=== PATIENT | female | born 1950 | race Caucasian/White ===

== ENCOUNTER 2016-05-10 08:23 | Emergency (ER) | payer OTHER ==
[2016-05-10 08:38] VITALS: BP 172/100; TEMP 98.4; BMI 60.7
--- NOTE | 2016-05-10 08:42 | ED.PDOC ---
General ED Provider: Dr. RICO HUGO JR Chief Complaint: Back Pain Stated Complaint: GETTING UP AT 0400 TO USE THE BATHROOM. SEVERE RIGHT LOWER BACK PAIN, RADIATING AROUND TO THE FRONT OF THE RIGHT LOWER ABD. CONSTANT PAIN.[ End]0400 98.4 77 20 98% 172/100 5/10 Time Seen by Physician: 08:53 Mode of Arrival: Walk-In Information Source: Patient, Family Exam Limitations: No limitations Primary Care Provider: SARAH BRUNNER Nursing and Triage Documentation Reviewed and Agree: No Review of Systems - Review Of Systems Constitutional: Reports: No symptoms Eyes: Reports: No symptoms Ears, Nose, Mouth, Throat: Reports: No symptoms Respiratory: Reports: No symptoms Cardiac: Reports: No symptoms GI: Reports: No symptoms : Reports: Flank pain (radiates around to front pain with position changed 10 rest 01/22 moving refuses pain meds) Musculoskeletal: Reports: Back pain Skin: Reports: No symptoms Neurological: Reports: No symptoms Endocrine: Reports: No symptoms Hematologic/Lymphatic: Reports: No symptoms All Other Systems: Other Past Medical History - Past Medical History Previously Healthy: Yes Endocrine: Reports: None, Hypothyroid Cardiovascular: Reports: Hypertension Respiratory: Reports: COPD, Asthma Hematological: Reports: None Gastrointestinal: Reports: GERD Genitourinary: Reports: None Neuro/Psych: Reports: Anxiety Musculoskeletal: Reports: None, Arthritis Cancer: Reports: None Last Menstrual Period: 1994 Other Pertinent Past Medical History: PINCHED NERVE TO NECK - Surgical History General Surgical History: Reports: Orthopedic (left knee replacement 2010 \ ganglion cyst) - Family History Family History: Reports: Kidney (sister with kidney stones, son with many kidney stones) - Social History Smoking Status: Former smoker Hx Substance Use: No Alcohol Screening: None - Immunizations Tetanus Shot up to Date: No Physical Exam - Physical Exam Appearance: Well-appearing, Obese Pain Distress: Moderate Neck: Supple Respiratory: Airway patent GI/: Soft, Tender (right flank tenderness) Musculoskeletal: Normal strength, ROM intact, No edema, No calf tenderness Skin: Warm, Dry, Normal color Neurological: Sensation intact, Motor intact, Reflexes intact, Cranial nerves intact, Alert, Oriented Interpretation - EKG Interpretation Time of EKG #1: 10:35 Rate: Normal Rhythm: Sinus ST Segment: Other (ant q waves no acute changes) Critical Care Note - Critical Care Note Total Time (mins): 0 Course - Course Hematology/Chemistry: 01/26/17 09:00 05/10/16 09:00 Orders, Labs, Meds: Lab Review 05/10/16 05/10/16 09:00 09:50 WBC 8.76 RBC 4.63 Hgb 13.9 Hct 41.7 MCV 90.1 MCH 30.0 MCHC 33.3 RDW Coeff of Marj 13.2 Plt Count 210 Immature Gran % (Auto) 0.2 Neut % (Auto) 62.5 Lymph % (Auto) 27.4 [place] % (Auto) 7.2 Eos % (Auto) 2.2 Baso % (Auto) 0.5 Immature Gran # (Auto) 0.0 Neut # 5.5 Lymph # 2.4 [place] # 0.6 Eos # 0.2 Baso # 0.0 Sodium 139 Potassium 4.0 Chloride 104 Carbon Dioxide 25 Anion Gap 14.0 BUN 17 Creatinine 0.75 Estimated GFR (MDRD) 77.00 BUN/Creatinine Ratio 22.66 Glucose 108 Calcium 9.2 Phosphorus 3.1 Total Bilirubin 0.60 AST 36 ALT 30 Alkaline Phosphatase 83 Total Protein 8.3 H Albumin 3.3 L Globulin 5.0 Albumin/Globulin Ratio 0.66 Urine Color Yellow Urine Clarity Slightly Urine pH 5.5 Ur Specific [place] 1.010 Urine Protein Negative Urine Glucose (UA) Negative Urine Ketones Negative Urine Blood Trace-lysed Urine Nitrite Positive Urine Bilirubin Negative Urine Urobilinogen 0.2 Ur Leukocyte Esterase 1+ Urine Microscopic RBC 2-5 Urine Microscopic WBC 10-20 Ur Squamous Epith Cells 5-10 Urine Bacteria 2+ Orders Category Date Time Status NPO REMINDER: IMAGING ONCE CARE 05/10/16 10:03 Active CBC W/ AUTO DIFF Stat LAB 05/10/16 09:00 Completed COMPREHENSIVE METABOLIC PANEL Stat LAB 05/10/16 09:00 Completed PHOSPHORUS Stat LAB 05/10/16 09:00 Completed URINALYSIS C & S IF INDICATED Stat LAB 05/10/16 09:50 Completed URINE CULTURE Stat LAB 05/10/16 10:12 Received Ketorolac Tromethamine [Toradol] MEDS 05/10/16 09:50 Discontinued 60 mg IM ONCE STA Nitrofurantoin Monohyd/M-Cryst [Macrobid] MEDS 05/10/16 10:47 Discontinued 100 mg PO ONCE STA Ondansetron HCl/Pf [Zofran 4 mg/2 ml] MEDS 05/10/16 09:50 Discontinued 4 mg IM ONCE STA CT ABDOMEN/PELVIS WO CONTRAST Stat RADS 05/10/16 08:49 Completed ULTRASOUND RENAL [U/S KIDNEYS] Stat RADS 05/10/16 10:02 Completed Medications Discontinued Medications Generic Name Dose Route Start Last Admin Trade Name Freq PRN Reason Stop Dose Admin Ketorolac Tromethamine 60 mg 05/10/16 09:50 05/10/16 10:02 Toradol IM 05/10/16 09:51 60 mg ONCE STA Administration Nitrofurantoin Macrocrystals 100 mg 05/10/16 10:47 05/10/16 10:57 Macrobid PO 05/10/16 10:48 100 mg ONCE STA Administration Ondansetron HCl 4 mg 05/10/16 09:50 05/10/16 10:04 Zofran 4 Mg/2 Ml IM 05/10/16 09:51 4 mg ONCE STA Administration Vital Signs: Temp Pulse Resp BP Pulse Ox 05/10/16 08:24 98.4 F 77 20 172/100 H 98 Departure - Departure Time of Disposition: 10:31 Disposition: HOME SELF-CARE Discharge Problem: UTI (urinary tract infection), Renal cyst Instructions: Urinary Tract Infection in Women (ED), Flank Pain (ED), Kidney Cyst (ED) Condition: Good Pt referred to PMD for follow-up: Yes Additional Instructions: Please follow-up with Dr. Brunner in 1-5 day increase fluids 6-8 cups clear liquid daily antibiotic until gone may check with PMD in 2 days about urine culture may use pyridium for pain (can cause staining) recheck pmd one week; sooner if not improved Prescriptions: Nitrofurantoin Monohyd/M-Cryst [Macrobid] 100 mg PO BID #14 capsule Phenazopyridine HCl [Pyridium] 200 mg PO TID PRN #10 tablet PRN Reason: PAIN Allergies/Adverse Reactions: Allergies levofloxacin [From Levaquin] Adverse Reaction (Intermediate, Verified 05/10/16 08:38) Itching Patient received Levaquin 750mg IVPB in ED on 06/25/13. Discontinued IVPB after 25 minutes because redness and itching up arm/IV site. amoxicillin [Amoxicillin] Adverse Reaction (Verified 05/10/16 08:38) Unknown ampicillin Adverse Reaction (Verified 05/10/16 08:38) Unknown atorvastatin calcium [From Lipitor] Adverse Reaction (Verified 05/10/16 08:38) Unknown azithromycin [From Zithromax] Adverse Reaction (Verified 05/10/16 08:38) Unknown clarithromycin [From Biaxin] Adverse Reaction (Verified 05/10/16 08:38) Unknown erythromycin base [Erythromycin Base] Adverse Reaction (Verified 05/10/16 08:38) Unknown Iodinated Contrast Media - Oral and [Iodinated Contrast Media - IV Dye] Adverse Reaction (Verified 05/10/16 08:38) Unknown Macrolide Antibiotics Adverse Reaction (Verified 05/10/16 08:38) Unknown Penicillins Adverse Reaction (Verified 05/10/16 08:38) Unknown rosuvastatin calcium [From Crestor] Adverse Reaction (Verified 05/10/16 08:38) Unknown Tetracyclines Adverse Reaction (Verified 05/10/16 08:38) Unknown Home Medications: Ambulatory Orders Nitrofurantoin Monohyd/M-Cryst [Macrobid] 100 mg PO BID #14 capsule 05/10/16 Phenazopyridine HCl [Pyridium] 200 mg PO TID PRN #10 tablet 05/10/16
[2016-05-10 09:11] LABS: BASOPHILS % (AUTO) 0.5 % (0.0-3.0); EOSINOPHILS # (AUTO) 0.2 K/ul (0.0-0.7); EOSINOPHILS % (AUTO) 2.2 % (0.0-7.0); HEMATOCRIT 41.7 % (37.0-47.0); HEMOGLOBIN 13.9 g/dl (12.0-16.0); IMMATURE GRANULOCYTE % (AUTO) 0.2 % (0.0-5.0); LYMPHOCYTES # (AUTO) 2.4 K/uL (0.60-3.4); LYMPHOCYTES % (AUTO) 27.4 (10.0-50.0); MEAN CORPUSCULAR HGB CONC 33.3 (31.8-35.4); MEAN CORPUSCULAR VOLUME 90.1 fl (81.0-99.0); MONOCYTES # (AUTO) 0.6 K/uL (0.4-2.0); MONOCYTES % (AUTO) 7.2 (0-10); NEUTROPHILS # (AUTO) 5.5 K/ul (2.0-6.9); NEUTROPHILS % (AUTO) 62.5; PLATELET COUNT 210 10^3/uL (140-440); RED BLOOD COUNT 4.63 10^6/ul (4.20-5.40); WHITE BLOOD COUNT 8.76 K/ul (4.6-10.2)
[2016-05-10 09:34] LABS: ALBUMIN 3.3 g/dL (3.4-5.0); ALBUMIN/GLOBULIN RATIO 0.66; BILIRUBIN,TOTAL 0.6 mg/dL (0.00-1.20); BUN/CREATININE RATIO 22.66; CALCIUM 9.2 mg/dL (8.2-10.2); CREATININE 0.75 mg/dL (0.60-1.30); PHOSPHORUS 3.1 mg/dL (2.8-4.1); TOTAL PROTEIN 8.3 g/dL (5.8-8.1)
[2016-05-10] MEDS ORDERED: TORADOL IM STA (09:50)
[2016-05-10] MEDS ORDERED: ZOFRAN 4 MG/2 ML IM STA (09:50)
--- NOTE | 2016-05-10 09:58 | CT ---
EXAM: CT ABDOMEN AND PELVIS HISTORY: Abdominal pain, right flank and right lower quadrant TECHNIQUE: CT abdomen and pelvis without intravenous contrast. Images were reconstructed using 5 m m section thickness. Reformations were prepared. COMPARISON: 08/11/2008 FINDINGS: Diagnostic limitations exist without including contrast enhanced images. Motion artifact degrades i mage quality as does body habitus. There may be a few punctate calculi within the left kidney measu ring about 0.3 cm or less. Neither kidney has evidence of hydronephrosis. The visualized ureters h ave no evidence of obstruction. There is a medial upper pole left renal cortical cystic mass at 2.8 cm with indeterminate attenuation values slightly higher than water. This mass has slightly increas ed in size since prior dated exam of 2008. There is moderate atherosclerotic disease of the aorta wi th no aneurysmal caliber. Stomach and the visualized duodenal sweep appear grossly normal. Normal appendix. Unremarkable bow el gas pattern. Mild sigmoid diverticulosis. Uterus and urinary bladder grossly normal. No visibl e ascites or inflammatory infiltration of the abdominal fat. No abdominal wall hernia. Severe dege nerative changes of the spine. No pneumoperitoneum. IMPRESSION: 1. Normal appendix. 2. Cystic mass of the upper medial right renal cortex slightly enlarged since prior study and is in determinate in attenuation. Correlation with renal ultrasound is recommended to assure simple cysti c nature. 3. Left nephrolithiasis. Neither kidney has evidence of hydronephrosis or ureteral obstruction. 4. Severe degenerative changes of the spine. 5. Moderate atherosclerotic disease. 6. Mild sigmoid diverticulosis.
[2016-05-10 10:12] LABS: ADD URINE MICROSCOPIC YES; BILIRUBIN,URINE Negative (NEGATIVE); KETONES,URINE Negative (NEGATIVE); LEUKOCYTE ESTERASE ,URINE 1+ (NEGATIVE); NITRITE,URINE Positive (NEGATIVE); PH,URINE 5.5 (5-9); PROTEIN,URINE Negative (NEGATIVE); URINE, BLOOD Trace-lysed (NEGATIVE)
[2016-05-10 10:13] LABS: BACTERIA,URINE 2+ (NOT PRESENT)
[2016-05-10] MEDS ORDERED: MACROBID PO STA (10:47)
--- NOTE | 2016-05-10 11:21 | US ---
EXAM: Renal ultrasound HISTORY: Right renal cystic mass COMPARISON: CT abdomen pelvis 05/10/2016 same day TECHNIQUE: Sonographic evaluation of the kidneys was performed with limited Doppler evaluation. FINDINGS: The right kidney measures 11.0 x 4.0 x 4.3 cm with renal cortical thickness of 0.9 cm. T here is normal echogenicity and color Doppler flow. No stone or hydronephrosis is identified. Ther e is an anechoic cyst measuring 2.5 x 2.6 x 3.1 cm. The left kidney measures 10.0 x 4.5 x 4.2 cm with renal cortical thickness of 1.0 cm. There is norm al echogenicity and color Doppler flow. No stone or hydronephrosis is identified. Limited evaluation of the urinary bladder is unremarkable. IMPRESSION: Anechoic right renal cysts with no visualized mass. If further evaluation is indicated, CT renal ma ss protocol is recommended.
== END 2016-05-10 11:47 | disposition home or self-care (01) ==
LOC: ED 08:23
DX: N39.0 Urinary tract infection, site not specified (principal); N28.1 Cyst of kidney, acquired; I10 Essential (primary) hypertension; E03.9 Hypothyroidism, unspecified
CPT/HCPCS: 36415; 76770; 80053; 81001; 84100; 85025; 87086; 87186; 96372; 99283

== ENCOUNTER 2016-05-29 13:05 | Inpatient (IN) | payer OTHER ==
[2016-05-29] MEDS ORDERED: TYLENOL PO PRN (13:29)
[2016-05-29] MEDS ORDERED: MORPHINE 4 MG/ML SYRINGE IVP PRN ×2 (13:29→15:11)
[2016-05-29] MEDS ORDERED: VISTARIL INJ IM PRN (13:29)
[2016-05-29] MEDS ORDERED: NITROSTAT SL PRN (13:29)
[2016-05-29] MEDS ORDERED: ATROPINE SULFATE PFS IVP PRN (13:29)
[2016-05-29] MEDS ORDERED: PHENERGAN WITH CODEINE 6.25/10 MG/5 ML PO PRN (13:39)
[2016-05-29 13:53] LABS: ABG BASE EXCESS 5 (-2.0-2.0); ABG HCO3 30.4 (22.0-26.0); ABG PCO2 53.4 mmHg (35-45); ABG PH 7.364 (7.35-7.45); ABG TCO2 32 (22.0-28.0)
[2016-05-29] MEDS ORDERED: SOLU-MEDROL 125 MG IVP SCH (14:00)
[2016-05-29] MEDS ORDERED: LEVAQUIN 500 MG in PREMIX 100 ML D5W 1 BAG IV SCH (14:00)
[2016-05-29] MEDS ORDERED: XOPENEX 1.25 MG NEB SCH (14:00)
[2016-05-29 14:03] LABS: BASOPHILS % (AUTO) 0.4 % (0.0-3.0); EOSINOPHILS # (AUTO) 0.2 K/ul (0.0-0.7); EOSINOPHILS % (AUTO) 2.4 % (0.0-7.0); HEMATOCRIT 37.8 % (37.0-47.0); HEMOGLOBIN 12.2 g/dl (12.0-16.0); IMMATURE GRANULOCYTE % (AUTO) 0.3 % (0.0-5.0); LYMPHOCYTES # (AUTO) 3.5 K/uL (0.60-3.4); LYMPHOCYTES % (AUTO) 38.3 (10.0-50.0); MEAN CORPUSCULAR HEMOGLOBIN 29.7 pg (27.0-31.0); MEAN CORPUSCULAR HGB CONC 32.3 (31.8-35.4); MONOCYTES # (AUTO) 0.7 K/uL (0.4-2.0); MONOCYTES % (AUTO) 7.8 (0-10); NEUTROPHILS # (AUTO) 4.6 K/ul (2.0-6.9); NEUTROPHILS % (AUTO) 50.8; PLATELET COUNT 222 10^3/uL (140-440); RED BLOOD COUNT 4.11 10^6/ul (4.20-5.40); WHITE BLOOD COUNT 9.07 K/ul (4.6-10.2)
[2016-05-29 14:32] LABS: ALBUMIN 2.9 g/dL (3.4-5.0); ALBUMIN/GLOBULIN RATIO 0.67; ANION GAP 7.5; BILIRUBIN,TOTAL 0.34 mg/dL (0.00-1.20); BUN/CREATININE RATIO 20.43; CALCIUM 8.6 mg/dL (8.2-10.2); CREATININE 0.93 mg/dL (0.60-1.30); POTASSIUM 4.5 mmol/L (3.5-5.10); TOTAL PROTEIN 7.2 g/dL (5.8-8.1)
[2016-05-29 14:44] VITALS: BMI 58.0
[2016-05-29 15:06] LABS: CREATINE KINASE 35 U/L; MYOGLOBIN 32 ng/ml
--- NOTE | 2016-05-29 15:36 | DI ---
EXAM: Chest two views HISTORY: Shortness of air COMPARISON: 06/19/2015 TECHNIQUE: Two views of the chest were performed FINDINGS: There is lower airway bronchial wall thickening. There is no focal airspace consolidatio n. There is no pleural effusion or pneumothorax. The heart is normal in size. The mediastinal cont our is normal. There is no acute abnormality of the bones. IMPRESSION: Lower airway thickening may represent reactive airways disease or bronchiolitis. No fo saray airspace consolidation.
[2016-05-29] MEDS: ROCEPHIN 1 GM in SODIUM CHLORIDE 100 ML IV SCH (15:53)
[2016-05-29] MEDS: SOLU-CORTEF 250 MG IVP SCH ×2 (16:04→20:41)
[2016-05-29 18:23] LABS: BILIRUBIN,URINE Negative (NEGATIVE); KETONES,URINE Negative (NEGATIVE); LEUKOCYTE ESTERASE ,URINE Negative (NEGATIVE); NITRITE,URINE Negative (NEGATIVE); PROTEIN,URINE Negative (NEGATIVE); URINE, BLOOD Trace-intact (NEGATIVE)
[2016-05-29 18:24] LABS: ADD URINE MICROSCOPIC YES
[2016-05-29] MEDS: PULMICORT 0.5 MG/2 ML NEB SCH (18:30)
[2016-05-29] MEDS: XOPENEX 1.25 MG NEB SCH ×2 (18:30→22:59)
[2016-05-29] MEDS: ZIAC 5-6.25 MG PO SCH (20:25)
[2016-05-29 21:53] LABS: CREATINE KINASE 34 U/L; MYOGLOBIN 25 ng/ml
[2016-05-30] MEDS: SOLU-CORTEF 250 MG IVP SCH ×3 (05:22→20:39)
[2016-05-30] MEDS: PULMICORT 0.5 MG/2 ML NEB SCH ×2 (05:39→17:04)
[2016-05-30] MEDS: XOPENEX 1.25 MG NEB SCH ×4 (05:40→22:50)
[2016-05-30] MEDS ORDERED: ASPIRIN EC PO SCH (08:00)
[2016-05-30] MEDS: ASPIRIN EC PO SCH (08:33)
[2016-05-30] MEDS: COZAAR PO SCH (08:33)
[2016-05-30] MEDS: ROCEPHIN 1 GM in SODIUM CHLORIDE 100 ML IV SCH (08:34)
[2016-05-30 08:57] LABS: BASOPHILS % (AUTO) 0.2 % (0.0-3.0); HEMATOCRIT 40.1 % (37.0-47.0); HEMOGLOBIN 13.1 g/dl (12.0-16.0); IMMATURE GRANULOCYTE % (AUTO) 0.6 % (0.0-5.0); LYMPHOCYTES # (AUTO) 1.1 K/uL (0.60-3.4); LYMPHOCYTES % (AUTO) 11.2 (10.0-50.0); MEAN CORPUSCULAR HEMOGLOBIN 29.6 pg (27.0-31.0); MEAN CORPUSCULAR HGB CONC 32.7 (31.8-35.4); MEAN CORPUSCULAR VOLUME 90.7 fl (81.0-99.0); MONOCYTES # (AUTO) 0.2 K/uL (0.4-2.0); MONOCYTES % (AUTO) 1.9 (0-10); NEUTROPHILS # (AUTO) 8.5 K/ul (2.0-6.9); NEUTROPHILS % (AUTO) 86.1; PLATELET COUNT 200 10^3/uL (140-440); RED BLOOD COUNT 4.42 10^6/ul (4.20-5.40); WHITE BLOOD COUNT 9.89 K/ul (4.6-10.2)
[2016-05-30 09:17] LABS: ALBUMIN/GLOBULIN RATIO 0.57; ANION GAP 14.2; BILIRUBIN,TOTAL 0.44 mg/dL (0.00-1.20); BUN/CREATININE RATIO 19.35; CALCIUM 9.1 mg/dL (8.2-10.2); CREATININE 0.93 mg/dL (0.60-1.30); POTASSIUM 4.2 mmol/L (3.5-5.10); TOTAL PROTEIN 8.3 g/dL (5.8-8.1)
--- NOTE | 2016-05-30 10:23 | HP ---
DATE OF SERVICE: 05/29/16 REASON FOR HOSPITALIZATION: Shortness of breath, cough and wheezing. HISTORY OF PRESENT ILLNESS: This is a 65-year-old female patient who presented with shortness of breath, cough and wheezing. She has been in bed for four days. She lives by herself. She has had a poor appetite times three days. The shortness of breath is with exertion and has wheezing. She has right-sided pleuritic pain with cough. No CHF symptoms/sweating spells. REVIEW OF SYSTEMS: CONSTITUTIONAL: Fever at home. No fatigue. HEENT: Sinus drainage. No sore throat. RESPIRATORY: Cough productive of yellowish sputum. No hemoptysis. CARDIOVASCULAR: No atypical chest pain for coronary artery disease. No angina , CHF symptoms, or palpitations. Mild shortness of breath. GASTROINTESTINAL: No melena or abdominal pain. No GERD. GENITOURINARY: No hematuria, no polyuria. BOXING PROMOTER: No blackout, no dizziness, no headache, no double vision. MUSCULOSKELETAL: No osteoarthritis pain, no joint swelling. ENDOCRINE: No weight loss, no weight gain. SKIN: Not dry, no rash. PSYCHIATRIC: Anxious. No depression, no suicidal thoughts, no homicidal thoughts. PAST MEDICAL HISTORY: 1. Hypertension 2. LVH 3. Obesity (morbid) 4. GERD 5. Sleep apnea 6. Diabetes mellitus Type 2 7. DJD 8. Dyslipidemia 9. Right renal mass SOCIAL HISTORY: The patient is a former smoker; quit 1998. ; has three children. No alcohol use. FAMILY HISTORY: Father and mother . She has four brothers and two sisters. MEDICATIONS: (HOME) 1. Losartan (Cozaar) 50 mg p.o. daily 2. Bisoprolol Fumarate/HCTZ (Ziac 5-6.25 mg) one tab p.o. bedtime 3. Aspirin 81 mg p.o. daily with meal PHYSICAL EXAMINATION: V/S: Pulse 72, BP 130/80, temperature 98.4, 02 sat 91%. Weight 342.2; height 5' 4"; BMI 59. GENERAL APPEARANCE: Oriented times three. HEENT: Normal. NECK: No JVP, no bruits. RESPIRATORY: Mild wheeze. CARDIOVASCULAR: S1, S2, no S3, no murmurs. No cyanosis, clubbing. No ascites. GI/ABDOMEN: No tenderness. Bowel sounds are active. EXTREMITIES: No edema, pulses +1, equal. BOXING PROMOTER: Deep tendon reflexes, sensory, motor and gait all normal. ASSESSMENT: 1. ACUTE BRONCHITIS/PNEUMONITIS 2. RESTRICTIVE LUNG DISEASE 3. HYPERTENSION/LVH 4. DIABETES MELLITUS TYPE 2 5. MORBID OBESITY 6. VITAMIN B12 DEFICIENCY 7. GERD 8. SEVERE DJD SPINE 9. MODERATE ASHD - AORTIC DISEASE 10. DYSLIPIDEMIA 11. SLEEP APNEA ON CPAP WITH 02 12. RIGHT RENAL MASS 05/10/16 U/S (ok) PLAN: 1. Admit regular 2. Routine telemetry orders 3. Solu-Cortef 125 mg IVP q.8hr 4. Xopenex nebs q.i.d. 5. Pulmicort b.i.d. 6. Levaquin 500 mg IV 24 hourly 7. ABG today 8. Oxygen 2L/cannula/min 9. Continue all medications 10. Phenergan with Codeine two teaspoons p.o. q.i.d. daily for cough 11. Elevate legs TIME SPENT: More than 70 minutes. MTDD
[2016-05-30 11:35] LABS: FLU INTERNAL QC INTERNAL QC VALID; RAPID FLU A NEGATIVE (NEGATIVE); RAPID FLU B NEGATIVE (NEGATIVE)
--- NOTE | 2016-05-30 11:58 | PCM.PROG ---
Attending Provider: ATTENDING PROVIDER: Dr. SARAH BRUNNER DATE OF SERVICE: 05/30/16 SUBJECTIVE: This 65 year old WHITE/ F was hospitalized 05/29/16. The patient is hospitalized with acute bronchitis/pneumonitis of several weeks' duration, treated as an outpatient with antibiotic and steroids. She did not improve and presented to the office in mild distress. This morning she is wheezing but seems seems stable and in no distress, says she is feeling better. REVIEW OF SYSTEMS: CONSTITUTIONAL: No night sweats. No fatigue, malaise, lethargy. No fever or chills. HEENT: Eyes: No visual changes. No eye pain. No eye discharge. ENT: No runny nose. No epistaxis. No sinus pain. No odynophagia. No congestion. RESPIRATORY: No cough, no congestion. No hemoptysis. CARDIOVASCULAR: No angina symptoms. No CHF symptoms. No atypical chest pain for CAD. No palpitations. No shortness of breath. GASTROINTESTINAL: No abdominal pain. No nausea or vomiting. No diarrhea or constipation. No hematemesis. No hematochezia. GENITOURINARY: No urgency. No frequency. No dysuria. No hematuria. No obstructive symptoms. No discharge. No pain. No significant abnormal bleeding. MUSCULOSKELETAL: No musculoskeletal pain; no joint swelling. NEUROLOGICAL: Awake, alert, oriented to time, place and person. No headache. No neck pain. No syncope. No seizures. No dizziness. PSYCHIATRIC: Not anxious. No depression. No suicidal thoughts. No homicidal thoughts. SKIN: No rash. No lesions. No wounds. ENDOCRINE: No unexplained weight loss. No weight gain. HEMATOLOGIC/LYMPHATIC: No anemia. No purpura. No petechiae. No prolonged or excessive bleeding. No palpable lymph nodes. PHYSICAL EXAMINATION: GENERAL: The patient is awake, alert and oriented, lying in bed in no distress. VITAL SIGNS: Temperature 96.7 F, Pulse 56, Respiratory Rate 16, BP 147/76, Pulse Ox 95% HEENT: Head normocephalic, atraumatic. Eyes: Extraocular muscles are intact. Pupils are equal, round and reactive to light and accommodation. Ears: No lesions. Nose appeared normal. Throat: No exudate or erythema. NECK: Supple. No JVD, no carotid bruit. No lymphadenopathy or thyromegaly. LUNGS: Mild wheeze but good air entry. Percussion note normal. Chest symmetrical. HEART: S1, S2, no S3. No murmurs. No cyanosis or clubbing. No ascites. Pulses: Dorsalis pedis and posterior tibial pulses +1 to +2 both sides. ABDOMEN: Soft. Non-tender. Bowel sounds active. No CVA tenderness. No mass felt. EXTREMITIES: No edema. Full range of motion of all extremities, equal. NEUROLOGIC: No focal deficit. Cranial nerves II through XII are grossly intact. No headache, no double vision or headache. SKIN: Not dry. Intact. Turgor-better. LYMPHATIC: No palpable lymph nodes/no lymphedema. MUSCULOSKELETAL: Normal joints with no swelling. Muscle tone is normal. LAB REVIEW: 05/29/16 13:55 05/29/16 13:55 05/29/16 21:20: Total Creatine Kinase 34, Myoglobin 25, Troponin I < 0.0100 05/29/16 18:10: Urine Color Yellow, Urine Clarity Clear, Urine pH 5.0, Ur Specific [place] 1.015, Urine Protein Negative, Urine Glucose (UA) Negative, Urine Ketones Negative, Urine Blood Trace-intact, Urine Nitrite Negative, Urine Bilirubin Negative, Urine Urobilinogen 0.2, Ur Leukocyte Esterase Negative, Urine Microscopic RBC 2-5, Urine Microscopic WBC 0-2, Ur Squamous Epith Cells Not present 05/29/16 13:55: WBC 9.07, RBC 4.11 L, Hgb 12.2, Hct 37.8, MCV 92.0, MCH 29.7, MCHC 32.3, RDW Coeff of Marj 13.2, Plt Count 222, Immature Gran % (Auto) 0.3, Neut % (Auto) 50.8, Lymph % (Auto) 38.3, [place] % (Auto) 7.8, Eos % (Auto) 2.4, Baso % (Auto) 0.4, Immature Gran # (Auto) 0.0, Neut # 4.6, Lymph # 3.5 H, [place] # 0.7, Eos # 0.2, Baso # 0.0, Sodium 142, Potassium 4.5, Chloride 107, Carbon Dioxide 32 H, Anion Gap 7.5, BUN 19 H, Creatinine 0.93, Estimated GFR (MDRD) 60.00, BUN/Creatinine Ratio 20.43, Glucose 105, Calcium 8.6, Total Bilirubin 0.34, AST 22, ALT 18, Alkaline Phosphatase 90, Total Creatine Kinase 35, Myoglobin 32, Troponin I < 0.0100, Total Protein 7.2, Albumin 2.9 L, Globulin 4.3, Albumin/Globulin Ratio 0.67 05/29/16 13:50: Puncture Site R rad, O2 Saturation 94.0 L, ABG pH 7.364, ABG pCO2 53.4 H, ABG pO2 73.0 L, ABG HCO3 30.4 H, ABG Total CO2 32 H, ABG Base Excess 5 H, [place] Test +, FiO2 % 21.0 ASSESSMENT: 1. Acute bronchitis/pneumonia resolved. 2. Dehydration seems better. 3. Hypertension/LVH 4. Diabetes mellitus type 2 5. Morbid obesity 6. Vitamin B12 deficiency 7. GERD 8. Severe DJD spine 9. Moderate ASHD- aortic disease 10. Dyslipidemia 11. Sleep apnea on CPAP with 02 12. Renal mass, right, 05/10/16, ultrasound negative. PLAN: 1. Continue antibiotics, steroids and nebs 2. Flu Rapid A and B 3. Daily CBC and CMP Plan and coordination of the patient's care discussed in the presence of Auction Clerk and nurse. CONDITION: Stable, improving. SCRIBED BY: ALTAGRACIA DOWELL, Knitted Goods Shaper scribed while in presence of service performed by Dr. SARAH BRUNNER on 05/30/16 ([id number])
[2016-05-30] MEDS: ZIAC 5-6.25 MG PO SCH (20:21)
[2016-05-31] MEDS: PULMICORT 0.5 MG/2 ML NEB SCH ×2 (04:42→17:36)
[2016-05-31] MEDS: XOPENEX 1.25 MG NEB SCH ×4 (04:42→22:50)
[2016-05-31] MEDS: SOLU-CORTEF 250 MG IVP SCH ×3 (05:26→20:02)
[2016-05-31 06:08] LABS: BASOPHILS % (AUTO) 0.2 % (0.0-3.0); HEMATOCRIT 37.7 % (37.0-47.0); HEMOGLOBIN 12.4 g/dl (12.0-16.0); LYMPHOCYTES # (AUTO) 1.6 K/uL (0.60-3.4); LYMPHOCYTES % (AUTO) 13.4 (10.0-50.0); MEAN CORPUSCULAR HEMOGLOBIN 29.6 pg (27.0-31.0); MEAN CORPUSCULAR HGB CONC 32.9 (31.8-35.4); MONOCYTES # (AUTO) 0.5 K/uL (0.4-2.0); MONOCYTES % (AUTO) 3.9 (0-10); NEUTROPHILS % (AUTO) 81.5; PLATELET COUNT 218 10^3/uL (140-440); RED BLOOD COUNT 4.19 10^6/ul (4.20-5.40); WHITE BLOOD COUNT 12.26 K/ul (4.6-10.2)
[2016-05-31 06:48] LABS: ALBUMIN 2.9 g/dL (3.4-5.0); ALBUMIN/GLOBULIN RATIO 0.62; BILIRUBIN,TOTAL 0.3 mg/dL (0.00-1.20); BUN/CREATININE RATIO 26.88; CALCIUM 8.8 mg/dL (8.2-10.2); CREATININE 0.93 mg/dL (0.60-1.30); TOTAL PROTEIN 7.6 g/dL (5.8-8.1)
[2016-05-31] MEDS: ROCEPHIN 1 GM in SODIUM CHLORIDE 100 ML IV SCH (08:32)
[2016-05-31] MEDS: ASPIRIN EC PO SCH (08:32)
[2016-05-31] MEDS: COZAAR PO SCH (08:32)
--- NOTE | 2016-05-31 11:57 | PCM.PROG ---
Attending Provider: ATTENDING PROVIDER: Dr. SARAH BRUNNER DATE OF SERVICE: 05/31/16 SUBJECTIVE: This 65 year old WHITE/ F was hospitalized 05/29/16. The patient is hospitalized with acute bronchitis and pneumonitis. The patient was coughing a lot yesterday. The patient's condition has improved remarkably with not much coughing today, no distress at all. She still has some dry cough. REVIEW OF SYSTEMS: CONSTITUTIONAL: No night sweats. No fatigue, malaise, lethargy. No fever or chills. HEENT: Eyes: No visual changes. No eye pain. No eye discharge. ENT: No runny nose. No epistaxis. No sinus pain. No odynophagia. No congestion. RESPIRATORY: Less cough which is dry, no congestion. No hemoptysis. CARDIOVASCULAR: No angina symptoms. No CHF symptoms. No atypical chest pain for CAD. No palpitations. No shortness of breath. GASTROINTESTINAL: Appetite is better. No abdominal pain. No nausea or vomiting. No diarrhea or constipation. No hematemesis. No hematochezia. GENITOURINARY: No urgency. No frequency. No dysuria. No hematuria. No obstructive symptoms. No discharge. No pain. No significant abnormal bleeding. MUSCULOSKELETAL: No musculoskeletal pain; no joint swelling. NEUROLOGICAL: Awake, alert, oriented to time, place and person. No headache. No neck pain. No syncope. No seizures. No dizziness. PSYCHIATRIC: Not anxious. No depression. No suicidal thoughts. No homicidal thoughts. SKIN: No rash. No lesions. No wounds. ENDOCRINE: No unexplained weight loss. No weight gain. HEMATOLOGIC/LYMPHATIC: No anemia. No purpura. No petechiae. No prolonged or excessive bleeding. No palpable lymph nodes. PHYSICAL EXAMINATION: GENERAL: The patient is awake, alert and oriented lying in bed in no distress. VITAL SIGNS: Temperature 97 F, Pulse 60, Respiratory Rate 18, BP 148/70, Pulse Ox 94% HEENT: Head normocephalic, atraumatic. Eyes: Extraocular muscles are intact. Pupils are equal, round and reactive to light and accommodation. Ears: No lesions. Nose appeared normal. Throat: No exudate or erythema. NECK: Supple. No JVD, no carotid bruit. No lymphadenopathy or thyromegaly. LUNGS: Decreased breath sounds. Clear to auscultation. Percussion note normal. Chest symmetrical. HEART: S1, S2, no S3. No murmurs. No cyanosis or clubbing. No ascites. Pulses: Dorsalis pedis and posterior tibial pulses +1 to +2 both sides. ABDOMEN: Soft. Non-tender. Bowel sounds active. No CVA tenderness. No mass felt. EXTREMITIES: No edema. Full range of motion of all extremities, equal. NEUROLOGIC: No focal deficit. Cranial nerves II through XII are grossly intact. No headache, no double vision or headache. SKIN: Not dry. Intact. Turgor-normal. LYMPHATIC: No palpable lymph nodes/no lymphedema. MUSCULOSKELETAL: Normal joints with no swelling. Muscle tone is normal. LAB REVIEW: 05/31/16 05:30 05/31/16 05:30 05/31/16 05:30: WBC 12.26 H, RBC 4.19 L, Hgb 12.4, Hct 37.7, MCV 90.0, MCH 29.6 , MCHC 32.9, RDW Coeff of Marj 13.1, Plt Count 218, Immature Gran % (Auto) 1.0, Neut % (Auto) 81.5, Lymph % (Auto) 13.4, [place] % (Auto) 3.9, Eos % (Auto) 0.0, Baso % (Auto) 0.2, Immature Gran # (Auto) 0.1, Neut # 10.0 H, Lymph # 1.6, [place] # 0.5, Eos # 0.0, Baso # 0.0, Sodium 139, Potassium 4.0, Chloride 102, Carbon Dioxide 28, Anion Gap 13.0, BUN 25 H, Creatinine 0.93, Estimated GFR (MDRD) 60.00, BUN/Creatinine Ratio 26.88, Glucose 200 H, Calcium 8.8, Total Bilirubin 0.30, AST 13 L, ALT 14, Alkaline Phosphatase 75, Total Protein 7.6, Albumin 2.9 L, Globulin 4.7, Albumin/Globulin Ratio 0.62 05/30/16 11:10: Influenza A (Rapid) Negative, Influenza B (Rapid) Negative 05/30/16 08:50: WBC 9.89, RBC 4.42, Hgb 13.1, Hct 40.1, MCV 90.7, MCH 29.6, MCHC 32.7, RDW Coeff of Marj 13.1, Plt Count 200, Immature Gran % (Auto) 0.6, Neut % (Auto) 86.1, Lymph % (Auto) 11.2, [place] % (Auto) 1.9, Eos % (Auto) 0.0, Baso % (Auto) 0.2, Immature Gran # (Auto) 0.1, Neut # 8.5 H, Lymph # 1.1, [place] # 0.2 L, Eos # 0.0, Baso # 0.0, Sodium 139, Potassium 4.2, Chloride 101, Carbon Dioxide 28, Anion Gap 14.2, BUN 18, Creatinine 0.93, Estimated GFR (MDRD) 60.00 , BUN/Creatinine Ratio 19.35, Glucose 181 H D, Calcium 9.1, Total Bilirubin 0.44 , AST 18, ALT 17, Alkaline Phosphatase 83, Total Protein 8.3 H, Albumin 3.0 L, Globulin 5.3, Albumin/Globulin Ratio 0.57 ASSESSMENT: Please see below. 1. ACUTE BRONCHITIS/PNEUMONITIS RESOLVING. PLAN: 1. Continue steroids and antibiotics. 2. Up and about. 3. Will likely discharge tomorrow. Plan and coordination of the patient's care discussed in the presence of Block Operator and nurse. CONDITION: STABLE SCRIBED BY: ALTAGRACIA DOWELL Feed Preparation Operator scribed while in presence of service performed by Dr. SARAH BRUNNER on 05/31/16 ([id number])
[2016-05-31] MEDS: ZIAC 5-6.25 MG PO SCH (20:02)
[2016-06-01] MEDS: XOPENEX 1.25 MG NEB SCH ×2 (05:05→11:01)
[2016-06-01] MEDS: PULMICORT 0.5 MG/2 ML NEB SCH (05:05)
[2016-06-01] MEDS: SOLU-CORTEF 250 MG IVP SCH (05:06)
[2016-06-01 05:33] VITALS: BP 132/60; TEMP 97.1
[2016-06-01 05:43] LABS: BASOPHILS % (AUTO) 0.1 % (0.0-3.0); HEMATOCRIT 36.5 % (37.0-47.0); HEMOGLOBIN 11.8 g/dl (12.0-16.0); IMMATURE GRANULOCYTE % (AUTO) 0.6 % (0.0-5.0); LYMPHOCYTES # (AUTO) 1.9 K/uL (0.60-3.4); LYMPHOCYTES % (AUTO) 18.6 (10.0-50.0); MEAN CORPUSCULAR HEMOGLOBIN 29.2 pg (27.0-31.0); MEAN CORPUSCULAR HGB CONC 32.3 (31.8-35.4); MEAN CORPUSCULAR VOLUME 90.3 fl (81.0-99.0); MONOCYTES # (AUTO) 0.6 K/uL (0.4-2.0); MONOCYTES % (AUTO) 6.2 (0-10); NEUTROPHILS # (AUTO) 7.5 K/ul (2.0-6.9); NEUTROPHILS % (AUTO) 74.5; PLATELET COUNT 215 10^3/uL (140-440); RED BLOOD COUNT 4.04 10^6/ul (4.20-5.40)
[2016-06-01 06:10] LABS: ALBUMIN 2.7 g/dL (3.4-5.0); ALBUMIN/GLOBULIN RATIO 0.63; ANION GAP 12.7; BILIRUBIN,TOTAL 0.19 mg/dL (0.00-1.20); BUN/CREATININE RATIO 26.74; CALCIUM 8.8 mg/dL (8.2-10.2); CREATININE 0.86 mg/dL (0.60-1.30); POTASSIUM 3.7 mmol/L (3.5-5.10)
[2016-06-01] MEDS: ROCEPHIN 1 GM in SODIUM CHLORIDE 100 ML IV SCH (08:32)
[2016-06-01] MEDS: ASPIRIN EC PO SCH (08:36)
[2016-06-01] MEDS: COZAAR PO SCH (08:36)
--- NOTE | 2016-06-01 09:33 | PCM.PROG ---
Attending Provider: ATTENDING PROVIDER: Dr. SARAH BRUNNER DATE OF SERVICE: 06/01/16 SUBJECTIVE: This 65 year old WHITE/ F was hospitalized 05/29/16. The patient is hospitalized with acute bronchitis/pneumonitis. She was treated as an outpatient with steroids and antibiotics without success. After admission with IV antibiotics, IV steroids and nebs treatment, the patient's condition has improved. REVIEW OF SYSTEMS: CONSTITUTIONAL: No night sweats. No fatigue, malaise, lethargy. No fever or chills. HEENT: Eyes: No visual changes. No eye pain. No eye discharge. ENT: No runny nose. No epistaxis. No sinus pain. No odynophagia. No congestion. RESPIRATORY: No cough, no congestion. No hemoptysis. CARDIOVASCULAR: No angina symptoms. No CHF symptoms. No atypical chest pain for CAD. No palpitations. No shortness of breath. GASTROINTESTINAL: No abdominal pain. No nausea or vomiting. No diarrhea or constipation. No hematemesis. No hematochezia. GENITOURINARY: No urgency. No frequency. No dysuria. No hematuria. No obstructive symptoms. No discharge. No pain. No significant abnormal bleeding. MUSCULOSKELETAL: No musculoskeletal pain; no joint swelling. NEUROLOGICAL: Awake, alert, oriented to time, place and person. No headache. No neck pain. No syncope. No seizures. No dizziness. PSYCHIATRIC: Not anxious. No depression. No suicidal thoughts. No homicidal thoughts. SKIN: No rash. No lesions. No wounds. ENDOCRINE: No unexplained weight loss. No weight gain. HEMATOLOGIC/LYMPHATIC: No anemia. No purpura. No petechiae. No prolonged or excessive bleeding. No palpable lymph nodes. PHYSICAL EXAMINATION: GENERAL: The patient is awake, alert and oriented, lying in bed in no distress. VITAL SIGNS: Temperature 97.1 F, Pulse 50, Respiratory Rate 16, BP 132/60, Pulse Ox 98% HEENT: Head normocephalic, atraumatic. Eyes: Extraocular muscles are intact. Pupils are equal, round and reactive to light and accommodation. Ears: No lesions. Nose appeared normal. Throat: No exudate or erythema. NECK: Supple. No JVD, no carotid bruit. No lymphadenopathy or thyromegaly. LUNGS: Clear to auscultation. Percussion note normal. Chest symmetrical. HEART: S1, S2, no S3. No murmurs. No cyanosis or clubbing. No ascites. Pulses: Dorsalis pedis and posterior tibial pulses +1 to +2 both sides. ABDOMEN: Soft. Non-tender. Bowel sounds active. No CVA tenderness. No mass felt. EXTREMITIES: No edema. Full range of motion of all extremities, equal. NEUROLOGIC: No focal deficit. Cranial nerves II through XII are grossly intact. No headache, no double vision or headache. SKIN: Not dry. Intact. Turgor-normal. LYMPHATIC: No palpable lymph nodes/no lymphedema. MUSCULOSKELETAL: Normal joints with no swelling. Muscle tone is normal. LAB REVIEW: 06/01/16 05:20 06/01/16 05:20 06/01/16 05:20: WBC 10.00, RBC 4.04 L, Hgb 11.8 L, Hct 36.5 L, MCV 90.3, MCH 29.2, MCHC 32.3, RDW Coeff of Marj 13.2, Plt Count 215, Immature Gran % (Auto) 0.6, Neut % (Auto) 74.5, Lymph % (Auto) 18.6, [place] % (Auto) 6.2, Eos % (Auto) 0.0, Baso % (Auto) 0.1, Immature Gran # (Auto) 0.1, Neut # 7.5 H, Lymph # 1.9, Rains # 0.6, Eos # 0.0, Baso # 0.0, Sodium 142, Potassium 3.7, Chloride 103, Carbon Dioxide 30, Anion Gap 12.7, BUN 23 H, Creatinine 0.86, Estimated GFR ( MDRD) 66.00, BUN/Creatinine Ratio 26.74, Glucose 178 H, Calcium 8.8, Total Bilirubin 0.19, AST 15, ALT 11 L, Alkaline Phosphatase 65, Total Protein 7.0, Albumin 2.7 L, Globulin 4.3, Albumin/Globulin Ratio 0.63 ASSESSMENT: 1. ACUTE BRONCHITIS/PNEUMONITIS RESOLVED 2. DEHYDRATION RESOLVED 3. MORBID OBESITY WITH BMI MORE THAN 45 PLAN: 1. Discharge home. 2. Keflex 500 mg b.i.d. for 7 days. 3. Prednisone 10 mg one a day for 7 days. 4. Return to see me in 3 to 4 days. 5. Counseling done for weight loss. 6. Schedule Echocardiogram as an outpatient for cardiomegaly, metabolic syndrome, hypertension and BMI over 45. Plan and coordination of the patient's care discussed in the presence of Metal Sprayer and nurse. EDUCATION: Discussed plans for discharge with the patient. Discussed medications and their side effects; side effects of steroids to include avascular necrosis of femoral head, cataracts, diabetes and osteoporosis. Counseling done for weight loss, lifestyle modifications. CONDITION: STABLE SCRIBED BY: ALTAGRACIA DOWELL Schedule Maker scribed while in presence of service performed by Dr. SARAH BRUNNER on 06/01/16 ([id number])
--- NOTE | 2016-06-01 10:35 | CM.DICTOOL ---
ADMISSION: 05/29/16 13:05 DISCHARGE: 06/01/16 FINAL DIAGNOSIS Acute bronchitis (Acute) PNEUMONITIS PLUERISY HISTORY OF: COPD HYPOTHYROIDISM LEFT KNEE REPLACEMENT 2013 HTN MORBID OBESITY LAST VITALS Temp Pulse Resp BP Pulse Ox 97.1 F L 50 L 16 132/60 98 06/01/16 05:32 06/01/16 05:32 06/01/16 05:32 06/01/16 05:32 06/01/16 05:32 ACTIVE MEDICATIONS Acetaminophen (Tylenol) 650 mg PO Q4H PRN PRN Reason: Headache Aspirin (Aspirin Ec) 81 mg PO DAILYWM [facility] Last Admin: 06/01/16 08:36 Dose: 81 mg Bisoprolol Fumarate/HCTZ (Ziac 5-6.25 Mg) 1 tab PO BEDTIME [facility] Last Admin: 05/31/16 20:02 Dose: 1 tab Losartan Potassium (Cozaar) 50 mg PO DAILY [facility] Last Admin: 06/01/16 08:36 Dose: 50 mg ALLERGIES levofloxacin [From Levaquin] Adverse Reaction (Intermediate, Verified 05/10/16 08:38) Itching amoxicillin [Amoxicillin] Adverse Reaction (Verified 05/10/16 08:38) Unknown ampicillin Adverse Reaction (Verified 05/10/16 08:38) Unknown atorvastatin calcium [From Lipitor] Adverse Reaction (Verified 05/10/16 08:38) Unknown azithromycin [From Zithromax] Adverse Reaction (Verified 05/10/16 08:38) Unknown clarithromycin [From Biaxin] Adverse Reaction (Verified 05/10/16 08:38) Unknown clavulanic acid [From Augmentin] Adverse Reaction (Verified 05/29/16 13:48) codeine Adverse Reaction (Verified 05/29/16 13:51) erythromycin base [Erythromycin Base] Adverse Reaction (Verified 05/10/16 08:38) Unknown Iodinated Contrast Media - Oral and [Iodinated Contrast Media - IV Dye] Adverse Reaction (Verified 05/10/16 08:38) Unknown loratadine [From Claritin] Adverse Reaction (Verified 05/29/16 13:51) Macrolide Antibiotics Adverse Reaction (Verified 05/10/16 08:38) Unknown minocycline Adverse Reaction (Verified 05/29/16 13:51) Penicillins Adverse Reaction (Verified 05/10/16 08:38) Unknown pravastatin Adverse Reaction (Verified 05/29/16 13:51) rosuvastatin calcium [From Crestor] Adverse Reaction (Verified 05/10/16 08:38) Unknown simvastatin Adverse Reaction (Verified 05/29/16 13:51) Tetracyclines Adverse Reaction (Verified 05/10/16 08:38) Unknown NEW PRESCRIPTIONS: NEW MEDICATIONS: 1. KEFLEX 500MG TAKE 1 BY MOUTH 2 TIMES A DAY FOR 7 DAYS. TAKE UNTIL ALL GONE. 2. PREDNISONE 10MG TAKE 1 BY MOUTH ONCE A DAY FOR 7 DAYS. TAKE WITH FOOD. SMOKING: N/A DISEASE SPECIFIC EDUCATION: BRONCHITIS PNEUMONITIS ANTIBIOTIC THERAPY STEROID THERAPY LAB REVIEW: 06/01/16 05:20 06/01/16 05:20 06/01/16 05:20: WBC 10.00, RBC 4.04 L, Hgb 11.8 L, Hct 36.5 L, MCV 90.3, MCH 29.2, MCHC 32.3, RDW Coeff of Marj 13.2, Plt Count 215, Immature Gran % (Auto) 0.6, Neut % (Auto) 74.5, Lymph % (Auto) 18.6, [place] % (Auto) 6.2, Eos % (Auto) 0.0, Baso % (Auto) 0.1, Immature Gran # (Auto) 0.1, Neut # 7.5 H, Lymph # 1.9, [place] # 0.6, Eos # 0.0, Baso # 0.0, Sodium 142, Potassium 3.7, Chloride 103, Carbon Dioxide 30, Anion Gap 12.7, BUN 23 H, Creatinine 0.86, Estimated GFR ( MDRD) 66.00, BUN/Creatinine Ratio 26.74, Glucose 178 H, Calcium 8.8, Total Bilirubin 0.19, AST 15, ALT 11 L, Alkaline Phosphatase 65, Total Protein 7.0, Albumin 2.7 L, Globulin 4.3, Albumin/Globulin Ratio 0.63 PLAN: DISCHARGE HOME CONTINUE HOME MEDICATIONS PER NURSING INSTRUCTIONS NEW MEDICATIONS: 1. KEFLEX 500MG TAKE 1 BY MOUTH 2 TIMES A DAY FOR 7 DAYS. TAKE UNTIL ALL GONE. 2. PREDNISONE 10MG TAKE 1 BY MOUTH ONCE A DAY FOR 7 DAYS. TAKE WITH FOOD. YOU HAVE AN OUTPATIENT ECHOCARDIOGRAM SCHEDULED SaturdayMay AT 6:45AM. PLEASE ARRIVE AT 6:30AM TO REGISTER. FOLLOW UP WITH DR. BRUNNER ON SaturdayMay AT 11OOAM. IF UNABLE TO KEEP THIS APPOINTMENT PLEASE CALL [phone] TO RESCHEDULE. ALERT AND ORIENTED X 4. STATES FEELING BETTER. TELEMETRY REVEALS SINUS EDITH. HAS DYSPNEA WITH ACTIVITY. HAS PRODUCTIVE COUGH OF WHITE/FOAMY SPUTUM. IS UNABLE TO LIE FLAT. HAS FEW WHEEZES. HAS NON-PITTING EDEMA TO BILATERAL LOWER EXTREMITY. KEEPING LEGS ELEVATED. IS INDEPENDENT WITH ACTIVITY WITH STEADY GAIT. SARAH BRUNNER MD
--- NOTE | 2016-06-06 09:31 | DS ---
DATE OF SERVICE: 06/01/16 FINAL DIAGNOSIS: 1. Acute bronchitis(acute) 2. Pneumonitis 3. Pleurisy 4. History of COPD 5. Hypothyroidism 6. Left knee replacement 2013 7. Hypertension 8. Morbid obesity LAST VITALS: Temperature 97.1, pulse 50, respiratory rate 16, blood pressure 132/60 and pulse ox 98%. DISCHARGE INSTRUCTIONS: Discharge home. Continue home medication per nursing instructions. Have an outpatient echocardiogram scheduled SaturdayJune 04 at 6:45am. Followup with Dr. Canales on SaturdayJune 08 at 11:00am. MEDICATIONS AT DISCHARGE: Tylenol 650mg PO Q 4 hours PRN Aspirin 81mg PO daily Ziac 5-6.25mg PO bedtime Cozaar 50mg PO daily ALLERGIES: Levofloxacin Amoxicillin Ampicillin Atorvastatin Azithromycin Clarithromycin Clavulanic acid Codeine Erythromycin Iodinated contrast Loratadine Macrolide Minocycline Penicillin Pravastatin Rosuvastatin Simvastatin Tetracycline NEW PRESCRIPTIONS: Keflex 500mg take one by mouth two times a day for seven days. Take until all gone. Prednisone 10mg take one by mouth once a day for 7 days. Take with food. DIET INSTRUCTIONS: As tolerated. ACTIVITY: Get plenty of rest at home and gradually increase activity as tolerated. SMOKING: N/A DISEASE SPECIFIC EDUCATION: Bronchitis Pneumonitis Antibiotic therapy Steroid therapy HOSPITAL COURSE: The patient is a 65 year old white female hospitalized with acute bronchitis/ pneumonitis. The patient was treated as an outpatient with antibiotics and steroids. The patient in fact she was in respiratory distress with audible wheezing when she was seen in the office. The patient was hospitalized with IV antibiotics, steroid treatment, NEBS treatment, Oxygen. The patient's condition improved remarkably. The patient was ready to go home, her appetite improved and she was able to ambulate and take care of herself with practically all activity of daily living. The patient lives by herself. The patient's major problem is her massive obesity with BMI of 58. Diet counseling was down. CONDITION: Stable at the time of discharge. LABS: hgb 11.8, hct 36, WBC 10,000 normal differential, creatinine 0.8, BUN 23 and potassium 3.7. TIME SPENT: More than 60 minutes. MTDD
--- NOTE | 2016-06-06 09:32 | PN ---
05/29/16: Level 5 05/30/16: Intermediate 05/31/16: Intermediate 06/01/16: D as in discharge. MTDD
== END 2016-06-01 12:42 | disposition home or self-care (01) | DRG 202 ==
LOC: MEDSURG A 13:05
PROVIDERS: ADMIT Internal Medicine; ATTEND Internal Medicine
DX: J20.9 Acute bronchitis, unspecified (principal); J18.9 Pneumonia, unspecified organism; R09.1 Pleurisy; E66.01 Morbid (severe) obesity due to excess calories; J44.9 Chronic obstructive pulmonary disease, unspecified; E03.9 Hypothyroidism, unspecified; E86.0 Dehydration; I10 Essential (primary) hypertension; I51.7 Cardiomegaly; I25.10 Atherosclerotic heart disease of native coronary artery without angina pectoris; E78.5 Hyperlipidemia, unspecified; E53.8 Deficiency of other specified B group vitamins; K21.9 Gastro-esophageal reflux disease without esophagitis; M47.9 Spondylosis, unspecified; G47.30 Sleep apnea, unspecified; Z68.42 Body mass index [BMI] 45.0-49.9, adult; Z79.899 Other long term (current) drug therapy; Z99.81 Dependence on supplemental oxygen
CPT/HCPCS: 36415; 80053; 81001; 82550; 82803; 83874; 84484; 85025; 87804; 93005; 93010; 94640

== ENCOUNTER 2016-06-04 06:24 | Outpatient (CLI) ==
--- NOTE | 2016-06-07 12:54 | ECHO2D ---
Date of Exam: 06/04/16 Ordering Physician: SARAH BRUNNER Reason for Echo: HTN, SOB, RESPIRATORY FAILURE, MORBID OBESITY M-Mode Normal Adult Results LV Dimensions Normal Adult Results AoV Opening excursions >1.6 >1.6 LVEDD-base- 3.5-5.8 5.8 Ao root dimensions 2.0-3.7 3.2 LVESD-base- 3.1-4.6 L. Atrium dimensions 1.9-3.8 5.5 Post. Wall thickness 0.8-1.1 1.1 IV septum (thickness) 0.7-1.2 1.2 Post. Wall excursion 0.72-1.3 NORMAL Septal motion NORMAL Systolic motion R. Ventricular cavity 1.5-2.0 NORMAL LVEF 60% 53% Paradoxical septal wall motion NORMAL 2-D : NORMAL VALVES--NORMAL LEFT VENTRICULAR CONTRACTILITY--NO EFFUSION, ENLARGED LEFT ATRIAL CAVITY, BORDERLINE LEFT VENTRICLE CAVITY ENLARGEMENT M-MODE: MV: NORMAL AV: NORMAL TV: NORMAL PV: CHAMBER SIZE: ENLARGED LEFT ATRIAL CAVITY WALL MOTION: NORMAL PERICARDIUM: NORMAL INTERPRETATION: 1. BORDERLINE LEFT ATRIAL CAVITY 2. NORMAL LEFT VENTRICULAR CONTRACTILITY--BORDERLINE LEFT VENTRICLE SIZE 3. NORMAL VALVES 4. ENLARGED LEFT ATRIAL CAVITY MTDD
== END 2016-06-04 06:25 | disposition home or self-care (01) ==
LOC: CAR 06:24
PROVIDERS: ATTEND Internal Medicine
DX: R06.02 Shortness of breath (principal)

== ENCOUNTER 2016-10-25 08:51 | Outpatient (CLI) | END 2016-10-25 08:52 | disposition home or self-care (01) | LOC: CAR 08:51 | PROVIDERS: ATTEND Internal Medicine | DX: J44.9 Chronic obstructive pulmonary disease, unspecified (principal) | CPT/HCPCS: 94761 ==

== ENCOUNTER 2016-12-18 14:04 | Inpatient (IN) ==
[2016-12-18] MEDS ORDERED: VISTARIL INJ IM PRN (14:24)
[2016-12-18] MEDS ORDERED: TYLENOL PO PRN (14:24)
[2016-12-18] MEDS ORDERED: NITROSTAT SL PRN (14:24)
[2016-12-18] MEDS ORDERED: MORPHINE 4 MG/ML SYRINGE IVP PRN (14:24)
[2016-12-18] MEDS ORDERED: ATROPINE SULFATE PFS IVP PRN (14:24)
[2016-12-18] MEDS ORDERED: TUSSIONEX PO PRN (14:30)
[2016-12-18] MEDS ORDERED: SOLU-MEDROL 125 MG IVP SCH (14:30)
[2016-12-18 14:38] VITALS: BMI 59.7
[2016-12-18 14:55] LABS: ABG BASE EXCESS 4 (-2.0-2.0); ABG HCO3 29 (22.0-26.0); ABG PH 7.41 (7.35-7.45); ABG TCO2 30 (22.0-28.0)
[2016-12-18 15:01] LABS: BASOPHILS # (AUTO) 0.1 K/uL (0-0.2); BASOPHILS % (AUTO) 0.5 % (0.0-3.0); EOSINOPHILS # (AUTO) 0.3 K/ul (0.0-0.7); EOSINOPHILS % (AUTO) 3.4 % (0.0-7.0); HEMATOCRIT 40.8 % (37.0-47.0); HEMOGLOBIN 13.5 g/dl (12.0-16.0); IMMATURE GRANULOCYTE % (AUTO) 0.2 % (0.0-5.0); LYMPHOCYTES # (AUTO) 1.8 K/uL (0.60-3.4); LYMPHOCYTES % (AUTO) 17.9 (10.0-50.0); MEAN CORPUSCULAR HEMOGLOBIN 29.7 pg (27.0-31.0); MEAN CORPUSCULAR HGB CONC 33.1 (31.8-35.4); MEAN CORPUSCULAR VOLUME 89.7 fl (81.0-99.0); MONOCYTES # (AUTO) 0.8 K/uL (0.4-2.0); MONOCYTES % (AUTO) 8.4 (0-10); NEUTROPHILS # (AUTO) 6.8 K/ul (2.0-6.9); NEUTROPHILS % (AUTO) 69.6; PLATELET COUNT 185 10^3/uL (140-440); RED BLOOD COUNT 4.55 10^6/ul (4.20-5.40); WHITE BLOOD COUNT 9.77 K/ul (4.6-10.2)
[2016-12-18 15:19] LABS: ALBUMIN 3.3 g/dL (3.4-5.0); ALBUMIN/GLOBULIN RATIO 0.77; ANION GAP 16.9; BILIRUBIN,TOTAL 0.51 mg/dL (0.00-1.20); BUN/CREATININE RATIO 20.28; CALCIUM 9.9 mg/dL (8.2-10.2); CREATININE 0.69 mg/dL (0.60-1.30); POTASSIUM 3.9 mmol/L (3.5-5.10); TOTAL PROTEIN 7.6 g/dL (5.8-8.1)
[2016-12-18 15:26] LABS: CREATINE KINASE 48 U/L; MYOGLOBIN 33 ng/ml
--- NOTE | 2016-12-18 15:38 | DI ---
EXAM: PA and lateral views of the chest HISTORY: Cough and congestion COMPARISON: The chest x-ray 01/02/2017 FINDINGS: The cardiomediastinal silhouette is normal. There is no pneumothorax or pleural effusion . There is no consolidation, nodule or mass. The osseous structures demonstrate mild scattered deg enerative disease of the spine IMPRESSION: No acute cardiopulmonary process
[2016-12-18] MEDS: BACTRIM DS 800/160 MG PO SCH ×2 (15:40→20:33)
[2016-12-18] MEDS: SOLU-CORTEF 250 MG IVP SCH ×2 (15:42→20:34)
[2016-12-18] MEDS: PULMICORT 0.5 MG/2 ML NEB SCH (17:06)
[2016-12-18] MEDS: XOPENEX 1.25 MG NEB SCH ×2 (17:07→23:34)
[2016-12-18 19:13] LABS: BILIRUBIN,URINE Negative (NEGATIVE); KETONES,URINE Negative (NEGATIVE); LEUKOCYTE ESTERASE ,URINE Trace (NEGATIVE); NITRITE,URINE Positive (NEGATIVE); PH,URINE 6.5 (5-9); PROTEIN,URINE Negative (NEGATIVE); URINE, BLOOD Trace-intact (NEGATIVE)
[2016-12-18 19:19] LABS: ADD URINE MICROSCOPIC YES; BACTERIA,URINE 3+ (NOT PRESENT)
[2016-12-18 23:00] LABS: TROPONIN I 0.024 ng/ml (0.0000-0.4000)
[2016-12-19] MEDS: SOLU-CORTEF 250 MG IVP SCH ×3 (05:03→21:19)
[2016-12-19] MEDS: PULMICORT 0.5 MG/2 ML NEB SCH ×2 (05:12→17:10)
[2016-12-19] MEDS: XOPENEX 1.25 MG NEB SCH ×4 (05:12→23:27)
[2016-12-19 05:15] LABS: BASOPHILS % (AUTO) 0.5 % (0.0-3.0); HEMATOCRIT 37.4 % (37.0-47.0); HEMOGLOBIN 12.2 g/dl (12.0-16.0); IMMATURE GRANULOCYTE % (AUTO) 0.6 % (0.0-5.0); LYMPHOCYTES # (AUTO) 1.2 K/uL (0.60-3.4); LYMPHOCYTES % (AUTO) 14.2 (10.0-50.0); MEAN CORPUSCULAR HEMOGLOBIN 29.3 pg (27.0-31.0); MEAN CORPUSCULAR HGB CONC 32.6 (31.8-35.4); MEAN CORPUSCULAR VOLUME 89.9 fl (81.0-99.0); MONOCYTES # (AUTO) 0.4 K/uL (0.4-2.0); MONOCYTES % (AUTO) 4.9 (0-10); NEUTROPHILS % (AUTO) 79.8; PLATELET COUNT 182 10^3/uL (140-440); RED BLOOD COUNT 4.16 10^6/ul (4.20-5.40); WHITE BLOOD COUNT 8.72 K/ul (4.6-10.2)
[2016-12-19 05:38] LABS: ALBUMIN 2.8 g/dL (3.4-5.0); ALBUMIN/GLOBULIN RATIO 0.72; ANION GAP 16.1; BILIRUBIN,TOTAL 0.33 mg/dL (0.00-1.20); BUN/CREATININE RATIO 17.33; CALCIUM 9.3 mg/dL (8.2-10.2); CREATININE 0.75 mg/dL (0.60-1.30); POTASSIUM 4.1 mmol/L (3.5-5.10); TOTAL PROTEIN 6.7 g/dL (5.8-8.1)
[2016-12-19] MEDS ORDERED: ASPIRIN EC PO SCH (08:00)
[2016-12-19] MEDS ORDERED: NON-FORMULARY MEDICATION (Losartan Potassium 50 MG) PO SCH (09:00)
[2016-12-19] MEDS: ASPIRIN EC PO SCH (09:13)
[2016-12-19] MEDS: BACTRIM DS 800/160 MG PO SCH ×2 (09:13→21:20)
[2016-12-19] MEDS: SYNTHROID PO SCH (09:13)
[2016-12-19] MEDS: COZAAR PO SCH (09:54)
--- NOTE | 2016-12-19 11:18 | HP ---
DATE OF SERVICE: 12/18/16 REASON FOR HOSPITALIZATION/HISTORY OF PRESENT ILLNESS: Started Saturation with sore throat, Headache, coughing. Woke up today and couldn't breath, short of breath, chills, low grade, Poor appetite, poor oral intake. REVIEW OF SYSTEMS: CONSTITUTIONAL: No fever, Fatigue. HEENT: Sinus drainage, Sore throat started with . RESPIRATORY: Cough yellow sputum, no congestion. CARDIOVASCULAR: Atypical chest pain for coronary artery disease. No angina, CHF symptoms, palpitations. Shortness of breath. GASTROINTESTINAL: No melena or abdominal pain. No GERD. GENITOURINARY: No hematuria, no prostatism, no polyuria. THREAD CUTTER: No blackout, no dizziness, no headache, no double vision. MUSCULOSKELETAL: Osteoarthritis pain, no joint swelling. ENDOCRINE: No weight loss, no weight gain. SKIN: Dry, no rash. PSYCHIATRIC: Not anxious, no depression, no suicidal thoughts, no homicidal thoughts. SOCIAL HISTORY: Marital Status: . Alcohol Usage: No. Tobacco Usage: No. Family History: Father , mother , brothers 4, sisters 2 MEDICAL/SURGICAL HISTORY: Hypertension LVH Obesity(morbid) GERD Sleep apnea Diabetes Mellitus type 2 DJD Dyslipidemia Right renal mass Tubal Breast implants Cyst on left hand MEDICATIONS: Zyrtec 5-6.25 ASA 81mg PO daily Synthroid 0.25mg Cozaar 50mg PO daily O2 PRN ALLERGIES: Penicillin Tetracycline Minocin Simvastatin E-mycin Biaxin Ketek PHYSICAL EXAMINATION: V/S: Pulse 103, blood pressure 144/86, temperature 98.1, pulse ox 94%. GENERAL APPEARANCE: Oriented times three. HEENT: Normal. NECK: No JVP, no bruits. RESPIRATORY: Lungs are decreased breath sounds with bilateral wheeze. CARDIOVASCULAR: S1, S2, no S3 Tachy. no murmurs. No cyanosis, clubbing. No ascites. GI/ABDOMEN: No tenderness. Bowel sounds are active. EXTREMITIES: Trace edema, pulses +1, equal. THREAD CUTTER: Deep tendon reflexes, sensory, motor and gait all normal. [id number] Dr. Fox /PELVIC: Mammogram 11/24 [place]. refused repeat. ASSESSMENT: 1. Acute bronchitis 2. Pneumonitis 3. Short of breath 4. Pleuritic type pain 5. Low back pain-Moderate to servere 6. Left knee-Dr. Monroy 7. Cervical Radiculopathy 8. Hypertension/LVH 9. 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 O2 at HS 18. Right renal mass 05/01 PLAN: 1. Admit regular 2. Routine Telemetry orders 3. Chest x-ray today 4. CBC/CMP daily and today 5. O2 at 2 liters PRN 6. ABG today 7. Sputum for culture and sensitivity 8. Blood culture x2 9. Solu-Cortef 125mg IV now and 8 hourly 10.Xopenex Q 6 hourly 11.Pulmicort twice a day NEBS 12.Continue all home medications 13.Bactrim DS twice a day daily 14.Tussionex 5ml PO twice a day PRN TIME SPENT: More than 70 minutes. MTDD
--- NOTE | 2016-12-19 13:28 | PCM.PROG ---
Attending Provider: ATTENDING PROVIDER: Dr. SARAH BRUNNER DATE OF SERVICE: 12/19/16 SUBJECTIVE: This 66 year old WHITE/ F was hospitalized 12/18/16. The patient is seen with Lilia, Nurse Practitioner. The patient is alert, lying in bed. She states she slept well last night and is breathing better. Coughing is better. She had low grade fever last night of 99.3 at 10 p.m. REVIEW OF SYSTEMS: CONSTITUTIONAL: Weakness. No night sweats. No fever or chills. HEENT: Eyes: No visual changes. No eye pain. No eye discharge. ENT: No runny nose. No epistaxis. No sinus pain. No odynophagia. No congestion. RESPIRATORY: Cough and congestion. No hemoptysis. No shortness of breath. CARDIOVASCULAR: No angina symptoms. No CHF symptoms. No atypical chest pain for CAD. No palpitations. No orthopnea.. GASTROINTESTINAL: No abdominal pain. No nausea or vomiting. No diarrhea or constipation. No hematemesis. No hematochezia. GENITOURINARY: No urgency. No frequency. No dysuria. No hematuria. No obstructive symptoms. No discharge. No pain. No significant abnormal bleeding. MUSCULOSKELETAL: Low back pain. NEUROLOGICAL: Awake, alert, oriented to time, place and person. No headache. No neck pain. No syncope. No seizures. No dizziness. PSYCHIATRIC: Not anxious. No depression. No suicidal thoughts. No homicidal thoughts. SKIN: No rash. No lesions. No wounds. ENDOCRINE: No unexplained weight loss. No weight gain. HEMATOLOGIC/LYMPHATIC: No anemia. No purpura. No petechiae. No prolonged or excessive bleeding. No palpable lymph nodes. PHYSICAL EXAMINATION: GENERAL: The patient is awake, alert and oriented, lying in bed in no distress. VITAL SIGNS: Temperature 97.7 F, Pulse 90, Respiratory Rate 18, BP 125/70, Pulse Ox 96% HEENT: Head normocephalic, atraumatic. Eyes: Extraocular muscles are intact. Pupils are equal, round and reactive to light and accommodation. Ears: No lesions. Nose appeared normal. Throat: No exudate or erythema. NECK: Supple. No JVD, no carotid bruit. No lymphadenopathy or thyromegaly. LUNGS: Diminished breath sounds, bilateral expiratory wheezing. Percussion note normal. Chest symmetrical. HEART: S1, S2, no S3. No murmurs. No cyanosis or clubbing. No ascites. Pulses: Dorsalis pedis and posterior tibial pulses +1 to +2 both sides. ABDOMEN: Soft. Non-tender. Bowel sounds active. No CVA tenderness. No mass felt. EXTREMITIES: No edema. Full range of motion of all extremities, equal. NEUROLOGIC: No focal deficit. Cranial nerves II through XII are grossly intact. No headache, no double vision or headache. SKIN: Not dry. Intact. Turgor-normal. LYMPHATIC: No palpable lymph nodes/no lymphedema. MUSCULOSKELETAL: Normal joints with no swelling. Muscle tone is normal. LAB REVIEW: 12/19/16 04:20 12/19/16 04:20 12/19/16 04:20: WBC 8.72, RBC 4.16 L, Hgb 12.2, Hct 37.4, MCV 89.9, MCH 29.3, MCHC 32.6, RDW Coeff of Marj 13.2, Plt Count 182, Immature Gran % (Auto) 0.6, Neut % (Auto) 79.8, Lymph % (Auto) 14.2, [place] % (Auto) 4.9, Eos % (Auto) 0.0, Baso % (Auto) 0.5, Immature Gran # (Auto) 0.1, Neut # 7.0 H, Lymph # 1.2, [place] # 0.4, Eos # 0.0, Baso # 0.0, Sodium 144, Potassium 4.1, Chloride 103, Carbon Dioxide 29, Anion Gap 16.1, BUN 13, Creatinine 0.75, Estimated GFR (MDRD) 77.00 , BUN/Creatinine Ratio 17.33, Glucose 165 H D, Calcium 9.3, Total Bilirubin 0.33 , AST 19, ALT 17, Alkaline Phosphatase 78, Total Protein 6.7, Albumin 2.8 L, Globulin 3.9, Albumin/Globulin Ratio 0.72 12/18/16 22:30: Total Creatine Kinase 57, Myoglobin 32, Troponin I 0.0240 12/18/16 18:10: Urine Color Yellow, Urine Clarity Slightly, Urine pH 6.5, Ur Specific [place] 1.015, Urine Protein Negative, Urine Glucose (UA) Negative, Urine Ketones Negative, Urine Blood Trace-intact, Urine Nitrite Positive, Urine Bilirubin Negative, Urine Urobilinogen 0.2, Ur Leukocyte Esterase Trace, Urine Microscopic RBC 2-5, Urine Microscopic WBC 2-5, Ur Squamous Epith Cells Not present, Urine Bacteria 3+ 12/18/16 14:50: WBC 9.77, RBC 4.55, Hgb 13.5, Hct 40.8, MCV 89.7, MCH 29.7, MCHC 33.1, RDW Coeff of Marj 13.2, Plt Count 185, Immature Gran % (Auto) 0.2, Neut % (Auto) 69.6, Lymph % (Auto) 17.9, [place] % (Auto) 8.4, Eos % (Auto) 3.4, Baso % (Auto) 0.5, Immature Gran # (Auto) 0.0, Neut # 6.8, Lymph # 1.8, [place] # 0.8, Eos # 0.3, Baso # 0.1, Sodium 144, Potassium 3.9, Chloride 102, Carbon Dioxide 29, Anion Gap 16.9, BUN 14, Creatinine 0.69, Estimated GFR (MDRD) 85.00 , BUN/Creatinine Ratio 20.28, Glucose 87, Calcium 9.9, Total Bilirubin 0.51, AST 23, ALT 21, Alkaline Phosphatase 95, Total Creatine Kinase 48, Myoglobin 33 , Troponin I < 0.0100, Total Protein 7.6, Albumin 3.3 L, Globulin 4.3, Albumin/ Globulin Ratio 0.77 12/18/16 14:26: Puncture Site R brach, O2 Saturation 92.0 L, ABG pH 7.41, ABG pCO2 46.0 H, ABG pO2 64.0 L, ABG HCO3 29 H, ABG Total CO2 30 H, ABG Base Excess 4 H, [place] Test +, FiO2 % 21.0 ASSESSMENT: 1. Acute bronchitis 2. UTI culture pending PLAN: 1. Continue Bactrim 2. Continue IV steroids 3. Continue nebs Plan and coordination of the patient's care discussed in the presence of Gel Coat Sprayer and nurse. CONDITION: SCRIBED BY: ALTAGRACIA DOWELL Processing Technician scribed while in presence of service performed by Dr. SARAH BRUNNER/LILIA HOWELL APRN on 12/19/16 ([id number])
[2016-12-19] MEDS ORDERED: ZIAC 5-6.25 MG PO SCH (21:00)
[2016-12-20 04:41] LABS: BASOPHILS % (AUTO) 0.2 % (0.0-3.0); EOSINOPHILS % (AUTO) 0.1 % (0.0-7.0); HEMATOCRIT 38.6 % (37.0-47.0); HEMOGLOBIN 12.5 g/dl (12.0-16.0); IMMATURE GRANULOCYTE % (AUTO) 0.9 % (0.0-5.0); LYMPHOCYTES # (AUTO) 1.4 K/uL (0.60-3.4); LYMPHOCYTES % (AUTO) 14.9 (10.0-50.0); MEAN CORPUSCULAR HEMOGLOBIN 29.1 pg (27.0-31.0); MEAN CORPUSCULAR HGB CONC 32.4 (31.8-35.4); MEAN CORPUSCULAR VOLUME 89.8 fl (81.0-99.0); MONOCYTES # (AUTO) 0.5 K/uL (0.4-2.0); MONOCYTES % (AUTO) 5.2 (0-10); NEUTROPHILS # (AUTO) 7.5 K/ul (2.0-6.9); NEUTROPHILS % (AUTO) 78.7; PLATELET COUNT 193 10^3/uL (140-440); WHITE BLOOD COUNT 9.48 K/ul (4.6-10.2)
[2016-12-20] MEDS: PULMICORT 0.5 MG/2 ML NEB SCH (05:06)
[2016-12-20] MEDS: XOPENEX 1.25 MG NEB SCH ×2 (05:07→11:19)
[2016-12-20 05:09] LABS: ALBUMIN 2.9 g/dL (3.4-5.0); ALBUMIN/GLOBULIN RATIO 0.73; ANION GAP 16.3; BILIRUBIN,TOTAL 0.25 mg/dL (0.00-1.20); BUN/CREATININE RATIO 18.75; CALCIUM 9.2 mg/dL (8.2-10.2); CREATININE 0.8 mg/dL (0.60-1.30); POTASSIUM 4.3 mmol/L (3.5-5.10); TOTAL PROTEIN 6.9 g/dL (5.8-8.1)
[2016-12-20] MEDS: SOLU-CORTEF 250 MG IVP SCH (05:49)
[2016-12-20] MEDS: SYNTHROID PO SCH (05:50)
[2016-12-20] MEDS: BACTRIM DS 800/160 MG PO SCH (08:45)
[2016-12-20] MEDS: COZAAR PO SCH (08:46)
[2016-12-20] MEDS: ASPIRIN EC PO SCH (08:46)
[2016-12-20 09:46] VITALS: BP 127/64; TEMP 97.9
--- NOTE | 2016-12-20 10:02 | PCM.PROG ---
Attending Provider: ATTENDING PROVIDER: Dr. SARAH BRUNNER DATE OF SERVICE: 12/20/16 SUBJECTIVE: This 66 year old WHITE/ F was hospitalized 12/18/16. The patient is seen with Lilia, Nurse Practitioner. The patient is alert, lying in bed. She is feeling better and is ready to go home. Breathing is much better. She has a cough. REVIEW OF SYSTEMS: CONSTITUTIONAL: No night sweats. No fatigue, malaise, lethargy. No fever or chills. HEENT: Eyes: No visual changes. No eye pain. No eye discharge. ENT: No runny nose. No epistaxis. No sinus pain. No odynophagia. No congestion. RESPIRATORY: Positive for productive cough and congestion. No hemoptysis. No shortness of breath. CARDIOVASCULAR: No angina symptoms. No CHF symptoms. No atypical chest pain for CAD. No palpitations. No orthopnea.. GASTROINTESTINAL: No abdominal pain. No nausea or vomiting. No diarrhea or constipation. No hematemesis. No hematochezia. GENITOURINARY: No urgency. No frequency. No dysuria. No hematuria. No obstructive symptoms. No discharge. No pain. No significant abnormal bleeding. MUSCULOSKELETAL: Low back pain. NEUROLOGICAL: Awake, alert, oriented to time, place and person. No headache. No neck pain. No syncope. No seizures. No dizziness. PSYCHIATRIC: Not anxious. No depression. No suicidal thoughts. No homicidal thoughts. SKIN: No rash. No lesions. No wounds. ENDOCRINE: No unexplained weight loss. No weight gain. HEMATOLOGIC/LYMPHATIC: No anemia. No purpura. No petechiae. No prolonged or excessive bleeding. No palpable lymph nodes. PHYSICAL EXAMINATION: GENERAL: The patient is awake, alert and oriented, lying in bed in no distress. VITAL SIGNS: Temperature 97.1 F, Pulse 76, Respiratory Rate 20, BP 146/70, Pulse Ox 99% HEENT: Head normocephalic, atraumatic. Eyes: Extraocular muscles are intact. Pupils are equal, round and reactive to light and accommodation. Ears: No lesions. Nose appeared normal. Throat: No exudate or erythema. NECK: Supple. No JVD, no carotid bruit. No lymphadenopathy or thyromegaly. LUNGS: Diminished breath sounds bilaterally. Clear to auscultation. Percussion note normal. Chest symmetrical. HEART: S1, S2, no S3. No murmurs. No cyanosis or clubbing. No ascites. Pulses: Dorsalis pedis and posterior tibial pulses +1 to +2 both sides. ABDOMEN: Soft. Non-tender. Bowel sounds active. No CVA tenderness. No mass felt. EXTREMITIES: Trace edema. Full range of motion of all extremities, equal. NEUROLOGIC: No focal deficit. Cranial nerves II through XII are grossly intact. No headache, no double vision or headache. SKIN: Not dry. Intact. Turgor-normal. LYMPHATIC: No palpable lymph nodes/no lymphedema. MUSCULOSKELETAL: Normal joints with no swelling. Muscle tone is normal. LAB REVIEW: 12/20/16 04:30 12/20/16 04:30 12/20/16 04:30: WBC 9.48, RBC 4.30, Hgb 12.5, Hct 38.6, MCV 89.8, MCH 29.1, MCHC 32.4, RDW Coeff of Marj 13.4, Plt Count 193, Immature Gran % (Auto) 0.9, Neut % (Auto) 78.7, Lymph % (Auto) 14.9, [place] % (Auto) 5.2, Eos % (Auto) 0.1, Baso % (Auto) 0.2, Immature Gran # (Auto) 0.1, Neut # 7.5 H, Lymph # 1.4, [place] # 0.5, Eos # 0.0, Baso # 0.0, Sodium 143, Potassium 4.3, Chloride 103, Carbon Dioxide 28, Anion Gap 16.3, BUN 15, Creatinine 0.80, Estimated GFR (MDRD) 72.00 , BUN/Creatinine Ratio 18.75, Glucose 195 H, Calcium 9.2, Total Bilirubin 0.25, AST 15, ALT 17, Alkaline Phosphatase 73, Total Protein 6.9, Albumin 2.9 L, Globulin 4.0, Albumin/Globulin Ratio 0.73 ASSESSMENT: 1. Acute bronchitis 2. UTI culture pending PLAN: 1. Discharge home 2. Phenergan with Codeine 1 to 2 teaspoons q.6hr p.r.n. for cough 3. Nebs t.i.d. at home 4. Bactrim DS b.i.d. times 7 days 5. Prednisone 10 mg b.i.d. times 5 days Plan and coordination of the patient's care discussed in the presence of Cinder Snapper and nurse. CONDITION: Stable SCRIBED BY: ALTAGRACIA DOWELL Holistic Pulser scribed while in presence of service performed by Dr. SARAH BRUNNER/LILIA HOWELL APRN on 12/20/16 ([id number])
--- NOTE | 2016-12-20 10:39 | CM.DICTOOL ---
ADMISSION: 12/18/16 14:04 DISCHARGE: 12/20/16 DATE OF SERVICE: 12/20/16 FINAL DIAGNOSIS ACUTE BRONCHITIS PNEUMONITIS HYPERTENSION LEFT VENTRICULAR HYPERTROPHY OBESITY (BMI 59.7) GERD SLEEP APNEA DM, TYPE 2 DIABETIC NEUROPATHY SIGMOID DIVERTICULOSIS (CT ABD/PELVIS, 05/10/16) HYPOTHYROIDISM DJD OSTEOARTHRITIS DYSLIPIDEMIA RIGHT CYSTIC RENAL MASS (CT ABD/PELVIS, 05/10/16) LEFT NEPHROLITHIASIS (CT ABD/PELVIS, 05/10/16) LEFT HAND CYST TUBAL LIGATION BREAST IMPLANTS TOTAL LEFT KNEE REPLACEMENT LAST VITALS Temp Pulse Resp BP Pulse Ox 97.1 F L 76 20 146/70 H 98 12/20/16 05:38 12/20/16 05:38 12/20/16 05:38 12/20/16 05:38 12/20/16 09:32 ACTIVE MEDICATIONS Albuterol Nebulizer Treatments, 1 vial IH TID (NEW INSTRUCTIONS) Aspirin (Aspirin Ec) 81 mg PO DAILYWM GUCCI Last Admin: 12/20/16 08:46 Dose: 81 mg Bisoprolol Fumarate/HCTZ (Ziac 5-6.25 Mg) 1 tab PO BEDTIME GUCCI (REFILL RX PROVIDED) Last Admin: 12/19/16 21:20 Dose: 1 tab Levothyroxine Sodium (Synthroid) 25 mcg PO QDAC GUCCI Last Admin: 12/20/16 05:50 Dose: 25 mcg Losartan Potassium (Cozaar) 50 mg PO DAILY GUCCI Last Admin: 12/20/16 08:46 Dose: 50 mg Trimethoprim/Sulfamethoxazole (Bactrim Ds 800/160 Mg) 1 tab PO Q12HR X 7 DAYS GUCCI (NEW RX) Last Admin: 12/20/16 08:45 Dose: 1 tab ALLERGIES levofloxacin [From Levaquin] Adverse Reaction (Intermediate, Verified 05/10/16 08:38) Itching amoxicillin [Amoxicillin] Adverse Reaction (Verified 05/10/16 08:38) Unknown ampicillin Adverse Reaction (Verified 05/10/16 08:38) Unknown atorvastatin calcium [From Lipitor] Adverse Reaction (Verified 05/10/16 08:38) Unknown azithromycin [From Zithromax] Adverse Reaction (Verified 05/10/16 08:38) Unknown clarithromycin [From Biaxin] Adverse Reaction (Verified 05/10/16 08:38) Unknown clavulanic acid [From Augmentin] Adverse Reaction (Verified 05/29/16 13:48) codeine Adverse Reaction (Verified 05/29/16 13:51) erythromycin base [Erythromycin Base] Adverse Reaction (Verified 05/10/16 08:38) Unknown Iodinated Contrast- Oral and IV Dye [Iodinated Contrast Media - IV Dye] Adverse Reaction (Verified 05/10/16 08:38) Unknown loratadine [From Claritin] Adverse Reaction (Verified 05/29/16 13:51) Macrolide Antibiotics Adverse Reaction (Verified 05/10/16 08:38) Unknown minocycline Adverse Reaction (Verified 05/29/16 13:51) Penicillins Adverse Reaction (Verified 05/10/16 08:38) Unknown pravastatin Adverse Reaction (Verified 05/29/16 13:51) rosuvastatin calcium [From Crestor] Adverse Reaction (Verified 05/10/16 08:38) Unknown simvastatin Adverse Reaction (Verified 05/29/16 13:51) Tetracyclines Adverse Reaction (Verified 05/10/16 08:38) Unknown NEW PRESCRIPTIONS: PHENERGAN WITH CODEINE 6.25/5 ML, TAKE ONE TO TWO TEASPOONS BY MOUTH EVERY 6 HOURS NEEDED FOR COUGHING BACTRIM DS 800/160 MG, TAKE ONE TABLET BY MOUTH EVERY 12 HOURS FOR 7 DAYS PREDNISONE 10 MG, TAKE ONE TABLET BY MOUTH TWICE DAILY WITH FOOD FOR 5 DAYS REFILL PRESCRIPTION FOR ZIAC 5-6.25 MG, TAKE ONE TABLET BY MOUTH AT BEDTIME DAILY IS INCLUDED RESUME YOUR ALBUTEROL NEBULIZER TREATMENTS THREE TIMES DAILY SMOKING: FORMER SMOKER NONE NOW DISEASE SPECIFIC EDUCATION: BRONCHITIS PNEUMONITIS NEB TREATMENTS HOME MEDICATIONS NEW PRESCRIPTIONS FOLLOW UP LAB REVIEW: 12/20/16 04:30 12/20/16 04:30 12/20/16 04:30: WBC 9.48, RBC 4.30, Hgb 12.5, Hct 38.6, MCV 89.8, MCH 29.1, MCHC 32.4, RDW Coeff of Marj 13.4, Plt Count 193, Immature Gran % (Auto) 0.9, Neut % (Auto) 78.7, Lymph % (Auto) 14.9, [place] % (Auto) 5.2, Eos % (Auto) 0.1, Baso % (Auto) 0.2, Immature Gran # (Auto) 0.1, Neut # 7.5 H, Lymph # 1.4, [place] # 0.5, Eos # 0.0, Baso # 0.0, Sodium 143, Potassium 4.3, Chloride 103, Carbon Dioxide 28, Anion Gap 16.3, BUN 15, Creatinine 0.80, Estimated GFR (MDRD) 72.00 , BUN/Creatinine Ratio 18.75, Glucose 195 H, Calcium 9.2, Total Bilirubin 0.25, AST 15, ALT 17, Alkaline Phosphatase 73, Total Protein 6.9, Albumin 2.9 L, Globulin 4.0, Albumin/Globulin Ratio 0.73 PLAN: DISCHARGE HOME TODAY RETURN TO SEE DR. BRUNNER IN ONE WEEK. PLEASE CALL HIS OFFICE TO SCHEDULE YOUR FOLLOW UP APPOINTMENT ([phone]) RESUME YOUR HOME MEDICATIONS PER LIST PROVIDED BY THE NURSING STAFF REFILL PRESCRIPTION FOR ZIAC 5-6.25 MG, TAKE ONE TABLET BY MOUTH AT BEDTIME DAILY IS INCLUDED RESUME YOUR ALBUTEROL NEBULIZER TREATMENTS THREE TIMES DAILY NEW PRESCRIPTIONS: PHENERGAN WITH CODEINE 6.25/5 ML, TAKE ONE TO TWO TEASPOONS BY MOUTH EVERY 6 HOURS NEEDED FOR COUGHING BACTRIM DS 800/160 MG, TAKE ONE TABLET BY MOUTH EVERY 12 HOURS FOR 7 DAYS PREDNISONE 10 MG, TAKE ONE TABLET BY MOUTH TWICE DAILY WITH FOOD FOR 5 DAYS ACTIVITY: GET PLENTY OF REST AT HOME. GRADUALLY INCREASE YOUR ACTIVITY LEVEL ACCORDING TO YOUR TOLERATION DIET: HEALTHY HEART SUMMARY: THE PATIENT IS ALERT AND ORIENTED X3. SHE CURRENTLY RESIDES AT HOME ALONE. HER DAUGHTER RESIDES IN AN APARTMENT BEHIND THE PATIENT AND PROVIDES ASSISTANCE WHEN NEEDED. THE PATIENT HAS A NEBULIZER AT HOME FOR USE. SHE DOES NOT UTILIZE HOME HEALTH OR HOMEMAKING SERVICES. SHE DESIRES TO RETURN HOME AT DISCHARGE. THE PATIENT'S SKIN TURGOR IS INTACT AND WITHOUT DECUBITUS ULCERS. SHE IS AFEBRILE AND HAS STABLE VITAL SIGNS. SHE IS AWARE AND AGREEABLE FOR DISCHARGE HOME. CURRENT CODE STATUS: FULL CODE TANK HOWELL APRN SARAH BRUNNER M.D.
--- NOTE | 2016-12-21 13:50 | PN ---
DATE OF SERVICE: 12/20/16 SUBJECTIVE: The patient was hospitalized with acute bronchitis/pneumonitis. The patient has bronchial asthma. The patient's condition as usual as improved remarkably. The patient is going to discharged on antibiotics, steroids and NEBS treatment. Again she is advised antiflux measures and advised to lose weight. PHYSICAL EXAMINATION: VITAL SIGNS: Oxygen saturation was more than 90 % on room air. HEENT: Head normocephalic, atraumatic. Eyes: Extraocular muscles are intact. Pupils are equal, round and reactive to light and accommodation. Ears: No lesions. Nose appeared normal. Throat: No exudate or erythema. NECK: Supple. No JVD, no carotid bruit. No lymphadenopathy or thyromegaly. LUNGS: Clear but decreased breath sounds. Percussion note normal. Chest symmetrical. HEART: S1, S2, no S3. No murmurs. No cyanosis or clubbing. No ascites. Pulses: Dorsalis pedis and posterior tibial pulses +1 to +2 both sides. ABDOMEN: Soft. Nontender. Bowel sounds active. No CVA tenderness. No mass felt. EXTREMITIES: No edema. Full range of motion of all extremities, equal. NEUROLOGIC: No focal deficit. Cranial nerves II through XII are grossly intact. No headache, no double vision or headache. SKIN: Not dry. Intact. Turgor - normal. LYMPHATIC: No palpable lymph nodes/no lymphedema. MUSCULOSKELETAL: Normal joints with no swelling. Muscle tone is normal. The patient was seen and examined with Nurse Practitioner. PLAN: 1. Counseling for weight loss done TIME SPENT: More than 30 minutes. Plan and coordination of the patient's care discussed in the presence of nurse. KIRAN
--- NOTE | 2016-12-21 13:52 | PN ---
12/18/16: Level 5 12/19/16: Intermediate 12/20/16: D as in discharge MTDD
--- NOTE | 2016-12-21 15:20 | PN ---
DATE OF SERVICE: 12/19/16 SUBJECTIVE: 66 year old white female hospitalized with acute bronchitis/pneumonitis. The patient's condition has definitely improved. She is not distress. The patient was in distress on the day of admission with wheezing bilaterally. The patient is on Solu-Cortef, Tussionex and Bactrim DS. The patient is afebrile today. Oxygen saturation is 96% on room air. The patient's vitals are stable. PHYSICAL EXAMINATION: VITAL SIGNS: Temperature 97.7, pulse 90, respiratory rate 18, blood pressure 125/70 and pulse ox 96% on room air. HEENT: Head normocephalic, atraumatic. Eyes: Extraocular muscles are intact. Pupils are equal, round and reactive to light and accommodation. Ears: No lesions. Nose appeared normal. Throat: No exudate or erythema. NECK: Supple. No JVD, no carotid bruit. No lymphadenopathy or thyromegaly. LUNGS: Clear to auscultation. Percussion note normal. Chest symmetrical. HEART: S1, S2, no S3. No murmurs. No cyanosis or clubbing. No ascites. Pulses: Dorsalis pedis and posterior tibial pulses +1 to +2 both sides. ABDOMEN: Soft. Nontender. Bowel sounds active. No CVA tenderness. No mass felt. EXTREMITIES: No edema. Full range of motion of all extremities, equal. NEUROLOGIC: No focal deficit. Cranial nerves II through XII are grossly intact. No headache, no double vision or headache. SKIN: Not dry. Intact. Turgor - normal. LYMPHATIC: No palpable lymph nodes/no lymphedema. MUSCULOSKELETAL: Normal joints with no swelling. Muscle tone is normal. The patient was seen and examined with Nurse Practitioner. CONDITION: Stable. TIME SPENT: More than 30 minutes. Plan and coordination of the patient's care discussed in the presence of nurse. KIRAN
--- NOTE | 2016-12-24 13:38 | DS ---
DATE OF SERVICE: 12/30/16 FINAL DIAGNOSIS: 1. ACUTE BRONCHITIS 2. PNEUMONITIS 3. HYPERTENSION 4. LEFT VENTRICULAR HYPERTROPHY 5. OBESITY (BMI 59.7) 6. GERD 7. SLEEP APNEA 8. DIABETES MELLITUS TYPE 2 9. DIABETIC NEUROPATHY 10. SIGMOID DIVERTICULOSIS (CT ABD/PELVIS, 05/10/16) 11. HYPOTHYROIDISM 12. DJD 13. OSTEOARTHRITIS 14. DYSLIPIDEMIA 15. RIGHT CYSTIC RENAL MASS (CT ABDOMEN AND PELVIS, 05/10/16) 16. LEFT NEPHROLITHIASIS (CT ABD/PELVIS, 05/10/16) 17. LEFT HAND CYST 18. TUBAL LIGATION 19. BREAST IMPLANTS 20. TOTAL LEFT KNEE REPLACEMENT DISCHARGE INSTRUCTIONS: Followup appointment: Return to see Dr. Canales in one week. Please call his office to schedule your follow up appointment. MEDICATIONS AT DISCHARGE: Refill prescription for Ziac 5-6.25 mg take one tablet by mouth at bedtime daily is included Resume your Albuterol nebulizer treatments three times daily Cozaar 50 mg p.o. daily Aspirin 81 mg p.o. daily with meal Synthroid 25 mcg p.o. q.d a.c. NEW PRESCRIPTIONS: Phenergan with Codeine 6.25/5 mL, take one to two teaspoosn by mouth every 6 hours as needed for coughing Bactrim DS 800/160 mg take one tableet by mouth every 12 hours for 7 days Prednisone 10 mg take one tablet by mouth twice daily with food for 5 days DIET INSTRUCTIONS: Healthy heart ACTIVITY: Get plenty of rest at home. Gradually increase your activity level according to your toleration. SMOKING: Former smoker, none now DISEASE SPECIFIC EDUCATION: Bronchitis Pneumonitis Neb treatments Home medications New prescriptions Follow up HOSPITAL COURSE: This is a direct admit from our office. She is a 66-year-old female who presented to our office with shortness of breath. She stated she had been feeling this way for several days, had been doing Albuterol nebs treatment at home with no relief. She recently had pneumonia 2 to 3 weeks ago and was in the hospital. She had been running a low grade temperature at home. Subsequently we admitted her to the hospital. She has numerous allergies. A chest x-ray was done which showed no pneumonia; however, did show bronchitis. We admitted her, placed her on Bactrim DS p.o. b.i.d. as well as IV Solu-Cortef and started neb treatments q.6hr. On the second day of admission, the patient was still wheezing bilaterally although her shortness of breath and respirations had eased and she was in apparent distress; however, she did still have significant wheezing. By the third day, the day of discharge, she has no wheezing. Her breath sounds are diminished but clear and equal bilaterally. After admission a UA was done which showed that she had a urinary tract infection that was positive for E. coli and the sensitivity showed that this is also sensitive to Bactrim. We will continue her at home with Bactrim DS p.o. b.i.d. for the next 7 days and then have her use her home nebulizer machine with Albuterol, at least 3 times a day. She is to do her Pulmicort twice a day. She will also be discharged home on Prednisone 10 mg b.i.d. as she had such significant improvement with IV steroids while in the hospital. She will continue those for 5 days. The patient's labs remained stable during the course of her hospital stay. Blood pressure on the day of discharge 146/70, temperature 97.1, heart rate 76, respirations 20, pulse ox 99% on room air. This is significantly improved. Yesterday she ate 100% of her meals and ate 100% of her breakfast this morning. This morning her hemoglobin was 12.5, hematocrit 38.6, sodium 143, potassium 4.3 , BUN 15, creatinine 0.8, white count 9.4. Routine telemetry showed regular sinus rhythm during her hospital stay. Again, she significantly improved from admission. She is going to be discharged today with no wheezing. She is no longer requiring any oxygen. She will go home, resume her home medications and finish her antibiotics and steroids. We will follow up with her in the office early next week. TIME SPENT: More than 60 minutes. KIRAN
== END 2016-12-20 12:50 | disposition home or self-care (01) | DRG 202 ==
LOC: MEDSURG B 14:04
PROVIDERS: ADMIT Internal Medicine; ATTEND Internal Medicine
DX: J20.9 Acute bronchitis, unspecified (principal); N39.0 Urinary tract infection, site not specified; Z68.43 Body mass index [BMI] 50.0-59.9, adult; J45.909 Unspecified asthma, uncomplicated; I51.7 Cardiomegaly; I10 Essential (primary) hypertension; B96.20 Unspecified Escherichia coli [E. coli] as the cause of diseases classified elsewhere; E66.9 Obesity, unspecified; K21.9 Gastro-esophageal reflux disease without esophagitis; G47.30 Sleep apnea, unspecified; E11.40 Type 2 diabetes mellitus with diabetic neuropathy, unspecified; E03.9 Hypothyroidism, unspecified; M19.90 Unspecified osteoarthritis, unspecified site; E78.5 Hyperlipidemia, unspecified; K57.30 Diverticulosis of large intestine without perforation or abscess without bleeding; Z79.899 Other long term (current) drug therapy
CPT/HCPCS: 36415; 80053; 81001; 82550; 82803; 83874; 84484; 85025; 87040; 87070; 87081; 87086; 87186; 93005; 93010; 94640

== ENCOUNTER 2017-04-06 13:54 | Inpatient (IN) ==
[2017-04-06] MEDS ORDERED: DUONEB NEB ONE (14:00)
[2017-04-06 14:01] VITALS: BMI 59.5
[2017-04-06] MEDS ORDERED: DUONEB NEB STA (14:05)
[2017-04-06] MEDS ORDERED: SOLU-MEDROL 125 MG IVP STA (14:05)
[2017-04-06] MEDS ORDERED: MORPHINE 2 MG/ML SYRINGE IVP STA (14:55)
--- NOTE | 2017-04-06 15:13 | ED.PDOC ---
General ED Provider: Dr. MELODY PALACIOS Chief Complaint: Shortness of Air Stated Complaint: shottness of breath, generalized pain Time Seen by Physician: 14:00 (no chest pain) Mode of Arrival: Walk-In Information Source: Patient, Family Exam Limitations: No limitations Primary Care Provider: SARAH BRUNNER Nursing and Triage Documentation Reviewed and Agree: Yes Reviewed sepsis parameters & appropriate labs ordered?: Yes (main presentation if for pain all over , sen with tisha krause and reno at) System Inflammatory Response Syndrome: Not Applicable Sepsis Protocol: For patient's 13 years and over: Temp is 96.8 and below OR 101 and greater Pulse >90 BPM Resp >20/minute Acutely Altered Mental Status Are patient's symptoms suggestive of a new infection, such as: -Pneumonia -Skin, Soft Tissue -Endocarditis -UTI -Bone, Joint Infection -Implantable Device -Acute Abdominal Infection -Wound Infection -Meningitis -Blood Stream Catheter Infection -Unknown Respiratory Complaint Exam - Respiratory Complaint/Exam Onset/Duration: today Symptoms Are: Resolved Initial Severity: Mild Current Severity: None Location: Nose, Throat, Chest Character: Reports: Non-productive cough Aggravating: Reports: None, Deep breaths Associated Signs and Symptoms: Reports: Nasal congestion. Denies: Rapid breathing, Dyspnea, Fever, Chills, Chest pain, Pleuritic chest pain, Wheezing, Hemoptysis, Dizziness, Calf pain, Calf swelling, Edema, URI, Hoarseness, Sinus discomfort, Vomiting, Sore throat, Weight loss, Decreased oral intake, Increased thirst, Increased appetite, Increased urination Related History: Reports: Similar episode History of Healthcare-Acquired Pneumonia: No Related Surgical History: Reports: None Pseudomonas Risk Factors: Reports: None Tuberculosis Risk Factors: Reports: None Status Asthmaticus Risk Factors: Reports: None Home Oxygen Use: No Recent Stress Test: No Recent Echo/LV Function: No Current Antibiotic Use: No Current Asthma Medication Use: No Respiratory Distress: None Inadequate Respiratory Effort: No Dysphagia Present: No Stridor Present: No JVD Present: No Accessory Muscle Use: No Retractions: Not Present Diminished Breath Sounds: No Sinus Tenderness: None Grunting Respirations: No Kussmaul Respirations: No Differential Diagnoses: Pneumonia, Bronchitis Non-Traumatic Chest Pain Syncope: EKG Performed Review of Systems - Review Of Systems Constitutional: Reports: Malaise Eyes: Reports: No symptoms Ears, Nose, Mouth, Throat: Reports: No symptoms Respiratory: Reports: Cough Cardiac: Reports: No symptoms GI: Reports: No symptoms : Reports: No symptoms Musculoskeletal: Reports: No symptoms Skin: Reports: No symptoms Neurological: Reports: No symptoms Endocrine: Reports: No symptoms Hematologic/Lymphatic: Reports: No symptoms All Other Systems: Reviewed and Negative Past Medical History - Past Medical History Previously Healthy: Yes Endocrine: Reports: None, Hypothyroid Cardiovascular: Reports: Hypertension Respiratory: Reports: COPD, Asthma Hematological: Reports: None Gastrointestinal: Reports: GERD Genitourinary: Reports: None Neuro/Psych: Reports: Anxiety Musculoskeletal: Reports: None, Arthritis Cancer: Reports: None Last Menstrual Period: na Other Pertinent Past Medical History: PINCHED NERVE TO NECK - Surgical History General Surgical History: Reports: Orthopedic (left knee replacement 2011 \ ganglion cyst) - Family History Family History: Reports: Kidney (sister with kidney stones, son with many kidney stones) - Social History Smoking Status: Former smoker Hx Substance Use: No Alcohol Screening: None - Immunizations Tetanus Shot up to Date: No Physical Exam - Physical Exam Appearance: Well-appearing, No pain distress, Well-nourished Eyes: ELSIE, EOMI, Conjunctiva clear ENT: Ears normal, Nose normal, Oropharynx normal Respiratory: Airway patent, Breath sounds clear, Breath sounds equal, Respirations nonlabored Cardiovascular: RRR, Pulses normal, No rub, No murmur GI/: Soft, Nontender, No masses, Bowel sounds normal, No Organomegaly Musculoskeletal: Normal strength, ROM intact, No edema, No calf tenderness Skin: Warm, Dry, Normal color Neurological: Sensation intact, Motor intact, Reflexes intact, Cranial nerves intact, Alert, Oriented Psychiatric: Affect appropriate, Mood appropriate Interpretation - Radiology Interpretation Radiology Interpretation By: Radiologist Radiology Results: No acute changes - Law Office Receptionist Rate: Normal Rhythm: Sinus Ectopy: None - EKG Interpretation Rate: Normal Rhythm: Sinus Ectopy: None [place]: NL ST Segment: Normal Critical Care Note - Critical Care Note Total Time (mins): 0 Course - Course Hematology/Chemistry: 04/06/17 14:23 04/06/17 14:23 Orders, Labs, Meds: Lab Review 04/06/17 04/06/17 04/06/17 14:06 14:23 14:23 WBC 5.12 RBC 4.59 Hgb 13.7 Hct 43.1 MCV 93.9 MCH 29.8 MCHC 31.8 RDW Coeff of Marj 13.2 Plt Count 129 L Immature Gran % (Auto) 0.2 Neut % (Auto) 43.3 Lymph % (Auto) 43.2 [place] % (Auto) 12.3 H Eos % (Auto) 0.6 Baso % (Auto) 0.4 Immature Gran # (Auto) 0.0 Neut # 2.2 Lymph # 2.2 [place] # 0.6 Eos # 0.0 Baso # 0.0 Puncture Site R rad O2 Saturation 94.0 L ABG pH 7.318 L ABG pCO2 49.7 H ABG pO2 78.0 L ABG HCO3 25 ABG Total CO2 27 ABG Base Excess -1 Mich Test + FiO2 % 28.0 Sodium 141 Potassium 3.6 Chloride 106 Carbon Dioxide 26 Anion Gap 12.6 BUN 20 H Creatinine 0.74 Estimated GFR (MDRD) 78.00 BUN/Creatinine Ratio 27.02 Glucose 98 Lactic Acid Calcium 8.5 Total Bilirubin 0.3 AST 52 H ALT 43 Alkaline Phosphatase 85 Total Creatine Kinase 85 Troponin I < 0.0100 Total Protein 7.5 Albumin 3.1 L Globulin 4.4 Albumin/Globulin Ratio 0.70 04/06/17 14:23 WBC RBC Hgb Hct MCV MCH MCHC RDW Coeff of Marj Plt Count Immature Gran % (Auto) Neut % (Auto) Lymph % (Auto) [place] % (Auto) Eos % (Auto) Baso % (Auto) Immature Gran # (Auto) Neut # Lymph # [place] # Eos # Baso # Puncture Site O2 Saturation ABG pH ABG pCO2 ABG pO2 ABG HCO3 ABG Total CO2 ABG Base Excess [place] Test FiO2 % Sodium Potassium Chloride Carbon Dioxide Anion Gap BUN Creatinine Estimated GFR (MDRD) BUN/Creatinine Ratio Glucose Lactic Acid 8.1 Calcium Total Bilirubin AST ALT Alkaline Phosphatase Total Creatine Kinase Troponin I Total Protein Albumin Globulin Albumin/Globulin Ratio Orders Category Date Time Status ABG DRAW REQUEST Stat CARDIO 04/06/17 14:06 Completed EKG-(ED ONLY) Stat CARDIO 04/06/17 14:04 Completed NEBULIZER TREATMENT Stat CARDIO 04/06/17 14:05 Completed ED IV/MEDIPORT/POWERPORT .ONCE EMERGENCY 04/06/17 14:04 Active ABG Stat LAB 04/06/17 14:06 Completed BLOOD CULTURE (ED ONLY) Stat LAB 04/06/17 14:23 Received CBC W/ AUTO DIFF Stat LAB 04/06/17 14:23 Completed COMPREHENSIVE METABOLIC PANEL Stat LAB 04/06/17 14:23 Completed CREATINE KINASE Stat LAB 04/06/17 14:23 Completed FLU A & B RAPID TEST [RAPID FLU A/B] Stat LAB 04/06/17 14:23 Received LACTIC ACID Stat LAB 04/06/17 14:23 Completed MOLECULAR GROUP A STREP Stat LAB 04/06/17 14:23 Results PROCALCITONIN Stat LAB 04/06/17 14:23 Received STREP SCREEN Stat LAB 04/06/17 14:23 Results TROPONIN I Stat LAB 04/06/17 14:23 Completed 0.9 % Sodium Chloride [Saline Flush] MEDS 04/06/17 14:03 Ordered 1 syr IVF PRN PRN Ipratropium/Albuterol Neb [Duoneb] MEDS 04/06/17 14:00 Discontinued 1 vial NEB .STK-MED ONE Ipratropium/Albuterol Neb [Duoneb] MEDS 04/06/17 14:05 Discontinued 1 vial NEB ONCE STA Methylprednisolone Sod Succ/Pf [Solu-Medrol 125 mg] MEDS 04/06/17 14:05 Discontinued 125 mg IVP ONCE STA Morphine Sulfate [Morphine 2 mg/ml Syringe] MEDS 04/06/17 14:55 Discontinued 2 mg IVP ONCE STA Medications Generic Name Dose Route Start Last Admin Trade Name Freq PRN Reason Stop Dose Admin Sodium Chloride 1 syr 04/06/17 14:03 04/06/17 15:06 Saline Flush IVF 1 syr PRN PRN Administration To flush IV Discontinued Medications Generic Name Dose Route Start Last Admin Trade Name Freq PRN Reason Stop Dose Admin Albuterol/Ipratropium 1 vial 04/06/17 14:05 04/06/17 14:00 Duoneb NEB 04/06/17 14:06 1 vial ONCE STA Administration Methylprednisolone Sodium Succinate 125 mg 04/06/17 14:05 04/06/17 15:03 Solu-Medrol 125 Mg IVP 04/06/17 14:06 125 mg ONCE STA Administration Morphine Sulfate 2 mg 04/06/17 14:55 04/06/17 15:05 Morphine 2 Mg/Ml Syringe IVP 04/06/17 14:56 2 mg ONCE STA Administration Vital Signs: Temp Pulse Resp BP Pulse Ox 04/06/17 13:55 99 F 96 H 22 162/85 H 98 Departure - Departure Time of Disposition: 15:39 Disposition: HOME SELF-CARE Discharge Problem: Generalized pain, Influenza B Instructions: Influenza (ED) Condition: Good Pt referred to PMD for follow-up: Yes Additional Instructions: Please call your Family Physician as soon as possible to schedule a follow-up appointment. Allergies/Adverse Reactions: Allergies levofloxacin [From Levaquin] Adverse Reaction (Intermediate, Verified 04/06/17 14:27) Itching Patient received Levaquin 750mg IVPB in ED on 06/25/13. Discontinued IVPB after 25 minutes because redness and itching up arm/IV site. amoxicillin [Amoxicillin] Adverse Reaction (Verified 04/06/17 14:27) Unknown ampicillin Adverse Reaction (Verified 04/06/17 14:27) Unknown atorvastatin calcium [From Lipitor] Adverse Reaction (Verified 04/06/17 14:27) Unknown azithromycin [From Zithromax] Adverse Reaction (Verified 04/06/17 14:27) Unknown clarithromycin [From Biaxin] Adverse Reaction (Verified 04/06/17 14:27) Unknown clavulanic acid [From Augmentin] Adverse Reaction (Verified 04/06/17 14:27) codeine Adverse Reaction (Verified 04/06/17 14:27) erythromycin base [Erythromycin Base] Adverse Reaction (Verified 04/06/17 14:27) Unknown Iodinated Contrast- Oral and IV Dye [Iodinated Contrast Media - IV Dye] Adverse Reaction (Verified 04/06/17 14:27) Unknown loratadine [From Claritin] Adverse Reaction (Verified 04/06/17 14:27) Macrolide Antibiotics Adverse Reaction (Verified 04/06/17 14:27) Unknown minocycline Adverse Reaction (Verified 04/06/17 14:27) Penicillins Adverse Reaction (Verified 04/06/17 14:27) Unknown pravastatin Adverse Reaction (Verified 04/06/17 14:27) rosuvastatin calcium [From Crestor] Adverse Reaction (Verified 04/06/17 14:27) Unknown simvastatin Adverse Reaction (Verified 04/06/17 14:27) Tetracyclines Adverse Reaction (Verified 04/06/17 14:27) Unknown Home Medications: Ambulatory Orders Aspirin [Aspirin EC] 81 mg PO DAILYWM 05/29/16 Bisoprolol Fumarate/Hctz [Ziac 5-6.25 mg] 1 tab PO BEDTIME 05/29/16 Losartan Potassium [Cozaar] 50 mg PO DAILY 05/29/16 Levothyroxine Sodium [Synthroid] 25 mcg PO QDAC 11/21/16
--- NOTE | 2017-04-06 16:11 | CT ---
EXAM: CT chest without intravenous contrast 04/06/2017. Sagittal and coronal reformatted images obt ained HISTORY: Cough COMPARISON: 12/18/2016, 06/16/2015 FINDINGS: The heart size appears within normal limits. There is no pericardial effusion. Bilateral breast implants are in place. There are subtle reticulonodular infiltrates within the medial aspect of the left lower lobe. This c an also be seen within the right upper lobe. These findings are likely infectious/inflammatory. The re is near-complete resolution of the nodular infiltrates within both lungs on the study performed There is no pulmonary consolidation, effusion or pneumothorax. Atherosclerotic vascular disease. Limited views of the upper abdomen show no acute abnormality. Benign appearing right renal cyst. IMPRESSION: 1. Subtle reticulonodular infiltrates of the right upper left lower lobe. This is likely infectious /inflammatory. 2. Near-complete resolution of nodular infiltrates visualized on the prior CT. 3. Bilateral breast implants appear intact. 4. Atherosclerotic vascular disease. 5. Benign appearing right renal cyst.
[2017-04-06] MEDS ORDERED: ROCEPHIN 1 GM in SODIUM CHLORIDE 50 ML IV STA (17:45)
[2017-04-06] MEDS ORDERED: ROCEPHIN ONE (17:47)
[2017-04-06] MEDS ORDERED: LEVAQUIN 500 MG in PREMIX 100 ML D5W 1 BAG IV SCH (18:00)
[2017-04-06] MEDS: SODIUM CHLORIDE 1,000 ML IV SCH (19:40)
[2017-04-06] MEDS ORDERED: TORADOL IVP STA (21:30)
[2017-04-06] MEDS: SOLU-MEDROL 40 MG IVP SCH (21:39)
[2017-04-06] MEDS: ZIAC 5-6.25 MG PO SCH (21:39)
[2017-04-06] MEDS ORDERED: TORADOL IVP PRN (22:28)
[2017-04-06] MEDS ORDERED: TYLENOL PO PRN (22:28)
[2017-04-07] MEDS: SYNTHROID PO SCH (05:46)
[2017-04-07] MEDS: COZAAR PO SCH (08:47)
[2017-04-07] MEDS: ROCEPHIN 1 GM in SODIUM CHLORIDE 50 ML IV SCH (08:48)
[2017-04-07] MEDS: ASPIRIN EC PO SCH (08:48)
[2017-04-07] MEDS: SODIUM CHLORIDE 1,000 ML IV SCH ×2 (08:50→22:55)
[2017-04-07] MEDS ORDERED: NON-FORMULARY MEDICATION (Losartan Potassium 50 MG) PO SCH (09:00)
[2017-04-07] MEDS: SOLU-MEDROL 40 MG IVP SCH ×2 (09:21→20:32)
[2017-04-07] MEDS ORDERED: TESSALON PERLES ONE (15:32)
[2017-04-07] MEDS: TESSALON PERLES PO PRN (15:35)
[2017-04-07] MEDS: ZIAC 5-6.25 MG PO SCH (20:32)
[2017-04-08] MEDS: SYNTHROID PO SCH (05:37)
[2017-04-08] MEDS: ASPIRIN EC PO SCH (07:55)
[2017-04-08] MEDS: SOLU-MEDROL 40 MG IVP SCH ×2 (08:49→21:03)
[2017-04-08] MEDS: ROCEPHIN 1 GM in SODIUM CHLORIDE 50 ML IV SCH (09:57)
[2017-04-08] MEDS: COZAAR PO SCH (09:57)
[2017-04-08] MEDS: TESSALON PERLES PO PRN (11:53)
[2017-04-08] MEDS: SODIUM CHLORIDE 1,000 ML IV SCH (11:58)
[2017-04-08] MEDS: TUSSIONEX PO SCH ×2 (13:39→21:03)
[2017-04-08] MEDS: ZIAC 5-6.25 MG PO SCH (21:03)
[2017-04-09] MEDS: SODIUM CHLORIDE 1,000 ML IV SCH (01:04)
[2017-04-09] MEDS: SYNTHROID PO SCH (05:33)
[2017-04-09] MEDS: XOPENEX 1.25 MG NEB SCH ×4 (06:13→21:55)
[2017-04-09] MEDS: ASPIRIN EC PO SCH (07:44)
[2017-04-09] MEDS: SOLU-MEDROL 40 MG IVP SCH ×2 (09:09→21:15)
[2017-04-09] MEDS: COZAAR PO SCH (09:18)
[2017-04-09] MEDS: ROCEPHIN 1 GM in SODIUM CHLORIDE 50 ML IV SCH (09:18)
[2017-04-09] MEDS: TUSSIONEX PO SCH ×2 (09:19→21:14)
--- NOTE | 2017-04-09 11:35 | PCM.PROG ---
Attending Provider: ATTENDING PROVIDER: Dr. SARAH BRUNNER DATE OF SERVICE: 04/09/17 SUBJECTIVE: This 66 year old WHITE/ F was hospitalized 04/06/17. The patient is hospitalized with with influenza, acute bronchitis/wheezing, diarrhea and nausea. The patient is feeling a lot better. He has a mild cough but no wheeze. No nausea or vomiting. Appetite improved says she is feeling better. REVIEW OF SYSTEMS: CONSTITUTIONAL: No night sweats. No fatigue, malaise, lethargy. No fever or chills. HEENT: Eyes: No visual changes. No eye pain. No eye discharge. ENT: No runny nose. No epistaxis. No sinus pain. No odynophagia. No congestion. RESPIRATORY: No cough, no congestion. No hemoptysis. No shortness of breath. CARDIOVASCULAR: No angina symptoms. No CHF symptoms. No atypical chest pain for CAD. No palpitations. No orthopnea.. GASTROINTESTINAL: No abdominal pain. No nausea or vomiting. No diarrhea or constipation. No hematemesis. No hematochezia. GENITOURINARY: No urgency. No frequency. No dysuria. No hematuria. No obstructive symptoms. No discharge. No pain. No significant abnormal bleeding. MUSCULOSKELETAL: No musculoskeletal pain; no joint swelling. NEUROLOGICAL: Awake, alert, oriented to time, place and person. No headache. No neck pain. No syncope. No seizures. No dizziness. PSYCHIATRIC: Not anxious. No depression. No suicidal thoughts. No homicidal thoughts. SKIN: No rash. No lesions. No wounds. ENDOCRINE: No unexplained weight loss. No weight gain. HEMATOLOGIC/LYMPHATIC: No anemia. No purpura. No petechiae. No prolonged or excessive bleeding. No palpable lymph nodes. PHYSICAL EXAMINATION: GENERAL: The patient is awake, alert and oriented, lying in bed in no distress. VITAL SIGNS: Temperature 97.0 F, Pulse 43, Respiratory Rate 18, BP 150/77, Pulse Ox 93% HEENT: Head normocephalic, atraumatic. Eyes: Extraocular muscles are intact. Pupils are equal, round and reactive to light and accommodation. Ears: No lesions. Nose appeared normal. Throat: No exudate or erythema. NECK: Supple. No JVD, no carotid bruit. No lymphadenopathy or thyromegaly. LUNGS: Decreased breath sounds, clear to auscultation. Percussion note normal. Chest symmetrical. HEART: S1, S2, no S3. No murmurs. No cyanosis or clubbing. No ascites. Pulses: Dorsalis pedis and posterior tibial pulses +1 to +2 both sides. ABDOMEN: Soft. Non-tender. Bowel sounds active. No CVA tenderness. No mass felt. EXTREMITIES: No edema. Full range of motion of all extremities, equal. NEUROLOGIC: No focal deficit. Cranial nerves II through XII are grossly intact. No headache, no double vision or headache. SKIN: Not dry. Intact. Turgor-normal. LYMPHATIC: No palpable lymph nodes/no lymphedema. MUSCULOSKELETAL: Normal joints with no swelling. Muscle tone is normal. LAB REVIEW: 04/09/17 07:30 04/09/17 07:30 04/09/17 07:30: Sodium 143, Potassium 3.7, Chloride 106, Carbon Dioxide 30, Anion Gap 10.7, BUN 17, Creatinine 0.66, Estimated GFR (MDRD) 89.00, BUN/ Creatinine Ratio 25.75, Glucose 165 H, Calcium 8.6, Total Bilirubin 0.3, AST 33 , ALT 53, Alkaline Phosphatase 72, Total Protein 6.9, Albumin 2.9 L, Globulin 4.0, Albumin/Globulin Ratio 0.73 04/09/17 07:30: WBC 6.81, RBC 4.47, Hgb 13.5, Hct 40.8, MCV 91.3, MCH 30.2, MCHC 33.1, RDW Coeff of Marj 12.9, Plt Count 143, Immature Gran % (Auto) 0.7, Neut % (Auto) 58.5, Lymph % (Auto) 33.8, [place] % (Auto) 7.0, Eos % (Auto) 0.0, Baso % (Auto) 0.0, Immature Gran # (Auto) 0.1, Neut # 4.0, Lymph # 2.3, [place] # 0.5, Eos # 0.0, Baso # 0.0 ASSESSMENT: 1. Acute bronchitis/pneumonitis seems to be resolving 2. Influenza B 3. Gastroenteritis symptoms resolved PLAN: 1. Continue antibiotics and nebs 2. Saline lock 3. D/C IV fluids Plan and coordination of the patient's care discussed in the presence of Barrel Scraper and nurse. CONDITION: Improving. SCRIBED BY: ALTAGRACIA DOWELL, Property Accountant scribed while in presence of service performed by Dr. SARAH BRUNNER on 04/09/17 ([id number])
[2017-04-09] MEDS: TESSALON PERLES PO PRN (21:14)
[2017-04-09] MEDS: ZIAC 5-6.25 MG PO SCH (21:15)
[2017-04-10] MEDS: XOPENEX 1.25 MG NEB SCH (05:30)
[2017-04-10] MEDS: SYNTHROID PO SCH (05:59)
[2017-04-10] MEDS: COZAAR PO SCH (08:37)
[2017-04-10] MEDS: TUSSIONEX PO SCH (08:37)
[2017-04-10] MEDS: ASPIRIN EC PO SCH (08:37)
[2017-04-10] MEDS: SOLU-MEDROL 40 MG IVP SCH (08:38)
[2017-04-10 09:51] VITALS: TEMP 97.4
--- NOTE | 2017-04-10 09:54 | PCM.PROG ---
Attending Provider: ATTENDING PROVIDER: Dr. SARAH BRUNNER This patient is seen with Lilia Sanchez, Nurse Practitioner. DATE OF SERVICE: 04/10/17 SUBJECTIVE: This 66 year old WHITE/ F was hospitalized 04/06/17. The patient is lying in bed, alert. She states she is feeling better. No fever. She has been up and about and eating well. REVIEW OF SYSTEMS: CONSTITUTIONAL: No night sweats. No fatigue, malaise, lethargy. No fever or chills. HEENT: Eyes: No visual changes. No eye pain. No eye discharge. ENT: No runny nose. No epistaxis. No sinus pain. No odynophagia. No congestion. RESPIRATORY: Cough and congestion. No hemoptysis. No shortness of breath. CARDIOVASCULAR: No angina symptoms. No CHF symptoms. No atypical chest pain for CAD. No palpitations. No orthopnea.. GASTROINTESTINAL: No abdominal pain. No nausea or vomiting. No diarrhea or constipation. No hematemesis. No hematochezia. GENITOURINARY: No urgency. No frequency. No dysuria. No hematuria. No obstructive symptoms. No discharge. No pain. No significant abnormal bleeding. MUSCULOSKELETAL: No musculoskeletal pain; no joint swelling. NEUROLOGICAL: Awake, alert, oriented to time, place and person. No headache. No neck pain. No syncope. No seizures. No dizziness. PSYCHIATRIC: Not anxious. No depression. No suicidal thoughts. No homicidal thoughts. SKIN: No rash. No lesions. No wounds. ENDOCRINE: No unexplained weight loss. No weight gain. HEMATOLOGIC/LYMPHATIC: No anemia. No purpura. No petechiae. No prolonged or excessive bleeding. No palpable lymph nodes. PHYSICAL EXAMINATION: GENERAL: The patient is awake, alert and oriented, lying in bed in no distress. VITAL SIGNS: Temperature 97.1 F, Pulse 52, Respiratory Rate 20, BP 193/87, Pulse Ox 95% HEENT: Head normocephalic, atraumatic. Eyes: Extraocular muscles are intact. Pupils are equal, round and reactive to light and accommodation. Ears: No lesions. Nose appeared normal. Throat: No exudate or erythema. NECK: Supple. No JVD, no carotid bruit. No lymphadenopathy or thyromegaly. LUNGS: Diminished breath sounds bilaterally. Clear to auscultation. Percussion note normal. Chest symmetrical. HEART: S1, S2, no S3. No murmurs. No cyanosis or clubbing. No ascites. Pulses: Dorsalis pedis and posterior tibial pulses +1 to +2 both sides. ABDOMEN: Soft. Non-tender. Bowel sounds active. No CVA tenderness. No mass felt. EXTREMITIES: No edema. Full range of motion of all extremities, equal. NEUROLOGIC: No focal deficit. Cranial nerves II through XII are grossly intact. No headache, no double vision or headache. SKIN: Not dry. Intact. Turgor-normal. LYMPHATIC: No palpable lymph nodes/no lymphedema. MUSCULOSKELETAL: Normal joints with no swelling. Muscle tone is normal. LAB REVIEW: 04/10/17 04:54 04/10/17 04:54 04/10/17 04:54: Sodium 140, Potassium 4.0, Chloride 103, Carbon Dioxide 29, Anion Gap 12.0, BUN 14, Creatinine 0.69, Estimated GFR (MDRD) 85.00, BUN/ Creatinine Ratio 20.28, Glucose 279 H D, Calcium 8.8, Total Bilirubin 0.3, AST 33, ALT 64, Alkaline Phosphatase 85, Total Protein 7.4, Albumin 3.0 L, Globulin 4.4, Albumin/Globulin Ratio 0.68 04/10/17 04:54: WBC 7.94, RBC 4.61, Hgb 13.7, Hct 41.4, MCV 89.8, MCH 29.7, MCHC 33.1, RDW Coeff of Marj 12.6, Plt Count 148, Neutrophils % (Manual) 75.0, Lymphocytes % (Manual) 19.0, Monocytes % (Manual) 2.0, Reactive Lymphocytes 4.0 , Anisocytosis Not present 04/09/17 07:30: Sodium 143, Potassium 3.7, Chloride 106, Carbon Dioxide 30, Anion Gap 10.7, BUN 17, Creatinine 0.66, Estimated GFR (MDRD) 89.00, BUN/ Creatinine Ratio 25.75, Glucose 165 H, Calcium 8.6, Total Bilirubin 0.3, AST 33 , ALT 53, Alkaline Phosphatase 72, Total Protein 6.9, Albumin 2.9 L, Globulin 4.0, Albumin/Globulin Ratio 0.73 ASSESSMENT: 1. Acute bronchitis/pneumonitis seems to be resolving 2. Influenza B 3. Gastroenteritis symptoms resolved PLAN: 1. Discharge home. 2. Keflex 500 mg t.i.d. times 5 days. 3. Prednisone 10 mg b.i.d. for 5 days. 4. Office visit Saturday or Saturday for followup. Plan and coordination of the patient's care discussed in the presence of Asphalt Tamping Machine Operator and nurse. CONDITION: Stable SCRIBED BY: ALTAGRACIA DOWELL Business Planning Director scribed while in presence of service performed by Dr. Brunner/Lilia Sanchez APRN on 04/10/17 ([id number])
--- NOTE | 2017-04-10 10:17 | CM.DICTOOL ---
ADMISSION: 04/06/17 17:32 DISCHARGE: April 10, 2017 DATE OF SERVICE: 04/10/17 FINAL DIAGNOSIS Acute Bronchitis Influenza B Gastroenteritis Hypertension Hypothyroid Osteoarthritis Sleep Apnea Morbid Obesity Chronic Lung Disease LAST VITALS Temp Pulse Resp BP Pulse Ox 97.1 F L 52 L 20 193/87 H 95 04/10/17 05:28 04/10/17 06:23 04/10/17 06:23 04/10/17 05:28 04/10/17 05:28 ACTIVE HOME MEDICATIONS Aspirin (Aspirin Ec) 81 mg PO DAILYWM [facility] Last Admin: 04/10/17 08:37 Dose: 81 mg Bisoprolol Fumarate/HCTZ (Ziac 5-6.25 Mg) 1 tab PO BEDTIME [facility] Last Admin: 04/09/17 21:15 Dose: 1 tab Levothyroxine Sodium (Synthroid) 25 mcg PO QDAC [facility] Last Admin: 04/10/17 05:59 Dose: 25 mcg Losartan Potassium (Cozaar) 50 mg PO DAILY [facility] Last Admin: 04/10/17 08:37 Dose: 50 mg ALLERGIES levofloxacin [From Levaquin] Adverse Reaction (Intermediate, Verified 04/06/17 14:27) Itching amoxicillin [Amoxicillin] Adverse Reaction (Verified 04/06/17 14:27) Unknown ampicillin Adverse Reaction (Verified 04/06/17 14:27) Unknown atorvastatin calcium [From Lipitor] Adverse Reaction (Verified 04/06/17 14:27) Unknown azithromycin [From Zithromax] Adverse Reaction (Verified 04/06/17 14:27) Unknown clarithromycin [From Biaxin] Adverse Reaction (Verified 04/06/17 14:27) Unknown clavulanic acid [From Augmentin] Adverse Reaction (Verified 04/06/17 14:27) codeine Adverse Reaction (Verified 04/06/17 14:27) erythromycin base [Erythromycin Base] Adverse Reaction (Verified 04/06/17 14:27) Unknown Iodinated Contrast- Oral and IV Dye [Iodinated Contrast Media - IV Dye] Adverse Reaction (Verified 04/06/17 14:27) Unknown loratadine [From Claritin] Adverse Reaction (Verified 04/06/17 14:27) Macrolide Antibiotics Adverse Reaction (Verified 04/06/17 14:27) Unknown minocycline Adverse Reaction (Verified 04/06/17 14:27) Penicillins Adverse Reaction (Verified 04/06/17 14:27) Unknown pravastatin Adverse Reaction (Verified 04/06/17 14:27) rosuvastatin calcium [From Crestor] Adverse Reaction (Verified 04/06/17 14:27) Unknown simvastatin Adverse Reaction (Verified 04/06/17 14:27) Tetracyclines Adverse Reaction (Verified 04/06/17 14:27) Unknown NEW PRESCRIPTIONS: Keflex 500 mg TID for 5 days Prednisone 10 mg BID for 5 days Tussionex liquid 5 ml (1 tsp) q 12 hours for 5 days SMOKING: Not applicable DISEASE SPECIFIC EDUCATION: Influenza Prescriptions Steroid use with potential for GI irritation, bone demineralization Appointment LAB REVIEW: 04/10/17 04:54 04/10/17 04:54 04/10/17 04:54: Sodium 140, Potassium 4.0, Chloride 103, Carbon Dioxide 29, Anion Gap 12.0, BUN 14, Creatinine 0.69, Estimated GFR (MDRD) 85.00, BUN/ Creatinine Ratio 20.28, Glucose 279 H D, Calcium 8.8, Total Bilirubin 0.3, AST 33, ALT 64, Alkaline Phosphatase 85, Total Protein 7.4, Albumin 3.0 L, Globulin 4.4, Albumin/Globulin Ratio 0.68 04/10/17 04:54: WBC 7.94, RBC 4.61, Hgb 13.7, Hct 41.4, MCV 89.8, MCH 29.7, MCHC 33.1, RDW Coeff of Marj 12.6, Plt Count 148, Neutrophils % (Manual) 75.0, Lymphocytes % (Manual) 19.0, Monocytes % (Manual) 2.0, Reactive Lymphocytes 4.0 , Anisocytosis Not present PLAN: Discharge home Diet: Heart Healthy Activity: Resume as tolerated Avoid crowds Continue medications as listed on nursing discharge information sheet An appointment is scheduled with Dr. Canales/Lilia Sanchez APRN on 2017 at 10:30 Ms. Braga is alert and oriented x 3. She is independent with activities of daily living. She is ambulatory without use of an assistive device. She denies abdominal pain or nausea. Meal intakes are good at 100%. She has been afebrile for over 48 hours. An occasional cough is noted that is productive of "white foam" only. Skin is intact and free of decubitus ulcers, rashes or irritation. Dillon Canales MD Lilia Sanchez APRN
[2017-04-10 10:18] VITALS: BP 175/92
--- NOTE | 2017-04-10 14:20 | PN ---
DATE OF SERVICE: 04/08/17 SUBJECTIVE: 66-year-old white female hospitalized with influenza A with acute bronchitis. The patient's wheezing is audible whenever she goes to the bathroom and walks around. Otherwise the patient is not in distress. She is feeling somewhat better. Appetite has improved. No nausea, no vomiting. REVIEW OF SYSTEMS: CONSTITUTIONAL: Fatigue and weakness. No night sweats. No fever or chills. HEENT: Eyes: No visual changes. No eye pain. No eye discharge. ENT: No runny nose. No epistaxis. No sinus pain. No sore throat. No odynophagia. No congestion. RESPIRATORY: Mild cough, congestion. No hemoptysis. No shortness of breath. No PND. CARDIOVASCULAR: No angina symptoms. No CHF symptoms. No atypical chest pain for CAD. No palpitations. No orthopnea. GASTROINTESTINAL: No abdominal pain. No nausea or vomiting. No diarrhea or constipation. No hematemesis. No hematochezia. GENITOURINARY: No urgency. No frequency. No dysuria. No hematuria. No obstructive symptoms. No discharge. No pain. No significant abnormal bleeding. MUSCULOSKELETAL: No musculoskeletal pain; no joint swelling. NEUROLOGICAL: No headache. No neck pain. No syncope. No seizures. No dizziness. PSYCHIATRIC: Not anxious. No depression. No suicidal thoughts. No homicidal thoughts. SKIN: No rash. No lesions. No wounds. ENDOCRINE: No unexplained weight loss. No weight gain. HEMATOLOGIC/LYMPHATIC: No anemia. No purpura. No petechiae. No prolonged or excessive bleeding. No palpable lymph nodes. PHYSICAL EXAMINATION: GENERAL: The patient seems to be oriented to time, place and person. VITAL SIGNS: Temperature 97.9, pulse 64, respiratory rate 20, BP 140/80, pulse ox 92%. HEENT: Head normocephalic, atraumatic. Eyes: Extraocular muscles are intact. Pupils are equal, round and reactive to light and accommodation. Ears: No lesions. Nose appeared normal. Throat: No exudate or erythema. NECK: Supple. No JVD, no carotid bruit. No lymphadenopathy or thyromegaly. LUNGS: Decreased breath sounds. Clear to auscultation. Percussion note normal. Chest symmetrical. HEART: S1, S2, no S3. No murmurs. No cyanosis or clubbing. No ascites. Pulses: Dorsalis pedis and posterior tibial pulses +1 to +2 both sides. ABDOMEN: Soft. Nontender. Bowel sounds active. No CVA tenderness. No mass felt. EXTREMITIES: No edema. Full range of motion of all extremities, equal. NEUROLOGIC: No focal deficit. Cranial nerves II through XII are grossly intact. No headache, no double vision or headache. SKIN: Not dry. Intact. Turgor - normal. LYMPHATIC: No palpable lymph nodes/no lymphedema. MUSCULOSKELETAL: Normal joints with no swelling. Muscle tone is normal. ASSESSMENT: 1. ACUTE BRONCHITIS/PNEUMONITIS 2. INFLUENZA A 3. DEHYDRATION 4. MASSIVE OBESITY PLAN: 1. Continue antibiotics 2. Continue Tessilon Perle 3. Continue IV steroids 4. Continue nebs treatment 5. IV Toradol 6. IV fluids 7. Watch for fluid overload CONDITION: Stable TIME SPENT: More than 30 minutes. Plan and coordination of the patient's care discussed in the presence of nurse. KIRAN
--- NOTE | 2017-04-20 13:28 | DS ---
DATE OF SERVICE: 04/10/17 FINAL DIAGNOSIS: 1. ACUTE BRONCHITIS 2. INFLUENZA B 3. GASTROENTERITIS 4. HYPERTENSION 5. HYPOTHYROID 6. OSTEOARTHRITIS 7. SLEEP APNEA 8. MORBID OBESITY 9. CHRONIC LUNG DISEASE DISCHARGE INSTRUCTIONS: Followup appointment: Dr. Canales/Lilia Sanchez APRN on 04/16/17 at 10:30 a.m. MEDICATIONS AT DISCHARGE: Aspirin 81 mg p.o. daily with meal GUCCI Ziac 5-6.25 mg one tab p.o. bedtime GUCCI Synthroid 25 mcg p.o. q d a.c. GUCCI Cozaar 50 mg p.o. daily GUCCI NEW PRESCRIPTIONS: Keflex 500 mg t.i.d. for 5 days Prednisone 10 mg b.i.d. for 5 days Tussionex liquid 5 mL (one teaspoon) q.12hr for five days DIET INSTRUCTIONS: Heart Healthy ACTIVITY: Resume as tolerated SMOKING: N/A DISEASE SPECIFIC EDUCATION: Influenza Prescriptions Steroid use with potential for GI irritation, bone demineralization Appointment HOSPITAL COURSE: This 66-year-old white female who presented to the emergency room with fever, cough and shortness of breath. She has a history of COPD and asthma. She tested positive for Influenza B. Chest x-ray showed changes associated with bronchitis. No pneumonia. After presenting to the emergency room, the patient stated that she had had symptoms for several days prior to coming to the emergency room approximately four days so she was not started on Tamiflu. She was started on IV fluids, D5 1/2 NS at 75 cc/hr. She was partially dehydrated and kidney function was elevated likely due to fever. She was given Rocephin 1 gm IV daily along with Solu-Medrol 40 mg b.i.d. She was given Tussionex for cough, started on Duoneb breathing treatment every 6 hours over the course of several days. Her fever ceased after about 48 hours. Her cough has slowly improved. Today, on day of discharge, she is no longer wheezing. She still has some diminished breath sounds. She is able to get up and about with minimal exertion that she normally has. Her oxygen saturation is 95% on room air. Due to her response to IV Rocephin and steroids she will be discharged home on Keflex 500 mg t.i.d. for the next five days along with Prednisone 10 mg b.i.d. for the next 5 days. She has a nebulizer machine at home which she will continue Albuterol neb treatments three times a day until her cough completely resolves. Again she has been afebrile for the past 48 hours. If she starts to run fever again, she is instructed to return. We will follow up with her in the office some time next week. All of her home medications remain unchanged. The patient demonstrates understanding, states she is feeling much better and would like to be discharged. She has been eating 75 to 100% of her meals for the past two days. She has remarkably improved since admission. TIME SPENT: More than 60 minutes. KIRAN
== END 2017-04-10 11:30 | disposition home or self-care (01) | DRG 194 ==
LOC: ED 13:54 → MEDSURG A 17:32
PROVIDERS: ADMIT Internal Medicine; ATTEND Internal Medicine
DX: J10.1 Influenza due to other identified influenza virus with other respiratory manifestations (principal); J44.0 Chronic obstructive pulmonary disease with (acute) lower respiratory infection; J20.9 Acute bronchitis, unspecified; K52.9 Noninfective gastroenteritis and colitis, unspecified; E86.0 Dehydration; R52 Pain, unspecified; R06.02 Shortness of breath; I10 Essential (primary) hypertension; E03.9 Hypothyroidism, unspecified; M19.90 Unspecified osteoarthritis, unspecified site; G47.30 Sleep apnea, unspecified; E66.01 Morbid (severe) obesity due to excess calories; Z87.891 Personal history of nicotine dependence; Z79.899 Other long term (current) drug therapy
CPT/HCPCS: 36415; 80053; 82550; 82803; 83605; 84145; 84484; 85007; 85025; 87040; 87502; 87651; 87880; 93005; 93010; 94640; 96365; 96375; 99284

== ENCOUNTER 2018-04-14 20:12 | Inpatient (IN) ==
[2018-04-14] MEDS ORDERED: DUONEB NEB STA (20:17)
[2018-04-14] MEDS ORDERED: XOPENEX 1.25 MG NEB STA (20:17)
[2018-04-14] MEDS ORDERED: SOLU-MEDROL 125 MG IVP STA (20:17)
--- NOTE | 2018-04-14 21:44 | CT ---
Exam: CT of the chest without contrast History: Dyspnea Technique: [address] of the chest without intravascular contrast FINDINGS: The lung windows show no consolidative opacity. Subtle tree-in-bud nodular infiltrate of the right upper lobe. There is no pleural fluid. Atherosclerotic calcification of the aorta without aneurysm. No pathologic lymph node enlargement or abundance of mediastinum. Bilateral breast prost hesis. No acute chest wall abnormalities. No acute findings of the upper abdomen. Exophytic hyperd ense cyst of the right kidney stable from 04/06/2017. Left-sided urolithiasis incidentally noted. Impression: 1. Small area of focal tree-in-bud nodular infiltrate in the right upper lobe. Correlate for infect ious pneumonitis.
--- NOTE | 2018-04-14 21:50 | ED.PDOC ---
General ED Provider: Dr. GAGANDEEP MARTINES-ER Chief Complaint: Shortness of Air Stated Complaint: aleks been coughing up stuff Time Seen by Physician: 20:15 Mode of Arrival: Wheelchair Information Source: Patient Exam Limitations: No limitations Primary Care Provider: SARAH HOWARD Nursing and Triage Documentation Reviewed and Agree: Yes Does patient meet sepsis criteria?: No System Inflammatory Response Syndrome: Not Applicable Sepsis Protocol: For patient's 13 years and over: Temp is 96.8 and below OR 101 and greater Pulse >90 BPM Resp >20/minute Acutely Altered Mental Status Are patient's symptoms suggestive of a new infection, such as: -Pneumonia -Skin, Soft Tissue -Endocarditis -UTI -Bone, Joint Infection -Implantable Device -Acute Abdominal Infection -Wound Infection -Meningitis -Blood Stream Catheter Infection -Unknown Respiratory Complaint Exam - Respiratory Complaint/Exam Onset/Duration: 3 weeks Symptoms Are: Still present Timing: Intermittent Initial Severity: Mild Current Severity: Moderate Location: Chest Character: Reports: Productive cough Aggravating: Reports: URI Alleviating: Reports: Bronchodilators Associated Signs and Symptoms: Reports: Dyspnea, Fever, Chills, Wheezing, URI Home Oxygen Use: Yes Recent Stress Test: No Grunting Respirations: No Kussmaul Respirations: No Differential Diagnoses: Chest Wall Pain Review of Systems - Review Of Systems Constitutional: Reports: No symptoms Eyes: Reports: No symptoms Ears, Nose, Mouth, Throat: Reports: No symptoms Respiratory: Reports: Cough, Short of air Cardiac: Reports: No symptoms GI: Reports: No symptoms : Reports: No symptoms Musculoskeletal: Reports: No symptoms Skin: Reports: No symptoms Neurological: Reports: No symptoms Endocrine: Reports: No symptoms Hematologic/Lymphatic: Reports: No symptoms All Other Systems: Reviewed and Negative Past Medical History - Past Medical History Previously Healthy: Yes Endocrine: Reports: None, Hypothyroid Cardiovascular: Reports: Hypertension Respiratory: Reports: COPD, Asthma Hematological: Reports: None Gastrointestinal: Reports: GERD Genitourinary: Reports: None Neuro/Psych: Reports: Anxiety Musculoskeletal: Reports: None, Arthritis Cancer: Reports: None Last Menstrual Period: menopausal Other Pertinent Past Medical History: PINCHED NERVE TO NECK - Surgical History General Surgical History: Reports: Orthopedic (left knee replacement 2011 \ ganglion cyst) - Family History Family History: Reports: Kidney (sister with kidney stones, son with many kidney stones) - Social History Smoking Status: Former smoker Hx Substance Use: No Alcohol Screening: None - Immunizations Tetanus Shot up to Date: No (unsure) Physical Exam - Physical Exam Appearance: Well-appearing, No pain distress, Well-nourished Pain Distress: Mild Eyes: ELSIE, EOMI, Conjunctiva clear ENT: Ears normal, Nose normal, Oropharynx normal Neck: Supple Respiratory: Crackles, Rhonchi, Wheezes Cardiovascular: RRR GI/: Soft Musculoskeletal: Normal strength, ROM intact, No edema, No calf tenderness Skin: Warm Neurological: Sensation intact Psychiatric: Affect appropriate, Mood appropriate Interpretation - Radiology Interpretation Radiology Interpretation By: Radiologist Radiology Results: Positive Exam Interpreted: CT Scan - EKG Interpretation Time of EKG #1: 21:50 Rate: Normal Rhythm: Sinus Ectopy: None [place]: NL ST Segment: Normal Interpretation: nsr Re-Evaluation - Re-Evaluation Time of Re-Evaluation: 21:53 Status: Improved Vital Signs Stable: Yes Pain Level: 1 Appearance: NAD Lungs: Clear Skin: Warm and Dry Neuro: Alert and Oriented X3 CV: RRR Physician Notification - Case Discussed Physician Notified: dr howard Time of Notification: 21:53 Critical Care Note - Critical Care Note Total Time (mins): 0 Course - Course Hematology/Chemistry: 04/14/18 20:41 04/14/18 20:41 Orders, Labs, Meds: Lab Review 04/14/18 04/14/18 04/14/18 20:14 20:20 20:41 WBC 9.05 RBC 4.08 L Hgb 11.7 L Hct 38.7 MCV 94.9 MCH 28.7 MCHC 30.2 L RDW Coeff of Marj 13.4 Plt Count 173 Immature Gran % (Auto) 0.6 Neut % (Auto) 57.8 Lymph % (Auto) 27.0 [place] % (Auto) 11.8 H Eos % (Auto) 2.5 Baso % (Auto) 0.3 Immature Gran # (Auto) 0.1 Neut # (Auto) 5.2 Lymph # (Auto) 2.4 [place] # (Auto) 1.1 Eos # (Auto) 0.2 Baso # (Auto) 0.0 Puncture Site Rrad O2 Saturation 98.0 ABG pH 7.342 L ABG pCO2 65.2 H ABG pO2 121.0 H ABG HCO3 35.4 H ABG Total CO2 37 H ABG Base Excess 10 H [place] Test + O2 Delivery Device Nc Oxygen Liter Flow 4.00 FiO2 % 36.0 Sodium Potassium Chloride Carbon Dioxide Anion Gap BUN Creatinine Estimated GFR (MDRD) BUN/Creatinine Ratio Glucose Calcium Total Bilirubin AST ALT Alkaline Phosphatase Total Creatine Kinase Troponin I NT-Pro-B Natriuret Pep Total Protein Albumin Globulin Albumin/Globulin Ratio Influ A Molecular Assay Negative by naat Influ B Molecular Assay Negative by naat 04/14/18 04/14/18 04/14/18 20:41 20:41 20:41 WBC RBC Hgb Hct MCV MCH MCHC RDW Coeff of Marj Plt Count Immature Gran % (Auto) Neut % (Auto) Lymph % (Auto) [place] % (Auto) Eos % (Auto) Baso % (Auto) Immature Gran # (Auto) Neut # (Auto) Lymph # (Auto) [place] # (Auto) Eos # (Auto) Baso # (Auto) Puncture Site O2 Saturation ABG pH ABG pCO2 ABG pO2 ABG HCO3 ABG Total CO2 ABG Base Excess [place] Test O2 Delivery Device Oxygen Liter Flow FiO2 % Sodium 142.2 Potassium 4.32 Chloride 102.1 Carbon Dioxide 38.7 H Anion Gap 5.72 BUN 23.3 H Creatinine 0.74 Estimated GFR (MDRD) 78.00 BUN/Creatinine Ratio 31.48 Glucose 135.5 H Calcium 8.55 Total Bilirubin 0.41 AST 28.6 ALT 24.4 Alkaline Phosphatase 85.9 Total Creatine Kinase 49.2 Troponin I < 0.012 NT-Pro-B Natriuret Pep 949.000 H Total Protein 7.99 Albumin 3.54 Globulin 4.45 Albumin/Globulin Ratio 0.79 Influ A Molecular Assay Influ B Molecular Assay Orders Category Date Time Status ABG DRAW REQUEST Stat CARDIO 04/14/18 20:15 Ordered EKG-(ED ONLY) Stat CARDIO 04/14/18 20:14 Ordered NEBULIZER TREATMENT Stat CARDIO 04/14/18 20:17 Ordered ED GREENHOUSE OR NURSERY TRANSPLANTER APPLIED .ONCE EMERGENCY 04/14/18 20:15 Active IV [ED IV/MEDIPORT/POWERPORT] .ONCE EMERGENCY 04/14/18 20:15 Active ABG Stat LAB 04/14/18 20:14 Completed CBC W/ AUTO DIFF Stat LAB 04/14/18 20:41 Completed COMPREHENSIVE METABOLIC PANEL Stat LAB 04/14/18 20:41 Completed CREATINE KINASE Stat LAB 04/14/18 20:41 Completed FLU A/B MOLECULAR Stat LAB 04/14/18 20:20 Completed MOLECULAR GROUP A STREP Stat LAB 04/14/18 20:20 Completed PRO-BNP [NT-PROBNP] Stat LAB 04/14/18 20:41 Completed TROPONIN I Stat LAB 04/14/18 20:41 Completed 0.9 % Sodium Chloride [Saline Flush] MEDS 04/14/18 20:15 Ordered 1 syr IVF PRN PRN Ipratropium/Albuterol Neb [Duoneb] MEDS 04/14/18 20:17 Discontinued 1 vial NEB ONCE STA Levalbuterol HCl [Xopenex 1.25 mg] MEDS 04/14/18 20:17 Discontinued 1 vial NEB ONCE STA Methylprednisolone Sod Succ/Pf [Solu-Medrol 125 mg] MEDS 04/14/18 20:17 Discontinued [address]CE [address] CHEST W/O CONTRAST Stat RADS 04/14/18 20:17 Completed Medications Generic Name Dose Route Start Last Admin Trade Name Freq PRN Reason Stop Dose Admin Sodium Chloride 1 syr 04/14/18 20:15 Saline Flush IVF PRN PRN To flush IV Discontinued Medications Generic Name Dose Route Start Last Admin Trade Name Freq PRN Reason Stop Dose Admin Albuterol/Ipratropium 1 vial 04/14/18 20:17 04/14/18 20:55 Duoneb NEB 04/14/18 20:18 1 vial ONCE STA Administration Levalbuterol HCl 1 vial 04/14/18 20:17 04/14/18 20:45 Xopenex 1.25 Mg NEB 04/14/18 20:18 1 vial ONCE STA Administration Methylprednisolone Sodium Succinate 125 mg 04/14/18 20:17 04/14/18 20:35 Solu-Medrol 125 Mg IVP 04/14/18 20:18 125 mg ONCE STA Administration Vital Signs: Temp Pulse Resp BP Pulse Ox 04/14/18 20:53 70 23 163/65 H 100 04/14/18 20:13 98.4 F 84 30 H 218/124 H 95 Departure - Departure Time of Disposition: 21:53 Disposition: ADMITTED INPATIENT Discharge Problem: Pneumonia Qualifiers: Pneumonia type: due to unspecified organism Laterality: right Lung location: upper lobe of lung Qualified Code(s): J18.1 - Lobar pneumonia, unspecified organism Instructions: Pneumonitis (ED) Condition: Good Pt referred to PMD for follow-up: Yes IPMP verified?: No Allergies/Adverse Reactions: Allergies levofloxacin [From Levaquin] Adverse Reaction (Intermediate, Verified 04/14/18 21:03) Itching Patient received Levaquin 750mg IVPB in ED on 06/25/13. Discontinued IVPB after 25 minutes because redness and itching up arm/IV site. amoxicillin [Amoxicillin] Adverse Reaction (Verified 04/14/18 21:03) Unknown ampicillin Adverse Reaction (Verified 04/14/18 21:03) Unknown atorvastatin calcium [From Lipitor] Adverse Reaction (Verified 04/14/18 21:03) Unknown azithromycin [From Zithromax] Adverse Reaction (Verified 04/14/18 21:03) Unknown clarithromycin [From Biaxin] Adverse Reaction (Verified 04/14/18 21:03) Unknown clavulanic acid [From Augmentin] Adverse Reaction (Verified 04/14/18 21:03) codeine Adverse Reaction (Verified 04/14/18 21:03) erythromycin base [Erythromycin Base] Adverse Reaction (Verified 04/14/18 21:03) Unknown Iodinated Contrast- Oral and IV Dye [Iodinated Contrast Media - IV Dye] Adverse Reaction (Verified 04/14/18 21:03) Unknown loratadine [From Claritin] Adverse Reaction (Verified 04/14/18 21:03) Macrolide Antibiotics Adverse Reaction (Verified 04/14/18 21:03) Unknown minocycline Adverse Reaction (Verified 04/14/18 21:03) Penicillins Adverse Reaction (Verified 04/14/18 21:03) Unknown pravastatin Adverse Reaction (Verified 04/14/18 21:03) rosuvastatin calcium [From Crestor] Adverse Reaction (Verified 04/14/18 21:03) Unknown simvastatin Adverse Reaction (Verified 04/14/18 21:03) Tetracyclines Adverse Reaction (Verified 04/14/18 21:03) Unknown Home Medications: Ambulatory Orders Aspirin [Aspirin EC] 81 mg PO DAILYWM 05/29/16 Bisoprolol Fumarate/Hctz [Ziac 5-6.25 mg] 1 tab PO BEDTIME 05/29/16 Losartan Potassium [Cozaar] 50 mg PO DAILY 05/29/16 Levothyroxine Sodium [Synthroid] 25 mcg PO QDAC 11/21/16 Disposition Discussed With: Patient, Family
[2018-04-14] MEDS ORDERED: NORCO 7.5-325 PO PRN (21:59)
[2018-04-14] MEDS ORDERED: VANCOMYCIN 1 GM in SODIUM CHLORIDE 250 ML IV SCH (22:00)
[2018-04-14] MEDS ORDERED: LOVENOX SUBCUT SCH (22:00)
[2018-04-14] MEDS: DUONEB NEB SCH (22:00)
[2018-04-14 23:46] VITALS: BMI 69.2
[2018-04-15] MEDS ORDERED: NORCO 7.5-325 MG/15 ML ONE (00:49)
[2018-04-15] MEDS ORDERED: AZACTAM ONE ×2 (00:49→05:07)
[2018-04-15] MEDS ORDERED: ZIAC 2.5-6.25 MG ONE (00:50)
[2018-04-15] MEDS: SOLU-MEDROL 40 MG IVP SCH ×4 (00:59→20:11)
[2018-04-15] MEDS: BUMEX PO SCH (01:05)
[2018-04-15] MEDS: AZACTAM 1 GM in SODIUM CHLORIDE 50 ML IV SCH ×4 (01:07→20:11)
[2018-04-15] MEDS: DUONEB NEB SCH ×6 (01:30→21:35)
[2018-04-15] MEDS: SYNTHROID PO SCH (05:31)
[2018-04-15] MEDS ORDERED: NON-FORMULARY MEDICATION (Losartan Potassium 50 MG) PO SCH (09:00)
[2018-04-15] MEDS: COZAAR PO SCH (09:13)
[2018-04-15] MEDS: ASPIRIN EC PO SCH (09:13)
[2018-04-15] MEDS: VANCOMYCIN 1,500 MG in SODIUM CHLORIDE 500 ML IV SCH ×2 (09:13→21:05)
[2018-04-15] MEDS: ZIAC 5-6.25 MG PO SCH (20:10)
[2018-04-15] MEDS: LOVENOX SUBCUT SCH (20:11)
[2018-04-16] MEDS: DUONEB NEB SCH ×6 (01:30→21:30)
[2018-04-16] MEDS: SYNTHROID PO SCH (05:34)
[2018-04-16] MEDS: BUMEX PO SCH (05:34)
[2018-04-16] MEDS: SOLU-MEDROL 40 MG IVP SCH (05:34)
[2018-04-16] MEDS: AZACTAM 1 GM in SODIUM CHLORIDE 50 ML IV SCH ×3 (05:34→21:03)
[2018-04-16] MEDS: SODIUM CHLORIDE 1,000 ML IV SCH (09:38)
[2018-04-16] MEDS: COZAAR PO SCH (09:38)
[2018-04-16] MEDS: VANCOMYCIN 1,500 MG in SODIUM CHLORIDE 500 ML IV SCH ×2 (09:38→22:01)
[2018-04-16] MEDS: ASPIRIN EC PO SCH (09:38)
--- NOTE | 2018-04-16 10:12 | PCM.PROG ---
Attending Provider: ATTENDING PROVIDER: Dr. SARAH BRUNNER This patient is seen with Lilia Sanchez, Nurse Practitioner. DATE OF SERVICE: 04/16/18 SUBJECTIVE: This 67 year old WHITE/ F was hospitalized 04/14/18. The patient is resting comfortably. She has been having right sided chest pain in breast radiating to the back. History of breast augmentation. The pain is likely result of pneumonia but will do ultrasound of right breast due to refusal of mammogram. Appetite is improving. REVIEW OF SYSTEMS: CONSTITUTIONAL: No night sweats. No fatigue, malaise, lethargy. No fever or chills. HEENT: Eyes: No visual changes. No eye pain. No eye discharge. ENT: No runny nose. No epistaxis. No sinus pain. No odynophagia. No congestion. RESPIRATORY: Cough, no congestion. No hemoptysis. No shortness of breath. CARDIOVASCULAR: No angina symptoms. No CHF symptoms. No atypical chest pain for CAD. No palpitations. No orthopnea.. GASTROINTESTINAL: No abdominal pain. No nausea or vomiting. No diarrhea or constipation. No hematemesis. No hematochezia. GENITOURINARY: No urgency. No frequency. No dysuria. No hematuria. No obstructive symptoms. No discharge. No pain. No significant abnormal bleeding. MUSCULOSKELETAL: No musculoskeletal pain; no joint swelling. Right breast pain. NEUROLOGICAL: Awake, alert, oriented to time, place and person. No headache. No neck pain. No syncope. No seizures. No dizziness. PSYCHIATRIC: Not anxious. No depression. No suicidal thoughts. No homicidal thoughts. SKIN: No rash. No lesions. No wounds. ENDOCRINE: No unexplained weight loss. No weight gain. HEMATOLOGIC/LYMPHATIC: No anemia. No purpura. No petechiae. No prolonged or excessive bleeding. No palpable lymph nodes. PHYSICAL EXAMINATION: GENERAL: The patient is awake, alert and oriented, lying/sitting in bed in no distress. VITAL SIGNS: Temperature 98.3 F, Pulse 20, Respiratory Rate 24, BP 132/67, Pulse Ox 97% HEENT: Head normocephalic, atraumatic. Eyes: Extraocular muscles are intact. Pupils are equal, round and reactive to light and accommodation. Ears: No lesions. Nose appeared normal. Throat: No exudate or erythema. NECK: Supple. No JVD, no carotid bruit. No lymphadenopathy or thyromegaly. LUNGS: Diminished breath sounds with inspiratory and expiratory wheezing. Clear to auscultation. Percussion note normal. Chest symmetrical. HEART: S1, S2, no S3. No murmurs. No cyanosis or clubbing. No ascites. Pulses: Dorsalis pedis and posterior tibial pulses +1 to +2 both sides. ABDOMEN: Soft. Non-tender. Bowel sounds active. No CVA tenderness. No mass felt. EXTREMITIES: Chronic leg edema. Full range of motion of all extremities, equal. NEUROLOGIC: No focal deficit. Cranial nerves II through XII are grossly intact. No headache, no double vision or headache. SKIN: Not dry. Intact. Turgor-normal. LYMPHATIC: No palpable lymph nodes/no lymphedema. MUSCULOSKELETAL: Normal joints with no swelling. Muscle tone is normal. LAB REVIEW: 04/16/18 04:00 04/16/18 04:00 04/16/18 04:00: Sodium 133.7 L, Potassium 5.10, Chloride 98.9, Carbon Dioxide 31.9 H, Anion Gap 8.00, BUN 38.8 H, Creatinine 0.81, Estimated GFR (MDRD) 70.00 , BUN/Creatinine Ratio 47.90, Glucose 241.2 H, Calcium 8.21 L, Total Bilirubin 0.27, AST 20.5, ALT 21.0, Alkaline Phosphatase 77.4, Total Protein 7.58, Albumin 3.37 L, Globulin 4.21, Albumin/Globulin Ratio 0.80 04/16/18 04:00: WBC 11.43 H, RBC 3.61 L, Hgb 10.4 L, Hct 33.4 L, MCV 92.5, MCH 28.8, MCHC 31.1 L, RDW Coeff of Marj 13.4, Plt Count 187, Immature Gran % (Auto) 0.6, Neut % (Auto) 84.8, Lymph % (Auto) 7.9 L, [place] % (Auto) 6.6, Eos % (Auto) 0.0, Baso % (Auto) 0.1, Immature Gran # (Auto) 0.1, Neut # (Auto) 9.7 H, Lymph # (Auto) 0.9, [place] # (Auto) 0.8, Eos # (Auto) 0.0, Baso # (Auto) 0.0 04/15/18 12:02: Puncture Site R radial, O2 Saturation 99.0, ABG pH 7.406, ABG pCO2 47.2 H, ABG pO2 129.0 H, ABG HCO3 29.6 H, ABG Total CO2 31 H, ABG Base Excess 5 H, Mich Test +, O2 Delivery Device Nc, Oxygen Liter Flow 4.00 ASSESSMENT: Please see below. 1. Right upper lobe pneumonia 2. Right breast pain 3. Bronchial asthma 4. Obesity 5. Chronic leg edema PLAN: 1. IV fluids normal saline 75ml 1 liter 2. Solu-medrol 80mg Q 8 hours 3. Ultrasound of right breast Plan and coordination of the patient's care discussed in the presence of Housing Quality Standard Inspector and nurse. SCRIBED BY: Fatuma LYLESist scribed while in presence of service performed by Dr. Brunner/Lilia Sanchez APRN on 04/16/18 ([id number])
[2018-04-16] MEDS ORDERED: SOLU-MEDROL 40 MG IVP SCH (13:00)
[2018-04-16] MEDS: SOLU-MEDROL 125 MG IVP SCH ×2 (13:44→20:55)
[2018-04-16] MEDS: LOVENOX SUBCUT SCH (20:56)
[2018-04-16] MEDS: ZIAC 5-6.25 MG PO SCH (20:56)
[2018-04-16] MEDS ORDERED: COZAAR PO STA (22:23)
[2018-04-17] MEDS: DUONEB NEB SCH ×6 (01:12→21:20)
[2018-04-17] MEDS: AZACTAM 1 GM in SODIUM CHLORIDE 50 ML IV SCH ×2 (06:18→13:40)
[2018-04-17] MEDS: SOLU-MEDROL 125 MG IVP SCH ×2 (06:18→13:40)
[2018-04-17] MEDS: BUMEX PO SCH (06:18)
[2018-04-17] MEDS: SYNTHROID PO SCH (06:18)
[2018-04-17] MEDS: SODIUM CHLORIDE 1,000 ML IV SCH (06:18)
[2018-04-17] MEDS ORDERED: COZAAR PO SCH (09:00)
[2018-04-17] MEDS: COZAAR PO SCH (09:41)
[2018-04-17] MEDS: VANCOMYCIN 1,500 MG in SODIUM CHLORIDE 500 ML IV SCH (09:41)
[2018-04-17] MEDS: ASPIRIN EC PO SCH (09:41)
--- NOTE | 2018-04-17 09:57 | PCM.PROG ---
Attending Provider: ATTENDING PROVIDER: Dr. SARAH BRUNNER This patient is seen with Lilia Sanchez, Nurse Practitioner. DATE OF SERVICE: 04/17/18 SUBJECTIVE: This 67 year old WHITE/ F was hospitalized 04/14/18. The patient is resting comfortably. Her cough is improved and has not had a fever. She has had elevation in her blood pressure last night. REVIEW OF SYSTEMS: CONSTITUTIONAL: No night sweats. No fatigue, malaise, lethargy. No fever or chills. HEENT: Eyes: No visual changes. No eye pain. No eye discharge. ENT: No runny nose. No epistaxis. No sinus pain. No odynophagia. No congestion. RESPIRATORY: Cough, no congestion. No hemoptysis. No shortness of breath. CARDIOVASCULAR: No angina symptoms. No CHF symptoms. No atypical chest pain for CAD. No palpitations. No orthopnea.. GASTROINTESTINAL: No abdominal pain. No nausea or vomiting. No diarrhea or constipation. No hematemesis. No hematochezia. GENITOURINARY: No urgency. No frequency. No dysuria. No hematuria. No obstructive symptoms. No discharge. No pain. No significant abnormal bleeding. MUSCULOSKELETAL: No musculoskeletal pain; no joint swelling. NEUROLOGICAL: Awake, alert, oriented to time, place and person. Headache. No neck pain. No syncope. No seizures. No dizziness. PSYCHIATRIC: Not anxious. No depression. No suicidal thoughts. No homicidal thoughts. SKIN: No rash. No lesions. No wounds. ENDOCRINE: No unexplained weight loss. No weight gain. HEMATOLOGIC/LYMPHATIC: No anemia. No purpura. No petechiae. No prolonged or excessive bleeding. No palpable lymph nodes. PHYSICAL EXAMINATION: GENERAL: The patient is awake, alert and oriented, sitting in bed in no distress. VITAL SIGNS: Temperature 98.3 F, Pulse 76, Respiratory Rate 18, BP 162/84, Pulse Ox 98% HEENT: Head normocephalic, atraumatic. Eyes: Extraocular muscles are intact. Pupils are equal, round and reactive to light and accommodation. Ears: No lesions. Nose appeared normal. Nasal Congestion. Throat: No exudate or erythema. NECK: Supple. No JVD, no carotid bruit. No lymphadenopathy or thyromegaly. LUNGS: Diminished breath sounds but clear to auscultation. Percussion note normal. Chest symmetrical. HEART: S1, S2, no S3. No murmurs. No cyanosis or clubbing. No ascites. Pulses: Dorsalis pedis and posterior tibial pulses +1 to +2 both sides. ABDOMEN: Soft. Non-tender. Bowel sounds active. No CVA tenderness. No mass felt. EXTREMITIES: No edema. Full range of motion of all extremities, equal. NEUROLOGIC: No focal deficit. Cranial nerves II through XII are grossly intact. No headache, no double vision or headache. SKIN: Not dry. Intact. Turgor-normal. LYMPHATIC: No palpable lymph nodes/no lymphedema. MUSCULOSKELETAL: Normal joints with no swelling. Muscle tone is normal. LAB REVIEW: 04/17/18 05:45 04/17/18 05:45 04/17/18 05:45: Sodium 134.7, Potassium 4.53, Chloride 100.4, Carbon Dioxide 30.8 H, Anion Gap 8.03, BUN 34.6 H, Creatinine 0.71, Estimated GFR (MDRD) 82.00 , BUN/Creatinine Ratio 48.73, Glucose 368.8 H, Calcium 8.48, Total Bilirubin 0.30, AST 29.7, ALT 22.7, Alkaline Phosphatase 90.4, Total Protein 7.60, Albumin 3.54, Globulin 4.06, Albumin/Globulin Ratio 0.87 04/17/18 05:45: WBC 8.65, RBC 3.64 L, Hgb 10.5 L, Hct 33.7 L, MCV 92.6, MCH 28.8 , MCHC 31.2 L, RDW Coeff of Marj 13.6, Plt Count 192, Immature Gran % (Auto) 1.7 , Neut % (Auto) 85.7, Lymph % (Auto) 6.6 L, [place] % (Auto) 5.9, Eos % (Auto) 0.0 , Baso % (Auto) 0.1, Immature Gran # (Auto) 0.2, Neut # (Auto) 7.4 H, Lymph # ( Auto) 0.6, [place] # (Auto) 0.5, Eos # (Auto) 0.0, Baso # (Auto) 0.0 ASSESSMENT: Please see below. 1. Right upper lobe pneumonia 2. Right breast pain 3. Bronchial asthma 4. Obesity 5. Chronic leg edema PLAN: 1. Repeat chest x-ray 2. Right breast ultrasound as outpatient at [facility] 3. Cozaar 100mg this morning Plan and coordination of the patient's care discussed in the presence of Physician Assistant Surgery and nurse. SCRIBED BY: TRUDI SESAY Instructional Technology Teacher scribed while in presence of service performed by Dr. Brunner/Liila Sanchez APRN on 04/17/18 ([id number])
--- NOTE | 2018-04-17 13:05 | PN ---
DATE OF SERVICE: 04/15/18 SUBJECTIVE: 67 year old white female has pneumonia. The patient's condition has improved. The patient is breathing a lot better. Blood gases are looking better. She was hospitalized with cough and congestion for several days duration. The patient is allergic to a lot of antibiotics. At the present time the patient is on Vancomycin and Azactam. She is also on steroids. She is feeling a lot better. Her blood gasses are much better. pH is 7.40, pO2 129, pCo2 49 this is on 4 liters. We will cut down the oxygen to 2 liters. The patient's condition has improved. The patient was hypoxic yesterday. The patient is morbidly obese and her BMI is 69 incredible high. She is advised to lose weight. She has restrictive lung disease from being terribly over weight. Condition is improving. TIME SPENT: More than 30 minutes. Plan and coordination of the patient's care discussed in the presence of nurse. KIRAN
--- NOTE | 2018-04-17 13:17 | DI ---
EXAM: CHEST FRONTAL AND LATERAL VIEWS HISTORY: Shortness of breath, cough. COMPARISON: 12/18/2016 FINDINGS: Heart size within normal limits. Moderate atherosclerotic disease. Seated patient. Obes ity. Visualized lungs are grossly clear. No active congestive heart failure, visible pleural fluid or pneumothorax IMPRESSION: 1. Visualized lungs reveal no consolidated pneumonia or acute infiltrate.
--- NOTE | 2018-04-17 13:18 | PN ---
DATE OF SERVICE: 04/16/18 SUBJECTIVE: The patient was seen and examined with the Nurse Practitioner. The patient's condition has improved and she is breathing a lot better. Her oxygen saturation 92% on room air. PHYSICAL EXAMINATION: HEENT: Head normocephalic, atraumatic. Eyes: Extraocular muscles are intact. Pupils are equal, round and reactive to light and accommodation. Ears: No lesions. Nose appeared normal. Throat: No exudate or erythema. NECK: Supple. No JVD, no carotid bruit. No lymphadenopathy or thyromegaly. LUNGS: Clear to auscultation. Percussion note normal. Chest symmetrical. HEART: S1, S2, no S3. No murmurs. No cyanosis or clubbing. No ascites. Pulses: Dorsalis pedis and posterior tibial pulses +1 to +2 both sides. ABDOMEN: Soft. Nontender. Bowel sounds active. No CVA tenderness. No mass felt. EXTREMITIES: No edema. Full range of motion of all extremities, equal. NEUROLOGIC: No focal deficit. Cranial nerves II through XII are grossly intact. No headache, no double vision or headache. SKIN: Not dry. Intact. Turgor - normal. LYMPHATIC: No palpable lymph nodes/no lymphedema. MUSCULOSKELETAL: Normal joints with no swelling. Muscle tone is normal. PLAN: 1. Continue IV antibiotics 2. Steroids 3. NEBS TIME SPENT: More than 30 minutes. Plan and coordination of the patient's care discussed in the presence of nurse. KIRAN
[2018-04-17] MEDS ORDERED: NORVASC PO STA (13:32)
[2018-04-17] MEDS: PREDNISONE PO SCH (17:08)
[2018-04-17] MEDS ORDERED: NORVASC PO PRN (21:00)
[2018-04-17] MEDS: LOVENOX SUBCUT SCH (21:09)
[2018-04-17] MEDS: OMNICEF PO SCH (21:09)
[2018-04-17] MEDS: ZIAC 5-6.25 MG PO SCH (21:09)
[2018-04-18] MEDS: DUONEB NEB SCH ×4 (01:18→13:55)
[2018-04-18] MEDS: BUMEX PO SCH (05:43)
[2018-04-18] MEDS: SYNTHROID PO SCH (05:43)
--- NOTE | 2018-04-18 07:29 | HP ---
DATE OF SERVICE: 04/14/18 HISTORY OF PRESENT ILLNESS: This 67-year-old white female who presented to the emergency room complaining of shortness of breath and coughing. She has a history of asthma. PAST MEDICAL HISTORY: Hypothyroidism Hypertension COPD Asthma Morbid obesity GERD Anxiety Polyarthritis Bilateral knee arthritis Cervical radiculopathy Hypertension Hypothyroidism PAST SURGICAL HISTORY: Left knee replacement 2010 REVIEW OF SYSTEMS: CONSTITUTIONAL: No night sweats. No fatigue, malaise, lethargy. No fever or chills. HEENT: Eyes: No visual changes. No eye pain. No eye discharge. ENT: No runny nose. No epistaxis. No sinus pain. No sore throat. No odynophagia. No ear pain. No congestion. RESPIRATORY: Cough, wheezing, shortness of breath. No hemoptysis. CARDIOVASCULAR: No angina symptoms. No CHF symptoms. No atypical chest pain for CAD. No palpitations. No PND. No orthopnea. GASTROINTESTINAL: No abdominal pain. No nausea or vomiting. No diarrhea or constipation. No hematemesis. No hematochezia. GENITOURINARY: No urgency. No frequency. No dysuria. No hematuria. No obstructive symptoms. No discharge. No pain. No significant abnormal bleeding. MUSCULOSKELETAL: No musculoskeletal pain. No joint swelling. No arthritis. NEUROLOGICAL: No headache. No neck pain. No syncope. No seizures. No dizziness. PSYCHIATRIC: Not anxious. No depression. No suicidal thoughts. No homicidal thoughts. SKIN: No rash. No lesions. No wounds. ENDOCRINE: No unexplained weight loss. No weight gain. HEMATOLOGIC/LYMPHATIC: No anemia. No purpura. No petechiae. No prolonged or excessive bleeding. No palpable lymph nodes. PERSONAL/FAMILY/SOCIAL HISTORY: She is a former smoker. No alcohol or ilicit drug use. She is not . She has family. Her sister lives with her. MEDICATIONS: Losartan (Cozaar) 50 mg p.o. daily Bisoprolol/HCTZ (Ziac) one tab p.o. bedtime Aspirin 81 mg p.o. daily with meal Synthroid 25 mcg p.o. q.d a.c. Ipratropium/Albuterol one vial neb RT q.6h Bumetanide 1 tab p.o. daily Potassium Chloride (K-Dur) 20 mEq p.o. daily Pantoprazole 40 mg p.o. q.d a.c. ALLERGIES: ATORVASTATIN, ROSUVASTATIN, IODINATED CONTRAST (ORAL AND IV DYE), TETRACYCLINES, MACROLIDE ANTIBIOTICS, CODEINE, AMPICILLIN, ERYTHROMYCIN BASE, CLAVULANIC ACID, PRAVASTATIN, CLARITHROMYCIN FROM BIAXIN, SIMVASTATIN, AZITHROMYCIN, AMOXICILLIN, LORATADINE, MINOCYCLINE, LEVOFLOXACIN PHYSICAL EXAMINATION: HEENT: Head normocephalic, atraumatic. Eyes: Extraocular muscles are intact. Pupils are equal, round and reactive to light and accommodation. Ears: No lesions. Nose appeared normal. Throat: No exudate or erythema. NECK: Supple. No JVD, no carotid bruit. No lymphadenopathy or thyromegaly. LUNGS: Clear to auscultation. Percussion note normal. Chest symmetrical. HEART: S1, S2, no S3. No murmurs. No cyanosis or clubbing. No ascites. Pulses: Dorsalis pedis and posterior tibial pulses +1 to +2 bilaterally. ABDOMEN: Soft. Nontender. Bowel sounds active. No CVA tenderness. No mass felt. EXTREMITIES: No edema. Full range of motion of all extremities, equal. NEUROLOGIC: No focal deficit. Cranial nerves II through XII are grossly intact. No headache, no double vision or headache. SKIN: Not dry. Intact. Turgor - normal. LYMPHATIC: No palpable lymph nodes/no lymphedema. MUSCULOSKELETAL: Normal joints with no swelling. Muscle tone is normal. ABGs on 4L, 02 98, pH 7.342, pc02 65, p02 121, bicarb 35.4, total c02 37, base excess of 10. White count 9, hemoglobin 11.7, hematocrit 38.7, platelets 173. Flu A and B are both negative. Sodium 142, potassium 4.3, c02 38.7, BUN 23.3, creatinine 0.74, AST 28, ALT 24, total protein 7.9, troponin negative. BNP 9.49. Chest x-ray shows possible pneumonia in the right upper lung. CT of the chest shows right upper lobe pneumonia. ASSESSMENT: 1. RIGHT LOBAR PNEUMONIA 2. COPD 3. UNDERLYING ASTHMA 4. MORBID OBESITY PLAN: 1. We will admit. 2. Routine telemetry orders. 3. CBC, CMP daily. 4. Continue all home medications. 5. Xopenex neb treatments q.6hr GUCCI. 6. Solu-Medrol 80 mg IV q.12 hr. 7. Oxygen 1 to 3L p.r.n. 8. Low sodium diet. 9. Azactam and Vancomycin IV due to long list of allergies. 10. UA for culture and sensitivity. 11. Repeat ABGs in 2 hours. 12. Will follow closely. TIME SPENT: More than 70 minutes. MTDD
[2018-04-18] MEDS: OMNICEF PO SCH (09:11)
[2018-04-18] MEDS: COZAAR PO SCH (09:11)
[2018-04-18] MEDS: PREDNISONE PO SCH (09:11)
[2018-04-18] MEDS: ASPIRIN EC PO SCH (09:11)
--- NOTE | 2018-04-18 09:48 | PCM.PROG ---
Attending Provider: ATTENDING PROVIDER: Dr. SARAH BRUNNER This patient is seen with Lilia Sanchez, Nurse Practitioner. DATE OF SERVICE: 04/18/18 SUBJECTIVE: This 67 year old WHITE/ F was hospitalized 04/14/18. The patient is resting comfortably. Blood pressure is still somewhat elevated but slightly improved. The patient denies any symptoms of headache or blurry vision. She has been eating well. Cough and shortness of breath is significantly improved. REVIEW OF SYSTEMS: CONSTITUTIONAL: No night sweats. No fatigue, malaise, lethargy. No fever or chills. HEENT: Eyes: No visual changes. No eye pain. No eye discharge. ENT: No runny nose. No epistaxis. No sinus pain. No odynophagia. No congestion. RESPIRATORY: Cough, no congestion. No hemoptysis. No shortness of breath. CARDIOVASCULAR: No angina symptoms. No CHF symptoms. No atypical chest pain for CAD. No palpitations. No orthopnea.. GASTROINTESTINAL: No abdominal pain. No nausea or vomiting. No diarrhea or constipation. No hematemesis. No hematochezia. GENITOURINARY: No urgency. No frequency. No dysuria. No hematuria. No obstructive symptoms. No discharge. No pain. No significant abnormal bleeding. MUSCULOSKELETAL: No musculoskeletal pain; no joint swelling. NEUROLOGICAL: Awake, alert, oriented to time, place and person. No headache. No neck pain. No syncope. No seizures. No dizziness. PSYCHIATRIC: Not anxious. No depression. No suicidal thoughts. No homicidal thoughts. SKIN: No rash. No lesions. No wounds. ENDOCRINE: No unexplained weight loss. No weight gain. HEMATOLOGIC/LYMPHATIC: No anemia. No purpura. No petechiae. No prolonged or excessive bleeding. No palpable lymph nodes. PHYSICAL EXAMINATION: GENERAL: The patient is awake, alert and oriented, lying in bed in no distress. VITAL SIGNS: Temperature 97.9 F, Pulse 65, Respiratory Rate 18, BP 160/92, Pulse Ox 100% HEENT: Head normocephalic, atraumatic. Eyes: Extraocular muscles are intact. Pupils are equal, round and reactive to light and accommodation. Ears: No lesions. Nose appeared normal. Throat: No exudate or erythema. NECK: Supple. No JVD, no carotid bruit. No lymphadenopathy or thyromegaly. LUNGS: Diminished breath sounds. Clear to auscultation. Percussion note normal. Chest symmetrical. HEART: S1, S2, no S3. No murmurs. No cyanosis or clubbing. No ascites. Pulses: Dorsalis pedis and posterior tibial pulses +1 to +2 both sides. ABDOMEN: Soft. Non-tender. Bowel sounds active. No CVA tenderness. No mass felt. EXTREMITIES: No edema. Full range of motion of all extremities, equal. NEUROLOGIC: No focal deficit. Cranial nerves II through XII are grossly intact. No headache, no double vision or headache. SKIN: Not dry. Intact. Turgor-normal. LYMPHATIC: No palpable lymph nodes/no lymphedema. MUSCULOSKELETAL: Normal joints with no swelling. Muscle tone is normal. LAB REVIEW: 04/18/18 05:00 04/18/18 05:00 04/18/18 05:00: Sodium 136.5, Potassium 4.09, Chloride 99.9, Carbon Dioxide 32.1 H, Anion Gap 8.59, BUN 30.7 H, Creatinine 0.74, Estimated GFR (MDRD) 78.00 , BUN/Creatinine Ratio 41.48, Glucose 244.4 H D, Calcium 8.86, Total Bilirubin 0.31, AST 24.3, ALT 26.3, Alkaline Phosphatase 87.8, Total Protein 7.72, Albumin 3.53, Globulin 4.19, Albumin/Globulin Ratio 0.84 04/18/18 05:00: WBC 11.53 H, RBC 3.79 L, Hgb 10.9 L, Hct 35.3 L, MCV 93.1, MCH 28.8, MCHC 30.9 L, RDW Coeff of Marj 13.7, Plt Count 209, Immature Gran % (Auto) 2.2, Neut % (Auto) 72.0, Lymph % (Auto) 14.6, [place] % (Auto) 10.9 H, Eos % (Auto ) 0.1, Baso % (Auto) 0.2, Immature Gran # (Auto) 0.3, Neut # (Auto) 8.3 H, Lymph # (Auto) 1.7, [place] # (Auto) 1.3, Eos # (Auto) 0.0, Baso # (Auto) 0.0 04/17/18 08:30: Vancomycin Trough 17.991 D ASSESSMENT: Please see below. 1. Right upper lobe pneumonia 2. Right breast pain 3. Bronchial asthma 4. Obesity 5. Chronic leg edema 6. Hypertension PLAN: 1. Continue Cozaar 100mg in the AM. 2. Continue Norvasc 10mg in the PM. Plan and coordination of the patient's care discussed in the presence of Fire Truck Driver and nurse. SCRIBED BY: TRUDI SESAY Insole Coverer scribed while in presence of service performed by Dr. Brunner/Lilia Sanchez APRN on 04/18/18 ([id number])
[2018-04-18] MEDS ORDERED: ZIAC 5-6.25 MG PO SCH (10:00)
--- NOTE | 2018-04-18 13:16 | CM.DICTOOL ---
ADMISSION: 04/14/18 21:56 DISCHARGE: APRIL 18, 2018 DATE OF SERVICE: 04/18/18 FINAL DIAGNOSIS PNEUMONIA COPD ASTHMA HYPERTENSION HIGH LIPIDS GERD ARTHRITIS OBESITY HYPOTHYROID SLEEP APNEA, DOES NOT USE C-PAP FORMER SMOKER TKR, LEFT BREAST IMPLANTS, BILATERAL LAST VITALS Temp Pulse Resp BP Pulse Ox 97.9 F 65 18 160/92 H 97 04/18/18 05:12 04/18/18 05:12 04/18/18 05:12 04/18/18 05:12 04/18/18 09:43 TAKE THESE MEDICATIONS AT HOME Albuterol/Ipratropium (Duoneb) 1 vial NEB RTQ6H [facility] Last Admin: 04/18/18 09:46 Dose: 1 vial Amlodipine Besylate (Norvasc) 10 mg PO AT BEDTIME Last Admin: 04/17/18 21:09 Dose: 5 mg Aspirin (Aspirin Ec) 81 mg PO DAILYWM [facility] Last Admin: 04/18/18 09:11 Dose: 81 mg Bisoprolol Fumarate/HCTZ (Ziac 5-6.25 Mg) 1 tab PO DAILY [facility] Last Admin: 04/18/18 10:17 Dose: 1 tab Bumetanide (Bumex) 1 mg PO QDAC [facility] Last Admin: 04/18/18 05:43 Dose: 1 mg Cefdinir (Omnicef) 300 mg PO BID [facility] Last Admin: 04/18/18 09:11 Dose: 300 mg Levothyroxine Sodium (Synthroid) 25 mcg PO QDAC [facility] Last Admin: 04/18/18 05:43 Dose: 25 mcg Losartan Potassium (Cozaar) 100 mg PO DAILY [facility] Last Admin: 04/18/18 09:11 Dose: 100 mg Prednisone (Prednisone) 10 mg PO BIDWM [facility] Last Admin: 04/18/18 09:11 Dose: 10 mg ALLERGIES levofloxacin [From Levaquin] Adverse Reaction (Intermediate, Verified 04/14/18 21:03) Itching amoxicillin [Amoxicillin] Adverse Reaction (Verified 04/14/18 21:03) Unknown ampicillin Adverse Reaction (Verified 04/14/18 21:03) Unknown atorvastatin calcium [From Lipitor] Adverse Reaction (Verified 04/14/18 21:03) Unknown azithromycin [From Zithromax] Adverse Reaction (Verified 04/14/18 21:03) Unknown clarithromycin [From Biaxin] Adverse Reaction (Verified 04/14/18 21:03) Unknown clavulanic acid [From Augmentin] Adverse Reaction (Verified 04/14/18 21:03) codeine Adverse Reaction (Verified 04/14/18 21:03) erythromycin base [Erythromycin Base] Adverse Reaction (Verified 04/14/18 21:03) Unknown Iodinated Contrast- Oral and IV Dye [Iodinated Contrast Media - IV Dye] Adverse Reaction (Verified 04/14/18 21:03) Unknown loratadine [From Claritin] Adverse Reaction (Verified 04/14/18 21:03) Macrolide Antibiotics Adverse Reaction (Verified 04/14/18 21:03) Unknown minocycline Adverse Reaction (Verified 04/14/18 21:03) Penicillins Adverse Reaction (Verified 04/14/18 21:03) Unknown pravastatin Adverse Reaction (Verified 04/14/18 21:03) rosuvastatin calcium [From Crestor] Adverse Reaction (Verified 04/14/18 21:03) Unknown simvastatin Adverse Reaction (Verified 04/14/18 21:03) Tetracyclines Adverse Reaction (Verified 04/14/18 21:03) Unknown DISCONTINUED MEDICATIONS COZAAR 50 MG NEW PRESCRIPTIONS: PREDNISONE 10 MG BID WITH MEALS X 5 DAYS NORVASC 10 MG AT BEDTIME OMNICEF 300 MG BID X 5 DAYS COZAAR 100 MG DAILY FOR HYPERTENSION SMOKING: NOT APPLICABLE DISEASE SPECIFIC EDUCATION: MEDICATIONS USE OF ORAL STEROIDS, SHORT TERM HYPERTENSION APPOINTMENTS WEIGHT LOSS, LOW SALT DIET LAB REVIEW: 04/18/18 05:00 04/18/18 05:00 04/18/18 05:00: Sodium 136.5, Potassium 4.09, Chloride 99.9, Carbon Dioxide 32.1 H, Anion Gap 8.59, BUN 30.7 H, Creatinine 0.74, Estimated GFR (MDRD) 78.00 , BUN/Creatinine Ratio 41.48, Glucose 244.4 H D, Calcium 8.86, Total Bilirubin 0.31, AST 24.3, ALT 26.3, Alkaline Phosphatase 87.8, Total Protein 7.72, Albumin 3.53, Globulin 4.19, Albumin/Globulin Ratio 0.84 04/18/18 05:00: WBC 11.53 H, RBC 3.79 L, Hgb 10.9 L, Hct 35.3 L, MCV 93.1, MCH 28.8, MCHC 30.9 L, RDW Coeff of Marj 13.7, Plt Count 209, Immature Gran % (Auto) 2.2, Neut % (Auto) 72.0, Lymph % (Auto) 14.6, [place] % (Auto) 10.9 H, Eos % (Auto ) 0.1, Baso % (Auto) 0.2, Immature Gran # (Auto) 0.3, Neut # (Auto) 8.3 H, Lymph # (Auto) 1.7, [place] # (Auto) 1.3, Eos # (Auto) 0.0, Baso # (Auto) 0.0 PLAN: DISCHARGE HOME DIET: TOLERATED, LOW SALT WEIGHT LOSS ENCOURAGED, NO SODA'S ACTIVITY: RESUME TOLERATED CONTINUE USE OF OXYGEN AT 2 LITERS PER NASAL CANNULA CONTINUE USE OF NEBULIZER TREATMENTS AT LEAST 4 TIMES A DAY AN APPOINTMENT IS SCHEDULED WITH [facility] IN [place], [place] ON AT 10:15 AM AN APPOINTMENT IS SCHEDULED WITH DR. BRUNNER/TANK HOWELL APRN ON 04-23-2018 AT 2 :45 PM ECHOCARDIOGRAM SCHEDULED AN OUTPATIENT ON 04-24-2018 AT 0645 AT [facility] CODE STATUS: FULL CODE MS. LOBO IS ALERT AND ORIENTED X 3. SHE IS INDEPENDENT WITH ACTIVITIES OF DAILY LIVING. SHE TRANSFERS PER SELF FROM THE BED TO THE CHAIR AND IS AMBULATORY TO THE BATHROOM WITH USE OF OXYGEN AT 2 LITERS PER NASAL CANNULA. SHE HAS CONTINUOUS OXYGEN AND A NEBULIZER FOR HER USE AT HOME. SHE IS KNOWLEDGEABLE IN THE USE OF HER NEBULIZER MACHINE AND HER HOME OXYGEN. SHE LIVES AT HOME IN HER OWN HOME, BUT CARES FOR HER SISTER AND BROTHER. MEAL INTAKES ARE GOOD AT 100%. SHE IS CONTINENT OF BOWEL AND BLADDER, BUT REPORTS INCONTINENCE OF URINE AND STOOL WITH COUGHING. SKIN TURGOR IS GOOD. SKIN IS INTACT AND FREE OF DECUBITUS ULCERS OR SKIN BREAKDOWN. SARAH BRUNNER MD TANK HOWELL APRN
--- NOTE | 2018-04-18 13:59 | PN ---
DATE OF SERVICE: 04/17/18 SUBJECTIVE: The patient is feeling better. Her blood pressure was high last night. Extra Cozaar 100 mg was given. This morning the blood pressure is acceptable. She has been put on increasing dose of Cozaar. Otherwise, the patient's bronchitis symptoms are much better. Asthma seems to have been resolving. The patient was seen and examined with the nurse practitioner. TIME SPENT: More than 30 minutes. Plan and coordination of the patient's care discussed in the presence of nurse. KIRAN
--- NOTE | 2018-04-18 14:03 | PN ---
DATE OF SERVICE: 04/18/18 SUBJECTIVE: The patient was seen and examined with the nurse practitioner. The patient's blood pressure is more or less stabilized with systolic of 160 to 170 at times with normal diastolic. She will be discharged on Norvasc 10, Cozaar 100 in the morning and Ziac in the morning. She is also advised to cut down on salt intake and lose weight. The patient's condition is stable. Asthmatic bronchitis has resolved. TIME SPENT: More than 30 minutes. Plan and coordination of the patient's care discussed in the presence of nurse. KIRAN
--- NOTE | 2018-04-18 14:11 | PN ---
CODING FOR BILLING 04/14/18 ADMISSION DAY LEVEL 5 04/15/18 INTERMEDIATE 04/16/18 INTERMEDIATE 04/17/18 INTERMEDIATE 04/18/18 DISCHARGE MTDD
[2018-04-18 15:34] VITALS: BP 167/72; TEMP 98.3
--- NOTE | 2018-04-28 14:38 | DS ---
DATE OF SERVICE: 04/18/18 FINAL DIAGNOSIS: 1. Pneumonia 2. COPD 3. Asthma 4. Hypertension 5. High lipids 6. GERD 7. Arthritis 8. Obesity 9. Hypothyroidism 10.Sleep apnea, Does not use C-PAP 11.Former Smoker 12.TKR, left 13.Breast implants, bilateral LAST VITALS: Temperature 97.9, pulse 65, respiratory rate 18, blood pressure 160/92 and pulse ox 97%. DISCHARGE INSTRUCTIONS: Discharge home. Continue use of oxygen at 2 liters per nasal cannula. Continue use of nebulizer treatments at least 4 times a day. An appointment is scheduled with [facility] in [place] on 04-21-2018 at 10:15am. An appointment is scheduled with Dr. Canales/Lilai Sanchez APRN on 04/23/18 at 2: 45pm. Echocardiogram scheduled as an outpatient on 04/24/[address] [facility]. Code Status: Full code. MEDICATIONS AT DISCHARGE: DUO NEBS 1 vial NEB RT Q 6 hours Norvasc 10mg PO at bedtime Aspirin 81mg PO daily Ziac 5-6.25mg one tablet PO daily Bumex 1mg PO QDAC Omnicef 300mg PO twice a day Synthroid 25mcg PO QDAC Cozaar 100mg PO daily Prednisone 10mg PO twice a day ALLERGIES Levofloxacin Amoxicillin Ampicillin Atorvastatin Calcium Azithromycin Clarithromycin Clavulanic acid Codeine Erythromycin Iodinated contrast Loratadine Macrolide minocycline Penicillin Pravastatin Rosuvastatin Simvastatin Tetracycline DISCONTINUED MEDICATIONS: Cozaar 50mg NEW PRESCRIPTIONS: Prednisone 10mg twice a day with meals x5 days Norvasc 10mg at bedtime Omnicef 300mg twice a day times 5 days Cozaar 100mg daily for hypertension DIET INSTRUCTIONS: As tolerated, low salt Weight loss encouraged, no soda's ACTIVITY: Resume as tolerated SMOKING: N/A DISEASE SPECIFIC EDUCATION: Medications Use of oral steroids, short term Hypertension Appointments Weight loss, low salt diet HOSPITAL COURSE: 67 year old white female with a long history of COPD and underlined asthma who presented to the emergency room complaining of cough and shortness of breath. Chest x-ray along with chest CT revealed right upper lobe pneumonia. She was admitted. She had a long list of medication allergies so she was initially put on Azactam and Vancomycin for her pneumonia along with Solu-Medrol 40mg IV Q 12 hours. Started on DUO NEBS Q 6 hours and Oxygen at 1-2 liters. Over the course of several days her cough slowly improved. On the second I saw her and she still had some wheezing. I increased her Solu-medrol to 100mg IV Q 12 hours, changed her DUO NEBS to Xopenex NEBS three times a day and she significantly improved after this. She did develop some hypertension while she has been in the hospital. Blood pressure was 180 yesterday and she was given 10mg of Norvasc and we increased her Cozaar to 100. This morning it was down 150's to 160's. She will be discharged home on an increased Cozaar at 100mg at day a long with Norvasc 10mg at night. She will continue Ziac but take it in the morning. Repeat chest x-ray which showed resolution of the pneumonia. Her cough is significantly improved. Her vital signs and labs have all remained stable. We will discharge her in stable condition. The patient has a history of noncompliance with both labs and followup. It is again to be noted that she did complain of some right sided breast pain while she was here which I believe was a result of the pneumonia and more like a pleuritic pain however the patient insists on it being actually in her breast. The x-ray department would not do an ultrasound of the right breast without a mammogram and the patient declined a mammogram. She is not having any tenderness, she had no nipple discharge. We have scheduled her an outpatient ultrasound of the right breast at [facility] and that is to be done on Saturday and we will followup with that and we will see her in the office. TIME SPENT: More than 60 minutes. KIRAN
== END 2018-04-18 15:48 | disposition home or self-care (01) | DRG 195 ==
LOC: ED 20:12 → MEDSURG A 21:56
PROVIDERS: ADMIT Internal Medicine; ATTEND Internal Medicine
DX: J18.1 Lobar pneumonia, unspecified organism (principal); J06.9 Acute upper respiratory infection, unspecified; J44.9 Chronic obstructive pulmonary disease, unspecified; J45.909 Unspecified asthma, uncomplicated; I10 Essential (primary) hypertension; K21.9 Gastro-esophageal reflux disease without esophagitis; E66.9 Obesity, unspecified; E03.9 Hypothyroidism, unspecified; G47.30 Sleep apnea, unspecified; M19.90 Unspecified osteoarthritis, unspecified site; N64.4 Mastodynia; R60.0 Localized edema; R05 Cough; R06.00 Dyspnea, unspecified; R50.9 Fever, unspecified; R06.2 Wheezing
CPT/HCPCS: 36415; 80053; 80202; 82550; 82803; 83880; 84484; 85025; 87502; 87651; 93005; 93010; 94640; 96374; 96375; 99223; 99232; 99239; 99284; 99285

== ENCOUNTER 2018-08-24 04:25 | Outpatient (CLI) | payer OTHER | END 2018-08-24 04:46 | disposition short-term general hospital (02) | LOC: AMBL 04:25 | PROVIDERS: ATTEND Family Medicine | DX: M25.551 Pain in right hip (principal) ==

== ENCOUNTER 2019-04-27 16:06 | Inpatient (IN) ==
[2019-04-27 19:07] LABS: HEMATOCRIT 40.8 % (37.0-47.0)
[2019-04-27] MEDS ORDERED: SODIUM CHLORIDE 1,000 ML IV STA (19:47)
--- NOTE | 2019-04-27 20:38 | CT ---
EXAM: CT of the chest without contrast History: Fever and chest wall pain. Comparison: Chest CT 04/21/2019 Technique: Multiplanar CT images through the thorax were obtained without the administration of IV c ontrast Findings: Heart size is normal. No pericardial effusion. Bilateral breast implants. No pathologic ally enlarged intrathoracic lymph nodes. Interval development of right upper lobe consolidation and small right pleural effusion. No pneumothorax. Within the visualized upper abdomen, no acute findings. Right renal cyst. No acute osseous abnormal ities. Impression: Interval development of right upper lobe pneumonia and small right pleural effusion.
--- NOTE | 2019-04-27 20:55 | ED.PDOC ---
General ED Provider: Dr. GAGANDEEP TOBIAS Chief Complaint: Chest Wall Injury/Pain Stated Complaint: im coughing and i hurt Time Seen by Physician: 21:03 Mode of Arrival: Wheelchair Information Source: Patient Primary Care Provider: SARAH BRUNNER Nursing and Triage Documentation Reviewed and Agree: Yes Does patient meet sepsis criteria?: No System Inflammatory Response Syndrome: Not Applicable Sepsis Protocol: For patient's 13 years and over: Temp is 96.8 and below OR 101 and greater Pulse >90 BPM Resp >20/minute Acutely Altered Mental Status Are patient's symptoms suggestive of a new infection, such as: -Pneumonia -Skin, Soft Tissue -Endocarditis -UTI -Bone, Joint Infection -Implantable Device -Acute Abdominal Infection -Wound Infection -Meningitis -Blood Stream Catheter Infection -Unknown Respiratory Complaint Exam Respiratory Complaint/Exam Onset/Duration: 2 days Symptoms Are: Still present Timing: Constant Initial Severity: Mild Current Severity: Moderate Character: Reports Productive cough Alleviating: Reports Bronchodilators Associated Signs and Symptoms: Reports Dyspnea and Fever Home Oxygen Use: Yes Recent Stress Test: No Recent Echo/LV Function: No Current Antibiotic Use: No Current Asthma Medication Use: Yes Respiratory Distress: Mild Inadequate Respiratory Effort: No Dysphagia Present: No Stridor Present: No JVD Present: No Accessory Muscle Use: No Retractions: Not Present Diminished Breath Sounds: No Sinus Tenderness: None Grunting Respirations: No Kussmaul Respirations: No Non-Traumatic Chest Pain Syncope: EKG Performed Review of Systems Review Of Systems Constitutional: Reports No symptoms Eyes: Reports No symptoms Ears, Nose, Mouth, Throat: Reports No symptoms Respiratory: Reports Cough and Short of air Cardiac: Reports Chest pain GI: Reports No symptoms : Reports No symptoms Musculoskeletal: Reports No symptoms Skin: Reports No symptoms Neurological: Reports No symptoms Endocrine: Reports No symptoms Hematologic/Lymphatic: Reports No symptoms All Other Systems: Reviewed and Negative [facility] Social History Smoking and tobacco status: Former smoker Substance use type: does not use History of recent travel: No Female Reproductive History Menstrual Hx Hysterectomy: No Hx Tubal Ligation: No Physical Exam Physical Exam Appearance: Well-appearing Ill-appearing: None Pain Distress: Mild Eyes: ELSIE, EOMI and Conjunctiva clear ENT: Ears normal, Nose normal and Oropharynx normal Neck: Supple Respiratory: Airway patent, Crackles and Rhonchi Cardiovascular: RRR, Pulses normal, No rub and No murmur GI/: Soft, Nontender, No masses and Bowel sounds normal Musculoskeletal: Normal strength Skin: Warm and Dry Neurological: Sensation intact, Motor intact, Reflexes intact, Cranial nerves intact, Alert and Oriented Psychiatric: Affect appropriate and Mood appropriate Interpretation Radiology Interpretation Radiology Interpretation By: Radiologist Radiology Results: Positive Exam Interpreted: CT Scan EKG Interpretation Time of EKG #1: 20:54 Rate: Normal Rhythm: Sinus Ectopy: None Needles: NL ST Segment: Normal Interpretation: nsr Physician Notification Case Discussed Physician Notified: dr [email or web address] Time of Notification: 21:03 Critical Care Note Critical Care Note Total Time (mins): 0 Course Course Hematology/Chemistry: 04/27/19 18:58 04/27/19 18:58 Orders, Labs, Meds: Lab Review 04/27/19 04/27/19 04/27/19 18:58 18:58 18:58 WBC 14.20 H RBC 4.34 Hgb 12.6 Hct 40.8 MCV 94.0 MCH 29.0 MCHC 30.9 L RDW Coeff of Marj 13.6 Plt Count 225 Immature Gran % (Auto) 0.5 Neut % (Auto) 74.5 Lymph % (Auto) 14.1 Ramsey % (Auto) 9.3 Eos % (Auto) 1.3 Baso % (Auto) 0.3 Immature Gran # (Auto) 0.1 Neut # (Auto) 10.6 H Lymph # (Auto) 2.0 Ramsey # (Auto) 1.3 Eos # (Auto) 0.2 Baso # (Auto) 0.0 D-Dimer (Manual) Puncture Site O2 Saturation ABG pH ABG pCO2 ABG pO2 ABG HCO3 ABG Total CO2 ABG Base Excess Mich Test FiO2 % Sodium 139.6 Potassium 3.70 Chloride 99.8 Carbon Dioxide 35.3 H Anion Gap 8.20 BUN 11.3 Creatinine 0.55 L Estimated GFR (MDRD) 110.00 BUN/Creatinine Ratio 20.54 Glucose 122.6 H Lactic Acid 1.26 Calcium 9.36 Total Bilirubin 0.87 AST 23.4 ALT 22.4 Alkaline Phosphatase 108.5 Total Creatine Kinase 33.5 Troponin I < 0.012 Total Protein 8.37 H Albumin 3.94 Globulin 4.43 Albumin/Globulin Ratio 0.88 Procalcitonin Influ A Molecular Assay Influ B Molecular Assay 04/27/19 04/27/19 04/27/19 18:58 18:58 19:00 WBC RBC Hgb Hct MCV MCH MCHC RDW Coeff of Marj Plt Count Immature Gran % (Auto) Neut % (Auto) Lymph % (Auto) Ramsey % (Auto) Eos % (Auto) Baso % (Auto) Immature Gran # (Auto) Neut # (Auto) Lymph # (Auto) Ramsey # (Auto) Eos # (Auto) Baso # (Auto) D-Dimer (Manual) 1372.86 Puncture Site O2 Saturation ABG pH ABG pCO2 ABG pO2 ABG HCO3 ABG Total CO2 ABG Base Excess Mich Test FiO2 % Sodium Potassium Chloride Carbon Dioxide Anion Gap BUN Creatinine Estimated GFR (MDRD) BUN/Creatinine Ratio Glucose Lactic Acid Calcium Total Bilirubin AST ALT Alkaline Phosphatase Total Creatine Kinase Troponin I Total Protein Albumin Globulin Albumin/Globulin Ratio Procalcitonin < 0.05 Influ A Molecular Assay Negative by naat Influ B Molecular Assay Negative by naat 04/27/19 19:24 WBC RBC Hgb Hct MCV MCH MCHC RDW Coeff of Marj Plt Count Immature Gran % (Auto) Neut % (Auto) Lymph % (Auto) Ramsey % (Auto) Eos % (Auto) Baso % (Auto) Immature Gran # (Auto) Neut # (Auto) Lymph # (Auto) Ramsey # (Auto) Eos # (Auto) Baso # (Auto) D-Dimer (Manual) Puncture Site Lbrach O2 Saturation 88.0 L ABG pH 7.404 ABG pCO2 47.3 H ABG pO2 55.0 L* ABG HCO3 29.6 H ABG Total CO2 31 H ABG Base Excess 5 H Mich Test + FiO2 % 21.0 Sodium Potassium Chloride Carbon Dioxide Anion Gap BUN Creatinine Estimated GFR (MDRD) BUN/Creatinine Ratio Glucose Lactic Acid Calcium Total Bilirubin AST ALT Alkaline Phosphatase Total Creatine Kinase Troponin I Total Protein Albumin Globulin Albumin/Globulin Ratio Procalcitonin Influ A Molecular Assay Influ B Molecular Assay Orders Category Date Time Status ABG DRAW REQUEST Stat CARDIO 04/27/19 19:25 Completed EKG-(ED ONLY) Stat CARDIO 04/27/19 18:40 Completed NPO REMINDER: IMAGING ONCE CARE 04/27/19 19:47 Completed ED SHOTGUN SHELL REPRINTING UNIT OPERATOR APPLIED .ONCE EMERGENCY 04/27/19 18:40 Active ABG Stat LAB 04/27/19 19:24 Completed BLOOD CULTURE (ED ONLY) Stat LAB 04/27/19 18:58 Received CBC W/ AUTO DIFF Stat LAB 04/27/19 18:58 Completed COMPREHENSIVE METABOLIC PANEL Stat LAB 04/27/19 18:58 Completed CREATINE KINASE Stat LAB 04/27/19 18:58 Completed D-DIMER Stat LAB 04/27/19 18:58 Completed FLU A/B MOLECULAR Stat LAB 04/27/19 19:00 Completed LACTIC ACID Stat LAB 04/27/19 18:58 Completed PROCALCITONIN Stat LAB 04/27/19 18:58 Completed TROPONIN I Stat LAB 04/27/19 18:58 Completed 0.9 % Sodium Chloride [Saline Flush] MEDS 04/27/19 19:47 Active 1 syr IVF PRN PRN Sodium Chloride 0.9% [Sodium Chloride] 1,000 ml MEDS 04/27/19 19:47 Discontinued IV 100 mls/hr CT CHEST W/O CONTRAST Stat RADS 04/27/19 19:48 Completed Medications Generic Name Dose Route Start Last Admin Trade Name Freq PRN Reason Stop Dose Admin Sodium Chloride 1 syr 04/27/19 19:47 Saline Flush IVF PRN PRN To flush IV Discontinued Medications Generic Name Dose Route Start Last Admin Trade Name Freq PRN Reason Stop Dose Admin Sodium Chloride 1,000 mls @ 100 mls/hr 04/27/19 19:47 04/27/19 19:52 Sodium Chloride IV 04/28/19 05:46 Not Given .Q10H STA Vital Signs: Temp Pulse Resp BP Pulse Ox 04/27/19 16:06 100.7 F H 78 24 180/75 H 94 L Discharge Plan Discharge Patient Disposition: ADMITTED INPATIENT Discharge Problem: Pneumonia Prescriptions: No Action levothyroxine 25 MCG tablet 25 mcg PO QDAC RF: 0 pantoprazole 40 MG tablet,delayed release (DR/EC) 40 mg PO QDAC RF: 0 ipratropium-albuterol 1 VIAL solution for nebulization 1 vial NEB RTQ6H RF: 0 bumetanide 1 MG tablet 1 tab PO DAILY RF: 0 potassium chloride [Klor-Con M20] 20 MEQ tablet,ER particles/crystals 20 meq PO DAILY RF: 0 bisoprolol-hydrochlorothiazide [Ziac] 1 TAB tablet 1 tab PO DAILY Qty: 1 RF: 0 amlodipine [Norvasc] 10 MG tablet 10 mg PO BEDTIME Qty: 30 RF: 0 losartan 100 MG tablet 100 mg PO DAILY Qty: 30 RF: 0 hydrocodone-acetaminophen [[place]] 5-325 mg Tablet 1 tab PO Q6H PRN (Reason: Analgesia) RF: 0 aspirin 81 MG tablet,delayed release (DR/EC) 81 mg PO DAILYWM RF: 0 ED Provider: GAGANDEEP TOBIAS Condition: Fair
[2019-04-27] MEDS ORDERED: TYLENOL PO PRN (21:04)
[2019-04-27] MEDS ORDERED: NORCO 5-325 PO STA (21:26)
[2019-04-27] MEDS ORDERED: SOLU-MEDROL 40 MG IVP SCH (21:30)
[2019-04-27] MEDS: SODIUM CHLORIDE 1,000 ML IV SCH (21:55)
[2019-04-27 22:11] VITALS: BMI 64.5
[2019-04-27] MEDS ORDERED: AZACTAM ONE (22:11)
[2019-04-27] MEDS: AZACTAM 1 GM in SODIUM CHLORIDE 50 ML IV SCH (22:20)
[2019-04-28] MEDS: DUONEB NEB SCH ×5 (00:15→22:48)
[2019-04-28] MEDS ORDERED: VANCOMYCIN 1.5 GM in SODIUM CHLORIDE 500 ML IV SCH (02:00)
[2019-04-28] MEDS ORDERED: AZACTAM ONE (05:43)
[2019-04-28] MEDS: AZACTAM 1 GM in SODIUM CHLORIDE 50 ML IV SCH ×3 (05:46→20:42)
[2019-04-28] MEDS: SYNTHROID PO SCH (05:47)
[2019-04-28] MEDS: PROTONIX PO SCH (05:47)
[2019-04-28 05:53] LABS: HEMATOCRIT 38.3 % (37.0-47.0)
[2019-04-28] MEDS: ASPIRIN EC PO SCH (08:54)
[2019-04-28] MEDS: COZAAR PO SCH (08:55)
[2019-04-28] MEDS: ZIAC 10-6.25 MG PO SCH (08:55)
[2019-04-28] MEDS: K-DUR PO SCH (08:55)
[2019-04-28] MEDS: LOVENOX SUBCUT SCH (08:56)
[2019-04-28] MEDS ORDERED: SOLU-MEDROL 40 MG IVP SCH (09:00)
[2019-04-28] MEDS ORDERED: BUMEX PO SCH (09:00)
--- NOTE | 2019-04-28 09:21 | PCM.PROG ---
Attending Provider: ATTENDING PROVIDER: Dr. SARAH BRUNNER This patient is seen with Lilia Sanchez, Nurse Practitioner. DATE OF SERVICE: 04/28/19 SUBJECTIVE: This 68 year old /WHITE F was hospitalized 04/27/19. The patient is lying in bed resting comfortably. She is having persistent cough and pain on right side with deep inspiration consistent with pneumonia. REVIEW OF SYSTEMS: CONSTITUTIONAL: No night sweats. No fatigue, malaise, lethargy. No fever or chills. HEENT: Eyes: No visual changes. No eye pain. No eye discharge. ENT: No runny nose. No epistaxis. No sinus pain. No odynophagia. No congestion. RESPIRATORY: Positive for cough and shortness of breath. No hemoptysis. CARDIOVASCULAR: Positive for pleuritic pain. No angina symptoms. No CHF symptoms. No palpitations. No orthopnea.. GASTROINTESTINAL: No abdominal pain. No nausea or vomiting. No diarrhea or constipation. No hematemesis. No hematochezia. GENITOURINARY: No urgency. No frequency. No dysuria. No hematuria. No obstructive symptoms. No discharge. No pain. No significant abnormal bleeding. MUSCULOSKELETAL: No musculoskeletal pain; no joint swelling. NEUROLOGICAL: Awake, alert, oriented to time, place and person. No headache. No neck pain. No syncope. No seizures. No dizziness. PSYCHIATRIC: Not anxious. No depression. No suicidal thoughts. No homicidal thoughts. SKIN: No rash. No lesions. No wounds. ENDOCRINE: No unexplained weight loss. No weight gain. HEMATOLOGIC/LYMPHATIC: No anemia. No purpura. No petechiae. No prolonged or excessive bleeding. No palpable lymph nodes. PHYSICAL EXAMINATION: GENERAL: The patient is awake, alert and oriented, lying/sitting in bed in no distress. VITAL SIGNS: Temperature 98.1 F, Pulse 77, Respiratory Rate 22, BP 143/64, Pulse Ox 97% HEENT: Head normocephalic, atraumatic. Eyes: Extraocular muscles are intact. Pupils are equal, round and reactive to light and accommodation. Ears: No lesions. Nose appeared normal. Throat: No exudate or erythema. NECK: Supple. No JVD, no carotid bruit. No lymphadenopathy or thyromegaly. LUNGS: Diminished breath sounds with rales on the right. Bilateral upper airway wheezing. Percussion note normal. Chest symmetrical. HEART: S1, S2, no S3. No murmurs. No cyanosis or clubbing. No ascites. Pulses: Dorsalis pedis and posterior tibial pulses +1 to +2 both sides. ABDOMEN: Soft. Non-tender. Bowel sounds active. No CVA tenderness. No mass felt. EXTREMITIES: No edema. Full range of motion of all extremities, equal. NEUROLOGIC: No focal deficit. Cranial nerves II through XII are grossly intact. No headache, no double vision or headache. SKIN: Not dry. Intact. Turgor-normal. LYMPHATIC: No palpable lymph nodes/no lymphedema. MUSCULOSKELETAL: Normal joints with no swelling. Muscle tone is normal. LAB REVIEW: 04/28/19 05:30 04/28/19 05:30 04/28/19 05:30: Sodium 138.3, Potassium 3.94, Chloride 100.9, Carbon Dioxide 30.5 H, Anion Gap 10.84, BUN 10.0, Creatinine 0.44 L, Estimated GFR (MDRD) 142.00, BUN/Creatinine Ratio 22.72, Glucose 277.2 H D, Calcium 9.02, Total Bilirubin 0.79, AST 20.6, ALT 21.8, Alkaline Phosphatase 97.6, Total Protein 7.70, Albumin 3.69, Globulin 4.01, Albumin/Globulin Ratio 0.92 04/28/19 05:30: WBC 15.24 H, RBC 4.11 L, Hgb 11.9 L, Hct 38.3, MCV 93.2, MCH 29.0, MCHC 31.1 L, RDW Coeff of Marj 13.4, Plt Count 224, Immature Gran % (Auto) 0.5, Neut % (Auto) 88.1 H, Lymph % (Auto) 8.3 L, [place] % (Auto) 2.8, Eos % (Auto) 0.1, Baso % (Auto) 0.2, Immature Gran # (Auto) 0.1, Neut # (Auto) 13.4 H, Lymph # (Auto) 1.3, [place] # (Auto) 0.4, Eos # (Auto) 0.0, Baso # (Auto) 0.0 04/27/19 19:24: Puncture Site Lbrach, O2 Saturation 88.0 L, ABG pH 7.404, ABG pCO2 47.3 H, ABG pO2 55.0 L*, ABG HCO3 29.6 H, ABG Total CO2 31 H, ABG Base Excess 5 H, Mich Test +, FiO2 % 21.0 04/27/19 19:00: Influ A Molecular Assay Negative by naat, Influ B Molecular Assay Negative by naat 04/27/19 18:58: Procalcitonin < 0.05 04/27/19 18:58: D-Dimer (Manual) 1372.86 04/27/19 18:58: Lactic Acid 1.26 04/27/19 18:58: Sodium 139.6, Potassium 3.70, Chloride 99.8, Carbon Dioxide 35.3 H, Anion Gap 8.20, BUN 11.3, Creatinine 0.55 L, Estimated GFR (MDRD) 110.00, BUN/Creatinine Ratio 20.54, Glucose 122.6 H, Calcium 9.36, Total Bilirubin 0.87, AST 23.4, ALT 22.4, Alkaline Phosphatase 108.5, Total Creatine Kinase 33.5, Trop onin I < 0.012, Total Protein 8.37 H, Albumin 3.94, Globulin 4.43, Albumin/ Globulin Ratio 0.88 04/27/19 18:58: WBC 14.20 H, RBC 4.34, Hgb 12.6, Hct 40.8, MCV 94.0, MCH 29.0, MCHC 30.9 L, RDW Coeff of Marj 13.6, Plt Count 225, Immature Gran % (Auto) 0.5, Neut % (Auto) 74.5, Lymph % (Auto) 14.1, [place] % (Auto) 9.3, Eos % (Auto) 1.3, Baso % (Auto) 0.3, Immature Gran # (Auto) 0.1, Neut # (Auto) 10.6 H, Lymph # (Auto) 2.0, [place] # (Auto) 1.3, Eos # (Auto) 0.2, Baso # (Auto) 0.0 ASSESSMENT: Please see below. 1. Right lower pneumonia. 2. Asthmatic bronchitis. 3. Shortness of breath. 4. Hyperglycemia. 5. Hypertension. 6. Obesity. PLAN: 1. Continue Azactam and Vancomycin 2. Increase Solu-Medrol to 125 q.8hr. 3. Rapid flu. 4. UA. 5. Sputum culture if not done. 6. Add Pulmicort neb 1 mg b.i.d. 7. Sliding scale insulin. Plan and coordination of the patient's care discussed in the presence of Java Integration Developer and nurse. CONDITION: Stable SCRIBED BY: ALTAGRACIA DOWELL Basket Mender scribed while in presence of service performed by Dr. Brunner/Lilia Sanchez APRN on 04/28/19 ([id number])
[2019-04-28] MEDS: SOLU-MEDROL 125 MG IVP SCH ×2 (12:32→20:43)
[2019-04-28] MEDS: HUMULIN R SUBCUT PRN ×3 (13:42→20:42)
--- NOTE | 2019-04-28 14:22 | PN ---
DATE OF SERVICE: 04/27/19 - ADMIT NOTE SUBJECTIVE: The patient called the office because she was coughing for 4 to 5 days duration, yellowish sputum production. The patient was advised to go to the emergency room where she may need further workup and maybe hospitalization. The patient was seen and examined by the ER attending, was diagnosed to have severe acute bronchitis with chest x-ray showing pneumonia. The patient was not in any distress. Her condition was otherwise stable with good blood gases, good oxygen level on room air. She was put on Vancomycin and Azactam. Right upper lobe pneumonia was suspected could have been from aspiration. In any case, the patient is going to be hospitalized with IV antibiotics, IV fluids, nebs and steroids. The patient is morbidly obese, noncompliant of lifestyle and medications. CONDITION: Stable. PROGNOSIS: Poor. TIME SPENT: More than 30 minutes. Plan and coordination of the patient's care discussed in the presence of nurse. KIRAN
--- NOTE | 2019-04-28 14:29 | HP ---
DATE OF SERVICE: 04/27/2019 REASON FOR HOSPITALIZATION/HISTORY OF PRESENT ILLNESS: 68 year old white female who presented to the emergency room with coughing. She has a history of asthmatic bronchitis. She complains of pain on the right side when coughing and taking a deep breath. PAST MEDICAL HISTORY: Underlined COPD Asthma Hypertension Dyslipidemia GERD Polyarthritis Morbid obesity Hypothyroidism Sleep apnea refuses CPAP Former smoker Noncompliance with diet, medications, lifestyle and followup. History of pneumonia PAST SURGICAL HISTORY: Left total knee replacement Bilateral breast implants REVIEW OF SYSTEMS: CONSTITUTIONAL: No night sweats. No fatigue, malaise, lethargy. No fever or chills. HEENT: Eyes: No visual changes. No eye pain. No eye discharge. ENT: No runny nose. No epistaxis. No sinus pain. No sore throat. No odynophagia. No ear pain. No congestion. RESPIRATORY: Cough, no congestion. No hemoptysis. Shortness of breath. CARDIOVASCULAR: No angina symptoms. No CHF symptoms. No atypical chest pain for CAD. No palpitations. No PND. No orthopnea. Pleuritic pain on the right side. GASTROINTESTINAL: No abdominal pain. No nausea or vomiting. No diarrhea or constipation. No hematemesis. No hematochezia. GENITOURINARY: No urgency. No frequency. No dysuria. No hematuria. No obstructive symptoms. No discharge. No pain. No significant abnormal bleeding. MUSCULOSKELETAL: No musculoskeletal pain. No joint swelling. No arthritis. NEUROLOGICAL: No headache. No neck pain. No syncope. No seizures. No dizziness. PSYCHIATRIC: Not anxious. No depression. No suicidal thoughts. No homicidal thoughts. SKIN: No rash. No lesions. No wounds. ENDOCRINE: No unexplained weight loss. No weight gain. HEMATOLOGIC/LYMPHATIC: No anemia. No purpura. No petechiae. No prolonged or excessive bleeding. No palpable lymph nodes. PERSONAL/FAMILY/SOCIAL HISTORY: She lives at home with her sister. She does not smoke. No alcohol or illicit drug use. MEDICATIONS: Aspirin 81mg PO daily Levothyroxine 25mcg PO QDAC Ipratropium 1 vial NEB RT Q 6 hours Bumetanide 1mg tablet PO daily K-Dur 20meq PO daily Pantoprazole 40mg PO QDAC Ziac 6-.625 PO daily Norvasc 10mg PO bedtime Losartan 100mg PO daily Hydrocodone-acetaminophen 5-325 Po Q 6 hours PRN ALLERGIES: Levofloxacin Amoxicillin Ampicillin Atorvastatin Azithromycin Clarithromycin Clavulanic acid Codeine Erythromycin Iodinated contrast Loratadine Macrolide antibiotics Minocrycline Penicillins Pravastatin Rosuvastatin Simvastatin Tetracyclines PHYSICAL EXAMINATION: VITAL SIGNS: Temperature 100.7, heart rate 78, respiratory rate 24, blood pressure 180/75 and pulse ox 94%. HEENT: Head normocephalic, atraumatic. Eyes: Extraocular muscles are intact. Pupils are equal, round and reactive to light and accommodation. Ears: No lesions. Nose appeared normal. Throat: No exudate or erythema. NECK: Supple. No JVD, no carotid bruit. No lymphadenopathy or thyromegaly. LUNGS: Diminished breath sounds bilaterally with bilateral expiratory wheezing greater on the right than on the left. Clear to auscultation. Percussion note normal. Chest symmetrical. HEART: S1, S2, no S3. No murmur. No cyanosis or clubbing. No ascites. Pulses: Dorsalis pedis and posterior tibial pulses +1 to +2 bilaterally. ABDOMEN: Soft. Nontender. Bowel sounds active. No CVA tenderness. No mass felt. EXTREMITIES: Trace bilateral leg edema which is chronic. Full range of motion of all extremities, equal. NEUROLOGIC: No focal deficit. Cranial nerves II through XII are grossly intact. No headache, no double vision or headache. SKIN: Not dry. Intact. Turgor - normal. LYMPHATIC: No palpable lymph nodes/no lymphedema. MUSCULOSKELETAL: Normal joints with no swelling. Muscle tone is normal. LABS/DIAGNOSTIC TESTING: CT of the chest interval development of right upper lobe pneumonia, small right pleural effusion. WBC 14.2, hgb 12.6, hct 40.8, plt count 225, sodium 139, potassium 3.7, BUN 11, creatinine 0.5, Glucose 122, AST 23, ALT 22. Influenza A and B are both negative. ABG on room air O2 88, pH 7.404,pCO23 47, pO2 55, bicarb 29.6, total CO2 31. ASSESSMENT: 1. Shortness of breath 2. Right upper lobe pneumonia 3. Right pleuritic pain 4. Underlying COPD 5. Underlying asthma 6. Hypertension 7. Morbid obesity 8. Dyslipidemia 9. Former smoker PLAN: 1. We will admit 2. Routine telemetry orders 3. CBC and CMP daily 4. Normal saline at 75cc an hour 5. Sputum culture 6. DUO NEBS Q 6 hours scheduled 7. Oxygen at 1-2 liters via nasal canula 8. Continue all home medications 9. Regular diet 10.The patient will continue on Azactam IV along with Vancomycin IV Q 12 hours 11.Solu-Cortef 125mg IV Q 8 hours Will follow closely. TIME SPENT: More than 70 minutes. MTDD
--- NOTE | 2019-04-28 14:45 | RS.PTINEVL ---
Subjective - Patient information Date of Evaluation: 04/28/19 Date of Arrival on Unit: 04/27/19 Admitted From:: Home Diagnosis: pneumonia Usual Living Arrangement: With Others Living Arrangement Comments: lives in home with multiple family members. 1 step to enter Home Environment: House, Stairs (few), No rail Medical History: Hypertension, COPD, Arthritis Medical History Comments:: chronic low back pain LATEX ALLERGY?: No Surgical History: Knee Replacement (Left) Subjective Information/ Patient Comments:: pt states that she feels she needs therapy however is concerned about being able to tolerate PT due to chronic pain issues. - Level of function Prior to this admission, the patient could do the following:: Independent Selfcare, Independent ADL's, Independent Ambulation Current Level of Function: Partially Dependent Current Equipment Used at Home: Oxygen, nebulizer, wheelchair, walker, BSC, Bath chair, Hospital bed. Interventions - Objective Patient Orientation: Person, Place, Time, Situation Current Interventions: IV's, Oxygen, Telemetry Observation: pt with scabbed area to L hip Range of Motion - ROM Right Upper Extremity AROM: WFL's Left Upper Extremity AROM: WFL's Right Lower Extremity AROM: WFL's Left Lower Extremity AROM: WFL's Muscle Strength - Muscle Strength Right Upper Extremity Strength: Mild Weakness (grossly 4-/5) Left Upper Extremity Strength: Mild Weakness (grossly 4-/5) Right Lower Extremity Strength: Mild Weakness (hip flex 4-/5, knee flex/ext 4/5, ankle DF/PF 4/5) Left Lower Extremity Strength: Mild Weakness (hip flex 4-/5, knee flex/ext 4/5, ankle DF/PF 4/5) Sensation - Sensation Right Upper Extremity Sensation: Intact/Normal Left Upper Extremity Sensation: Intact/Normal Right Lower Extremity Sensation: Impaired Left Lower Extremity Sensation: Impaired Comments: n/t BLE Palpation Palpation Findings: None/Normal Balance - Sitting Balance and Reactions Static Sitting Balance: Good Dynamic Sitting Balance: Fair - Standing Balance and Reactions Static Standing Balance: Fair Dynamic Standing Balance: Poor Standing Equilibrium Reactions: Delayed Left, Delayed Right Standing Protective Reactions: Delayed Left, Delayed Right Functional Mobility - Bed Mobility Supine to Sit: Min Assist - Transfers Sit to Stand: Min Assist Stand to Sit: Min Assist - Safety Awareness Safety Awareness: Fair MARY ANNE INDEX SCORE: n/a Ambulation - Ambulation Assistive Device Used: Rolling Walker Orthotic/Prosthetic Device: No Distance: 50ft with O2 Assistance needed with Ambulation: CGA, Min Assist Gait Deviations: Forward posture, Short stride Factors Affecting Ambulation: Decreased Balance, Breathing/O2 Saturation, Weakness, Decreased Safety, Limited Endurance Treatment time - Time with patient Length of Evaluation: 23 Total treatment time: 26 Patient Education - Education Patient Education: Activity Modification, Education of Plan of Care Teaching Recipient: Patient Teaching Methods: Discussion, Demonstration Comments: discussion regarding POC as well as safety with transfers and gait. Assessment - Assessment Problem List:: Decreased level of function, Requires training/education, Decreased safety/Risk of falls, Weakness Rehab Potential: Good Further Therapy Indicated?: Yes Candidate for Swing Bed for Therapy Services?: Feel pt may not be a candidate for swing bed due to higher functional level. Evaluation Complexity: HISTORY: Medium, EXAM OF BODY SYSTEMS: Medium, CLINICAL PRESENTATION: Medium, CLINICAL DECISION MAKING: Medium Patient's Goal(s): Return home and be as independent as possible Short Term Goals GOAL #1: pt demonstrate rolling and scooting up in bed independently. Goal to be met by: 05/01/19 GOAL #2: Transfer sup to/from sit CGA Goal to be met by: 05/01/19 GOAL #3: Sit to/from stand CGA Goal to be met by: 05/01/19 GOAL #4: pt amb with rwx with O2 75ft CGA Goal to be met by: 05/01/19 Hand Profiler Goals GOAL #1: Transfer sup to/from sit SBA, sit to/from stand SBA Goal to be met by: 05/04/19 GOAL #2: pt amb with rwx and O2 functional household distances SBA Goal to be met by: 05/04/19 GOAL #3: Dyn stand balance fair Goal to be met by: 05/04/19 Plan Plan of Care: Therapeutic EX, Therapeutic Activity Other:: gait training Frequency of Treatment: 1-2 X day, as tolerated Duration of Treatment: 5 days Anticipated Discharge Destination: Home Treatment Diagnosis (ICD 10 Codes): Difficulty walking R 26.2. Balance impaired R 26.81 Has the Physician been added for Co-signature?: Yes
[2019-04-28] MEDS: PULMICORT 1 MG/2 ML NEB SCH (16:45)
[2019-04-28] MEDS: SODIUM CHLORIDE 1,000 ML IV SCH (18:05)
[2019-04-28] MEDS: NORCO 5-325 PO PRN (19:27)
[2019-04-28] MEDS: NORVASC PO SCH (20:43)
[2019-04-28] MEDS: VANCOMYCIN 1.5 GM in SODIUM CHLORIDE 500 ML IV SCH (21:58)
[2019-04-29] MEDS: PULMICORT 1 MG/2 ML NEB SCH ×2 (04:45→18:07)
[2019-04-29] MEDS: DUONEB NEB SCH ×4 (04:45→23:58)
[2019-04-29 05:10] LABS: HEMATOCRIT 38.8 % (37.0-47.0)
[2019-04-29] MEDS: PROTONIX PO SCH (05:41)
[2019-04-29] MEDS: SOLU-MEDROL 125 MG IVP SCH ×3 (05:41→20:00)
[2019-04-29] MEDS: HUMULIN R SUBCUT PRN ×4 (05:42→20:46)
[2019-04-29] MEDS: SYNTHROID PO SCH (05:42)
[2019-04-29] MEDS: AZACTAM 1 GM in SODIUM CHLORIDE 50 ML IV SCH ×3 (05:42→20:00)
--- NOTE | 2019-04-29 09:02 | PCM.PROG ---
Attending Provider: ATTENDING PROVIDER: Dr. SARAH BRUNNER DATE OF SERVICE: 04/29/19 SUBJECTIVE: This 68 year old /WHITE F was hospitalized 04/27/19 with acute bronchitis, pneumonia right upper lobe. Condition has improved remarkably. She is feeling better. She is still coughing up mild yellowish sputum. REVIEW OF SYSTEMS: CONSTITUTIONAL: No night sweats. No fatigue, malaise, lethargy. No fever or chills. HEENT: Eyes: No visual changes. No eye pain. No eye discharge. ENT: No runny nose. No epistaxis. No sinus pain. No odynophagia. No congestion. RESPIRATORY: No cough, no congestion. No hemoptysis. No shortness of breath. CARDIOVASCULAR: No angina symptoms. No CHF symptoms. No atypical chest pain for CAD. No palpitations. No orthopnea.. GASTROINTESTINAL: No abdominal pain. No nausea or vomiting. No diarrhea or constipation. No hematemesis. No hematochezia. GENITOURINARY: No urgency. No frequency. No dysuria. No hematuria. No obstructive symptoms. No discharge. No pain. No significant abnormal bleeding. MUSCULOSKELETAL: No musculoskeletal pain; no joint swelling. NEUROLOGICAL: Awake, alert, oriented to time, place and person. No headache. No neck pain. No syncope. No seizures. No dizziness. PSYCHIATRIC: Not anxious. No depression. No suicidal thoughts. No homicidal thoughts. SKIN: No rash. No lesions. No wounds. ENDOCRINE: No unexplained weight loss. No weight gain. HEMATOLOGIC/LYMPHATIC: No anemia. No purpura. No petechiae. No prolonged or excessive bleeding. No palpable lymph nodes. PHYSICAL EXAMINATION: GENERAL: The patient is awake, alert and oriented, lying/sitting in bed in no distress. VITAL SIGNS: Temperature 97.6 F, Pulse 76, Respiratory Rate 20, BP 119/65, Pulse Ox 98% HEENT: Head normocephalic, atraumatic. Eyes: Extraocular muscles are intact. Pupils are equal, round and reactive to light and accommodation. Ears: No lesions. Nose appeared normal. Throat: No exudate or erythema. NECK: Supple. No JVD, no carotid bruit. No lymphadenopathy or thyromegaly. LUNGS: Decreased breath sounds. Clear to auscultation. No wheeze. Percussion note normal. Chest symmetrical. HEART: S1, S2, no S3. No murmurs. No cyanosis or clubbing. No ascites. Pulses: Dorsalis pedis and posterior tibial pulses +1 to +2 both sides. ABDOMEN: Soft. Non-tender. Bowel sounds active. No CVA tenderness. No mass felt. EXTREMITIES: Trace edema. Full range of motion of all extremities, equal. NEUROLOGIC: No focal deficit. Cranial nerves II through XII are grossly intact. No headache, no double vision or headache. SKIN: Warm and dry. Intact. Turgor-normal. LYMPHATIC: No palpable lymph nodes/no lymphedema. MUSCULOSKELETAL: Normal joints with no swelling. Muscle tone is normal. LAB REVIEW: 04/29/19 04:45 04/29/19 04:45 04/29/19 04:45: Sodium 137.9, Potassium 4.00, Chloride 100.4, Carbon Dioxide 28.9, Anion Gap 12.60, BUN 17.3 H, Creatinine 0.48 L, Estimated GFR (MDRD) 128.00, BUN/Creatinine Ratio 36.04, Glucose 332.0 H D, Calcium 8.91, Total Bilirubin 0.40, AST 18.0, ALT 22.3, Alkaline Phosphatase 106.9, Total Protein 7.93, Albumin 3.83, Globulin 4.10, Albumin/Globulin Ratio 0.93 04/29/19 04:45: WBC 15.44 H, RBC 4.19 L, Hgb 12.1, Hct 38.8, MCV 92.6, MCH 28.9, MCHC 31.2 L, RDW Coeff of Marj 13.2, Plt Count 249, Immature Gran % (Auto) 1.1, Neut % (Auto) 88.7 H, Lymph % (Auto) 6.7 L, [place] % (Auto) 3.4, Eos % (Auto) 0.0, Baso % (Auto) 0.1, Immature Gran # (Auto) 0.2, Neut # (Auto) 13.7 H, Lymph # (Auto) 1.0, [place] # (Auto) 0.5, Eos # (Auto) 0.0, Baso # (Auto) 0.0 04/28/19 12:50: Urine Color Yellow, Urine Clarity Clear, Urine pH 5.5, Ur Specific [place] 1.015, Urine Protein Negative, Urine Glucose (UA) Negative, Urine Ketones Negative, Urine Blood Negative, Urine Nitrite Negative, Urine Bilirubin Negative, Urine Urobilinogen 0.2, Ur Leukocyte Esterase Negative ASSESSMENT: Please see below. 1. Pneumonia clinically seems to be resolving. PLAN: 1. Continue steroids, antibiotics and nebs. 2. The patient is morbidly obese. Counseling for diet carried out. Plan and coordination of the patient's care discussed in the presence of Artificial Limb Fitter and nurse. CONDITION: Stable SCRIBED BY: ALTAGRACIA DOWELL Typewriter Mechanic scribed while in presence of service performed by Dr. SARAH BRUNNER on 04/29/19 ([id number])
[2019-04-29] MEDS: LOVENOX SUBCUT SCH (09:29)
[2019-04-29] MEDS: K-DUR PO SCH (09:30)
[2019-04-29] MEDS: ASPIRIN EC PO SCH (09:30)
[2019-04-29] MEDS: ZIAC 10-6.25 MG PO SCH (09:30)
[2019-04-29] MEDS: COZAAR PO SCH (09:31)
[2019-04-29] MEDS: VANCOMYCIN 1.5 GM in SODIUM CHLORIDE 500 ML IV SCH (09:31)
[2019-04-29] MEDS: BUMEX PO SCH (09:31)
--- NOTE | 2019-04-29 09:36 | RS.OTINEVL ---
Subjective - Patient information Date of Evaluation: 04/29/19 Date of Arrival on Unit: 04/27/19 Admitted From:: Home Diagnosis: Pneumonia, Pain in Right lung PRECAUTIONS: Fall risk Usual Living Arrangement: With Others Living Arrangement Comments: lives in home with multiple family members. 1 step to enter Home Environment: House, Stairs (few), No rail Medical History: Hypertension, COPD, Arthritis Medical History Comments:: chronic low back pain LATEX ALLERGY?: No Surgical History: Knee Replacement (Left) Surgical History Comments:: Left TKA 2010 Subjective Information/ Patient Comments:: "My Left arm hurts me. My index finger and the inside of my middle finger are numb. It hurts up into my head and will run down the side of my back into my [place]." - Level of function Prior to this admission, the patient could do the following:: Independent Selfcare, Independent ADL's, Independent Ambulation Abilities prior to this admission: Pt completes ADLS from a WC in her home. Pt is able to walk with a RW, however her ability to stand and complete ADLS is limited due to SOA. Current Level of Function: Partially Dependent Current Equipment Used at Home: Oxygen, nebulizer, wheelchair, walker, BSC, Bath chair, Hospital bed. Pain Assessment - Pain Pain Score: 5 Side: left Pain Location Body Site: Shoulder Pain Aggravating Factors: ADL's, Walking Pain Alleviating Factors: Medication Interventions - Objective Patient Orientation: Person, Place, Time, Situation Current Interventions: IV's, Oxygen, Telemetry Observation: Pt is independent with self feeding. Pt is SOA with standing activity. Pt wears oxygen at all times. Pt is weak in BUE and would benefit from occupational therapy. Interventions - ROM Right Upper Extremity AROM: WFL's Left Upper Extremity AROM: Slight limitation - Strength Right Upper Extremity Strength: Mild Weakness Left Upper Extremity Strength: Mild Weakness - Sensation Right Upper Extremity Sensation: Intact/Normal Left Upper Extremity Sensation: Intact/Normal Balance - Sitting Balance Static Sitting Balance: Good Dynamic Sitting Balance: Good - Standing Balance Static Standing Balance: Poor Dynamic Standing Balance: Poor (Pt reports she has had a recent fall.) ADL Skills - Self Feeding Self Feeding: Independent - Grooming Grooming: Min Assist - Bathing Bathing UE: Not Tested Bathing LE: Not Tested - Dressing Dressing UE: Independent Dressing LE: Max Assist - Toilet Management Toileting Management: Mod Assist (Pt reports she has difficulty with personal hygiene. OT educated regarding buying tongs.) Functional Mobility - Transfers Sit to Stand: Supervision Stand to Sit: Independent MARY ANNE INDEX SCORE: . Additional Treatment Performed - Additional units charged ADL: 10 - Time with patient Length of Evaluation: 19 Total treatment time: 29 Activities Do you enjoy playing games?: Yes Would you be interested in leaving your room for activities?: Yes Would you enjoy group activities?: Yes Do you have difficulty with your vision?: Yes (Wears glasses) What types of things do you enjoy doing? Any Hobbies?: Coloring books, TV, Patient Interests:: Watching Television, Puzzles/Games, Visiting/Socializing, Bible Reading/Study Patient Education Patient Education: Home Exercise Program, Home Safety, Education of Plan of Care Teaching Recipient: Patient Teaching Methods: Discussion Comments: OT educating patient regarding Adaptive equipment for shower and for personal hygiene. Assessment Problem List:: Decreased level of function, Requires training/education, Decreased safety/Risk of falls, Weakness, Pain limits previous level of function Rehab Potential: Fair Further Therapy Indicated?: Yes Evaluation Complexity: HISTORY: Medium, EXAM OF BODY SYSTEMS: Medium, CLINICAL DECISION MAKING: Medium Patient's Goal(s): She wants to be able to move out of her home and get away from the people there. She wants home health to come see her. Short Term Goals - Goals GOAL 1: Pain in LUE to decrease to 0-2/10. Goal to be met by: 05/01/19 GOAL 2: Pt to be independent with AE for LE dressing. Goal to be met by: 05/01/19 GOAL 3: To be able to tolerate 5 minutes of standing activity. Goal to be met by: 05/01/19 Assisted Goals GOAL 1: Pt to be independent with self cares using AE PRN. Goal to be met by: 05/06/19 GOAL 2: Pt pain level to decrease in LUE to increase functional use in ADLS. Goal to be met by: 05/04/19 GOAL 3: Pt to increase standing activity time to 8 minutes for self cares. Goal to be met by: 05/05/19 Plan Plan of Care: Therapeutic EX, Neuromuscular Re-Educ, Therapeutic Activity, Self- Care/Home Management Modalities: Hot Pack, Cold Pack/Cryotherapy, Ultrasound, Ultrasound Combination, Electrical Stimulation Frequency of Treatment: 1-2 X day, as tolerated Duration of Treatment: 1 Week Anticipated Discharge Destination: Home Treatment Diagnosis (ICD 10 Codes): LUE shoulder pain M25.511), numbness, weakness (M62.81), Z74.1 Needs help with self care. Has the Physician been added for Co-signature?: Yes
--- NOTE | 2019-04-29 12:34 | PN ---
DATE OF SERVICE: 04/28/2019 SUBJECTIVE: The patient was seen and examined with the Nurse Practitioner. The patient's condition has improved within 24 hours with IV antibiotics, NEBS and steroids. The patient is morbidly obese. Diet counseling done. She laughs when we talk about diet and weight loss. TIME SPENT: More than 30 minutes. Plan and coordination of the patient's care discussed in the presence of nurse. KIRAN
[2019-04-29] MEDS: NORCO 5-325 PO PRN ×2 (14:56→23:27)
[2019-04-29] MEDS: NORVASC PO SCH (20:00)
[2019-04-29] MEDS: SODIUM CHLORIDE 1,000 ML IV SCH (20:01)
[2019-04-29] MEDS: VANCOMYCIN 1,500 MG in SODIUM CHLORIDE 500 ML IV SCH (20:46)
[2019-04-30] MEDS: SODIUM CHLORIDE 1,000 ML IV SCH (04:16)
[2019-04-30] MEDS: DUONEB NEB SCH ×4 (04:46→23:30)
[2019-04-30] MEDS: PULMICORT 1 MG/2 ML NEB SCH ×2 (04:46→17:41)
[2019-04-30] MEDS: PROTONIX PO SCH (05:53)
[2019-04-30] MEDS: BUMEX PO SCH (05:53)
[2019-04-30] MEDS: SYNTHROID PO SCH (05:53)
[2019-04-30] MEDS: SOLU-MEDROL 125 MG IVP SCH (05:54)
[2019-04-30] MEDS: AZACTAM 1 GM in SODIUM CHLORIDE 50 ML IV SCH ×3 (05:54→20:20)
[2019-04-30] MEDS: HUMULIN R SUBCUT PRN ×4 (06:45→21:22)
[2019-04-30 07:14] LABS: HEMATOCRIT 36.9 % (37.0-47.0)
[2019-04-30] MEDS ORDERED: GOLD BOND ULTIMATE HEALING TP PRN (08:37)
[2019-04-30] MEDS ORDERED: CITRATE OF MAGNESIA PO STA (08:38)
[2019-04-30] MEDS ORDERED: VISTARIL PO PRN (08:39)
--- NOTE | 2019-04-30 08:57 | PCM.PROG ---
Attending Provider: ATTENDING PROVIDER: Dr. SARAH BRUNNER This patient is seen with Lilia Sanchez, Nurse Practitioner. DATE OF SERVICE: 04/30/19 SUBJECTIVE: This 68 year old /WHITE F was hospitalized 04/27/19. The patient is sitting in chair resting comfortably. Wheezing has improved. Cough has improved. The patient is complaining of constipation. REVIEW OF SYSTEMS: CONSTITUTIONAL: Positive for weakness. No night sweats. No fatigue, malaise, lethargy. No fever or chills. HEENT: Eyes: No visual changes. No eye pain. No eye discharge. ENT: No runny nose. No epistaxis. No sinus pain. No odynophagia. No congestion. RESPIRATORY: Positive for cough. No hemoptysis. Shortness of breath. CARDIOVASCULAR: No angina symptoms. No CHF symptoms. No atypical chest pain for CAD. No palpitations. No orthopnea.. GASTROINTESTINAL: No abdominal pain. No nausea or vomiting. Positive for constipation. No hematemesis. No hematochezia. GENITOURINARY: No urgency. No frequency. No dysuria. No hematuria. No obstructive symptoms. No discharge. No pain. No significant abnormal bleeding. MUSCULOSKELETAL: No musculoskeletal pain; no joint swelling. NEUROLOGICAL: Awake, alert, oriented to time, place and person. No headache. No neck pain. No syncope. No seizures. No dizziness. PSYCHIATRIC: Not anxious. No depression. No suicidal thoughts. No homicidal thoughts. SKIN: No rash. No lesions. No wounds. ENDOCRINE: No unexplained weight loss. No weight gain. HEMATOLOGIC/LYMPHATIC: No anemia. No purpura. No petechiae. No prolonged or excessive bleeding. No palpable lymph nodes. PHYSICAL EXAMINATION: GENERAL: The patient is awake, alert and oriented, lying/sitting in bed in no distress. VITAL SIGNS: Temperature 98.5 F, Pulse 77, Respiratory Rate 22, BP 150/68, Pulse Ox 96% HEENT: Head normocephalic, atraumatic. Eyes: Extraocular muscles are intact. Pupils are equal, round and reactive to light and accommodation. Ears: No lesions. Nose appeared normal. Throat: No exudate or erythema. NECK: Supple. No JVD, no carotid bruit. No lymphadenopathy or thyromegaly. LUNGS: Diminished breath sounds. Clear to auscultation. Percussion note norm al. Chest symmetrical. HEART: S1, S2, no S3. No murmurs. No cyanosis or clubbing. No ascites. Pulses: Dorsalis pedis and posterior tibial pulses +1 to +2 both sides. ABDOMEN: Soft. Non-tender. Bowel sounds active. No CVA tenderness. No mass felt. EXTREMITIES: No edema. Full range of motion of all extremities, equal. NEUROLOGIC: No focal deficit. Cranial nerves II through XII are grossly intact. No headache, no double vision or headache. SKIN: Skin is dry. Intact. Turgor-normal. LYMPHATIC: No palpable lymph nodes/no lymphedema. MUSCULOSKELETAL: Normal joints with no swelling. Muscle tone is normal. LAB REVIEW: 04/30/19 07:13 04/30/19 07:13 04/30/19 07:13: Sodium 136.7, Potassium 3.71, Chloride 99.7, Carbon Dioxide 27.0, Anion Gap 13.71, BUN 23.5 H, Creatinine 0.52 L, Estimated GFR (MDRD) 117.00, BUN/Creatinine Ratio 45.19, Glucose 370.0 H, Calcium 9.08, Total Bilirubin 0.32, AST 20.6, ALT 23.8, Alkaline Phosphatase 96.9, Total Protein 7.54, Albumin 3.74, Globulin 3.80, Albumin/Globulin Ratio 0.98 04/30/19 07:13: WBC 13.39 H, RBC 3.99 L, Hgb 11.4 L, Hct 36.9 L, MCV 92.5, MCH 28.6, MCHC 30.9 L, RDW Coeff of Marj 13.4, Plt Count 279, Immature Gran % (Auto) 0.8, Neut % (Auto) 91.2 H, Lymph % (Auto) 5.3 L, [place] % (Auto) 2.6, Eos % (Auto) 0.0, Baso % (Auto) 0.1, Immature Gran # (Auto) 0.1, Neut # (Auto) 12.2 H, Lymph # (Auto) 0.7, [place] # (Auto) 0.4, Eos # (Auto) 0.0, Baso # (Auto) 0.0 ASSESSMENT: Please see below. 1. Pneumonia clinically seems to be resolving. 2. Underlying asthma and COPD. 3. Hypertension. 4. Morbid obesity. 5. Dry skin. 6. Constipation. 7. Noncompliance with lifestyle, diet and medications. PLAN: 1. Vistaril 25 mg b.i.d. p.r.n. 2. Stop Solu-Medrol. 3. Prednisone 20 mg daily. 4. D/C fluids. 5. Repeat chest x-ray. 6. Three-step oxygen test. Plan and coordination of the patient's care discussed in the presence of Commissary Officer and nurse. CONDITION: Stable SCRIBED BY: Tiffanie GARRISON scribed while in presence of service performed by Dr. Brunner/Lilia Sanchez APRN on 04/30/19 ([id number])
[2019-04-30] MEDS: COZAAR PO SCH (09:27)
[2019-04-30] MEDS: ASPIRIN EC PO SCH (09:27)
[2019-04-30] MEDS: K-DUR PO SCH (09:28)
[2019-04-30] MEDS: ZIAC 10-6.25 MG PO SCH (09:28)
[2019-04-30] MEDS: LOVENOX SUBCUT SCH (09:29)
[2019-04-30] MEDS: VANCOMYCIN 1 GM in SODIUM CHLORIDE 250 ML IV SCH ×3 (10:19→22:12)
[2019-04-30] MEDS: VANCOMYCIN 1,500 MG in SODIUM CHLORIDE 500 ML IV SCH (10:24)
[2019-04-30] MEDS ORDERED: VANCOMYCIN 1 GM in SODIUM CHLORIDE 250 ML IV SCH (10:30)
--- NOTE | 2019-04-30 15:09 | DI ---
EXAM: Chest two views HISTORY: Pneumonia COMPARISON: 03/26/2019, 04/27/2019 TECHNIQUE: Two views of the chest were performed FINDINGS: Normal heart size. Normal mediastinal contour. Decreasing right upper/mid lung opacities. No pleural effusion or pneumothorax. No acute abnormalities of the bones. IMPRESSION: Improving but persistent right upper/mid lung pneumonia.
[2019-04-30] MEDS: NORCO 5-325 PO PRN (16:19)
[2019-04-30] MEDS: NORVASC PO SCH (20:20)
[2019-05-01] MEDS: DUONEB NEB SCH ×2 (04:32→11:34)
[2019-05-01] MEDS: PULMICORT 1 MG/2 ML NEB SCH (04:32)
[2019-05-01] MEDS: AZACTAM 1 GM in SODIUM CHLORIDE 50 ML IV SCH ×2 (04:35→15:01)
[2019-05-01 05:19] LABS: HEMATOCRIT 39.5 % (37.0-47.0)
[2019-05-01 05:29] VITALS: BP 138/74; TEMP 97.8
[2019-05-01] MEDS: VANCOMYCIN 1 GM in SODIUM CHLORIDE 250 ML IV SCH ×2 (05:34→15:01)
[2019-05-01] MEDS: SYNTHROID PO SCH (05:37)
[2019-05-01] MEDS: PROTONIX PO SCH (05:37)
[2019-05-01] MEDS: BUMEX PO SCH (05:37)
[2019-05-01] MEDS: HUMULIN R SUBCUT PRN (05:43)
[2019-05-01] MEDS ORDERED: PREDNISONE PO SCH (08:00)
[2019-05-01] MEDS ORDERED: OMNICEF PO ONE (08:29)
[2019-05-01] MEDS: ASPIRIN EC PO SCH (09:15)
[2019-05-01] MEDS: ZIAC 10-6.25 MG PO SCH (09:15)
[2019-05-01] MEDS: K-DUR PO SCH (09:15)
[2019-05-01] MEDS: COZAAR PO SCH (09:15)
[2019-05-01] MEDS: LOVENOX SUBCUT SCH (09:16)
--- NOTE | 2019-05-01 09:32 | PCM.PROG ---
Attending Provider: ATTENDING PROVIDER: Dr. SARAH BRUNNER This patient is seen with Lilia Sanchez, Nurse Practitioner. DATE OF SERVICE: 05/01/19 SUBJECTIVE: This 68 year old /WHITE F was hospitalized 04/27/19. The patient is lying in bed resting comfortably. Cough is improved. Chest x-ray showed slight improvement. No fever. She is eating well. She had a bowel movement. Shortness of breath has improved. REVIEW OF SYSTEMS: CONSTITUTIONAL: No night sweats. No fatigue, malaise, lethargy. No fever or chills. HEENT: Eyes: No visual changes. No eye pain. No eye discharge. ENT: No runny nose. No epistaxis. No sinus pain. No odynophagia. No congestion. RESPIRATORY: Cough and congestion. No hemoptysis. No shortness of breath. CARDIOVASCULAR: No angina symptoms. No CHF symptoms. No atypical chest pain for CAD. No palpitations. No orthopnea.. GASTROINTESTINAL: No abdominal pain. No nausea or vomiting. No diarrhea or constipation. No hematemesis. No hematochezia. GENITOURINARY: No urgency. No frequency. No dysuria. No hematuria. No obstructive symptoms. No discharge. No pain. No significant abnormal bleeding. MUSCULOSKELETAL: No musculoskeletal pain; no joint swelling. NEUROLOGICAL: Awake, alert, oriented to time, place and person. No headache. No neck pain. No syncope. No seizures. No dizziness. PSYCHIATRIC: Not anxious. No depression. No suicidal thoughts. No homicidal thoughts. SKIN: Dry skin, itching. No rash. No lesions. No wounds. ENDOCRINE: No unexplained weight loss. No weight gain. HEMATOLOGIC/LYMPHATIC: No anemia. No purpura. No petechiae. No prolonged or excessive bleeding. No palpable lymph nodes. PHYSICAL EXAMINATION: GENERAL: The patient is awake, alert and oriented, lying/sitting in bed in no distress. VITAL SIGNS: Temperature 97.8 F, Pulse 69, Respiratory Rate 20, BP 138/74, Pulse Ox 100% HEENT: Head normocephalic, atraumatic. Eyes: Extraocular muscles are intact. Pupils are equal, round and reactive to light and accommodation. Ears: No lesions. Nose appeared normal. Throat: No exudate or erythema. NECK: Supple. No JVD, no carotid bruit. No lymphadenopathy or thyromegaly. LUNGS: Diminished breath sounds. Clear to auscultation. Percussion note normal. Chest symmetrical. HEART: S1, S2, no S3. No murmurs. No cyanosis or clubbing. No ascites. Pulses: Dorsalis pedis and posterior tibial pulses +1 to +2 both sides. ABDOMEN: Soft. Non-tender. Bowel sounds active. No CVA tenderness. No mass felt. EXTREMITIES: No edema. Full range of motion of all extremities, equal. NEUROLOGIC: No focal deficit. Cranial nerves II through XII are grossly intact. No headache, no double vision or headache. SKIN: Dry skin. Intact. Turgor-normal. LYMPHATIC: No palpable lymph nodes/no lymphedema. MUSCULOSKELETAL: Normal joints with no swelling. Muscle tone is normal. LAB REVIEW: 05/01/19 05:04 05/01/19 05:04 05/01/19 05:04: Sodium 135.9, Potassium 4.20, Chloride 101.3, Carbon Dioxide 27.5, Anion Gap 11.30, BUN 26.3 H, Creatinine 0.50 L, Estimated GFR (MDRD) 122.00, BUN/Creatinine Ratio 52.60, Glucose 266.4 H D, Calcium 8.95, Total Bilirubin 0.54, AST 27.0, ALT 19.4, Alkaline Phosphatase 85.6, Total Protein 7.46, Albumin 3.55, Globulin 3.91, Albumin/Globulin Ratio 0.90 05/01/19 05:04: WBC 8.94, RBC 4.11 L, Hgb 11.8 L, Hct 39.5, MCV 96.1, MCH 28.7, MCHC 29.9 L, RDW Coeff of Marj 13.4, Plt Count 200, Immature Gran % (Auto) 1.5, Neut % (Auto) 75.0, Lymph % (Auto) 14.9, [place] % (Auto) 8.2, Eos % (Auto) 0.0, Baso % (Auto) 0.4, Immature Gran # (Auto) 0.1, Neut # (Auto) 6.7, Lymph # (Auto) 1.3, [place] # (Auto) 0.7, Eos # (Auto) 0.0, Baso # (Auto) 0.0 04/30/19 08:35: Vancomycin Trough 9.196 L ASSESSMENT: Please see below. 1. Pneumonia clinically seems to be resolving. 2. Underlying asthma and COPD. 3. Hypertension. 4. Morbid obesity. 5. Dry skin. 6. Constipation, resolved. 7. Noncompliance with lifestyle, diet and medications. PLAN: 1. Vistaril 25 mg p.o. b.i.d. #30. 2. Omnicef 300 mg p.o. b.i.d. for 7 days, give first dose here. 3. Prednisone 20 mg daily for 3 days then 10 mg daily for 4 days. 4. The patient will be seen in the office in 7 days. 5. Nebs. 6. Discharge home. Plan and coordination of the patient's care discussed in the presence of Machine Strap Buckler and nurse. CONDITION: Stable SCRIBED BY: ALTAGRACIA DOWELL Ribber scribed while in presence of service performed by Dr. Brunner/Lilia Sanchez APRN on 05/01/19 ([id number])
--- NOTE | 2019-05-01 12:40 | CM.DICTOOL ---
ADMISSION: 04/27/19 21:09 DISCHARGE: MAY 01, 2019 DATE OF SERVICE: 05/01/19 FINAL DIAGNOSIS PNEUMONIA, RIGHT UPPER LOBE ASTHMATIC BRONCHITIS HYPERGLYCEMIA HYPERTENSION OBESITY, BMI 64 HYPOTHYROID DYSLIPIDEMIA GERD ARTHRITIS FORMER SMOKER BILATERAL BREAST IMPLANTS TKR, LEFT 2011 LAST VITALS Temp Pulse Resp BP Pulse Ox 97.8 F 69 20 138/74 100 05/01/19 05:28 05/01/19 05:28 05/01/19 08:00 05/01/19 05:28 05/01/19 05:28 TAKE THESE MEDICATIONS AT HOME Hydrocodone Bitart/Acetaminophen ([place] 5-325) 1 tab PO Q6H PRN PRN Reason: MODERATE PAIN Last Admin: 04/30/19 16:19 Dose: 1 tab Documented by: Albuterol/Ipratropium (Duoneb) 3 ml NEB RTQ6H [facility] Last Admin: 05/01/19 11:34 Dose: 3 ml Documented by: Amlodipine Besylate (Norvasc) 10 mg PO BEDTIME [facility] Last Admin: 04/30/19 20:20 Dose: 10 mg Documented by: Aspirin (Aspirin Ec) 81 mg PO DAILYWM [facility] Last Admin: 05/01/19 09:15 Dose: 81 mg Documented by: Bisoprolol Fumarate/HCTZ (Ziac 10-6.25 Mg) 1 tab PO DAILY [facility] Last Admin: 05/01/19 09:15 Dose: 1 tab Documented by: Bumetanide (Bumex) 1 mg PO QDAC [facility] Last Admin: 05/01/19 05:37 Dose: 1 mg Documented by: Emollient Cream ([place] Ultimate Healing) 1 applic TP PRN PRN PRN Reason: itching Last Admin: 05/01/19 05:43 Dose: 1 applic Documented by: Hydroxyzine Pamoate (Vistaril) 25 mg PO BID PRN (NEW) PRN Reason: itching Last Admin: 04/30/19 09:28 Dose: 25 mg Documented by: Levothyroxine Sodium (Synthroid) 25 mcg PO QDAC [facility] Last Admin: 05/01/19 05:37 Dose: 25 mcg Documented by: Losartan Potassium (Cozaar) 100 mg PO DAILY [facility] Last Admin: 05/01/19 09:15 Dose: 100 mg Documented by: Pantoprazole Sodium (Protonix) 40 mg PO QDAC [facility] Last Admin: 05/01/19 05:37 Dose: 40 mg Documented by: Potassium Chloride (K-Dur) [facility] Last Admin: 05/01/19 09:15 Dose: 20 meq Documented by: Prednisone (Prednisone) [facility] Last Admin: 05/01/19 09:15 Dose: 20 mg DAILY FOR 3 DAYS, THEN 10 MG DAILY FOR 4 DAYS Documented by: OMNICEF 300 MG PO BID FOR 7 DAYS (NEW) ALLERGIES levofloxacin [From Levaquin] Adverse Reaction (Intermediate, Verified 04/27/19 16:19) Itching amoxicillin [Amoxicillin] Adverse Reaction (Verified 04/27/19 16:19) Unknown ampicillin Adverse Reaction (Verified 04/27/19 16:19) Unknown atorvastatin calcium [From Lipitor] Adverse Reaction (Verified 04/27/19 16:19) Unknown azithromycin [From Zithromax] Adverse Reaction (Verified 04/27/19 16:19) Unknown clarithromycin [From Biaxin] Adverse Reaction (Verified 04/27/19 16:19) Unknown clavulanic acid [From Augmentin] Adverse Reaction (Verified 04/27/19 16:19) codeine Adverse Reaction (Verified 04/27/19 16:19) erythromycin base [Erythromycin Base] Adverse Reaction (Verified 04/27/19 16:19) Unknown Iodinated Contrast Media [Iodinated Contrast Media - IV Dye] Adverse Reaction (Verified 04/27/19 16:19) Unknown loratadine [From Claritin] Adverse Reaction (Verified 04/27/19 16:19) Macrolide Antibiotics Adverse Reaction (Verified 04/27/19 16:19) Unknown minocycline Adverse Reaction (Verified 04/27/19 16:19) Penicillins Adverse Reaction (Verified 04/27/19 16:19) Unknown pravastatin Adverse Reaction (Verified 04/27/19 16:19) rosuvastatin calcium [From Crestor] Adverse Reaction (Verified 04/27/19 16:19) Unknown simvastatin Adverse Reaction (Verified 04/27/19 16:19) Tetracyclines Adverse Reaction (Verified 04/27/19 16:19) Unknown DISCONTINUED MEDICATIONS NONE NEW PRESCRIPTIONS: VISTARIL 25 MG BID PER ITCHING (MAY CAUSE DROWSINESS, SLEEPINESS) OMNICEF 300 MG BID FOR 7 DAYS PREDNISONE 20 MG DAILY FOR 3 DAYS, THEN 10 MG DAILY FOR 4 DAYS TAKE WITH FOOD SMOKING: NOT APPLICALBE (STOPPED) DISEASE SPECIFIC EDUCATION: USE OF NEBULIZER TREATMENTS (3-4 TIMES DAILY) MEDICATIONS MOISTURIZING SKIN (NON-PERFUMED LOTION) APPOINTMENT USE OF ORAL STEROIDS AND RISK OF GI IRRITATION, AVASCULAR NECROSIS LAB REVIEW: 05/01/19 05:04 05/01/19 05:04 05/01/19 05:04: Sodium 135.9, Potassium 4.20, Chloride 101.3, Carbon Dioxide 27.5, Anion Gap 11.30, BUN 26.3 H, Creatinine 0.50 L, Estimated GFR (MDRD) 122.00, BUN/Creatinine Ratio 52.60, Glucose 266.4 H D, Calcium 8.95, Total Bilirubin 0.54, AST 27.0, ALT 19.4, Alkaline Phosphatase 85.6, Total Protein 7.46, Albumin 3.55, Globulin 3.91, Albumin/Globulin Ratio 0.90 05/01/19 05:04: WBC 8.94, RBC 4.11 L, Hgb 11.8 L, Hct 39.5, MCV 96.1, MCH 28.7, MCHC 29.9 L, RDW Coeff of Marj 13.4, Plt Count 200, Immature Gran % (Auto) 1.5, Neut % (Auto) 75.0, Lymph % (Auto) 14.9, [place] % (Auto) 8.2, Eos % (Auto) 0.0, Baso % (Auto) 0.4, Immature Gran # (Auto) 0.1, Neut # (Auto) 6.7, Lymph # (Auto) 1.3, [place] # (Auto) 0.7, Eos # (Auto) 0.0, Baso # (Auto) 0.0 PLAN: DISCHARGE HOME DIET: RESUME TOLERATED AVOID CONCENTRATED SWEETS ACTIVITY: RESUME TOLERATED CONTINUE MEDICATIONS LISTED ON NURSING DISCHARGE INFORMATION SHEET AN APPOINTMENT IS SCHEDULED WITH DR. BRUNNER/TANK HOWELL APRN ON April AT 11 AM [facility] WILL CONTACT YOU FOR AN OVERNIGHT OXIMETRY TO BE DONE IN THE HOME THEY WILL EXPLAIN YOU SHOULD NOT WEAR OXYGEN DURING THE TESTING CODE STATUS: FULL CODE MS. LOBO IS ALERT AND ORIENTED X 4. SHE IS AWARE AND AGREEABLE TO PLANS FOR DISCHARGE HOME. SHE IS INDEPENDENT WITH ACTIVITIES OF DAILY LIVING. SHE USES OXYGEN AT HOME AT NIGHT AND PRN DURING THE DAY. MS. LOBO HAS ADVISED SHE NEEDS NEW OXYGEN EQUIPMENT AND WAS TOLD SHE WOULD NEED TO BE TESTED AND A NEW PRESCRIPTION ISSUED. A 3 STEP OXIMETRY WAS COMPLETED WITH AT REST OXYGEN SATURATION AT 97% AND OXYGEN SATURATION WITH EXERTION AT 90%. AN ORDER HAS BEEN SENT TO [facility] (DME PROVIDER) FOR AN OVERNIGHT OXIMETRY. MS. LOBO IS INDEPENDENT WITH FEEDING AND DEMONSTRATES A GOOD APPETITE AT 100%. MS. LOBO IS CONTINENT OF BOWEL AND BLADDER. SHE IS AMBULATORY TO THE BATHROOM WITHOUT ASSISTANCE. MS. LOBO TRANSFERS FROM THE BED TO THE CHAIR WITHOUT STAFF ASSISTANCE. SKIN IS INTACT, BUT SEVERAL SMALL SCABBED AREAS ARE NOTED TO THE LOWER EXTREM ITIES. THE PATIENT REPORTS ITCHING RELATED TO DRY SKIN. SHE IS ENCOURAGED TO MOISTURIZE THE SKIN AT LEAST 1-2 TIMES DAILY USING A NON-PERFUMED LOTION. MD TANK ALFRED APRN
--- NOTE | 2019-05-04 09:38 | PN ---
DATE OF SERVICE: 05/01/2019 SUBJECTIVE: The patient was seen and examined with the Nurse Practitioner. The patient's condition is stable. She is being treated with IV antibiotics, steroids and NEBS treatment. PHYSICAL EXAMINATION: HEENT: Head normocephalic, atraumatic. Eyes: Extraocular muscles are intact. Pupils are equal, round and reactive to light and accommodation. Ears: No lesions. Nose appeared normal. Throat: No exudate or erythema. NECK: Supple. No JVD, no carotid bruit. No lymphadenopathy or thyromegaly. LUNGS: Decreased breath sounds but clear to auscultation. Percussion note normal. Chest symmetrical. HEART: S1, S2, no S3. No murmurs. No cyanosis or clubbing. No ascites. Pulses: Dorsalis pedis and posterior tibial pulses +1 to +2 bilaterally. ABDOMEN: Soft. Nontender. Bowel sounds active. No CVA tenderness. No mass felt. EXTREMITIES: No edema. Full range of motion of all extremities, equal. NEUROLOGIC: No focal deficit. Cranial nerves II through XII are grossly intact. No headache, no double vision or headache. SKIN: Not dry. Intact. Turgor - normal. LYMPHATIC: No palpable lymph nodes/no lymphedema. MUSCULOSKELETAL: Normal joints with no swelling. Muscle tone is normal. CONDITION: Improving TIME SPENT: More than 30 minutes. Plan and coordination of the patient's care discussed in the presence of nurse. KIRAN
--- NOTE | 2019-05-04 10:18 | PN ---
DATE OF SERVICE: 04/30/2019 SUBJECTIVE: The patient was seen and examined with the Nurse Practitioner. The patient's condition is continuously improving. Her bronchitis/pneumonia seems to be clinically resolving. Continue NEBS, antibiotics and steroids. Again the patient is morbidly obese and advised to lose weight. TIME SPENT: More than 30 minutes. Plan and coordination of the patient's care discussed in the presence of nurse. KIRAN
--- NOTE | 2019-05-12 08:51 | DS ---
DATE OF SERVICE: 05/01/2019 FINAL DIAGNOSIS: 1. PNEUMONIA, RIGHT UPPER LOBE 2. ASTHMATIC BRONCHITIS 3. HYPERGLYCEMIA 4. HYPERTENSION 5. OBESITY, BMI 64 6. HYPOTHYROID 7. DYSLIPIDEMIA 8. GERD 9. ARTHRITIS 10.FORMER SMOKER 11.BILATERAL BREAST IMPLANTS 12.TKR, LEFT 2011 LAST VITALS: Temp Pulse Resp BP Pulse Ox 97.8 F 69 20 138/74 100 05/01/19 05:28 05/01/19 05:28 05/01/19 08:00 05/01/19 05:28 05/01/19 05:28 DISCHARGE INSTRUCTIONS: DISCHARGE HOME. CONTINUE MEDICATIONS LISTED ON NURSING DISCHARGE INFORMATION SHEET. AN APPOINTMENT IS SCHEDULED WITH DR. BRUNNER/TANK HOWELL APRN ON April AT 11 AM. [facility] WILL CONTACT YOU FOR AN OVERNIGHT OXIMETRY TO BE DONE IN THE HOME. THEY WILL EXPLAIN YOU SHOULD NOT WEAR OXYGEN DURING THE TESTING. CODE STATUS: FULL CODE. TAKE THESE MEDICATIONS AT HOME: Hydrocodone Bitart/Acetaminophen ([place] 5-325) 1 tab PO Q6H PRN PRN Reason: MODERATE PAIN Last Admin: 04/30/19 16:19 Dose: 1 tab Documented by: Albuterol/Ipratropium (Duoneb) 3 ml NEB RTQ6H [facility] Last Admin: 05/01/19 11:34 Dose: 3 ml Documented by: Amlodipine Besylate (Norvasc) 10 mg PO BEDTIME [facility] Last Admin: 04/30/19 20:20 Dose: 10 mg Documented by: Aspirin (Aspirin Ec) 81 mg PO DAILYWM [facility] Last Admin: 05/01/19 09:15 Dose: 81 mg Documented by: Bisoprolol Fumarate/HCTZ (Ziac 10-6.25 Mg) 1 tab PO DAILY [facility] Last Admin: 05/01/19 09:15 Dose: 1 tab Documented by: Bumetanide (Bumex) 1 mg PO QDAC [facility] Last Admin: 05/01/19 05:37 Dose: 1 mg Documented by: Emollient Cream ([place] Ultimate Healing) 1 applic TP PRN PRN PRN Reason: itching Last Admin: 05/01/19 05:43 Dose: 1 applic Documented by: Hydroxyzine Pamoate (Vistaril) 25 mg PO BID PRN (NEW) PRN Reason: itching Last Admin: 04/30/19 09:28 Dose: 25 mg Documented by: Levothyroxine Sodium (Synthroid) 25 mcg PO QDAC [facility] Last Admin: 05/01/19 05:37 Dose: 25 mcg Documented by: Losartan Potassium (Cozaar) 100 mg PO DAILY [facility] Last Admin: 05/01/19 09:15 Dose: 100 mg Documented by: Pantoprazole Sodium (Protonix) 40 mg PO QDAC [facility] Last Admin: 05/01/19 05:37 Dose: 40 mg Documented by: Potassium Chloride (K-Dur) 20 meq PO DAILYWM [facility] Last Admin: 05/01/19 09:15 Dose: 20 meq Documented by: Prednisone (Prednisone) 20 mg PO DAILYWM [facility] ([facility]) Last Admin: 05/01/19 09:15 Dose: 20 mg DAILY FOR 3 DAYS, THEN 10 MG DAILY FOR 4 DAYS Documented by: OMNICEF 300 MG PO BID FOR 7 DAYS (NEW) ALLERGIES: levofloxacin [From Levaquin] Adverse Reaction (Intermediate, Verified 04/27/19 16:19) Itching amoxicillin [Amoxicillin] Adverse Reaction (Verified 04/27/19 16:19) Unknown ampicillin Adverse Reaction (Verified 04/27/19 16:19) Unknown atorvastatin calcium [From Lipitor] Adverse Reaction (Verified 04/27/19 16:19) Unknown azithromycin [From Zithromax] Adverse Reaction (Verified 04/27/19 16:19) Unknown clarithromycin [From Biaxin] Adverse Reaction (Verified 04/27/19 16:19) Unknown clavulanic acid [From Augmentin] Adverse Reaction (Verified 04/27/19 16:19) codeine Adverse Reaction (Verified 04/27/19 16:19) erythromycin base [Erythromycin Base] Adverse Reaction (Verified 04/27/19 16:19) Unknown Iodinated Contrast Media [Iodinated Contrast Media - IV Dye] Adverse Reaction (Verified 04/27/19 16:19) Unknown loratadine [From Claritin] Adverse Reaction (Verified 04/27/19 16:19) Macrolide Antibiotics Adverse Reaction (Verified 04/27/19 16:19) Unknown minocycline Adverse Reaction (Verified 04/27/19 16:19) Penicillins Adverse Reaction (Verified 04/27/19 16:19) Unknown pravastatin Adverse Reaction (Verified 04/27/19 16:19) rosuvastatin calcium [From Crestor] Adverse Reaction (Verified 04/27/19 16:19) Unknown simvastatin Adverse Reaction (Verified 04/27/19 16:19) Tetracyclines Adverse Reaction (Verified 04/27/19 16:19) Unknown DISCONTINUED MEDICATIONS: NONE NEW PRESCRIPTIONS: VISTARIL 25 MG BID PER ITCHING (MAY CAUSE DROWSINESS, SLEEPINESS) OMNICEF 300 MG BID FOR 7 DAYS PREDNISONE 20 MG DAILY FOR 3 DAYS, THEN 10 MG DAILY FOR 4 DAYS TAKE WITH FOOD SMOKING: NOT APPLICALBE (STOPPED) DISEASE SPECIFIC EDUCATION: USE OF NEBULIZER TREATMENTS (3-4 TIMES DAILY) MEDICATIONS MOISTURIZING SKIN (NON-PERFUMED LOTION) APPOINTMENT USE OF ORAL STEROIDS AND RISK OF GI IRRITATION, AVASCULAR NECROSIS LAB REVIEW: 05/01/19 05:04 05/01/19 05:04 05/01/19 05:04: Sodium 135.9, Potassium 4.20, Chloride 101.3, Carbon Dioxide 27.5, Anion Gap 11.30, BUN 26.3 H, Creatinine 0.50 L, Estimated GFR (MDRD) 122.00, BUN/Creatinine Ratio 52.60, Glucose 266.4 H D, Calcium 8.95, Total Bilirubin 0.54, AST 27.0, ALT 19.4, Alkaline Phosphatase 85.6, Total Protein 7.46, Albumin 3.55, Globulin 3.91, Albumin/Globulin Ratio 0.90 05/01/19 05:04: WBC 8.94, RBC 4.11 L, Hgb 11.8 L, Hct 39.5, MCV 96.1, MCH 28.7, MCHC 29.9 L, RDW Coeff of Marj 13.4, Plt Count 200, Immature Gran % (Auto) 1.5, Neut % (Auto) 75.0, Lymph % (Auto) 14.9, [place] % (Auto) 8.2, Eos % (Auto) 0.0, Baso % (Auto) 0.4, Immature Gran # (Auto) 0.1, Neut # (Auto) 6.7, Lymph # (Auto) 1.3, [place] # (Auto) 0.7, Eos # (Auto) 0.0, Baso # (Auto) 0.0 DIET: RESUME TOLERATED. AVOID CONCENTRATED SWEETS ACTIVITY: RESUME TOLERATED HOSPITAL COURSE: This is a 68 year old white female who was hospitalized with pneumonia. She has been on IV antibiotics, NEBS and IV steroids for the past several days. She has clinically improved. She is placed on Rocephin IV daily with Zithromax 500mg daily IV. She was put on DUO NEBS Q 6 hours scheduled along with Solu-Cortef 125mg IV Q 8 hours. She was extremely short of breath on admission which is now significantly improved. Three step O2 was done and she did not qualify for home oxygen. She has had home oxygen before and needs to requalify so we will arrange for an overnight pulse oximetry. The patient has underlying asthma as well as COPD and had significant wheezing initially which resolved after about 36 hours. She is morbidly obese and noncompliant with diet, lifestyle, medications and followup. Since being admitted blood pressure has been controlled. WBC has improved. Again breathing has improved. We will send her home on Omnicef 300mg PO BID for 7 days along with Prednisone 20mg daily for 3 days and then 10mg daily for 4 days. She has a nebulizer machine at home. She has been instructed to use Q 6 hours scheduled. Again we will arrange for over night pulse oximetry to be done at home. We will followup with her in the office next week. She is discharged in stable condition. TIME SPENT: More than 60 minutes. KIRAN
== END 2019-05-01 15:10 | disposition home or self-care (01) | DRG 194 ==
LOC: ED 16:06 → MEDSURG B 21:09
PROVIDERS: ADMIT Internal Medicine; ATTEND Internal Medicine
DX: Z79.899 Other long term (current) drug therapy; E66.01 Morbid (severe) obesity due to excess calories; J45.909 Unspecified asthma, uncomplicated; M19.90 Unspecified osteoarthritis, unspecified site; G47.33 Obstructive sleep apnea (adult) (pediatric); Z96.652 Presence of left artificial knee joint; E03.9 Hypothyroidism, unspecified; R73.9 Hyperglycemia, unspecified; R07.9 Chest pain, unspecified; E78.5 Hyperlipidemia, unspecified; Z91.19 Patient's noncompliance with other medical treatment and regimen; K59.00 Constipation, unspecified; I10 Essential (primary) hypertension; J18.1 Lobar pneumonia, unspecified organism; R06.02 Shortness of breath; L85.3 Xerosis cutis; K21.9 Gastro-esophageal reflux disease without esophagitis; Z68.44 Body mass index [BMI] 60.0-69.9, adult

== ENCOUNTER 2019-06-02 15:12 | Inpatient (IN) ==
[2019-06-02] MEDS ORDERED: DUONEB NEB STA (17:11)
--- NOTE | 2019-06-02 17:11 | ED.PDOC ---
General ED Provider: Dr. GAGANDEEP QUIGLEY Chief Complaint: Respiratory Complaint Stated Complaint: Cough and congestion. Constipated/ passing gas Recently tx for pneumonia Time Seen by Physician: 17:05 Mode of Arrival: Wheelchair Information Source: Patient Exam Limitations: Clinical condition Primary Care Provider: SARAH BRUNNER Nursing and Triage Documentation Reviewed and Agree: Yes Does patient meet sepsis criteria?: No System Inflammatory Response Syndrome: Pulse >90 BPM Sepsis Protocol: For patient's 13 years and over: Temp is 96.8 and below OR 101 and greater Pulse >90 BPM Resp >20/minute Acutely Altered Mental Status Are patient's symptoms suggestive of a new infection, such as: -Pneumonia -Skin, Soft Tissue -Endocarditis -UTI -Bone, Joint Infection -Implantable Device -Acute Abdominal Infection -Wound Infection -Meningitis -Blood Stream Catheter Infection -Unknown Respiratory Complaint Exam Respiratory Complaint/Exam Onset/Duration: 2 days-continuation on from pneumonia status Symptoms Are: Still present and Worse Timing: Intermittent Initial Severity: Moderate Current Severity: Moderate Location: Chest Character: Reports Non-productive cough and Bronchospastic cough Aggravating: Reports Deep breaths and Recumbent position Alleviating: Reports Bronchodilators, Steriods and Antibiotics Associated Signs and Symptoms: Reports Dyspnea, Chest pain and Wheezing Related History: Reports Similar episode History of Healthcare-Acquired Pneumonia: Admit w/in last 30 days Related Surgical History: Reports None Pseudomonas Risk Factors: Reports Repeat Antibx in 3 months and Chronic steriod use Tuberculosis Risk Factors: Reports None Status Asthmaticus Risk Factors: Reports None Home Oxygen Use: No Recent Stress Test: No Recent Echo/LV Function: No Current Antibiotic Use: No Current Asthma Medication Use: Yes Respiratory Distress: Mild Inadequate Respiratory Effort: Yes Dysphagia Present: Yes Stridor Present: No JVD Present: No Accessory Muscle Use: No Retractions: Not Present Diminished Breath Sounds: Yes Sinus Tenderness: None Grunting Respirations: No Kussmaul Respirations: No Differential Diagnoses: COPD Exacerbation, Pneumonia and Bronchospasm Review of Systems Review Of Systems Constitutional: Reports No symptoms Eyes: Reports No symptoms Ears, Nose, Mouth, Throat: Reports No symptoms Respiratory: Reports Cough, Orthopnea, Short of air and Wheezing Cardiac: Reports No symptoms GI: Reports No symptoms, Abdomen distended, Nausea and Poor fluid intake : Reports No symptoms Musculoskeletal: Reports No symptoms Skin: Reports No symptoms Neurological: Reports No symptoms Endocrine: Reports No symptoms Hematologic/Lymphatic: Reports No symptoms All Other Systems: Reviewed and Negative [facility] Social History Smoking and tobacco status: Former smoker Substance use type: does not use History of recent travel: No Female Reproductive History Menstrual Hx Hysterectomy: No Hx Tubal Ligation: Yes Physical Exam Physical Exam Appearance: Reports Ill-appearing Ill-appearing: Moderate Pain Distress: Moderate Eyes: Reports ELSIE, EOMI, Conjunctiva clear, Conjunctiva inflammed and Conjunctiva pale ENT: Reports Ears normal, Nose normal, Oropharynx normal, TMs Occluded and Rh inorrhea Neck: Supple Respiratory: Reports Airway patent, Breath sounds diminished, Respirations nonlabored and Crackles Cardiovascular: Reports RRR; Denies Pulses normal Musculoskeletal: Reports Normal strength Skin: Reports Warm, Dry and Normal color Neurological: Reports Sensation intact, Motor intact and Alert to pain Psychiatric: Reports Affect appropriate, Mood appropriate and Anxious Interpretation Radiology Interpretation Radiology Interpretation By: Radiologist Exam Interpreted: CXR (Infiltrate in the right upper lobe and middle lobe Improved.) Physician Notification Case Discussed Physician Notified: Dr Brunner-admit on telemetry-tx pneumonia Time of Notification: 18:40 Critical Care Note Critical Care Note Total Time (mins): 30 Course Course Hematology/Chemistry: 06/08/19 04:56 06/08/19 04:56 Orders, Labs, Meds: Lab Review 06/02/19 06/02/19 06/02/19 17:11 17:28 17:28 WBC 14.80 H RBC 4.17 L Hgb 12.1 Hct 38.5 MCV 92.3 MCH 29.0 MCHC 31.4 L RDW Coeff of Marj 13.5 Plt Count 292 Immature Gran % (Auto) 0.6 Neut % (Auto) 77.2 H Lymph % (Auto) 11.4 [place] % (Auto) 9.5 Eos % (Auto) 1.0 Baso % (Auto) 0.3 Immature Gran # (Auto) 0.1 Neut # (Auto) 11.4 H Lymph # (Auto) 1.7 [place] # (Auto) 1.4 Eos # (Auto) 0.2 Baso # (Auto) 0.0 Puncture Site Rr O2 Saturation 87.0 L ABG pH 7.415 ABG pCO2 46.0 H ABG pO2 53.0 L* ABG HCO3 29.5 H ABG Total CO2 31 H ABG Base Excess 5 H Mich Test + FiO2 % 21.0 Sodium 139.6 Potassium 3.94 Chloride 98.6 Carbon Dioxide 32.8 H Anion Gap 12.14 BUN 8.5 Creatinine 0.57 L Estimated GFR (MDRD) 105.00 BUN/Creatinine Ratio 14.91 Glucose 130.4 H Lactic Acid Calcium 9.48 Magnesium 2.02 Total Bilirubin 0.81 AST 25.1 ALT 16.5 Alkaline Phosphatase 109.4 Total Protein 8.22 H Albumin 3.97 Globulin 4.25 Albumin/Globulin Ratio 0.93 Procalcitonin Influ A Molecular Assay Influ B Molecular Assay 06/02/19 06/02/19 06/02/19 17:28 17:28 18:01 WBC RBC Hgb Hct MCV MCH MCHC RDW Coeff of Marj Plt Count Immature Gran % (Auto) Neut % (Auto) Lymph % (Auto) [place] % (Auto) Eos % (Auto) Baso % (Auto) Immature Gran # (Auto) Neut # (Auto) Lymph # (Auto) [place] # (Auto) Eos # (Auto) Baso # (Auto) Puncture Site O2 Saturation ABG pH ABG pCO2 ABG pO2 ABG HCO3 ABG Total CO2 ABG Base Excess [place] Test FiO2 % Sodium Potassium Chloride Carbon Dioxide Anion Gap BUN Creatinine Estimated GFR (MDRD) BUN/Creatinine Ratio Glucose Lactic Acid 1.14 Calcium Magnesium Total Bilirubin AST ALT Alkaline Phosphatase Total Protein Albumin Globulin Albumin/Globulin Ratio Procalcitonin < 0.05 Influ A Molecular Assay Negative by naat Influ B Molecular Assay Negative by naat Orders Category Date Time Status ADMIT PATIENT INPATIENT .TO [facility] (MONITORED BED) ADMISSION 06/02/19 19:34 Active ABG DRAW REQUEST Stat CARDIO 06/02/19 17:11 Completed EKG-(ED ONLY) Stat CARDIO 06/02/19 17:11 Completed NEBULIZER TREATMENT Routine CARDIO 06/02/19 19:13 Completed NEBULIZER TREATMENT Stat CARDIO 06/02/19 17:13 Completed OXYGEN Routine CARDIO 06/02/19 17:11 Completed SPUTUM INDUCTION Routine CARDIO 06/02/19 18:48 Completed ACTIVITY .BR with BRP CARE 06/02/19 19:13 Active BLOOD GLUCOSE MONITORING 0630,1100,1700,2100 CARE 06/02/19 19:14 Active INTAKE & OUTPUT Q8HR CARE 06/02/19 19:12 Active TELEMETRY MONITORING TELE CARE 06/02/19 19:35 Active VITAL SIGNS Q8HR CARE 06/02/19 19:12 Active IV [ED IV/MEDIPORT/POWERPORT] .ONCE EMERGENCY 06/02/19 17:11 Active ABG Stat LAB 06/02/19 17:11 Completed BLOOD CULTURE (ED ONLY) Stat LAB 06/02/19 17:28 Completed CBC W/ AUTO DIFF DAILY@0600 LAB 06/03/19 04:51 Completed CBC W/ AUTO DIFF DAILY@0600 LAB 06/04/19 04:49 Completed CBC W/ AUTO DIFF Stat LAB 06/02/19 17:28 Completed CMP [COMPREHENSIVE METABOLIC PANEL] Stat LAB 06/02/19 17:28 Completed COMPREHENSIVE METABOLIC PANEL DAILY@0600 LAB 06/03/19 04:51 Completed COMPREHENSIVE METABOLIC PANEL DAILY@0600 LAB 06/04/19 04:49 Completed FLU A & B MOLECULAR [FLU A/B MOLECULAR] Stat LAB 06/02/19 18:01 Completed LACTIC ACID Stat LAB 06/02/19 17:28 Completed MAGNESIUM Stat LAB 06/02/19 17:28 Completed PROCALCITONIN Stat LAB 06/02/19 17:28 Completed SPUTUM CULTURE Stat LAB 06/02/19 18:48 Completed 0.9 % Sodium Chloride [Saline Flush] MEDS 06/02/19 17:11 Discontinued 1 syr IVF PRN PRN Acetaminophen [Tylenol] MEDS 06/02/19 19:12 Discontinued 650 mg PO Q4H PRN Amlodipine Besylate [Norvasc] MEDS 06/02/19 21:00 Discontinued 10 mg PO BEDTIME Aspirin [Aspirin EC] MEDS 06/03/19 08:00 Discontinued 81 mg PO DAILYWM Aztreonam [Azactam] 1 gm MEDS 06/02/19 07:00 Discontinued 0.9 % Sodium Chloride [Sodium Chloride] 50 ml IV Q8HR Bisoprolol Fumarate [Zebeta] MEDS 06/03/19 09:00 Discontinued 5 mg PO DAILY Bumetanide [Bumex] MEDS 06/03/19 09:00 Discontinued 1 mg PO QDAC Ceftriaxone/D5w 1 gm Premix [Rocephin 1 gm/50 ml D5w] MEDS 06/02/19 19:30 Discontinued 1 gm in 50 ml IV DAILY Enoxaparin Sodium [Lovenox] MEDS 06/02/19 19:30 Discontinued 40 mg SUBCUT DAILY Hydrocodone Bit/Acetaminophen [[place] 5-325] MEDS 06/02/19 19:17 Discontinued 1 tab PO Q6H PRN Ipratropium/Albuterol Neb [Duoneb] MEDS 06/02/19 17:11 Discontinued 3 ml NEB ONCE STA Ipratropium/Albuterol Neb [Duoneb] MEDS 06/02/19 20:00 Discontinued 3 ml NEB RTQID Levothyroxine Sodium [Synthroid] MEDS 06/03/19 06:30 Discontinued 50 mcg PO QDAC Losartan Potassium [Cozaar] MEDS 06/03/19 09:00 Discontinued 100 mg PO DAILY Methylprednisolone Sod Succ/Pf [Solu-Medrol 125 mg] MEDS 06/02/19 18:46 Discontinued 125 mg IVP ONCE STA Methylprednisolone Sod Succ/Pf [Solu-Medrol 125 mg] MEDS 06/02/19 21:00 Discontinued 125 mg IVP Q8HR Ondansetron HCl/Pf [Zofran 4 mg/2 ml] MEDS 06/02/19 19:12 Discontinued 4 mg IVP Q6H PRN Pantoprazole Sodium [Protonix] MEDS 06/03/19 06:30 Discontinued 40 mg PO QDAC Sodium Chloride 0.9% [Sodium Chloride] 1,000 ml MEDS 06/02/19 19:30 Discontinued IV 75 mls/hr Sodium Chloride 0.9% [Sodium Chloride] 1,000 ml MEDS 06/02/19 17:15 Discontinued IV ONCE RESUSCITATION STATUS Routine OTHERS 06/02/19 19:12 Completed ABDOMEN, SERIES FLAT & UPRIGHT Stat RADS 06/02/19 17:11 Completed CHEST, 1V AP ONLY Stat RADS 06/02/19 17:11 Completed Medications Discontinued Medications Generic Name Dose Route Start Last Admin Trade Name Freq PRN Reason Stop Dose Admin Acetaminophen 650 mg 06/02/19 19:12 06/07/19 06:35 Tylenol PO 650 mg Q4H PRN Administration Fever >101 Hydrocodone Bitart/Acetaminophen 1 tab 06/02/19 19:17 06/07/19 01:54 [place] 5-325 PO 1 tab Q6H PRN Administration Pain Albuterol/Ipratropium 3 ml 06/02/19 17:11 06/02/19 17:58 Duoneb NEB 06/02/19 17:12 3 ml ONCE STA Administration Albuterol/Ipratropium 3 ml 06/02/19 20:00 06/08/19 10:07 Duoneb NEB 3 ml RTQID GUCCI Administration Amlodipine Besylate 10 mg 06/02/19 21:00 06/07/19 20:23 Norvasc PO 10 mg BEDTIME GUCCI Administration Aspirin 81 mg 06/03/19 08:00 06/08/19 09:19 Aspirin Ec PO 81 mg DAILYWM GUCCI Administration Bisoprolol Fumarate 5 mg 06/03/19 09:00 06/08/19 09:22 Zebeta PO 5 mg DAILY GUCCI Administration Bumetanide 1 mg 06/03/19 09:00 06/08/19 05:52 Bumex PO 1 mg QDAC GUCCI Administration Cefdinir 300 mg 06/08/19 08:25 06/08/19 09:26 Omnicef PO 06/08/19 08:26 300 mg ONCE STA Administration Enoxaparin Sodium 40 mg 06/02/19 19:30 06/08/19 09:24 Lovenox SUBCUT 40 mg DAILY GUCCI Administration Sodium Chloride 1,000 mls @ 125 mls/hr 06/02/19 17:15 06/02/19 18:04 Sodium Chloride IV 06/03/19 01:14 125 mls/hr ONCE ONE Administration Sodium Chloride 1,000 mls @ 75 mls/hr 06/02/19 19:30 06/07/19 07:02 Sodium Chloride IV Not Given .[id number] GUCCI CEFTRIAXONE/D5W 1 GM PREMIX 1 gm in 50 mls @ 75 mls/hr 06/02/19 19:30 06/02/19 21:31 Rocephin 1 Gm/50 Ml D5w IV 06/05/19 19:29 75 mls/hr DAILY GUCCI Administration Aztreonam 1 gm/ Sodium 50 mls @ 75 mls/hr 06/02/19 07:00 06/03/19 15:38 Chloride IV 06/05/19 06:59 Not Given Q8HR GUCCI CEFEPIME 2 GM/D5W 2 gm in 50 mls @ 75 mls/hr 06/03/19 13:00 06/08/19 06:03 Maxipime 2 Gm/50 Ml D5w IV 06/08/19 10:00 Not Given Q8HR GUCCI VANCOMYCIN/WATER FOR INJ (PEG) 1.5 gm in 300 mls @ 200 mls/hr 06/03/19 12:00 06/08/19 10:33 Vancomycin 1.5 Gram/300 Ml Premix IV 06/08/19 10:00 Not Given Q12HR GUCCI Insulin Human Regular 0 unit 06/03/19 11:26 06/08/19 11:49 Humulin R SUBCUT 3 unit PRN PRN Administration Hyperglycemia Protocol Levothyroxine Sodium 50 mcg 06/03/19 06:30 06/03/19 05:45 Synthroid PO 50 mcg QDAC GUCCI Administration Levothyroxine Sodium 50 mcg 06/04/19 06:30 06/08/19 05:52 Synthroid PO 50 mcg QDAC GUCCI Administration Losartan Potassium 100 mg 06/03/19 09:00 06/08/19 09:23 Cozaar PO 100 mg DAILY GUCCI Administration Methylprednisolone Sodium Succinate 125 mg 06/02/19 18:46 06/02/19 19:03 Solu-Medrol 125 Mg IVP 06/02/19 18:47 125 mg ONCE STA Administration Methylprednisolone Sodium Succinate 125 mg 06/02/19 21:00 06/04/19 05:04 Solu-Medrol 125 Mg IVP 125 mg Q8HR GUCCI Administration Ondansetron HCl 4 mg 06/02/19 19:12 Zofran 4 Mg/2 Ml IVP Q6H PRN Nausea / Vomiting Pantoprazole Sodium 40 mg 06/03/19 06:30 06/08/19 05:52 Protonix PO 40 mg QDAC GUCCI Administration Prednisone 20 mg 06/04/19 08:30 06/08/19 09:24 Prednisone PO 20 mg DAILYWM GUCCI Administration Sodium Chloride 1 syr 06/02/19 17:11 06/02/19 19:04 Saline Flush IVF 1 syr PRN PRN Administration To flush IV Sodium Chloride 1 syr 06/07/19 13:00 06/08/19 06:02 Saline Flush IVF Not Given Q8HR GUCCI Trimethoprim/Sulfamethoxazole 1 tab 06/08/19 08:28 06/08/19 09:21 Bactrim Ds 800/160 Mg PO 06/08/19 08:29 1 tab ONCE STA Administration Vital Signs: Temp Pulse Resp BP Pulse Ox 06/02/19 19:00 95 06/02/19 15:12 100 F H 99 H 20 165/83 H 92 L Discharge Plan Discharge Patient Disposition: ADMITTED INPATIENT Discharge Problem: Pneumonia ED Provider: GAGANDEEP QUIGLEY Condition: Stable Discharge Date/Time: 06/02/19 20:05
[2019-06-02] MEDS ORDERED: SODIUM CHLORIDE 1,000 ML IV ONE (17:15)
[2019-06-02 17:32] LABS: HEMATOCRIT 38.5 % (37.0-47.0)
--- NOTE | 2019-06-02 18:17 | DI ---
EXAM: Single view chest. HISTORY: Cough COMPARISON: 04/30/2019. FINDINGS: The heart is normal in size. Calcified plaques overlie the aorta per pulmonary vascularity is within normal limits. Right upper lung and bibasilar patchy airspace opacities are seen which [place] worsened compared to prior exam. No evidence of pleural effusion or pneumothorax is seen. Osse ous structures are unremarkable. IMPRESSION: Worsened right upper lung and bibasilar opacities compatible with pneumonia. Recommend follow-up [facility] st radiographs and six - 8 weeks to demonstrate complete resolution.
--- NOTE | 2019-06-02 18:23 | DI ---
Exam: Abdomen two-view History: Abdominal distension FINDINGS: Technically inhibited study secondary to body habitus limitations. Gaseous distension of small intestine and colonic loops. The gas pattern does not appear overtly obstructive. No patholog ic calcifications are seen. No free intraperitoneal gas is seen. Impression: Nonspecific gaseous bowel loop distension with generally nonobstructive pattern.
[2019-06-02] MEDS ORDERED: SOLU-MEDROL 125 MG IVP STA (18:46)
[2019-06-02] MEDS ORDERED: ZOFRAN 4 MG/2 ML IVP PRN (19:12)
[2019-06-02] MEDS ORDERED: TYLENOL PO PRN (19:12)
[2019-06-02] MEDS ORDERED: ROCEPHIN 1 GM/50 ML D5W 1 GM/50 ML BAG IV SCH (19:30)
[2019-06-02 20:22] VITALS: BMI 63.7
[2019-06-02] MEDS: DUONEB NEB SCH (20:31)
[2019-06-02] MEDS: LOVENOX SUBCUT SCH (21:29)
[2019-06-02] MEDS: NORVASC PO SCH (21:29)
[2019-06-02] MEDS: SOLU-MEDROL 125 MG IVP SCH (21:33)
[2019-06-02] MEDS: NORCO 5-325 PO PRN (21:52)
[2019-06-03] MEDS: SODIUM CHLORIDE 1,000 ML IV SCH ×2 (01:55→17:56)
[2019-06-03] MEDS: SOLU-MEDROL 125 MG IVP SCH ×3 (04:44→20:14)
[2019-06-03] MEDS: DUONEB NEB SCH ×4 (04:50→19:25)
[2019-06-03 05:23] LABS: HEMATOCRIT 35.3 % (37.0-47.0)
[2019-06-03] MEDS: PROTONIX PO SCH (05:45)
[2019-06-03] MEDS ORDERED: SYNTHROID PO SCH (06:30)
[2019-06-03] MEDS: NORCO 5-325 PO PRN (06:40)
[2019-06-03] MEDS: AZACTAM 1 GM in SODIUM CHLORIDE 50 ML IV SCH ×3 (07:08→15:38)
[2019-06-03] MEDS: COZAAR PO SCH (09:04)
[2019-06-03] MEDS: ASPIRIN EC PO SCH (09:05)
[2019-06-03] MEDS: BUMEX PO SCH (09:05)
[2019-06-03] MEDS: ZEBETA PO SCH (09:05)
[2019-06-03] MEDS: LOVENOX SUBCUT SCH (09:06)
[2019-06-03] MEDS: VANCOMYCIN 1.5 GRAM/300 ML PREMIX 1.5 GM/300 ML BAG IV SCH ×2 (12:06→21:18)
[2019-06-03] MEDS: HUMULIN R SUBCUT PRN ×3 (12:10→20:28)
[2019-06-03] MEDS: MAXIPIME 2 GM/50 ML D5W 2 GM/50 ML BAG IV SCH ×2 (14:06→20:25)
[2019-06-03] MEDS: NORVASC PO SCH (20:24)
[2019-06-03] MEDS ORDERED: ROCEPHIN 1 GM/50 ML D5W 1 GM/50 ML BAG IV SCH (21:00)
[2019-06-04] MEDS: NORCO 5-325 PO PRN (02:03)
[2019-06-04] MEDS: DUONEB NEB SCH ×4 (04:58→19:17)
[2019-06-04] MEDS: SOLU-MEDROL 125 MG IVP SCH (05:04)
[2019-06-04 05:41] LABS: HEMATOCRIT 33.6 % (37.0-47.0)
[2019-06-04] MEDS: SYNTHROID PO SCH (05:41)
[2019-06-04] MEDS: BUMEX PO SCH (05:41)
[2019-06-04] MEDS: MAXIPIME 2 GM/50 ML D5W 2 GM/50 ML BAG IV SCH ×3 (05:41→20:21)
[2019-06-04] MEDS: PROTONIX PO SCH (05:42)
[2019-06-04] MEDS: HUMULIN R SUBCUT PRN ×4 (06:15→20:21)
[2019-06-04] MEDS: ASPIRIN EC PO SCH (08:43)
[2019-06-04] MEDS: COZAAR PO SCH (08:43)
[2019-06-04] MEDS: PREDNISONE PO SCH (08:43)
[2019-06-04] MEDS: ZEBETA PO SCH (08:43)
[2019-06-04] MEDS: VANCOMYCIN 1.5 GRAM/300 ML PREMIX 1.5 GM/300 ML BAG IV SCH ×2 (08:44→21:28)
[2019-06-04] MEDS: LOVENOX SUBCUT SCH (08:47)
--- NOTE | 2019-06-04 09:10 | PCM.PROG ---
Attending Provider: ATTENDING PROVIDER: Dr. SARAH BRUNNER DATE OF SERVICE: 06/04/19 SUBJECTIVE: This 68 year old /WHITE F was hospitalized 06/02/19 with pneumonia. The patient's condition has improved. She is not in any distress. No wheezing. No fever or chills. Her oxygen saturation is 96% on 2 liters. REVIEW OF SYSTEMS: CONSTITUTIONAL: No night sweats. No fatigue, malaise, lethargy. No fever or chills. HEENT: Eyes: No visual changes. No eye pain. No eye discharge. ENT: No runny nose. No epistaxis. No sinus pain. No odynophagia. No congestion. RESPIRATORY: No cough, no congestion. No hemoptysis. No shortness of breath. CARDIOVASCULAR: No angina symptoms. No CHF symptoms. No atypical chest pain for CAD. No palpitations. No orthopnea.. GASTROINTESTINAL: No abdominal pain. No nausea or vomiting. No diarrhea or constipation. No hematemesis. No hematochezia. GENITOURINARY: No urgency. No frequency. No dysuria. No hematuria. No obstructive symptoms. No discharge. No pain. No significant abnormal bleeding. MUSCULOSKELETAL: No musculoskeletal pain; no joint swelling. NEUROLOGICAL: Awake, alert, oriented to time, place and person. No headache. No neck pain. No syncope. No seizures. No dizziness. PSYCHIATRIC: Not anxious. No depression. No suicidal thoughts. No homicidal thoughts. SKIN: No rash. No lesions. No wounds. ENDOCRINE: No unexplained weight loss. No weight gain. HEMATOLOGIC/LYMPHATIC: No anemia. No purpura. No petechiae. No prolonged or excessive bleeding. No palpable lymph nodes. PHYSICAL EXAMINATION: GENERAL: The patient is awake, alert and oriented, lying in bed in no distress. VITAL SIGNS: Temperature 97.8 F, Pulse 67, Respiratory Rate 18, BP 140/64, Pulse Ox 96% HEENT: Head normocephalic, atraumatic. Eyes: Extraocular muscles are intact. Pupils are equal, round and reactive to light and accommodation. Ears: No lesions. Nose appeared normal. Throat: No exudate or erythema. NECK: Supple. No JVD, no carotid bruit. No lymphadenopathy or thyromegaly. LUNGS: Decreased breath sounds. Clear to auscultation. Percussion note normal. Chest symmetrical. HEART: S1, S2, no S3. No murmurs. No cyanosis or clubbing. No ascites. Pulses: Dorsalis pedis and posterior tibial pulses +1 to +2 both sides. ABDOMEN: Soft. Non-tender. Bowel sounds active. No CVA tenderness. No mass felt. EXTREMITIES: Trace edema. Full range of motion of all extremities, equal. NEUROLOGIC: No focal deficit. Cranial nerves II through XII are grossly intact. No headache, no double vision or headache. SKIN: Warm and dry. Intact. Turgor-normal. LYMPHATIC: No palpable lymph nodes/no lymphedema. MUSCULOSKELETAL: Normal joints with no swelling. Muscle tone is normal. LAB REVIEW: 06/04/19 04:49 06/04/19 04:49 06/04/19 04:49: Sodium 139.6, Potassium 4.27, Chloride 104.2, Carbon Dioxide 30.4 H, Anion Gap 9.27, BUN 19.6 H, Creatinine 0.54 L, Estimated GFR (MDRD) 112.00, BUN/Creatinine Ratio 36.29, Glucose 369.3 H D, Calcium 8.88, Total Bilirubin 0.18 L, AST 17.4, ALT 16.0, Alkaline Phosphatase 102.4, Total Protein 6.83, Albumin 3.32 L, Globulin 3.51, Albumin/Globulin Ratio 0.94 06/04/19 04:49: WBC 15.58 H, RBC 3.65 L, Hgb 10.7 L, Hct 33.6 L, MCV 92.1, MCH 29.3, MCHC 31.8, RDW Coeff of Marj 13.4, Plt Count 297, Immature Gran % (Auto) 1.3, Neut % (Auto) 87.8 H, Lymph % (Auto) 6.2 L, [place] % (Auto) 4.6, Eos % (Auto) 0.0, Baso % (Auto) 0.1, Immature Gran # (Auto) 0.2, Neut # (Auto) 13.7 H, Lymph # (Auto) 1.0, [place] # (Auto) 0.7, Eos # (Auto) 0.0, Baso # (Auto) 0.0 ASSESSMENT: Please see below. 1. Pneumonia 2. Chronic lung disease 3. Morbid obesity PLAN: 1. Continue Antibiotics, steroids and NEBS. 2. Pneumonia is clinically improved. 3. ABG on room air tomorrow 4. Chest x-ray tomorrow 5. Discontinue Solu-Medrol 6. Prednisone 20mg PO daily Plan and coordination of the patient's care discussed in the presence of Kennel Supervisor and nurse. SCRIBED BY: Tiffanie LYLES scribed while in presence of service performed by Dr. SARAH BRUNNER on 06/04/19 ([id number])
--- NOTE | 2019-06-04 11:09 | PN ---
DATE OF SERVICE: 06/03/2019 SUBJECTIVE: 68 year old white female was hospitalized with pneumonia. The patient's condition has improved. Remarkably she is looking a lot better. The voice is quite loud and clear. She hasn't been coughing as much. Her appetite has usual is good. REVIEW OF SYSTEMS: CONSTITUTIONAL: No night sweats. No fatigue, malaise, lethargy. No fever or chills. HEENT: Eyes: No visual changes. No eye pain. No eye discharge. ENT: No runny nose. No epistaxis. No sinus pain. No sore throat. No odynophagia. No congestion. RESPIRATORY: Mild cough, no congestion. No hemoptysis. No shortness of breath. CARDIOVASCULAR: No angina symptoms. No CHF symptoms. No atypical chest pain for CAD. No palpitations. No PND. No orthopnea. GASTROINTESTINAL: No abdominal pain. No nausea or vomiting. No diarrhea or constipation. No hematemesis. No hematochezia. GENITOURINARY: No urgency. No frequency. No dysuria. No hematuria. No obstructive symptoms. No discharge. No pain. No significant abnormal bleeding. MUSCULOSKELETAL: No musculoskeletal pain; no joint swelling. NEUROLOGICAL: No headache. No neck pain. No syncope. No seizures. No dizziness. PSYCHIATRIC: Not anxious. No depression. No suicidal thoughts. No homicidal thoughts. SKIN: No rash. No lesions. No wounds. ENDOCRINE: No unexplained weight loss. No weight gain. HEMATOLOGIC/LYMPHATIC: No anemia. No purpura. No petechiae. No prolonged or excessive bleeding. No palpable lymph nodes. PHYSICAL EXAMINATION: VITAL SIGNS: Temperature 98.3, pulse 77, respiratory rate 20, blood pressure 154/75 and pulse ox 97%. HEENT: Head normocephalic, atraumatic. Eyes: Extraocular muscles are intact. Pupils are equal, round and reactive to light and accommodation. Ears: No lesions. Nose appeared normal. Throat: No exudate or erythema. NECK: Supple. No JVD, no carotid bruit. No lymphadenopathy or thyromegaly. LUNGS: Decreased breath sounds but clear to auscultation. Percussion note normal. Chest symmetrical. HEART: S1, S2, no S3. No murmurs. No cyanosis or clubbing. No ascites. Pulses: Dorsalis pedis and posterior tibial pulses +1 to +2 bilaterally. ABDOMEN: Soft. Nontender. Bowel sounds active. No CVA tenderness. No mass felt. EXTREMITIES: No edema. Full range of motion of all extremities, equal. NEUROLOGIC: No focal deficit. Cranial nerves II through XII are grossly intact. No headache, no double vision or headache. SKIN: Not dry. Intact. Turgor - normal. LYMPHATIC: No palpable lymph nodes/no lymphedema. MUSCULOSKELETAL: Normal joints with no swelling. Muscle tone is normal. ASSESSMENT: 1. Pneumonia 2. Chronic lung disease 3. Morbid obesity PLAN: 1. Start patient on Cefepime 2gram 8 hourly 2. Vancomycin 1.5mg Q 12 hour 3. The patient is allergic to a lot of medication. The patient lives at son's house after she was sick and hospitalized a month ago she has finished all her medications. The patient also on NEBS treatment at home. 4. NEBS 5. Steroids. 6. Counseling done for weight loss. TIME SPENT: More than 30 minutes. Plan and coordination of the patient's care discussed in the presence of nurse. KIRAN
--- NOTE | 2019-06-04 13:25 | PN ---
DATE OF SERVICE: 06/02/2019 SUBJECTIVE: The patient was hospitalized today. She came to the emergency room with chronic lung disease with exacerbation. The patient's chest x-ray also showed possibility of pneumonia. The patient is going to be hospitalized and put on Rocephin and Azactam. She is allergic to a lot of antibiotics. The patient is noncompliant and doesn't take her medications, doesn't show up for followup. She has severe chronic lung disease with morbid obesity. REVIEW OF SYSTEMS: CONSTITUTIONAL: No night sweats. No fatigue, malaise, lethargy. No fever or chills. HEENT: Eyes: No visual changes. No eye pain. No eye discharge. ENT: No runny nose. No epistaxis. No sinus pain. No sore throat. No odynophagia. No congestion. RESPIRATORY: No cough, no congestion. No hemoptysis. No shortness of breath. CARDIOVASCULAR: No angina symptoms. No CHF symptoms. No atypical chest pain for CAD. No palpitations. No PND. No orthopnea. GASTROINTESTINAL: No abdominal pain. No nausea or vomiting. No diarrhea or constipation. No hematemesis. No hematochezia. GENITOURINARY: No urgency. No frequency. No dysuria. No hematuria. No obstructive symptoms. No discharge. No pain. No significant abnormal bleeding. MUSCULOSKELETAL: No musculoskeletal pain; no joint swelling. NEUROLOGICAL: No headache. No neck pain. No syncope. No seizures. No dizziness. PSYCHIATRIC: Not anxious. No depression. No suicidal thoughts. No homicidal thoughts. SKIN: No rash. No lesions. No wounds. ENDOCRINE: No unexplained weight loss. No weight gain. HEMATOLOGIC/LYMPHATIC: No anemia. No purpura. No petechiae. No prolonged or excessive bleeding. No palpable lymph nodes. PHYSICAL EXAMINATION: HEENT: Head normocephalic, atraumatic. Eyes: Extraocular muscles are intact. Pupils are equal, round and reactive to light and accommodation. Ears: No lesions. Nose appeared normal. Throat: No exudate or erythema. NECK: Supple. No JVD, no carotid bruit. No lymphadenopathy or thyromegaly. LUNGS: Good air entry with mild wheeze after breathing treatment condition seemed to have improved according to ER physician. On admission the patient pO2 was 53 with pCo2 46 with normal pH on 2 liters oxygen saturation went up 96-97%. Clear to auscultation. Percussion note normal. Chest symmetrical. HEART: S1, S2, no S3. No murmurs. No cyanosis or clubbing. No ascites. Pulses: Dorsalis pedis and posterior tibial pulses +1 to +2 bilaterally. ABDOMEN: Soft. Nontender. Bowel sounds active. No CVA tenderness. No mass felt. EXTREMITIES: No edema. Full range of motion of all extremities, equal. NEUROLOGIC: No focal deficit. Cranial nerves II through XII are grossly intact. No headache, no double vision or headache. SKIN: Not dry. Intact. Turgor - normal. LYMPHATIC: No palpable lymph nodes/no lymphedema. MUSCULOSKELETAL: Normal joints with no swelling. Muscle tone is normal. CONDITION: Stable for now. No evidence of CHF. PLAN: 1. Give NEBS, steroids, IV antibiotics as described above. TIME SPENT: More than 30 minutes. Plan and coordination of the patient's care discussed in the presence of nurse. KIRAN
[2019-06-04] MEDS: SODIUM CHLORIDE 1,000 ML IV SCH (14:53)
[2019-06-04] MEDS: NORVASC PO SCH (20:21)
[2019-06-05] MEDS: SODIUM CHLORIDE 1,000 ML IV SCH ×3 (03:17→09:45)
[2019-06-05] MEDS: DUONEB NEB SCH ×4 (05:02→19:19)
[2019-06-05] MEDS: MAXIPIME 2 GM/50 ML D5W 2 GM/50 ML BAG IV SCH ×3 (05:05→20:28)
[2019-06-05 05:36] LABS: HEMATOCRIT 33.1 % (37.0-47.0)
[2019-06-05] MEDS: PROTONIX PO SCH (06:12)
[2019-06-05] MEDS: SYNTHROID PO SCH (06:12)
[2019-06-05] MEDS: HUMULIN R SUBCUT PRN ×4 (06:12→21:24)
[2019-06-05] MEDS: BUMEX PO SCH (06:12)
--- NOTE | 2019-06-05 08:45 | HP ---
DATE OF SERVICE: 06/02/19 HISTORY OF PRESENT ILLNESS: 68-year-old white female presented to the Emergency Room with coughing and congestion. She has a history of asthmatic bronchitis and was recently treated for pneumonia. PAST MEDICAL HISTORY: Underlying COPD Asthma Hypertension Dyslipidemia GERD Polyarthritis Morbid obesity Hypothyroidism Sleep apnea and refuses CPAP Former smoker Noncompliance with diet, medications, lifestyle and followup History of pneumonia PAST SURGICAL HISTORY: Left total knee replacement Bilateral breast implants REVIEW OF SYSTEMS: CONSTITUTIONAL: Positive for weakness. No night sweats. No fatigue, malaise, lethargy. No fever or chills. HEENT: Eyes: No visual changes. No eye pain. No eye discharge. ENT: No runny nose. No epistaxis. No sinus pain. No sore throat. No odynophagia. No ear pain. No congestion. RESPIRATORY: Positive for cough, shortness of air and wheezing. No hemoptysis. CARDIOVASCULAR: No angina symptoms. No CHF symptoms. No atypical chest pain for CAD. No palpitations. No PND. No orthopnea. GASTROINTESTINAL: No abdominal pain. No nausea or vomiting. No diarrhea or constipation. No hematemesis. No hematochezia. GENITOURINARY: No urgency. No frequency. No dysuria. No hematuria. No obstructive symptoms. No discharge. No pain. No significant abnormal bleeding. MUSCULOSKELETAL: No musculoskeletal pain. No joint swelling. No arthritis. NEUROLOGICAL: No headache. No neck pain. No syncope. No seizures. No dizziness. PSYCHIATRIC: Not anxious. No depression. No suicidal thoughts. No homicidal thoughts. SKIN: No rash. No lesions. No wounds. ENDOCRINE: No unexplained weight loss. No weight gain. HEMATOLOGIC/LYMPHATIC: No anemia. No purpura. No petechiae. No prolonged or excessive bleeding. No palpable lymph nodes. PERSONAL/FAMILY/SOCIAL HISTORY: She lives at home with her sister. She is a previous smoker. She does not use any alcohol or illicit drugs. MEDICATIONS: (HOME) Aspirin 81 mg p.o. daily with meal Levothyroxine 50 mcg p.o. q.d a.c. Ipratropium-Albuterol 0.5 mg-3 mg (2.5 mg base)3 mL solution for nebulization, one vial NEB RT q.6h Bumetanide 1 tab p.o. daily Potassium Chloride (K-Dur) 20 mEq p.o. daily Pantoprazole 40 mg p.o. q.d a.c. Amlodipine 10 mg p.o. bedtime Losartan 100 mg p.o. daily Hydrocodone-Acetaminophen 5-325 mg one tab p.o. q.6h p.r.n. Bisoprolol Fumarate 5 mg tablet p.o. daily Ibuprofen 200-400 mg p.o. q.6h p.r.n. ALLERGIES: ATORVASTATIN, ROSUVASTATIN, IODINATED CONTRAST MEDIA, TETRACYCLINES, MACROLIDE ANTIBIOTICS, CODEINE, AMPICILLIN, ERYTHROMYCIN BASE, CLAVULANIC ACID, PRAVASTATIN, CLARITHROMYCIN, SIMVASTATIN, AZITHROMYCIN, AMOXICILLIN, LORATIDINE, MINOCYCLINE, LEVOFLOXACIN PHYSICAL EXAMINATION: VITAL SIGNS: Temperature 100, heart rate 99, respirations 20, blood pressure 165/83. 02 sat 92. HEENT: Head normocephalic, atraumatic. Eyes: Extraocular muscles are intact. Pupils are equal, round and reactive to light and accommodation. Ears: No lesions. Nose appeared normal. Throat: No exudate or erythema. NECK: Supple. No JVD, no carotid bruit. No lymphadenopathy or thyromegaly. LUNGS: Diminished breath sounds with expiratory wheezing. Percussion note normal. Chest symmetrical. HEART: S1, S2, no S3. No murmur. No cyanosis or clubbing. No ascites. Pulses: Dorsalis pedis and posterior tibial pulses +1 to +2 bilaterally. ABDOMEN: Soft. Nontender. Bowel sounds active. No CVA tenderness. No mass felt. EXTREMITIES: Trace edema. Full range of motion of all extremities, equal. NEUROLOGIC: No focal deficit. Cranial nerves II through XII are grossly intact. No headache, no double vision or headache. SKIN: Not dry. Intact. Turgor - normal. LYMPHATIC: No palpable lymph nodes/no lymphedema. MUSCULOSKELETAL: Normal joints with no swelling. Muscle tone is normal. LABS: White blood count 14.8, hemoglobin 12.1, hematocrit 38.5, platelets 292. ABGs on room air saturation 87, pH 7.415, pc02 46, p02 53, bicarb 29.5, sodium 139.6, potassium 3.94, BUN 8.5, creatinine 0.57, AST 25, ALT 16. Influenza A and B both negative. Chest x-ray shows worsened right upper lung and bibasilar opacities compatible with pneumonia. ASSESSMENT: 1. PNEUMONIA 2. CHRONIC LUNG DISEASE 3. OBESITY 4. UNDERLYING ASTHMA 5. HYPERTENSION 6. DYSLIPIDEMIA 7. FORMER SMOKER PLAN: 1. Admit. 2. Routine telemetry. 3. CMP and CBC daily. 4. Continue home medications. 5. 02 at 1 to 2L NC as needed. 6. Duonebs q.6hr GUCCI. 7. Solu-Medrol 125 mg q.8. 8. Azactam 1 gm q.8. 9. Rocephin 1 gm daily. 10. Regular diet. 11. Will follow closely. TIME SPENT: More than 70 minutes. MTDD
--- NOTE | 2019-06-05 09:29 | DI ---
EXAM: Chest two views HISTORY: Pneumonia. FINDINGS: Compared to 06/02/2019. Heart size and mediastinal contour remain within normal limits. There is atherosclerotic disease. Infiltrate in the right upper lobe and middle lobe is again noted and both areas being slightly less noticeable. No pleural fluid. IMPRESSION: 1. Slight improvement in infiltrates of the right lung.
[2019-06-05] MEDS: VANCOMYCIN 1.5 GRAM/300 ML PREMIX 1.5 GM/300 ML BAG IV SCH ×2 (09:44→21:28)
[2019-06-05] MEDS: PREDNISONE PO SCH (09:45)
[2019-06-05] MEDS: ASPIRIN EC PO SCH (09:45)
[2019-06-05] MEDS: COZAAR PO SCH (09:45)
[2019-06-05] MEDS: ZEBETA PO SCH (09:45)
[2019-06-05] MEDS: LOVENOX SUBCUT SCH (09:47)
--- NOTE | 2019-06-05 10:53 | PCM.PROG ---
Attending Provider: ATTENDING PROVIDER: Dr. SARAH BRUNNER DATE OF SERVICE: 06/05/19 SUBJECTIVE: This 68 year old /WHITE F was hospitalized 06/02/19 with pneumonia. The patient's condition has improved. The patient's arterial blood gasses are pH 7.403, pCO2 44.7, pO2 69.0, HCO3 27.9 with oxygen saturation of 96%. On admission her pO2 was 53 with 87% saturation. The patient is almost laying flat in the bed with no respiratory distress. REVIEW OF SYSTEMS: CONSTITUTIONAL: No night sweats. No fatigue, malaise, lethargy. No fever or chills. HEENT: Eyes: No visual changes. No eye pain. No eye discharge. ENT: No runny nose. No epistaxis. No sinus pain. No odynophagia. No congestion. RESPIRATORY: No cough, no congestion. No hemoptysis. No shortness of breath. CARDIOVASCULAR: No angina symptoms. No CHF symptoms. No atypical chest pain for CAD. No palpitations. No orthopnea.. GASTROINTESTINAL: No abdominal pain. No nausea or vomiting. No diarrhea or constipation. No hematemesis. No hematochezia. GENITOURINARY: No urgency. No frequency. No dysuria. No hematuria. No o bstructive symptoms. No discharge. No pain. No significant abnormal bleeding. MUSCULOSKELETAL: No musculoskeletal pain; no joint swelling. NEUROLOGICAL: Awake, alert, oriented to time, place and person. No headache. No neck pain. No syncope. No seizures. No dizziness. PSYCHIATRIC: Not anxious. No depression. No suicidal thoughts. No homicidal thoughts. SKIN: No rash. No lesions. No wounds. ENDOCRINE: No unexplained weight loss. No weight gain. HEMATOLOGIC/LYMPHATIC: No anemia. No purpura. No petechiae. No prolonged or excessive bleeding. No palpable lymph nodes. PHYSICAL EXAMINATION: GENERAL: The patient is awake, alert and oriented to time, place and person, ly ing in bed in no distress. VITAL SIGNS: Temperature 97.5 F, Pulse 78, Respiratory Rate 20, BP 128/63, Pulse Ox 96% HEENT: Head normocephalic, atraumatic. Eyes: Extraocular muscles are intact. Pupils are equal, round and reactive to light and accommodation. Ears: No lesions. Nose appeared normal. Throat: No exudate or erythema. NECK: Supple. No JVD, no carotid bruit. No lymphadenopathy or thyromegaly. LUNGS: Decreased breath sounds but clear to auscultation. Percussion note normal. Chest symmetrical. HEART: S1, S2, no S3. No murmurs. No cyanosis or clubbing. No ascites. Pulses: Dorsalis pedis and posterior tibial pulses +1 to +2 both sides. ABDOMEN: Soft. Non-tender. Bowel sounds active. No CVA tenderness. No mass felt. EXTREMITIES: No edema. Full range of motion of all extremities, equal. NEUROLOGIC: No focal deficit. Cranial nerves II through XII are grossly intact. No headache, no double vision or headache. SKIN: Warm and dry. Intact. Turgor-normal. LYMPHATIC: No palpable lymph nodes/no lymphedema. MUSCULOSKELETAL: Normal joints with no swelling. Muscle tone is normal. LAB REVIEW: 06/05/19 05:23 06/05/19 05:23 06/05/19 06:25: Puncture Site Rb, O2 Saturation 94.0 L, ABG pH 7.403, ABG pCO2 44.7, ABG pO2 69.0 L, ABG HCO3 27.9 H, ABG Total CO2 29 H, ABG Base Excess 3 H, Mich Test +, FiO2 % 21.0 06/05/19 05:23: Sodium 140.5, Potassium 3.56, Chloride 104.6, Carbon Dioxide 29.7, Anion Gap 9.76, BUN 25.5 H, Creatinine 0.56 L, Estimated GFR (MDRD) 107.00, BUN/Creatinine Ratio 45.53, Glucose 241.6 H, Calcium 8.64, Total Bilirubin 0.20, AST 19.8, ALT 15.6, Alkaline Phosphatase 89.4, Total Protein 6.73, Albumin 3.30 L, Globulin 3.43, Albumin/Globulin Ratio 0.96 06/05/19 05:23: WBC 12.94 H, RBC 3.62 L, Hgb 10.6 L, Hct 33.1 L, MCV 91.4, MCH 29.3, MCHC 32.0, RDW Coeff of Marj 13.5, Plt Count 280, Immature Gran % (Auto) 1.9, Neut % (Auto) 80.0 H, Lymph % (Auto) 12.4, Forest % (Auto) 5.5, Eos % (Auto) 0.0, Baso % (Auto) 0.2, Immature Gran # (Auto) 0.2, Neut # (Auto) 10.4 H, Lymph # (Auto) 1.6, Forest # (Auto) 0.7, Eos # (Auto) 0.0, Baso # (Auto) 0.0 ASSESSMENT: Please see below. 1. Pneumonia clinically improved 2. Respiratory failure, resolved. PLAN: 1. Continue NEBS, steroids and antibiotics. Plan and coordination of the patient's care discussed in the presence of Photovoltaic Technician and nurse. CONDITION: Stable SCRIBED BY: TRUDI SESAY Frozen Pie Maker scribed while in presence of service performed by Dr. SARAH BRUNNER on 06/05/19 ([id number])
[2019-06-05] MEDS: NORCO 5-325 PO PRN (16:25)
[2019-06-05] MEDS: NORVASC PO SCH (20:28)
[2019-06-06] MEDS: SODIUM CHLORIDE 1,000 ML IV SCH ×3 (00:31→16:01)
[2019-06-06] MEDS: DUONEB NEB SCH ×4 (04:46→19:42)
[2019-06-06 05:51] LABS: HEMATOCRIT 34.6 % (37.0-47.0)
[2019-06-06] MEDS: BUMEX PO SCH (06:06)
[2019-06-06] MEDS: PROTONIX PO SCH (06:06)
[2019-06-06] MEDS: SYNTHROID PO SCH (06:07)
[2019-06-06] MEDS: MAXIPIME 2 GM/50 ML D5W 2 GM/50 ML BAG IV SCH ×3 (06:07→20:31)
[2019-06-06] MEDS: HUMULIN R SUBCUT PRN ×4 (06:42→20:36)
[2019-06-06] MEDS: ASPIRIN EC PO SCH (08:24)
[2019-06-06] MEDS: COZAAR PO SCH (08:24)
[2019-06-06] MEDS: ZEBETA PO SCH (08:24)
[2019-06-06] MEDS: PREDNISONE PO SCH (08:25)
[2019-06-06] MEDS: VANCOMYCIN 1.5 GRAM/300 ML PREMIX 1.5 GM/300 ML BAG IV SCH ×2 (08:25→21:31)
[2019-06-06] MEDS: LOVENOX SUBCUT SCH (08:25)
[2019-06-06] MEDS: NORVASC PO SCH (20:30)
[2019-06-07] MEDS: NORCO 5-325 PO PRN (01:54)
[2019-06-07] MEDS: DUONEB NEB SCH ×4 (04:25→21:06)
[2019-06-07] MEDS: SYNTHROID PO SCH (06:01)
[2019-06-07] MEDS: PROTONIX PO SCH (06:01)
[2019-06-07] MEDS: BUMEX PO SCH (06:01)
[2019-06-07] MEDS: MAXIPIME 2 GM/50 ML D5W 2 GM/50 ML BAG IV SCH ×3 (06:01→20:23)
[2019-06-07 06:38] LABS: HEMATOCRIT 34.3 % (37.0-47.0)
[2019-06-07] MEDS: SODIUM CHLORIDE 1,000 ML IV SCH (07:02)
[2019-06-07] MEDS: LOVENOX SUBCUT SCH (08:14)
[2019-06-07] MEDS: COZAAR PO SCH (08:14)
[2019-06-07] MEDS: VANCOMYCIN 1.5 GRAM/300 ML PREMIX 1.5 GM/300 ML BAG IV SCH ×2 (08:14→21:22)
[2019-06-07] MEDS: ZEBETA PO SCH (08:14)
[2019-06-07] MEDS: ASPIRIN EC PO SCH (08:14)
[2019-06-07] MEDS: PREDNISONE PO SCH (08:14)
[2019-06-07] MEDS: HUMULIN R SUBCUT PRN ×2 (10:53→20:50)
[2019-06-07] MEDS: NORVASC PO SCH (20:23)
[2019-06-08] MEDS: DUONEB NEB SCH ×2 (04:35→10:07)
[2019-06-08 05:07] LABS: HEMATOCRIT 38.3 % (37.0-47.0)
[2019-06-08] MEDS: PROTONIX PO SCH (05:52)
[2019-06-08] MEDS: MAXIPIME 2 GM/50 ML D5W 2 GM/50 ML BAG IV SCH ×2 (05:52→06:03)
[2019-06-08] MEDS: SYNTHROID PO SCH (05:52)
[2019-06-08] MEDS: BUMEX PO SCH (05:52)
[2019-06-08] MEDS ORDERED: OMNICEF PO STA (08:25)
[2019-06-08] MEDS ORDERED: BACTRIM DS 800/160 MG PO STA (08:28)
--- NOTE | 2019-06-08 08:41 | DS ---
DATE OF SERVICE: 06/08/19 FINAL DIAGNOSIS: 1. PNEUMONIA,RESOLVING 2. COPD 3. ASTHMA 4. SLEEP APNEA (REFUSES C-PAP) 5. HYPERGLYCEMIA 6. HYPERTENSION 7. HYPOTHYROIDISM 8. DYSLIPIDEMIA 9. GERD 10. ARTHRITIS 11. ANEMIA 12. FORMER SMOKER 13. MORBID OBESITY: BMI 63.7 14. NON-COMPLIANCE OF DIET, LIFESTYLE, MEDICATIONS AND FOLLOW-UP 15. BILATERAL BREAST IMPLANTS 16. TKR, LEFT 2011 17. SEVERE COPD ECHOCARDIOGRAM 05/2016, LVEF 53%, BORDERLINE LA CAVITY, NORMAL VALVES, ENLARGED LEFT ATRIAL, PFT 04/2018. LAST VITALS Temp Pulse Resp BP Pulse Ox 97.8 F 70 16 141/66 H 94 L 06/08/19 06:00 06/08/19 06:00 06/08/19 08:00 06/08/19 06:00 06/08/19 06:00 DISCHARGE INSTRUCTIONS: 1. DISCHARGE HOME (STAYING WITH SON TEMPORARILY) 2. CONTINUE TO USE OXYGEN AT 2 LITERS PER NASAL CANNULA AT NIGHT AND NEEDED. 3. CONTINUE TO USE NEBULIZER TREATMENTS AT LEAST 3-4 TIMES DAILY. 4. AN APPOINTMENT IS SCHEDULED FOR JUNE 15, [address] 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 5. CODE STATUS: FULL CODE. MEDICATIONS AT DISCHARGE: Hydrocodone Bitart/Acetaminophen (Souris 5-325) 1 tab PO Q6H PRN PRN Reason: Pain Last Admin: 06/07/19 01:54 Dose: 1 tab Documented by: Albuterol/Ipratropium (Duoneb) 3 ml NEB RTQID [facility] Last Admin: 06/08/19 04:35 Dose: 3 ml Documented by: Amlodipine Besylate (Norvasc) 10 mg PO BEDTIME [facility] Last Admin: 06/07/19 20:23 Dose: 10 mg Documented by: Aspirin (Aspirin Ec) 81 mg PO DAILYWM [facility] Last Admin: 06/07/19 08:14 Dose: 81 mg Documented by: Bisoprolol Fumarate (Zebeta) 5 mg PO DAILY [facility] Last Admin: 06/07/19 08:14 Dose: 5 mg Documented by: Bumetanide (Bumex) 1 mg PO QDAC [facility] Last Admin: 06/08/19 05:52 Dose: 1 mg Documented by: Levothyroxine Sodium (Synthroid) 50 mcg PO QDAC [facility] Last Admin: 06/08/19 05:52 Dose: 50 mcg Documented by: Losartan Potassium (Cozaar) 100 mg PO DAILY [facility] Last Admin: 06/07/19 08:14 Dose: 100 mg Documented by: Pantoprazole Sodium (Protonix) 40 mg PO QDAC [facility] Last Admin: 06/08/19 05:52 Dose: 40 mg Documented by: K-DUR 20 MEQ PO DAILY LAST ADMIN: ALLERGIES levofloxacin [From Levaquin] Adverse Reaction (Intermediate, Verified 06/02/19 15:18) Itching amoxicillin [Amoxicillin] Adverse Reaction (Verified 06/02/19 15:18) Unknown ampicillin Adverse Reaction (Verified 06/02/19 15:18) Unknown atorvastatin calcium [From Lipitor] Adverse Reaction (Verified 06/02/19 15:18) Unknown azithromycin [From Zithromax] Adverse Reaction (Verified 06/02/19 15:18) Unknown clarithromycin [From Biaxin] Adverse Reaction (Verified 06/02/19 15:18) Unknown clavulanic acid [From Augmentin] Adverse Reaction (Verified 06/02/19 15:18) codeine Adverse Reaction (Verified 06/02/19 15:18) erythromycin base [Erythromycin Base] Adverse Reaction (Verified 06/02/19 15:18) Unknown Iodinated Contrast Media [Iodinated Contrast Media - IV Dye] Adverse Reaction (Verified 06/02/19 15:18) Unknown loratadine [From Claritin] Adverse Reaction (Verified 06/02/19 15:18) Macrolide Antibiotics Adverse Reaction (Verified 06/02/19 15:18) Unknown minocycline Adverse Reaction (Verified 06/02/19 15:18) Penicillins Adverse Reaction (Verified 06/02/19 15:18) Unknown pravastatin Adverse Reaction (Verified 06/02/19 15:18) rosuvastatin calcium [From Crestor] Adverse Reaction (Verified 06/02/19 15:18) Unknown simvastatin Adverse Reaction (Verified 06/02/19 15:18) Tetracyclines Adverse Reaction (Verified 06/02/19 15:18) Unknown NEW PRESCRIPTIONS: PREDNISONE 10 MG DAILY FOR 5 DAYS OMNICEF 300 MG BID FOR 5 DAYS, INITIAL DOSE GIVEN 06/08/2019 BACTRIM DS BID FOR 5 DAYS, INITIAL DOSE GIVEN 06/08/2019 DISCONTINUED MEDICATIONS: IBUPROFEN 200-400 MG Q 6 HOURS PRN DIET INSTRUCTIONS: CONSISTENT CARBOHYDRATE, HEART HEALTHY ACTIVITY: ENCOURAGED TO AMBULATE SHORT DISTANCES SMOKING: NOT APPLICABLE DISEASE SPECIFIC EDUCATION: RISK OF STEROIDS INCLUDING GI UPSET, AVASCULAR NECROSIS, CATARACT FORMATION ACTIVITY: WALKING WEIGHT LOSS APPOINTMENT HOSPITAL COURSE: 68-year-old White female hospitalized with pneumonia. The patient has COPD. The patient was in acute respiratory failure with p02 of 52 and oxygen saturation of 88% on room air. The patient has frequent cough with with marked distress treated aggressively with nebs, steroids and antibiotics. The patient is allergic to a lot of antibiotics, was treated with Vancomycin and Cefepime. The patient's condition is improved. Oxygen saturation on room air 94%. Lungs are clear and in no distress. LAB REVIEW: 06/08/19 04:56: Sodium 140.6, Potassium 3.78, Chloride 102.7, Carbon Dioxide 34.5 H, Anion Gap 7.18, BUN 13.7, Creatinine 0.43 L, Estimated GFR (MDRD) 146.00, BUN/Creatinine Ratio 31.86, Glucose 125.4 H, Calcium 8.46, Total Bilirubin 0.30, AST 63.3 H, ALT 67.9 H, Alkaline Phosphatase 86.1, Total Protein 6.83, Albumin 3.44 L, Globulin 3.39, Albumin/Globulin Ratio 1.01 06/08/19 04:56: WBC 12.66 H, RBC 4.19 L, Hgb 12.0, Hct 38.3, MCV 91.4, MCH 28.6, MCHC 31.3 L, RDW Coeff of Marj 13.7, Plt Count 319, Neutrophils % (Manual) 63.0, Lymphocytes % (Manual) 30.0, Monocytes % (Manual) 5.0, Eosinophils % (Manual) 2.0, Anisocytosis Not present CONDITION: Stable. TIME SPENT: More than 60 minutes. MTDD
--- NOTE | 2019-06-08 08:49 | PCM.PROG ---
Attending Provider: ATTENDING PROVIDER: Dr. SARAH BRUNNER DATE OF SERVICE: 06/08/19 SUBJECTIVE: This 68 year old /WHITE F was hospitalized 06/02/19 with pneumonia. Condition has steadily improved. Respiratory failure resolved, oxygen saturation 94% on room air. REVIEW OF SYSTEMS: CONSTITUTIONAL: No night sweats. No fatigue, malaise, lethargy. No fever or chills. HEENT: Eyes: No visual changes. No eye pain. No eye discharge. ENT: No runny nose. No epistaxis. No sinus pain. No odynophagia. No congestion. RESPIRATORY: No cough, no congestion. No hemoptysis. No shortness of breath. CARDIOVASCULAR: No angina symptoms. No CHF symptoms. No atypical chest pain for CAD. No palpitations. No orthopnea.. GASTROINTESTINAL: No abdominal pain. No nausea or vomiting. No diarrhea or constipation. No hematemesis. No hematochezia. GENITOURINARY: No urgency. No frequency. No dysuria. No hematuria. No obstructive symptoms. No discharge. No pain. No significant abnormal bleeding. MUSCULOSKELETAL: No musculoskeletal pain; no joint swelling. NEUROLOGICAL: Awake, alert, oriented to time, place and person. No headache. No neck pain. No syncope. No seizures. No dizziness. PSYCHIATRIC: Not anxious. No depression. No suicidal thoughts. No homicidal thoughts. SKIN: No rash. No lesions. No wounds. ENDOCRINE: No unexplained weight loss. No weight gain. HEMATOLOGIC/LYMPHATIC: No anemia. No purpura. No petechiae. No prolonged or excessive bleeding. No palpable lymph nodes. PHYSICAL EXAMINATION: GENERAL: The patient is awake, alert and oriented, lying/sitting in bed in no distress. VITAL SIGNS: Temperature 97.8 F, Pulse 70, Respiratory Rate 18, BP 141/66, Pulse Ox 94% HEENT: Head normocephalic, atraumatic. Eyes: Extraocular muscles are intact. Pupils are equal, round and reactive to light and accommodation. Ears: No lesions. Nose appeared normal. Throat: No exudate or erythema. NECK: Supple. No JVD, no carotid bruit. No lymphadenopathy or thyromegaly. LUNGS: Good air entry both sides, no wheezing. Clear to auscultation. Percussi on note normal. Chest symmetrical. HEART: S1, S2, no S3. No murmurs. No cyanosis or clubbing. No ascites. Pulses: Dorsalis pedis and posterior tibial pulses +1 to +2 both sides. ABDOMEN: Soft. Non-tender. Bowel sounds active. No CVA tenderness. No mass felt. EXTREMITIES: No edema. Full range of motion of all extremities, equal. NEUROLOGIC: No focal deficit. Cranial nerves II through XII are grossly intact. No headache, no double vision or headache. SKIN: Warm and dry. Intact. Turgor-normal. LYMPHATIC: No palpable lymph nodes/no lymphedema. MUSCULOSKELETAL: Normal joints with no swelling. Muscle tone is normal. LAB REVIEW: 06/08/19 04:56 06/08/19 04:56 06/08/19 04:56: Sodium 140.6, Potassium 3.78, Chloride 102.7, Carbon Dioxide 34.5 H, Anion Gap 7.18, BUN 13.7, Creatinine 0.43 L, Estimated GFR (MDRD) 146.00, BUN/Creatinine Ratio 31.86, Glucose 125.4 H, Calcium 8.46, Total Bilirubin 0.30, AST 63.3 H, ALT 67.9 H, Alkaline Phosphatase 86.1, Total Protein 6.83, Albumin 3.44 L, Globulin 3.39, Albumin/Globulin Ratio 1.01 06/08/19 04:56: WBC 12.66 H, RBC 4.19 L, Hgb 12.0, Hct 38.3, MCV 91.4, MCH 28.6, MCHC 31.3 L, RDW Coeff of Marj 13.7, Plt Count 319, Neutrophils % (Manual) 63.0, Lymphocytes % (Manual) 30.0, Monocytes % (Manual) 5.0, Eosinophils % (Manual) 2.0, Anisocytosis Not present ASSESSMENT: Please see below. 1. Pneumonia clinically resolved. 2. Chronic lung disease. 3. Morbid obesity. 4. Hypertension. PLAN: 1. D/C home. 2. Bactrim DS b.i.d. times 5 days. 3. Omnicef b.i.d. times 7 days. 4. Prednisone 10 mg one a day for 5 days. 5. Continue rest of the medications. 6. Will see back in the office in 5 to 7 days. Plan and coordination of the patient's care discussed in the presence of Blade Grinder and nurse. CONDITION: Stable EDUCATION: The patient has been explained about side effects of steroids including avascul ar necrosis of the bone, osteoporosis, cataracts and diabetes. Counseling for weight loss diet done. BMI 64. SCRIBED BY: ALTAGRACIA DOWELL Cylinder Head Assembler scribed while in presence of service performed by Dr. SARAH BRUNNER on 06/08/19 ([id number])
[2019-06-08] MEDS: ASPIRIN EC PO SCH (09:19)
[2019-06-08] MEDS: ZEBETA PO SCH (09:22)
[2019-06-08] MEDS: COZAAR PO SCH (09:23)
[2019-06-08] MEDS: PREDNISONE PO SCH (09:24)
[2019-06-08] MEDS: LOVENOX SUBCUT SCH (09:24)
[2019-06-08] MEDS: VANCOMYCIN 1.5 GRAM/300 ML PREMIX 1.5 GM/300 ML BAG IV SCH (10:33)
[2019-06-08 10:46] VITALS: BP 117/71; TEMP 98
--- NOTE | 2019-06-08 10:48 | PN ---
DATE OF SERVICE: 06/07/2019 SUBJECTIVE: 68 year old white female hospitalized with pneumonia. The patient is feeling a lot better. REVIEW OF SYSTEMS: CONSTITUTIONAL: No night sweats. No fatigue, malaise, lethargy. No fever or chills. HEENT: Eyes: No visual changes. No eye pain. No eye discharge. ENT: No runny nose. No epistaxis. No sinus pain. No sore throat. No odynophagia. No congestion. RESPIRATORY: No cough, no congestion. No hemoptysis. No shortness of breath. CARDIOVASCULAR: No angina symptoms. No CHF symptoms. No atypical chest pain for CAD. No palpitations. No PND. No orthopnea. GASTROINTESTINAL: No abdominal pain. No nausea or vomiting. No diarrhea or constipation. No hematemesis. No hematochezia. GENITOURINARY: No urgency. No frequency. No dysuria. No hematuria. No obstructive symptoms. No discharge. No pain. No significant abnormal bleeding. MUSCULOSKELETAL: No musculoskeletal pain; no joint swelling. NEUROLOGICAL: No headache. No neck pain. No syncope. No seizures. No dizziness. PSYCHIATRIC: Not anxious. No depression. No suicidal thoughts. No homicidal thoughts. SKIN: No rash. No lesions. No wounds. ENDOCRINE: No unexplained weight loss. No weight gain. HEMATOLOGIC/LYMPHATIC: No anemia. No purpura. No petechiae. No prolonged or excessive bleeding. No palpable lymph nodes. PHYSICAL EXAMINATION: VITAL SIGNS: Temperature 97.5, pulse 73, respiratory rate 16, blood pressure 140/70 and pulse ox %.9 HEENT: Head normocephalic, atraumatic. Eyes: Extraocular muscles are intact. Pupils are equal, round and reactive to light and accommodation. Ears: No lesions. Nose appeared normal. Throat: No exudate or erythema. NECK: Supple. No JVD, no carotid bruit. No lymphadenopathy or thyromegaly. LUNGS: Decreased breath sounds but clear to auscultation. Percussion note normal. Chest symmetrical. HEART: S1, S2, no S3. No murmurs. No cyanosis or clubbing. No ascites. Pulses: Dorsalis pedis and posterior tibial pulses +1 to +2 bilaterally. ABDOMEN: Soft. Nontender. Bowel sounds active. No CVA tenderness. No mass felt. EXTREMITIES: No edema. Full range of motion of all extremities, equal. NEUROLOGIC: No focal deficit. Cranial nerves II through XII are grossly intact. No headache, no double vision or headache. SKIN: Not dry. Intact. Turgor - normal. LYMPHATIC: No palpable lymph nodes/no lymphedema. MUSCULOSKELETAL: Normal joints with no swelling. Muscle tone is normal. ASSESSMENT: 1. Pneumonia, clinically seems to be resolving 2. COPD 3. Massive obesity with BMI 63. PLAN: 1. Counseling for smoking done 2. Advised to joint pulmonary rehab 3. Advised to walk everyday at least half a mile, the patient is lazy 4. Continue the antibiotics, steroids and NEBS 5. Discontinue IV fluids. CONDITION: Stable. TIME SPENT: More than 30 minutes. Plan and coordination of the patient's care discussed in the presence of nurse. KIRAN
[2019-06-08] MEDS: HUMULIN R SUBCUT PRN (11:49)
--- NOTE | 2019-06-08 13:07 | PN ---
DATE OF SERVICE: 06/06/2019 SUBJECTIVE: 68 year old white female hospitalized with pneumonia. The patient's condition seems to have improved. She is feeling better, resting and coughing much less. REVIEW OF SYSTEMS: CONSTITUTIONAL: No night sweats. No fatigue, malaise, lethargy. No fever or chills. HEENT: Eyes: No visual changes. No eye pain. No eye discharge. ENT: No runny nose. No epistaxis. No sinus pain. No sore throat. No odynophagia. No congestion. RESPIRATORY: No cough, no congestion. No hemoptysis. No shortness of breath. CARDIOVASCULAR: No angina symptoms. No CHF symptoms. No atypical chest pain for CAD. No palpitations. No PND. No orthopnea. GASTROINTESTINAL: No abdominal pain. No nausea or vomiting. No diarrhea or constipation. No hematemesis. No hematochezia. Appetite has improved. GENITOURINARY: No urgency. No frequency. No dysuria. No hematuria. No obstructive symptoms. No discharge. No pain. No significant abnormal bleeding. MUSCULOSKELETAL: No musculoskeletal pain; no joint swelling. NEUROLOGICAL: No headache. No neck pain. No syncope. No seizures. No dizziness. PSYCHIATRIC: Not anxious. No depression. No suicidal thoughts. No homicidal thoughts. SKIN: No rash. No lesions. No wounds. ENDOCRINE: No unexplained weight loss. No weight gain. HEMATOLOGIC/LYMPHATIC: No anemia. No purpura. No petechiae. No prolonged or excessive bleeding. No palpable lymph nodes. PHYSICAL EXAMINATION: VITAL SIGNS: Temperature 97.5, pulse 73, respiratory rate 16, blood pressure 148/70 and pulse ox 94%. HEENT: Head normocephalic, atraumatic. Eyes: Extraocular muscles are intact. Pupils are equal, round and reactive to light and accommodation. Ears: No lesions. Nose appeared normal. Throat: No exudate or erythema. NECK: Supple. No JVD, no carotid bruit. No lymphadenopathy or thyromegaly. LUNGS: Decreased breath sounds but clear to auscultation. Percussion note normal. Chest symmetrical. HEART: S1, S2, no S3. No murmurs. No cyanosis or clubbing. No ascites. Pulses: Dorsalis pedis and posterior tibial pulses +1 to +2 bilaterally. ABDOMEN: Soft. Nontender. Bowel sounds active. No CVA tenderness. No mass felt. EXTREMITIES: No edema. Full range of motion of all extremities, equal. NEUROLOGIC: No focal deficit. Cranial nerves II through XII are grossly intact. No headache, no double vision or headache. SKIN: Not dry. Intact. Turgor - normal. LYMPHATIC: No palpable lymph nodes/no lymphedema. MUSCULOSKELETAL: Normal joints with no swelling. Muscle tone is normal. ASSESSMENT: 1. Pneumonia, clinically resolving PLAN: 1. Continue Cefepime and Vancomycin 2. Continue steroids. 3. The patient is morbidly obese. BMI 63. PROGNOSIS: Not good considering the patient's massive obesity with multiple medical problems. She is intelligent and oriented to time, place and person. CONDITION: Improving. TIME SPENT: More than 30 minutes. Plan and coordination of the patient's care discussed in the presence of nurse. KIRAN
--- NOTE | 2019-06-08 14:31 | CM.DICTOOL ---
ADMISSION: 06/02/19 19:37 DISCHARGE: JUNE 08, 2019 DATE OF SERVICE: 06/08/19 FINAL DIAGNOSIS PNEUMONIA,RESOLVING COPD ASTHMA SLEEP APNEA (REFUSES C-PAP) HYPERGLYCEMIA HYPERTENSION HYPOTHYROIDISM DYSLIPIDEMIA GERD ARTHRITIS ANEMIA FORMER SMOKER MORBID OBESITY: BMI 63.7 NON-COMPLIANCE OF DIET, LIFESTYLE, MEDICATIONS AND FOLLOW-UP BILATERAL BREAST IMPLANTS TKR, LEFT 2011 ECHOCARDIOGRAM 05/2016 LVEF 53% BORDERLINE LA CAVITY NORMAL VALVES ENLARGED LEFT ATRIAL PFT 04/2018 SEVERE COPD LAST VITALS Temp Pulse Resp BP Pulse Ox 97.8 F 70 16 141/66 H 94 L 06/08/19 06:00 06/08/19 06:00 06/08/19 08:00 06/08/19 06:00 06/08/19 06:00 TAKE THESE MEDICATIONS AT HOME Hydrocodone Bitart/Acetaminophen ([place] 5-325) 1 tab PO Q6H PRN PRN Reason: Pain Last Admin: 06/07/19 01:54 Dose: 1 tab Documented by: Albuterol/Ipratropium (Duoneb) 3 ml NEB RTQID [facility] Last Admin: 06/08/19 04:35 Dose: 3 ml Documented by: Amlodipine Besylate (Norvasc) 10 mg PO BEDTIME [facility] Last Admin: 06/07/19 20:23 Dose: 10 mg Documented by: Aspirin (Aspirin Ec) 81 mg PO DAILYWM [facility] Last Admin: 06/07/19 08:14 Dose: 81 mg Documented by: Bisoprolol Fumarate (Zebeta) 5 mg PO DAILY [facility] Last Admin: 06/07/19 08:14 Dose: 5 mg Documented by: Bumetanide (Bumex) 1 mg PO QDAC [facility] Last Admin: 06/08/19 05:52 Dose: 1 mg Documented by: Levothyroxine Sodium (Synthroid) 50 mcg PO QDAC [facility] Last Admin: 06/08/19 05:52 Dose: 50 mcg Documented by: Losartan Potassium (Cozaar) 100 mg PO DAILY [facility] Last Admin: 06/07/19 08:14 Dose: 100 mg Documented by: Pantoprazole Sodium (Protonix) 40 mg PO QDAC [facility] Last Admin: 06/08/19 05:52 Dose: 40 mg Documented by: K-DUR 20 MEQ PO DAILY LAST ADMIN: ALLERGIES levofloxacin [From Levaquin] Adverse Reaction (Intermediate, Verified 06/02/19 15:18) Itching amoxicillin [Amoxicillin] Adverse Reaction (Verified 06/02/19 15:18) Unknown ampicillin Adverse Reaction (Verified 06/02/19 15:18) Unknown atorvastatin calcium [From Lipitor] Adverse Reaction (Verified 06/02/19 15:18) Unknown azithromycin [From Zithromax] Adverse Reaction (Verified 06/02/19 15:18) Unknown clarithromycin [From Biaxin] Adverse Reaction (Verified 06/02/19 15:18) Unknown clavulanic acid [From Augmentin] Adverse Reaction (Verified 06/02/19 15:18) codeine Adverse Reaction (Verified 06/02/19 15:18) erythromycin base [Erythromycin Base] Adverse Reaction (Verified 06/02/19 15:18) Unknown Iodinated Contrast Media [Iodinated Contrast Media - IV Dye] Adverse Reaction (Verified 06/02/19 15:18) Unknown loratadine [From Claritin] Adverse Reaction (Verified 06/02/19 15:18) Macrolide Antibiotics Adverse Reaction (Verified 06/02/19 15:18) Unknown minocycline Adverse Reaction (Verified 06/02/19 15:18) Penicillins Adverse Reaction (Verified 06/02/19 15:18) Unknown pravastatin Adverse Reaction (Verified 06/02/19 15:18) rosuvastatin calcium [From Crestor] Adverse Reaction (Verified 06/02/19 15:18) Unknown simvastatin Adverse Reaction (Verified 06/02/19 15:18) Tetracyclines Adverse Reaction (Verified 06/02/19 15:18) Unknown DISCONTINUED MEDICATIONS IBUPROFEN 200-400 MG Q 6 HOURS PRN NEW PRESCRIPTIONS: PREDNISONE 10 MG DAILY FOR 5 DAYS OMNICEF 300 MG BID FOR 5 DAYS, INITIAL DOSE GIVEN 06/08/2019 BACTRIM DS BID FOR 5 DAYS, INITIAL DOSE GIVEN 06/08/2019 SMOKING: NOT APPLICABLE DISEASE SPECIFIC EDUCATION: RISK OF STEROIDS INCLUDING GI UPSET, AVASCULAR NECROSIS, CATARACT FORMATION ACTIVITY: WALKING WEIGHT LOSS APPOINTMENT LAB REVIEW: 06/08/19 04:56 06/08/19 04:56 06/08/19 04:56: Sodium 140.6, Potassium 3.78, Chloride 102.7, Carbon Dioxide 34.5 H, Anion Gap 7.18, BUN 13.7, Creatinine 0.43 L, Estimated GFR (MDRD) 146.00, BUN/Creatinine Ratio 31.86, Glucose 125.4 H, Calcium 8.46, Total Bilirubin 0.30, AST 63.3 H, ALT 67.9 H, Alkaline Phosphatase 86.1, Total Protein 6.83, Albumin 3.44 L, Globulin 3.39, Albumin/Globulin Ratio 1.01 06/08/19 04:56: WBC 12.66 H, RBC 4.19 L, Hgb 12.0, Hct 38.3, MCV 91.4, MCH 28.6, MCHC 31.3 L, RDW Coeff of Marj 13.7, Plt Count 319, Neutrophils % (Manual) 63.0, Lymphocytes % (Manual) 30.0, Monocytes % (Manual) 5.0, Eosinophils % (Manual) 2.0, Anisocytosis Not present PLAN: DISCHARGE HOME (STAYING WITH SON TEMPORARILY) DIET: CONSISTENT CARBOHYDRATE, HEART HEALTHY ACTIVITY: ENCOURAGED TO AMBULATE SHORT DISTANCES CONTINUE TO USE OXYGEN AT 2 LITERS PER NASAL CANNULA AT NIGHT AND NEEDED CONTINUE TO USE NEBULIZER TREATMENTS AT LEAST 3-4 TIMES DAILY AN APPOINTMENT IS SCHEDULED FOR JUNE 15, [address] BRUNNER/PATRICK FLOYD APRN CODE STATUS: FULL CODE MS. LOBO IS ALERT AND ORIENTED X 4. SHE IS AGREEABLE TO PLANS FOR DISCHARGE HOME TODAY. SHE IS INDEPENDENT WITH ACTIVITIES OF DAILY LIVING. SHE IS AMBULATORY WITH USE OF A ROLLING WALKER AND USE OF OXYGEN. SHE IS INDEPENDENT WITH FEEDING AND MEAL INTAKES ARE GOOD AT 100%. MS. LOBO IS CONTINENT OF BLADDER AND BOWEL. HYDRATION STATUS IS GOOD, SKIN IS DRY/FLAKY BUT INTACT. SHE IS ENCOURAGED TO MOISTURIZE THE SKIN SEVERAL TIMES DAILY. MS. LOBO HAS APPLIED FOR HOUSING AND IS CURRENTLY STAYING WITH HER SON WHILE WAITING FOR AN APARTMENT TO BECOME AVAILABLE. DME AVAILABLE IN THE HOME INCLUDES OXYGEN, NEBULIZER, HOSPITAL BED, WHEELCHAIR, WALKER, AND SHOWER CHAIR. MD PATRICK ALFRED APRN
--- NOTE | 2019-06-09 08:56 | PN ---
BILLING 06/02/19 ADMISSION DAY LEVEL 5 06/03/19 INTERMEDIATE 06/04/19 INTERMEDIATE 06/05/19 INTERMEDIATE 06/06/19 INTERMEDIATE 06/07/19 INTERMEDIATE 06/08/19 INTERMEDIATE MTDD
== END 2019-06-08 13:00 | disposition home or self-care (01) | DRG 194 ==
LOC: ED 15:12 → MEDSURG B 19:37
PROVIDERS: ADMIT Internal Medicine; ATTEND Internal Medicine
DX: K21.9 Gastro-esophageal reflux disease without esophagitis; I10 Essential (primary) hypertension; Z79.899 Other long term (current) drug therapy; J45.909 Unspecified asthma, uncomplicated; Z68.44 Body mass index [BMI] 60.0-69.9, adult; R14.3 Flatulence; E78.5 Hyperlipidemia, unspecified; E03.9 Hypothyroidism, unspecified; D64.9 Anemia, unspecified; R07.9 Chest pain, unspecified; R73.9 Hyperglycemia, unspecified; G47.30 Sleep apnea, unspecified; R06.03 Acute respiratory distress; J18.9 Pneumonia, unspecified organism; M19.90 Unspecified osteoarthritis, unspecified site; J44.1 Chronic obstructive pulmonary disease with (acute) exacerbation; R06.02 Shortness of breath; Z91.14 Patient's other noncompliance with medication regimen; E66.01 Morbid (severe) obesity due to excess calories; K59.00 Constipation, unspecified

== ENCOUNTER 2022-07-03 10:24 | Observation (INO) ==
[2022-07-03 10:33] VITALS: BMI 59.0
[2022-07-03] MEDS ORDERED: SODIUM CHLORIDE 500 ML IV STA (10:52)
--- NOTE | 2022-07-03 10:58 | ED.PDOC ---
General ED Provider: Dr. ANNCY LAWTON MD Chief Complaint: Weakness Stated Complaint: mild to mod general weakness today, not dizzy, hx bradycardia, no chest pain, not short of breath, no fever, hx obese, htn, mi, no cardiac stents, no dm, hx colonoscopy tomorrow for abdominal pain, no blood in stool Time Seen by Provider: 07/03/22 10:25 Mode of Arrival: Wheelchair Information Source: Patient Primary Care Provider: SARAH CANALES MD Nursing and Triage Documentation Reviewed and Agree: Yes Does patient meet sepsis criteria?: No System Inflammatory Response Syndrome: Not Applicable Sepsis Protocol: For patient's 13 years and over: Temp is 96.8 and below OR 101 and greater Pulse >90 BPM Resp >20/minute Acutely Altered Mental Status Are patient's symptoms suggestive of a new infection, such as: -Pneumonia -Skin, Soft Tissue -Endocarditis -UTI -Bone, Joint Infection -Implantable Device -Acute Abdominal Infection -Wound Infection -Meningitis -Blood Stream Catheter Infection -Unknown Review of Systems Review Of Systems Constitutional: Reports Malaise; Denies Fever Eyes: Denies Vision change Ears, Nose, Mouth, Throat: Denies Throat pain Respiratory: Denies Short of air Cardiac: Denies Chest pain GI: Reports Abdominal pain; Denies Rectal bleeding : Denies Frequency Skin: Denies Rash Neurological: Denies Cognitive dysfunction All Other Systems: Other REPLACED BY [facility] Medical History (Updated 07/03/22 @ 13:07 by NANCY LAWTON MD) ASHD (arteriosclerotic heart disease) Asthma B12 deficiency Bilateral leg edema Breast prosthesis or implant fitting/adjustment Carotid stenosis, left Cervical radiculopathy Chronic back pain COPD (chronic obstructive pulmonary disease) Diabetes mellitus Dyslipidemia GERD (gastroesophageal reflux disease) High cholesterol Hypertension Hypothyroidism LVH (left ventricular hypertrophy) Morbid obesity Nodule of right lung Pinched nerve Sleep apnea Family History SISTER Stomach cancer Breast cancer FATHER Multiple myeloma Mother Lung cancer Breast cancer Social History Smoking and tobacco status: Former smoker Second hand smoke exposure: No Alcohol intake: never Substance use type: does not use 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 Special jojo needs: No Agree to transfusion: Yes Adopted: No Caregiver/support person: No Foster care: No Housing: house Marital status: W / Lives independently: Yes Number of children: 1 Financial difficulty paying for basics: not very hard service: No CHCF: No Current occupational status: retired History of recent travel: No Current gender identity: female Seatbelt use: always Helmet use: No Drives intoxicated or rides with intoxicated sweeper driver: No Water heater temperature set < 120 degrees: Yes Working smoke detector in home: Yes Fire extinguisher in home: Yes Carbon monoxide detector in home: Yes Surgical History H/O breast surgery H/O removal of cyst H/O tubal ligation History of knee replacement Female Reproductive History Menstrual Hx Hysterectomy: No Hx Tubal Ligation: Yes Physical Exam Physical Exam Appearance: Reports Obese Ill-appearing: None Pain Distress: None Eyes: Reports ELSIE, EOMI and Conjunctiva clear ENT: Reports Oropharynx normal Neck: Supple Respiratory: Reports Airway patent, Breath sounds clear and Breath sounds equal Cardiovascular: Reports Bradycardia GI/: Reports Soft and Nontender Musculoskeletal: Reports No edema Skin: Reports Warm and Dry Neurological: Reports Alert and Oriented Psychiatric: Reports Affect appropriate Interpretation Radiology Interpretation Radiology Interpretation By: Radiologist Radiology Results: No acute changes Exam Interpreted: CXR EKG Interpretation Time of EKG #1: 13:04 Rate: [place] Rhythm: Sinus Interpretation: no stemi Critical Care Note Critical Care Note Total Critical Care Time (mins): 0 Course Course Hematology/Chemistry: 07/03/22 11:13 07/03/22 11:13 Orders, Labs, Meds: Lab Review 07/03/22 07/03/22 07/03/22 11:06 11:13 11:13 WBC 9.69 RBC 4.28 Hgb 12.3 Hct 39.1 MCV 91.4 MCH 28.7 MCHC 31.5 L RDW Coeff of Marj 13.2 Plt Count 286 Immature Gran % (Auto) 0.5 Neut % (Auto) 70.2 Lymph % (Auto) 18.1 [place] % (Auto) 8.7 Eos % (Auto) 2.0 Baso % (Auto) 0.5 Neut # (Auto) 6.8 Lymph # (Auto) 1.8 [place] # (Auto) 0.8 Eos # (Auto) 0.2 Baso # (Auto) 0.1 Immature Gran # (Auto) 0.1 Sodium 139.5 Potassium 4.83 Chloride 105.7 Carbon Dioxide 30.2 H Anion Gap 8.43 BUN 28.9 H Creatinine 0.95 Estimated GFR (MDRD) 58.00 BUN/Creatinine Ratio 30.42 Glucose 115.4 H Lactic Acid Calcium 9.11 Total Bilirubin 0.46 AST 27.3 ALT 16.1 Alkaline Phosphatase 100.6 Troponin I < 0.012 NT-Pro-B Natriuret Pep Total Protein 8.01 Albumin 3.91 Globulin 4.10 Albumin/Globulin Ratio 0.95 Free T4 SARS CoV-2 RNA Rapid PATRICIA Negative 07/03/22 07/03/22 07/03/22 11:13 11:13 11:13 WBC RBC Hgb Hct MCV MCH MCHC RDW Coeff of Marj Plt Count Immature Gran % (Auto) Neut % (Auto) Lymph % (Auto) [place] % (Auto) Eos % (Auto) Baso % (Auto) Neut # (Auto) Lymph # (Auto) [place] # (Auto) Eos # (Auto) Baso # (Auto) Immature Gran # (Auto) Sodium Potassium Chloride Carbon Dioxide Anion Gap BUN Creatinine Estimated GFR (MDRD) BUN/Creatinine Ratio Glucose Lactic Acid 0.74 Calcium Total Bilirubin AST ALT Alkaline Phosphatase Troponin I NT-Pro-B Natriuret Pep 532 H Total Protein Albumin Globulin Albumin/Globulin Ratio Free T4 1.95 SARS CoV-2 RNA Rapid PATRICIA Orders Category Date Time Status EKG-(ED ONLY) Stat CARDIO 07/03/22 10:52 Completed CBC W/ AUTO DIFF Stat LAB 07/03/22 11:13 Completed CMP [COMPREHENSIVE METABOLIC PANEL] Stat LAB 07/03/22 11:13 Completed FREE T4 (FREE THYROXINE) Stat LAB 07/03/22 11:13 Completed LACTIC ACID Stat LAB 07/03/22 11:13 Completed NT-PROBNP(ED) Stat LAB 07/03/22 11:13 Completed SARS COV-2 RNA RAPID PATRICIA Stat LAB 07/03/22 11:06 Completed THYROID PANEL WITH TSH Stat LAB 07/03/22 11:13 Received TROPONIN I Stat LAB 07/03/22 11:13 Completed URINALYSIS C & S IF INDICATED Stat LAB 07/03/22 10:52 Uncollected Sodium Chloride 0.9% [Sodium Chloride] 500 ml MEDS 07/03/22 10:52 Discontinued IV BOLUS CHEST, 1V AP ONLY Stat RADS 07/03/22 10:52 Completed Medications Discontinued Medications Generic Name Dose Route Start Last Admin Trade Name Freq PRN Reason Stop Dose Admin Sodium Chloride 500 mls @ 500 mls/hr 07/03/22 10:52 07/03/22 11:27 Sodium Chloride IV 07/03/22 11:51 500 mls/hr BOLUS STA Administration Vital Signs: Temp Pulse Resp BP Pulse Ox 07/03/22 10:24 98 F 49 L 20 176/68 H 94 L Discharge Plan Discharge Patient Disposition: ADMITTED INPATIENT Discharge Problem: Bradycardia Prescriptions: No Action ipratropium-albuterol 1 VIAL solution for nebulization 1 vial NEB RTQ6H PRN (Reason: Shortness Of Breath Or Wheezing) amlodipine 5 mg Tablet 5 mg PO DAILY levothyroxine 50 mcg Tablet 50 mcg PO DAILY pantoprazole 40 mg Tablet,Delayed Release (Dr/Ec) 40 mg PO DAILY ergocalciferol (vitamin D2) [Vitamin D2] 1,250 mcg (50,000 unit) Capsule 1,250 mcg PO WEEKLY Rx Instructions: TAKES EVERY SATURDAY. fluticasone propionate [Flonase] 50 mcg/actuation [place],Suspension 1 spray INTRANASAL DAILY Rx Instructions: 1 SPRAY SRI EACH NARE DAILY. docusate sodium [Stool Softener] 100 mg Capsule 100 mg PO DAILY bumetanide 1 mg Tablet 1 mg PO DAILY montelukast [Singulair] 10 mg Tablet 10 mg PO BEDTIME potassium chloride 20 mEq Tablet Extended Release 20 meq PO DAILY gabapentin 100 mg capsule 100 mg PO BID Label Comments: Dr. Deshpande Pain Management hydrocodone-acetaminophen 5-325 mg tablet 1 tab PO QID PRN (Reason: Pain) Label Comments: Dr. Deshpande - Pain Management bisoprolol fumarate 5 mg tablet 5 mg PO QDAY naproxen sodium [Aleve] 220 mg tablet 220 mg PO .8-9x daily PRN (Reason: pain) Did you review [place] WORKERS' COMPENSATION MEDIATOR for ALL controlled substances?: Not Applicable ED Provider: NANCY LAWTON Condition: Stable Physician Progress Note: d/c bisoprolol, admit to hospitalist, consult Dr Canales, holter monitor []
--- NOTE | 2022-07-03 11:10 | DI ---
EXAM: CHEST RADIOGRAPH TECHNIQUE: Single frontal chest radiograph. HISTORY: Weakness COMPARISON: 10/09/2021 FINDINGS: The lungs are clear. The heart size is normal. The osseous structures are unremarkable. IMPRESSION: 1. No acute disease.
[2022-07-03 11:18] LABS: BASOPHILS # (AUTO) 0.1 K/uL (0-0.2); BASOPHILS % (AUTO) 0.5 % (0.0-3.0); EOSINOPHILS # (AUTO) 0.2 K/ul (0.0-0.7); HEMATOCRIT 39.1 % (37.0-47.0); HEMOGLOBIN 12.3 g/dl (12.0-16.0); IMMATURE GRANULOCYTE # (AUTO) 0.1 (0.0-1.0); IMMATURE GRANULOCYTE % (AUTO) 0.5 % (0.0-5.0); LYMPHOCYTES # (AUTO) 1.8 K/uL (0.60-3.4); LYMPHOCYTES % (AUTO) 18.1 (10.0-50.0); MEAN CORPUSCULAR HEMOGLOBIN 28.7 pg (27.0-31.0); MEAN CORPUSCULAR HGB CONC 31.5 (31.8-35.4); MEAN CORPUSCULAR VOLUME 91.4 fl (81.0-99.0); MONOCYTES # (AUTO) 0.8 K/uL (0.4-2.0); MONOCYTES % (AUTO) 8.7 (0-10); NEUTROPHILS # (AUTO) 6.8 K/ul (2.0-6.9); NEUTROPHILS % (AUTO) 70.2 % (42.2-75.2); PLATELET COUNT 286 10^3/uL (140-440); RDW COEFFICIENT OF VARIATION 13.2 % (11.6-14.8); RED BLOOD COUNT 4.28 10^6/ul (4.20-5.40); WHITE BLOOD COUNT 9.69 K/ul (4.6-10.2)
[2022-07-03 11:31] LABS: ALANINE AMINOTRANSFERASE 16.1 U/L (0-35); ALBUMIN 3.91 g/dL (3.5-5.0); ALKALINE PHOSPHATASE 100.6 U/L (53-141); ASPARTATE AMINO TRANSFERASE 27.3 U/L (14-36); BILIRUBIN,TOTAL 0.46 mg/dL (0.2-1.3); BLOOD UREA NITROGEN 28.9 mg/dL (7-17); CALCIUM 9.11 mg/dL (8.4-10.2); CARBON DIOXIDE 30.2 mmol/L (22-30.0); CHLORIDE 105.7 mmol/L (98-107); CREATININE 0.95 mg/dL (0.60-1.30); GLUCOSE 115.4 mg/dL (74-106); POTASSIUM 4.83 mmol/L (3.5-5.1); SODIUM 139.5 mmol/L (134.5-145); TOTAL PROTEIN 8.01 g/dL (6.3-8.2)
[2022-07-03 11:43] LABS: TROPONIN I < 0.012 ng/ml (0.0000-0.120)
[2022-07-03 11:57] LABS: SARS COV-2 RNA RAPID NAAT NEGATIVE (NEGATIVE)
[2022-07-03] MEDS ORDERED: TYLENOL PO PRN (13:07)
[2022-07-03] MEDS ORDERED: NORCO 5-325 PO PRN (13:11)
[2022-07-03] MEDS ORDERED: DUONEB NEB PRN (13:11)
[2022-07-03 14:56] LABS: BILIRUBIN,URINE Negative (NEGATIVE); CLARITY,URINE Slightly (CLEAR); COLOR,URINE Yellow (YELLOW); GLUCOSE, URINE (UA) Negative (NEGATIVE); KETONES,URINE Negative (NEGATIVE); LEUKOCYTE ESTERASE ,URINE 1+ (NEGATIVE); NITRITE,URINE Positive (NEGATIVE); PH,URINE 5.5 (5-9); PROTEIN,URINE Negative (NEGATIVE); URINE, BLOOD Trace-intact (NEGATIVE); UROBILINOGEN,URINE 0.2 (0.2)
[2022-07-03 14:58] LABS: BACTERIA,URINE 1+ (NOT PRESENT); RENAL EPITHELIAL CELLS,URINE 0-2 (NOT PRESENT)
[2022-07-03] MEDS: SODIUM CHLORIDE 1,000 ML IV SCH (16:03)
[2022-07-03 20:07] LABS: TROPONIN I < 0.012 ng/ml (0.0000-0.120)
[2022-07-03] MEDS: NEURONTIN PO SCH (20:50)
[2022-07-03] MEDS ORDERED: SINGULAIR PO SCH (21:00)
[2022-07-04 03:27] LABS: BASOPHILS # (AUTO) 0.1 K/uL (0-0.2); BASOPHILS % (AUTO) 0.7 % (0.0-3.0); EOSINOPHILS # (AUTO) 0.2 K/ul (0.0-0.7); EOSINOPHILS % (AUTO) 2.8 % (0.0-7.0); HEMATOCRIT 36.7 % (37.0-47.0); HEMOGLOBIN 11.5 g/dl (12.0-16.0); IMMATURE GRANULOCYTE % (AUTO) 0.6 % (0.0-5.0); LYMPHOCYTES # (AUTO) 1.9 K/uL (0.60-3.4); LYMPHOCYTES % (AUTO) 28.2 (10.0-50.0); MEAN CORPUSCULAR HEMOGLOBIN 28.9 pg (27.0-31.0); MEAN CORPUSCULAR HGB CONC 31.3 (31.8-35.4); MEAN CORPUSCULAR VOLUME 92.2 fl (81.0-99.0); MONOCYTES # (AUTO) 0.7 K/uL (0.4-2.0); MONOCYTES % (AUTO) 10.7 (0-10); NEUTROPHILS # (AUTO) 3.9 K/ul (2.0-6.9); PLATELET COUNT 240 10^3/uL (140-440); RDW COEFFICIENT OF VARIATION 13.2 % (11.6-14.8); RED BLOOD COUNT 3.98 10^6/ul (4.20-5.40); WHITE BLOOD COUNT 6.89 K/ul (4.6-10.2)
[2022-07-04 03:40] LABS: ALANINE AMINOTRANSFERASE 14.3 U/L (0-35); ALKALINE PHOSPHATASE 81.1 U/L (53-141); ASPARTATE AMINO TRANSFERASE 24.4 U/L (14-36); BILIRUBIN,TOTAL 0.36 mg/dL (0.2-1.3); BLOOD UREA NITROGEN 26.5 mg/dL (7-17); CALCIUM 8.37 mg/dL (8.4-10.2); CARBON DIOXIDE 30.5 mmol/L (22-30.0); CHLORIDE 105.6 mmol/L (98-107); CREATININE 0.81 mg/dL (0.60-1.30); GLUCOSE 110.2 mg/dL (74-106); POTASSIUM 4.26 mmol/L (3.5-5.1); SODIUM 140.4 mmol/L (134.5-145); TOTAL PROTEIN 7.09 g/dL (6.3-8.2)
[2022-07-04 03:53] LABS: TROPONIN I < 0.012 ng/ml (0.0000-0.120)
[2022-07-04] MEDS: SODIUM CHLORIDE 1,000 ML IV SCH (04:05)
[2022-07-04] MEDS ORDERED: PROTONIX PO SCH (06:30)
[2022-07-04] MEDS ORDERED: BUMEX PO SCH (06:30)
[2022-07-04] MEDS ORDERED: SYNTHROID PO SCH (06:30)
[2022-07-04 07:15] LABS: FREE THYROXINE INDEX 3.6 (1.2-4.9); TSH 2.32 uIU/mL (0.450-4.500)
[2022-07-04] MEDS ORDERED: K-DUR PO SCH (08:30)
[2022-07-04] MEDS: NEURONTIN PO SCH (08:40)
[2022-07-04] MEDS ORDERED: NORVASC PO SCH (09:00)
[2022-07-04] MEDS ORDERED: COLACE PO SCH (09:00)
[2022-07-04] MEDS ORDERED: FLONASE NAS SCH (09:00)
--- NOTE | 2022-07-04 09:10 | PCM.PROG ---
Date Seen by Provider: 07/04/22 Time Seen by Provider: 09:09 Subjective: Patient has no complaints. Objective: Vitals: T=97.1 F, P=49, R=16, NB=350/77, QHX9=284 Alert, oriented and in NAD. HEENT: [] Neck: [] Lungs: [] Chest clear. BS equal CVS: [] Sinus bradycardia. Abdomen: [] Extremities: [] Neurological: [] Skin: [] Lab/Tests/Diagnostic Imaging: [] Plan: Remains bradycardic. Patient to have echo today.
[2022-07-04 14:08] VITALS: BP 133/61; TEMP 98
--- NOTE | 2022-07-04 14:09 | PCM.DC ---
Final Diagnosis: sinus bradycardia Physical Exam Appearance: Well-appearing, No pain distress, Well-nourished and Obese Ill-appearing: None Pain Distress: None Eyes: Not Examined ENT: Nose normal and Oropharynx normal Neck: Supple Respiratory: Airway patent, Breath sounds clear and Breath sounds equal Cardiovascular: Pulses normal, No rub, No murmur and Bradycardia GI/: Soft, Nontender, No masses, Bowel sounds normal and No Organomegaly Musculoskeletal: Normal strength and No edema Skin: Warm, Dry and Normal color Neurological: Alert and Oriented Psychiatric: Affect appropriate and Mood appropriate (1) Bradycardia: Status: Acute Code(s): R00.1 - Bradycardia, unspecified SNOMED Code(s): 69697753 Reason for Hospitalization: sinus bradycardia Prognosis/Condition at Discharge: Condition at discharge was good. Medications at Discharge: Same as at admission Education Provided to Patient and Family: bradycardia Follow-ups: Follow up with your primary care provider within one week. Discharge Disposition: Home Hospital Course: Patient admitted with sinus bradycardia. She was seen in consultation by Dr Canales. It was determined that it was safe for discharge and her to be followed u p as an outpatient. Plan: Follow up with your primary care provider within one week.
--- NOTE | 2022-07-05 15:40 | CONS ---
DATE OF CONSULTATION: 07/03/22 REASON FOR CONSULTATION: Bradyarrhythmias HISTORY OF PRESENT ILLNESS: 71 year old white female was seen in the office. Patient had a heart rate of 40 before EKG was done which showed junctional rhythm with rate of 44 per minute. Patient was practically asymptomatic with systolic blood pressure of 150. Patient has a history of bradyarrhythmias. Patient was sent to the emergency room where practically the entire work up was negative. Patient was hospitalized under hospitalist service. I was given consultation. REVIEW OF SYSTEMS: CONSTITUTIONAL: No night sweats. No fatigue, malaise, lethargy. No fever or chills. HEENT: Eyes: No visual changes. No eye pain. No eye discharge. ENT: No sinus drainage. No epistaxis. No sinus pain. No sore throat. No odynophagia. No ear pain. No congestion. RESPIRATORY: No cough, no congestion. No hemoptysis. No shortness of breath. CARDIOVASCULAR: No chest pain, no PND, no orthopnea. GASTROINTESTINAL: No abdominal pain. No nausea or vomiting. No diarrhea or constipation. No hematemesis. No hematochezia. GENITOURINARY: No urgency. No frequency. No dysuria. No hematuria. No obstructive symptoms. No discharge. No pain. No significant abnormal bleeding. MUSCULOSKELETAL: No musculoskeletal pain. No joint swelling. NEUROLOGICAL: No headache. No neck pain. No syncope. No seizures. No dizziness. PSYCHIATRIC: Not anxious. No depression. No suicidal thoughts. No homicidal thoughts. SKIN: No rash. No lesions. No wounds. ENDOCRINE: No unexplained weight loss. No weight gain. HEMATOLOGIC/LYMPHATIC: No anemia. No purpura. No petechiae. No prolonged or excessive bleeding. No palpable lymph nodes. MEDICATIONS: ALLERGIES: Codeine Amoxicillin Atorvastatin Clarithromycin Erythromycin Loratadine Macrolide Minocycline Penicillin Pravastatin Rosuvastatin Simvastatin Tetracycline Levofloxacin PAST MEDICAL/SURGICAL HISTORY: Chronic lung disease Hypertension Leg edema Generalized osteoarthritis Hypothyroidism Morbid obesity SOCIAL/PERSONAL/FAMILY HISTORY: Patient is and lives by herself. Nonsmoker. No alcohol abuse. PHYSICAL EXAMINATION: GENERAL: Oriented to time, place and person. VITAL SIGNS: Temperature 97, pulse 49 per minute, respiratory rate 14, blood pressure 160/80, pulse ox 98% on room air. HEENT: Head normocephalic, atraumatic. Eyes: Extraocular muscles are intact. Pupils are equal, round and reactive to light and accommodation. Ears: No lesions. Nose appeared normal. Throat: No exudate or erythema. NECK: Supple. LUNGS: Decreased breath sounds with good air entry. HEART: S1, S2, distant. No S3. ABDOMEN: Soft. Massively obese. No ascites. EXTREMITIES: Trace edema bilaterally. NEUROLOGIC: No focal deficit. Cranial nerves II through XII are grossly intact. No headache, no double vision or headache. SKIN: Not dry. Intact. Turgor - normal. LYMPHATIC: No palpable lymph nodes/no lymphedema. MUSCULOSKELETAL: Normal joints with no swelling. Muscle tone is normal. EKG showed sinus rhythm with bradycardia rate 50 per minute. LABS: Hemoglobin 12, hematocrit 39, WBC 9,600, normal differential, creatinine 0.9, BUN 28, potassium 4.5, troponin negative. ASSESSMENT: 1. Bradyarrhythmias 2. Hypertension 3. Dyslipidemia 4. Massive obesity 5. Generalized osteoarthritis 6. Hypothyroidism RECOMMENDATIONS: 1. T4, TSH 2. Routine telemetry orders with cardiac markers 3. Continue Bisoprolol that is a beta 4. Holter monitor Patient was explained about the changes and case discussed with hospitalist. Condition: Stable It is to be noted that even with a heart rate of 42-44 per minute the blood pressure is practically normal and patient is asymptomatic. MTDD
--- NOTE | 2022-07-05 15:50 | CONS ---
DATE OF CONSULTATION: 07/04/22 - FOLLOW UP ON CONSULT REASON FOR CONSULTATION: 71 year old white female hospitalized with bradyarrhythmias. Patient's telemetry throughout the night showed sinus bradycardia with rate of 45-55 per minute. Patient's blood pressure has always been more than 130 systolic. Patient is practically asymptomatic with negative review of system. REVIEW OF SYSTEMS: CONSTITUTIONAL: No night sweats. No fatigue, malaise, lethargy. No fever or chills. HEENT: Eyes: No visual changes. No eye pain. No eye discharge. ENT: No sinus drainage. No epistaxis. No sinus pain. No sore throat. No odynophagia. No ear pain. No congestion. RESPIRATORY: No cough, no congestion. No hemoptysis. No shortness of breath. CARDIOVASCULAR: No angina symptoms. No CHF symptoms. No atypical chest pain for CAD. No palpitations. No orthopnea. GASTROINTESTINAL: No abdominal pain. No nausea or vomiting. No diarrhea or constipation. No hematemesis. No hematochezia. GENITOURINARY: No urgency. No frequency. No dysuria. No hematuria. No obstructive symptoms. No discharge. No pain. No significant abnormal bleeding. MUSCULOSKELETAL: No musculoskeletal pain. No joint swelling. NEUROLOGICAL: No headache. No neck pain. No syncope. No seizures. No dizziness. PSYCHIATRIC: Not anxious. No depression. No suicidal thoughts. No homicidal thoughts. SKIN: No rash. No lesions. No wounds. ENDOCRINE: No unexplained weight loss. No weight gain. HEMATOLOGIC/LYMPHATIC: No anemia. No purpura. No petechiae. No prolonged or excessive bleeding. No palpable lymph nodes. PHYSICAL EXAMINATION: GENERAL: The patient is lying/sitting in bed in no distress. VITAL SIGNS: Temperature 97.1, pulse 50, respiratory rate 16, blood pressure 138/77, pulse ox 100% on room air. HEENT: Head normocephalic, atraumatic. Eyes: Extraocular muscles are intact. Pupils are equal, round and reactive to light and accommodation. Ears: No lesions. Nose appeared normal. Throat: No exudate or erythema. NECK: Supple. LUNGS: Decreased breath sounds with good air entry. HEART: S1, S2, no S3. ABDOMEN: Soft. . EXTREMITIES: No edema. NEUROLOGIC: No focal deficit. Cranial nerves II through XII are grossly intact. No headache, no double vision or headache. SKIN: Not dry. Intact. Turgor - normal. LYMPHATIC: No palpable lymph nodes/no lymphedema. MUSCULOSKELETAL: Normal joints with no swelling. Muscle tone is normal. ASSESSMENT: Bradyarrhythmias seems to be sinus Patient is better. Patient had Holter monitor which will be taken off before her discharge and I will review the Holter monitor. Patient's case discussed with hospitalist attending and he thinks patient is stable and going to be discharged home. She is advised not to take the Beta. She is take the rest of the medication as before. 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 She says that she has known her heart rate into the 40's for the past 10-15 years and nothing has happened. She wants to go home and be followed as an out patient. Condition: Stable MTDD
--- NOTE | 2022-07-05 15:51 | PN ---
07/03/22 CONSULT, LEVEL 5 07/04/22 INTERMEDIATE MTDD
--- NOTE | 2022-07-06 13:46 | ECHO2D ---
Date of Exam: Ordering Physician: DR. SARAH BRUNNER Room #: OP Reason for Echo: BRADYCARDIA, HTN, SOB, MASSIVE OBESITY M-Mode Normal Adult Results LV Dimensions Normal Adult Results AoV Opening excursions >1.6 >1.6 LVEDD-base- 3.5-5.8 5.4 Ao root dimensions 2.0-3.7 3.2 LVESD-base- 3.1-4.6 L. Atrium dimensions 1.9-3.8 5.5 Post. Wall thickness 0.8-1.1 1.3 IV septum (thickness) 0.7-1.2 1.3 Post. Wall excursion 0.72-1.3 NORMAL Septal motion NORMAL Systolic motion R. Ventricular cavity 1.5-2.0 NORMAL LVEF 60% 61% Paradoxical septal wall motion NORMAL 2-D : 2-D M Mode Echocardiogram was performed using apical four chamber and left parasternal long and short axis views. Mitral, tricuspid and aortic valves appear to be normal. Contractility of the left ventricle seems to be normal, so is the cavity size. ENLARGED LEFT ATRIAL CAVITY SIZE. Aortic root appears to be normal. There is no pericardial effusion. There is no thrombus noted in the left ventricle or left atrial cavity. DIFFICULT STUDY--BODY HABITUS M-MODE: MV: NORMAL AV: NORMAL TV: NORMAL PV: CHAMBER SIZE: ENLARGED LEFT ATRIAL CAVITY WALL MOTION: NORMAL PERICARDIUM: NORMAL INTERPRETATION: 1. LEFT VENTRICLE HYPERTROPHY WITH ENLARGED LEFT ATRIAL CAVITY 2. NORMAL VALVES 3. NORMAL LEFT VENTRICLE SIZE AND LEFT VENTRICLE CONTRACTILITY MTDD
--- NOTE | 2022-07-09 10:10 | HOLTER ---
PATIENT INFORMATION AND COMMENTS Attending Physician: DR. SARAH BRUNNER Indications: BRADYCARDIA __ Patient Medications: AMLODIPINE, BUMETANIDE, DOCUSATE, GABAPENTIN, LEVOTHYROXINE, MONTELUKAST, PANTOPRAZOLE __ Pre-procedure Summary: Protocol: Standard Heart Rate Started: 07/03/2022 Minimum: 40 BPM Weight: 344 LBS Ended: 07/04/2022 Maximum: 90 BPM Height: 64" Duration: 24 HOURS Average: 50 BPM _ INTERPRETATIONS/OBSERVATIONS: 1. BASIC RHYTHM: SINUS, RATE 40 BPM TO 90 BPM, AVERAGE 50 BPM 2. PVC'S --ISOLATED, TOTAL OF 2.5% OF BEATS SCANNED 3. NO PAUSES GREATER THAN 2.[address]-T WAVE CHANGES FROM BASELINE 5. ACTIVITY LOG NOT MAINTAINED MTDD
[2022-07-10] MEDS ORDERED: DRISDOL PO SCH (09:00)
== END 2022-07-04 14:18 | disposition home or self-care (01) ==
LOC: ED 10:24 → MEDSURG A 13:12 → INTOOBSV 13:12 → MEDSURG A 14:02
PROVIDERS: ADMIT Emergency Medicine Emergency Medical Services; ATTEND Surgery
DX: R91.1 Solitary pulmonary nodule; Z79.899 Other long term (current) drug therapy; Z51.81 Encounter for therapeutic drug level monitoring; M54.12 Radiculopathy, cervical region; E66.01 Morbid (severe) obesity due to excess calories; Z68.43 Body mass index [BMI] 50.0-59.9, adult; E53.8 Deficiency of other specified B group vitamins; Z87.891 Personal history of nicotine dependence; I11.0 Hypertensive heart disease with heart failure; E03.9 Hypothyroidism, unspecified; M15.0 Primary generalized (osteo)arthritis; J44.9 Chronic obstructive pulmonary disease, unspecified; I25.10 Atherosclerotic heart disease of native coronary artery without angina pectoris; R00.1 Bradycardia, unspecified; Z20.822 Contact with and (suspected) exposure to COVID-19; E78.5 Hyperlipidemia, unspecified; Z98.890 Other specified postprocedural states; I50.1 Left ventricular failure, unspecified; G47.30 Sleep apnea, unspecified

== ENCOUNTER 2023-04-15 13:35 | Observation (INO) ==
[2023-04-15 14:37] LABS: BASOPHILS # (AUTO) 0.1 K/uL (0-0.2); BASOPHILS % (AUTO) 0.2 % (0.0-3.0); EOSINOPHILS % (AUTO) 0.2 % (0.0-7.0); HEMATOCRIT 39.5 % (37.0-47.0); HEMOGLOBIN 12.3 g/dl (12.0-16.0); IMMATURE GRANULOCYTE # (AUTO) 0.2 (0.0-1.0); IMMATURE GRANULOCYTE % (AUTO) 0.8 % (0.0-5.0); LYMPHOCYTES # (AUTO) 3.1 K/uL (0.60-3.4); LYMPHOCYTES % (AUTO) 14.1 (10.0-50.0); MEAN CORPUSCULAR HEMOGLOBIN 28.3 pg (27.0-31.0); MEAN CORPUSCULAR HGB CONC 31.1 (31.8-35.4); MEAN CORPUSCULAR VOLUME 90.8 fl (81.0-99.0); MONOCYTES # (AUTO) 1.7 K/uL (0.4-2.0); MONOCYTES % (AUTO) 7.5 (0-10); NEUTROPHILS # (AUTO) 17.1 K/ul (2.0-6.9); NEUTROPHILS % (AUTO) 77.2 % (42.2-75.2); PLATELET COUNT 250 10^3/uL (140-440); RDW COEFFICIENT OF VARIATION 13.5 % (11.6-14.8); RED BLOOD COUNT 4.35 10^6/ul (4.20-5.40); WHITE BLOOD COUNT 22.12 K/ul (4.6-10.2)
--- NOTE | 2023-04-15 14:45 | DI ---
EXAM: FRONTAL VIEW OF THE CHEST. HISTORY: Cough and congestion. COMPARISON: Chest radiograph 07/03/2022. FINDINGS: Atherosclerotic calcifications of the aorta. Normal heart size. Patchy ground-glass opacities at the right lung base. No visible pleural effusion or pneumothorax. No acute osseous abnormality. Degenerative changes of the spine and shoulders. IMPRESSION: Right basilar opacities suspicious for aspiration or pneumonia. Atherosclerosis.
[2023-04-15 14:50] LABS: ALANINE AMINOTRANSFERASE 18.3 U/L (0-35); ALBUMIN 3.98 g/dL (3.5-5.0); ALKALINE PHOSPHATASE 111.1 U/L (53-141); ASPARTATE AMINO TRANSFERASE 20.3 U/L (14-36); BILIRUBIN,TOTAL 0.59 mg/dL (0.2-1.3); BLOOD UREA NITROGEN 40.9 mg/dL (7-17); CALCIUM 9.08 mg/dL (8.4-10.2); CARBON DIOXIDE 25.2 mmol/L (22-30.0); CHLORIDE 104.6 mmol/L (98-107); CREATININE 1.04 mg/dL (0.60-1.30); GLUCOSE 151.1 mg/dL (74-106); POTASSIUM 4.21 mmol/L (3.5-5.1); SODIUM 137.1 mmol/L (134.5-145); TOTAL PROTEIN 8.23 g/dL (6.3-8.2)
[2023-04-15 15:19] LABS: SARS COV-2 RNA RAPID NAAT NEGATIVE (NEGATIVE)
[2023-04-15 15:22] LABS: MOLECULAR FLU A NEGATIVE BY NAAT (NEGATIVE); MOLECULAR FLU B NEGATIVE BY NAAT (NEGATIVE)
--- NOTE | 2023-04-15 16:32 | ED.PDOC ---
General ED Provider: Dr. JAKY CHOI MD Chief Complaint: Respiratory Complaint Stated Complaint: Possible pneumonia Time Seen by Provider: 04/15/23 14:00 Mode of Arrival: Walk-In Information Source: Patient Exam Limitations: No limitations Primary Care Provider: SARAH CANALES MD Nursing and Triage Documentation Reviewed and Agree: Yes Does Patient Take Opioids?: No Is Patient Opioid Naive?: Yes What is Opioid Naive?: *Opioid Naive implies the patient is not already taking opioids or not chronically receiving opioids on a daily basis. *PRN dosing is not "usually" associated with tolerance. *Patients are at higher risk of over-sedation and aspiration. Is Patient Opioid Tolerant?: No What is Opioid Tolerant?: *Opioid Tolerance implies less than the expected response to an opioid. *Acquired tolerance is defined by the patient taking 60mg of oral morphine daily (or equianalgesic dose of another opioid) for 1 week or more. *Often associated with chronic pain. *May take more than usual dose to achieve desired pain control. Review of Systems Review Of Systems Constitutional: Reports Fever and Malaise [facility] Medical History Neuropathy G62.9 - Polyneuropathy, unspecified (ICD-10) Vitamin A deficiency E50.9 - Vitamin A deficiency, unspecified (ICD-10) COVID-19 U07.1 - COVID-19 (ICD-10) COVID-19 U07.1 - COVID-19 (ICD-10) Pinched nerve G58.9 - Mononeuropathy, unspecified (ICD-10) Breast prosthesis or implant fitting/adjustment Z44.30 - Encounter for fitting and adjustment of external breast prosthesis, unspecified breast (ICD-10) High cholesterol E78.00 - Pure hypercholesterolemia, unspecified (ICD-10) GERD (gastroesophageal reflux disease) K21.9 - Gastro-esophageal reflux disease without esophagitis (ICD-10) Asthma J45.909 - Unspecified asthma, uncomplicated (ICD-10) COPD (chronic obstructive pulmonary disease) J44.9 - Chronic obstructive pulmonary disease, unspecified (ICD-10) Pneumonia J18.9 - PNEUMONIA, UNSPECIFIED ORGANISM (ICD-10) Influenza B J10.1 - FLU DUE TO OTH IDENT INFLUENZA VIRUS W OTH RESP MANIFEST (ICD-10) Acute bronchitis J20.9 - ACUTE BRONCHITIS, UNSPECIFIED (ICD-10) Pneumonia J18.9 - PNEUMONIA, UNSPECIFIED ORGANISM (ICD-10) Acute respiratory failure J96.00 - ACUTE RESPIRATORY FAILURE, UNSP W HYPOXIA OR HYPERCAPNIA (ICD-10) Family History SISTER Stomach cancer Breast cancer FATHER Multiple myeloma Mother Lung cancer Breast cancer Social History Smoking and tobacco status: Former smoker Second hand smoke exposure: No Alcohol intake: never Substance use type: does not use Jojo/faith: DENOMINATIONAL Special jojo needs: No Agree to transfusion: Yes Adopted: No Caregiver/support person: No Foster care: No Housing: house Marital status: W / Lives independently: Yes Number of children: 1 Financial difficulty paying for basics: not very hard service: No intermediate: No Current occupational status: retired History of recent travel: No Current gender identity: female Seatbelt use: always Helmet use: No Drives intoxicated or rides with intoxicated 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: No Water heater temperature set < 120 degrees: Yes Working smoke detector in home: Yes Fire extinguisher in home: Yes Carbon monoxide detector in home: Yes Surgical History History of knee replacement left Z96.659 - Presence of unspecified artificial knee joint (ICD-10) Female Reproductive History Menstrual Hx Hysterectomy: No Hx Tubal Ligation: Yes Physical Exam Physical Exam Appearance: Reports Obese Ill-appearing: Moderate Pain Distress: None Eyes: Reports ELSIE Neck: Supple Respiratory: Reports Airway patent, Breath sounds equal, Breath sounds diminished (Right base has diminished respiratory sounds as well as some crackles. There are no rhonchi. ) and Wheezes (Scattered wheezes.) Cardiovascular: Reports RRR and Pulses normal GI/: Reports Soft Musculoskeletal: Reports Normal strength Skin: Reports Warm and Dry Neurological: Reports Sensation intact Interpretation Radiology Interpretation Radiology Interpretation By: Radiologist Radiology Results: Positive (For presumptive aspiration pneumonia.) Physician Notification Case Discussed Physician Notified: Philip Dorman NP. Dr. Lucila Canales MD both notified of the admission. Time of Notification: 16:24 Comments: Nurse practitioner Dandy requested Zosyn. I will initiate Zosyn and Flagyl IV. Time of Notification: 16:25 Admit/Transition Orders Entered by ED Provider: Yes Admit To: Observation Course Course 04/15/23 14:00 04/15/23 14:00 Orders, Labs, Meds: Lab Review 04/15/23 04/15/23 13:55 14:00 WBC 22.12 H RBC 4.35 Hgb 12.3 Hct 39.5 MCV 90.8 MCH 28.3 MCHC 31.1 L RDW Coeff of Marj 13.5 Plt Count 250 Immature Gran % (Auto) 0.8 Neut % (Auto) 77.2 H Lymph % (Auto) 14.1 [place] % (Auto) 7.5 Eos % (Auto) 0.2 Baso % (Auto) 0.2 Neut # (Auto) 17.1 H Lymph # (Auto) 3.1 [place] # (Auto) 1.7 Eos # (Auto) 0.0 Baso # (Auto) 0.1 Immature Gran # (Auto) 0.2 Sodium 137.1 Potassium 4.21 Chloride 104.6 Carbon Dioxide 25.2 Anion Gap 11.51 BUN 40.9 H Creatinine 1.04 Estimated GFR (MDRD) 52.00 BUN/Creatinine Ratio 39.32 Glucose 151.1 H Calcium 9.08 Total Bilirubin 0.59 AST 20.3 ALT 18.3 Alkaline Phosphatase 111.1 NT-Pro-B Natriuret Pep 295 H Total Protein 8.23 H Albumin 3.98 Globulin 4.25 Albumin/Globulin Ratio 0.93 Influ A Molecular Assay Negative by naat Influ B Molecular Assay Negative by naat SARS CoV-2 RNA Rapid PATRICIA Negative Orders Category Date Time Status ADMIT OBSERVATION [PLACE PATIENT OBSERVATION] .TO ADMISSION 04/15/23 16:34 Active MEDSURG (MONITORED BED) NEBULIZER TREATMENT Routine CARDIO 04/15/23 16:35 Completed NEBULIZER TREATMENT Routine CARDIO 04/15/23 16:38 Active NEBULIZER TREATMENT Stat CARDIO 04/15/23 16:35 Completed OXYGEN Routine CARDIO 04/15/23 16:36 Active ACTIVITY .Early Mobilization for VTE Prevention CARE 04/15/23 16:34 Active INTAKE & OUTPUT Q8HR CARE 04/15/23 16:36 Active TELEMETRY MONITORING TELE CARE 04/15/23 16:34 Active VITAL SIGNS Q8HR CARE 04/15/23 16:36 Active REGULAR DIET DIETARY 04/15/23 Dinner Ordered ED IV/MEDIPORT/POWERPORT .ONCE EMERGENCY 04/15/23 14:19 Active CBC W/ AUTO DIFF DAILY@0600 LAB 04/16/23 06:00 Ordered CBC W/ AUTO DIFF DAILY@0600 LAB 04/17/23 06:00 Ordered CBC W/ AUTO DIFF Stat LAB 04/15/23 14:00 Completed COMPREHENSIVE METABOLIC PANEL DAILY@0600 LAB 04/16/23 06:00 Ordered COMPREHENSIVE METABOLIC PANEL DAILY@0600 LAB 04/17/23 06:00 Ordered COMPREHENSIVE METABOLIC PANEL Stat LAB 04/15/23 14:00 Completed FLU A/B MOLECULAR Stat LAB 04/15/23 13:55 Completed NT-PROBNP Stat LAB 04/15/23 14:00 Completed SARS COV-2 RNA RAPID PATRICIA Stat LAB 04/15/23 13:55 Completed 0.9 % Sodium Chloride [Saline Flush] Meds 04/15/23 14:19 Active 1 syr IVF PRN PRN Acetaminophen [Tylenol] Meds 04/15/23 16:34 Active 650 mg PO Q4H PRN Albuterol Sulfate 0.083% Neb [Albuterol 0.083% Neb] Meds 04/15/23 16:35 Discontinued 2.5 mg NEB ONCE ONE Albuterol Sulfate 0.083% Neb [Albuterol 0.083% Neb] Meds 04/15/23 16:38 Active 2.5 mg NEB RTQID PRN Clindamycin Phosphate/D5w [Cleocin 600 mg/50 ml D5w] Meds 04/15/23 21:00 Active 600 mg in 50 ml IV Q8HR Enoxaparin Sodium [Lovenox] Meds 04/16/23 09:00 Active 40 mg SUBCUT DAILY Ipratropium/Albuterol Neb [Duoneb] Meds 04/15/23 18:00 Active 3 ml NEB RTQ6H Methylprednisolone Sod Succ/Pf [Solu-Medrol 40 mg] Meds 04/15/23 17:00 Active 40 mg IVP Q8H Metronidazole/Sodium Chloride [Flagyl 500 mg/100 ml] Meds 04/15/23 16:46 Discontinued 500 mg in 100 ml IV ONCE Piperacillin Sodium/Tazobactam [Zosyn 3.375 gm] 3.375 Meds 04/15/23 16:44 Discontinued gm 0.9 % Sodium Chloride [Sodium Chloride 100Ml] 100 ml IV ONCE Sodium Chloride 0.9% [Sodium Chloride] 1,000 ml Meds 04/15/23 17:00 Active IV 75 mls/hr CHEST, 1V AP ONLY Stat RADS 04/15/23 14:19 Completed Medications Generic Name Dose Route Start Last Admin Trade Name Freq PRN Reason Stop Dose Admin Acetaminophen 650 mg 04/15/23 16:34 Acetaminophen 325 Mg Tablet PO Q4H PRN Mild Pain Hydrocodone Bitart/Acetaminophen 1 tab 04/15/23 21:00 04/15/23 20:28 Hydrocodone Bit/Acetaminophen 5/325 Mg Tablet PO 1 tab TID GUCCI Administration Albuterol Sulfate 2.5 mg 04/15/23 16:38 Albuterol Sulfate 0.083% Vial.Neb NEB RTQID PRN Wheezing Albuterol Sulfate 2 puff 04/15/23 18:07 Albuterol Sulfate 8 Gm Inhaler IH Q6H PRN Wheezing Albuterol/Ipratropium 3 ml 04/15/23 18:00 04/15/23 23:08 Ipratropium/Albuterol Vial.Neb NEB 3 ml RTQ6H GUCCI Administration Amlodipine Besylate 5 mg 04/16/23 09:00 Amlodipine Besylate 5 Mg Tablet PO DAILY GUCCI Cholecalciferol 2,000 unit 04/16/23 09:00 Cholecalciferol (Vitamin D3) 1,000 Unit (25 Mcg) Tablet PO DAILY GUCCI Enoxaparin Sodium 40 mg 04/16/23 09:00 Enoxaparin Sodium 40 Mg/0.4 Ml Syr SUBCUT DAILY GUCCI Fish Oil 1,000 mg 04/16/23 09:00 [place]-3/Dha/Epa/Fish Oil 1,000 Mg Capsule PO DAILY GUCCI Fluticasone Propionate 1 spray 04/16/23 09:00 Fluticasone Propionate 16 Gm Nasal [place] DE[place]INEE DAILY GUCCI Gabapentin 100 mg 04/15/23 21:00 04/15/23 20:29 Gabapentin 100 Mg Capsule PO 100 mg BID GUCCI Administration Sodium Chloride 1,000 mls @ 75 mls/hr 04/15/23 17:00 04/15/23 17:49 Sodium Chloride IV 75 mls/hr .[id number] GUCCI Administration Clindamycin Phosphate 600 mg in 50 mls @ 75 mls/hr 04/15/23 21:00 04/15/23 20:29 Cleocin 600 Mg/50 Ml D5w IV 75 mls/hr Q8HR GUCCI Administration Metronidazole 500 mg in 100 mls @ 100 mls/hr 04/16/23 05:00 Flagyl 500 Mg/100 Ml IV 04/19/23 04:59 Q12HR GUCCI Levothyroxine Sodium 50 mcg 04/16/23 06:00 Levothyroxine Sodium 50 Mcg Tablet PO QDAC2 GUCCI Methylprednisolone Sodium Succinate 40 mg 04/15/23 17:00 04/16/23 01:50 Methylprednisolone Sod Succ/Pf 40 Mg/Ml Vial IVP 40 mg Q8H GUCCI Administration Montelukast Sodium 10 mg 04/16/23 09:00 Montelukast Sodium 10 Mg Tablet PO DAILY GUCCI Non-Formulary Medication 5,000 mcg 04/16/23 09:00 Mecobalamin (Vitamin B12) PO DAILY GUCCI Pantoprazole Sodium 40 mg 04/16/23 09:00 Pantoprazole Sodium 40 Mg Tablet.Dr PO DAILY GUCCI Potassium Chloride 20 meq 04/16/23 09:00 Potassium Chloride 20 Meq Tab PO DAILY GUCCI Simethicone 80 mg 04/15/23 18:07 Simethicone 80 Mg Tab.Chew PO 3-4XD PRN Gas Sodium Chloride 1 syr 04/15/23 14:19 0.9% Sodium Chloride 10 Ml Disp.Syrin IVF PRN PRN To flush IV Discontinued Medications Generic Name Dose Route Start Last Admin Trade Name Freq PRN Reason Stop Dose Admin Albuterol Sulfate 2.5 mg 04/15/23 16:35 04/15/23 16:40 Albuterol Sulfate 0.083% Vial.Neb NEB 04/15/23 16:36 2.5 mg ONCE ONE Administration Piperacillin Sod/Tazobactam 100 mls @ 200 mls/hr 04/15/23 16:44 04/15/23 17:14 Sod 3.375 gm/ Sodium Chloride IV 04/15/23 17:13 Not Given ONCE ONE Metronidazole 500 mg in 100 mls @ 100 mls/hr 04/15/23 16:46 04/15/23 17:21 Flagyl 500 Mg/100 Ml IV 04/15/23 17:45 100 mls/hr ONCE ONE Administration Vital Signs: Temp Pulse Resp BP Pulse Ox 04/15/23 13:41 98.4 F 97 24 H 133/77 91 L Discharge Plan Discharge Patient Disposition: PLACED OBSERVATION Discharge Problem: Aspiration pneumonia, Morbid obesity Did you review [place] CUSTOMER SUPPORT ANALYST for ALL controlled substances?: No ED Provider: JAKY CHOI Condition: Stable Physician Progress Note: [Patient has possible aspiration pneumonia. Failed outpatient treatment. Will put her in for IV antibiotics cultures and respiratory support. Have spoken with the hospitalist Philip Dorman NP and she is aware of the admission.]
[2023-04-15] MEDS ORDERED: TYLENOL PO PRN (16:34)
[2023-04-15] MEDS ORDERED: ALBUTEROL 0.083% NEB NEB ONE (16:35)
[2023-04-15] MEDS ORDERED: ALBUTEROL 0.083% NEB NEB PRN (16:38)
[2023-04-15] MEDS ORDERED: ZOSYN 3.375 GM 3.375 GM in SODIUM CHLORIDE 100ML 100 ML IV ONE (16:44)
[2023-04-15] MEDS ORDERED: FLAGYL 500 MG/100 ML 500 MG/100 ML BAG IV ONE (16:46)
[2023-04-15] MEDS: SOLU-MEDROL 40 MG IVP SCH (17:20)
[2023-04-15] MEDS: SODIUM CHLORIDE 1,000 ML IV SCH (17:49)
[2023-04-15] MEDS ORDERED: MYLICON PO PRN (18:07)
[2023-04-15] MEDS ORDERED: VENTOLIN HFA IH PRN (18:07)
[2023-04-15] MEDS: NORCO 5-325 PO SCH (20:28)
[2023-04-15] MEDS: NEURONTIN PO SCH (20:29)
[2023-04-15] MEDS: CLEOCIN 600 MG/50 ML D5W 600 MG/50 ML BAG IV SCH (20:29)
[2023-04-15] MEDS: DUONEB NEB SCH ×2 (22:22→23:08)
[2023-04-16] MEDS ORDERED: ZOSYN 3.375 GM 3.375 GM in SODIUM CHLORIDE 100ML 100 ML IV SCH (01:00)
[2023-04-16] MEDS: SOLU-MEDROL 40 MG IVP SCH ×3 (01:50→16:05)
[2023-04-16] MEDS: SYNTHROID PO SCH (05:01)
[2023-04-16] MEDS: CLEOCIN 600 MG/50 ML D5W 600 MG/50 ML BAG IV SCH ×3 (05:01→20:18)
[2023-04-16] MEDS: DUONEB NEB SCH ×4 (05:04→23:16)
[2023-04-16 05:12] LABS: BASOPHILS % (AUTO) 0.1 % (0.0-3.0); HEMATOCRIT 37.5 % (37.0-47.0); HEMOGLOBIN 11.6 g/dl (12.0-16.0); IMMATURE GRANULOCYTE # (AUTO) 0.1 (0.0-1.0); IMMATURE GRANULOCYTE % (AUTO) 0.7 % (0.0-5.0); LYMPHOCYTES % (AUTO) 5.6 (10.0-50.0); MEAN CORPUSCULAR HEMOGLOBIN 28.2 pg (27.0-31.0); MEAN CORPUSCULAR HGB CONC 30.9 (31.8-35.4); MEAN CORPUSCULAR VOLUME 91.2 fl (81.0-99.0); MONOCYTES # (AUTO) 0.3 K/uL (0.4-2.0); MONOCYTES % (AUTO) 1.7 (0-10); NEUTROPHILS # (AUTO) 15.8 K/ul (2.0-6.9); NEUTROPHILS % (AUTO) 91.9 % (42.2-75.2); PLATELET COUNT 213 10^3/uL (140-440); RDW COEFFICIENT OF VARIATION 13.4 % (11.6-14.8); RED BLOOD COUNT 4.11 10^6/ul (4.20-5.40); WHITE BLOOD COUNT 17.19 K/ul (4.6-10.2)
[2023-04-16 05:28] LABS: ALANINE AMINOTRANSFERASE 16.7 U/L (0-35); ALBUMIN 3.73 g/dL (3.5-5.0); ALKALINE PHOSPHATASE 90.8 U/L (53-141); ASPARTATE AMINO TRANSFERASE 16.9 U/L (14-36); BILIRUBIN,TOTAL 0.48 mg/dL (0.2-1.3); BLOOD UREA NITROGEN 28.6 mg/dL (7-17); CALCIUM 8.94 mg/dL (8.4-10.2); CARBON DIOXIDE 22.8 mmol/L (22-30.0); CHLORIDE 106.7 mmol/L (98-107); CREATININE 0.68 mg/dL (0.60-1.30); GLUCOSE 201.8 mg/dL (74-106); POTASSIUM 4.53 mmol/L (3.5-5.1); SODIUM 136.6 mmol/L (134.5-145); TOTAL PROTEIN 7.96 g/dL (6.3-8.2)
[2023-04-16] MEDS: FLAGYL 500 MG/100 ML 500 MG/100 ML BAG IV SCH ×4 (05:48→21:12)
[2023-04-16] MEDS: MECOBALAMIN 5000 MCG PO SCH (08:13)
[2023-04-16] MEDS: FLONASE NAS SCH (08:13)
[2023-04-16] MEDS: VITAMIN D PO SCH (08:14)
[2023-04-16] MEDS: NORVASC PO SCH (08:14)
[2023-04-16] MEDS: NORCO 5-325 PO SCH ×3 (08:14→20:30)
[2023-04-16] MEDS: NEURONTIN PO SCH ×2 (08:15→20:28)
[2023-04-16] MEDS: SINGULAIR PO SCH (08:15)
[2023-04-16] MEDS: OMEGA-3 FISH OIL PO SCH (08:15)
[2023-04-16] MEDS: LOVENOX SUBCUT SCH (08:16)
[2023-04-16] MEDS: K-DUR PO SCH (08:20)
[2023-04-16] MEDS: SODIUM CHLORIDE 1,000 ML IV SCH (08:38)
[2023-04-16] MEDS: PROTONIX PO SCH (08:41)
--- NOTE | 2023-04-16 09:08 | PCM ---
Date of Service Date Seen by Provider: 04/16/23 Time Seen by Provider: 08:30 Admit Day/Time Admission Date: 04/15/23 Reason for Admission Chief Complaint: PNEUMONIA Hospital Provider Hospital Provider: ESTRELLA ESCALANTE, [facility] Primary Care Physician Primary Care Physician: SARAH CANALES MD History of Present Illness History of Present Illness: 72 yo female presented to the ER with shortness of breath. Patient states that she has been sick for 3 weeks now. Saw MANAGER DEMAND at Dr. Salud Canales's office the week of March 28. She was diagnosed with pneumonia. Given rocephin and decadron in the office and prescriptions for levaquin and prednisone. States that she completed the course of antibiotics and got better for about a week and then started feeling bad again 1-2 days ago. States O2 sat was running in uppers 80s at home, was having chills and sweats. Unknown if she had a fever at home due to no thermometer. Has had a productive cough with white frothy sputum. O2 sat in ER was found to be around 90% and she was placed on 2L. States she wears 2L at bedtime for sleep but never any oxygen during the day. Patient was found to have right lower lobe pneumonia. Discussed with patient any difficulty swallowing or choking issues at home. Reports yes frequently. Denies any speech or swallow eval in past. Case Discussed With Case Discussed With: Patient's case was discussed with the ER Physicians, Dr. Melendez. [facility] Medical History Neuropathy G62.9 - Polyneuropathy, unspecified (ICD-10) Vitamin A deficiency E50.9 - Vitamin A deficiency, unspecified (ICD-10) COVID-19 U07.1 - COVID-19 (ICD-10) COVID-19 U07.1 - COVID-19 (ICD-10) Pinched nerve G58.9 - Mononeuropathy, unspecified (ICD-10) Breast prosthesis or implant fitting/adjustment Z44.30 - Encounter for fitting and adjustment of external breast prosthesis, unspecified breast (ICD-10) High cholesterol E78.00 - Pure hypercholesterolemia, unspecified (ICD-10) GERD (gastroesophageal reflux disease) K21.9 - Gastro-esophageal reflux disease without esophagitis (ICD-10) Asthma J45.909 - Unspecified asthma, uncomplicated (ICD-10) COPD (chronic obstructive pulmonary disease) J44.9 - Chronic obstructive pulmonary disease, unspecified (ICD-10) Pneumonia J18.9 - PNEUMONIA, UNSPECIFIED ORGANISM (ICD-10) Influenza B J10.1 - FLU DUE TO OTH IDENT INFLUENZA VIRUS W OTH RESP MANIFEST (ICD-10) Acute bronchitis J20.9 - ACUTE BRONCHITIS, UNSPECIFIED (ICD-10) Pneumonia J18.9 - PNEUMONIA, UNSPECIFIED ORGANISM (ICD-10) Acute respiratory failure J96.00 - ACUTE RESPIRATORY FAILURE, UNSP W HYPOXIA OR HYPERCAPNIA (ICD-10) Surgical History History of knee replacement left Z96.659 - Presence of unspecified artificial knee joint (ICD-10) Family History SISTER Stomach cancer Breast cancer FATHER Multiple myeloma Mother Lung cancer Breast cancer Social History Smoking and tobacco status: Former smoker Second hand smoke exposure: No Alcohol intake: never Substance use type: does not use Jojo/roman catholic: YARSANISM Special jojo needs: No Agree to transfusion: Yes Adopted: No Caregiver/support person: No Foster care: No Housing: house Marital status: W / Lives independently: Yes Number of children: 1 Financial difficulty paying for basics: not very hard service: No retirement: No Current occupational status: retired History of recent travel: No Current gender identity: female Seatbelt use: always Helmet use: No Drives intoxicated or rides with intoxicated package delivery driver: No Water heater temperature set < 120 degrees: Yes Working smoke detector in home: Yes Fire extinguisher in home: Yes Carbon monoxide detector in home: Yes Allergies Allergies Allergy/AdvReac Type Severity Reaction Status Date / Time codeine AdvReac Severe UNCONSCIOUS Verified 04/15/23 13:57 amoxicillin [Amoxicillin] AdvReac Intermediate Itching Verified 04/15/23 13:57 ampicillin AdvReac Intermediate Itching Verified 04/15/23 13:57 atorvastatin calcium AdvReac Intermediate Swelling Verified 04/15/23 13:57 [From Lipitor] OF TONGUE AND THROAT azithromycin [From Zithromax] AdvReac Intermediate Itching Verified 04/15/23 13:57 clarithromycin [From Biaxin] AdvReac Intermediate Itching Verified 04/15/23 13:57 clavulanic acid AdvReac Intermediate Itching Verified 04/15/23 13:57 [From Augmentin] erythromycin base AdvReac Intermediate Itching Verified 04/15/23 13:57 [Erythromycin Base] Iodinated Contrast Media AdvReac Intermediate Itching Verified 04/15/23 13:57 [Iodinated Contrast Media - IV Dye] loratadine [From Claritin] AdvReac Intermediate Itching Verified 04/15/23 13:57 Macrolide Antibiotics AdvReac Intermediate Itching Verified 04/15/23 13:57 minocycline AdvReac Intermediate Itching Verified 04/15/23 13:57 Penicillins AdvReac Intermediate ITCHING Verified 04/15/23 13:57 AND RASH pravastatin AdvReac Intermediate SWELLING Verified 04/15/23 13:57 OF TONGUE AND THROAT rosuvastatin calcium AdvReac Intermediate SWELLING Verified 04/15/23 13:57 [From Crestor] OF TONGUE AND THROAT simvastatin AdvReac Intermediate SWELLING Verified 04/15/23 13:57 OF TONGUE AND THROAT Tetracyclines AdvReac Intermediate Itching Verified 04/15/23 13:57 levofloxacin [From Levaquin] AdvReac Mild Itching, Verified 04/15/23 13:57 CAN TAKE WITH PREDNISONE Current Medications Home Medications hydrocodone 5 mg-acetaminophen 325 mg tablet 1 tab PO TID Pain 07/03/22 [History Confirmed 04/15/23 Last Taken Unknown] gabapentin 300 mg capsule 100 mg PO BID 10/14/22 [History Confirmed 04/15/23 Last Taken Unknown] albuterol sulfate 90 mcg/actuation aerosol inhaler 2 puff inhalation Q6H PRN bronchospasm #6.7 grams 12/12/22 [Rx Confirmed 04/15/23 Last Taken Unknown] fluticasone propionate 50 mcg/actuation nasal spray,suspension 1 spray intranasal DAILY #16 grams 12/12/22 [Rx Confirmed 04/15/23 Last Taken Unknown] montelukast 10 mg tablet (Singulair) 10 mg PO QDAY #90 tabs 12/12/22 [Rx Confirmed 04/15/23 Last Taken Unknown] cholecalciferol (vitamin D3) 50 mcg (2,000 unit) capsule 50 mcg PO QDAY 02/04/23 [History Confirmed 04/15/23 Last Taken Unknown] simethicone 80 mg chewable tablet (Gas Relief (simethicone)) 80 mg PO TID-QID PRN abdominal distention #120 tabs 02/04/23 [Rx Confirmed 04/15/23 Last Taken Unknown] levothyroxine 50 mcg tablet See Rx Instructions .Route .COMPLEX #30 tabs 02/27/23 [Rx Confirmed 04/15/23 Last Taken Unknown] pantoprazole 40 mg tablet,delayed release See Rx Instructions .Route .COMPLEX #30 tabs 02/27/23 [Rx Confirmed 04/15/23 Last Taken Unknown] promethazine-DM 6.25 mg-15 mg/5 mL oral syrup 5 ml PO Q4-6H PRN cough #118 mL 03/25/23 [Rx Confirmed 04/15/23 Last Taken Unknown] amlodipine 5 mg tablet See Rx Instructions .Route .COMPLEX #30 tabs 04/02/23 [Rx Confirmed 04/15/23 Last Taken Unknown] potassium chloride 20 mEq tablet,extended release(part/cryst) See Rx Instructions .Route .COMPLEX #30 ea 04/02/23 [Rx Confirmed 04/15/23 Last Taken Unknown] ipratropium 0.5 mg-albuterol 3 mg (2.5 mg base)/3 mL nebulization soln 3 ml inhalation Q4-6H PRN shortness of breath or wheezing [id number] #180 mL 04/09/23 [Rx Confirmed 04/15/23 Last Taken Unknown] prednisone 10 mg tablet 10 mg PO BID #10 tabs 04/09/23 [Rx Confirmed 04/15/23 Last Taken Unknown] mecobalamin (vitamin B12) 5,000 mcg chewable tablet 5,000 mcg PO DAILY 04/15/23 [History Confirmed 04/15/23 Last Taken Unknown] omega 2-knk-ouw-fish oil 1,200 mg (144 mg-216 mg) capsule (Fish Oil) 1 cap PO DAILY 04/15/23 [History Confirmed 04/15/23 Last Taken Unknown] Home Acetaminophen (Acetaminophen 325 Mg Tablet) 650 mg PO Q4H PRN PRN Reason: Mild Pain Hydrocodone Bitart/Acetaminophen (Hydrocodone Bit/Acetaminophen 5/325 Mg Tablet) 1 tab PO TID GUCCI Last Admin: 04/16/23 08:14 Dose: 1 tab Albuterol Sulfate (Albuterol Sulfate 0.083% Vial.Neb) 2.5 mg NEB RTQID PRN PRN Reason: Wheezing Albuterol Sulfate (Albuterol Sulfate 8 Gm Inhaler) 2 puff IH Q6H PRN PRN Reason: Wheezing Albuterol/Ipratropium (Ipratropium/Albuterol Vial.Neb) 3 ml NEB RTQ6H [facility] Last Admin: 04/16/23 05:04 Dose: 3 ml Amlodipine Besylate (Amlodipine Besylate 5 Mg Tablet) 5 mg PO DAILY [facility] Last Admin: 04/16/23 08:14 Dose: 5 mg Cholecalciferol (Cholecalciferol (Vitamin D3) 1,000 Unit (25 Mcg) Tablet) 2,000 unit PO DAILY [facility] Last Admin: 04/16/23 08:14 Dose: 2,000 unit Enoxaparin Sodium (Enoxaparin Sodium 40 Mg/0.4 Ml Syr) 40 mg SUBCUT DAILY [facility] Last Admin: 04/16/23 08:16 Dose: 40 mg Fish Oil (Anderson-3/Dha/Epa/Fish Oil 1,000 Mg Capsule) 1,000 mg PO DAILY [facility] Last Admin: 04/16/23 08:15 Dose: 1,000 mg Fluticasone Propionate (Fluticasone Propionate 16 Gm Nasal [place]) 1 spray [place] DAILY [facility] Last Admin: 04/16/23 08:13 Dose: 1 spray Gabapentin (Gabapentin 100 Mg Capsule) 100 mg PO BID [facility] Last Admin: 04/16/23 08:15 Dose: 100 mg Clindamycin Phosphate (Cleocin 600 Mg/50 Ml D5w) 600 mg in 50 mls @ 75 mls/hr IV Q8HR [facility] Last Admin: 04/16/23 05:01 Dose: 75 mls/hr Metronidazole (Flagyl 500 Mg/100 Ml) 500 mg in 100 mls @ 100 mls/hr IV Q8HR [facility] Stop: 04/19/23 12:59 Levothyroxine Sodium (Levothyroxine Sodium 50 Mcg Tablet) 50 mcg PO QDAC2 [facility] Last Admin: 04/16/23 05:01 Dose: 50 mcg Methylprednisolone Sodium Succinate (Methylprednisolone Sod Succ/Pf 40 Mg/Ml Vial) 40 mg IVP Q8H [facility] Last Admin: 04/16/23 08:41 Dose: 40 mg Montelukast Sodium (Montelukast Sodium 10 Mg Tablet) 10 mg PO DAILY [facility] Last Admin: 04/16/23 08:15 Dose: 10 mg Non-Formulary Medication (Mecobalamin (Vitamin B12)) 5,000 mcg PO DAILY [facility] Last Admin: 04/16/23 08:13 Dose: 5,000 mcg Pantoprazole Sodium (Pantoprazole Sodium 40 Mg Tablet.Dr) 40 mg PO QDAC2 [facility] Last Admin: 04/16/23 08:41 Dose: 40 mg Potassium Chloride (Potassium Chloride 20 Meq Tab) 20 meq PO DAILYWM2 [facility] Last Admin: 04/16/23 08:20 Dose: 20 meq Simethicone (Simethicone 80 Mg Tab.Chew) 80 mg PO 3-4XD PRN PRN Reason: Gas Sodium Chloride (0.9% Sodium Chloride 10 Ml Disp.Syrin) 1 syr IVF PRN PRN PRN Reason: To flush IV Discontinued Medications Albuterol Sulfate (Albuterol Sulfate 0.083% Vial.Neb) 2.5 mg NEB ONCE ONE Stop: 04/15/23 16:36 Last Admin: 04/15/23 16:40 Dose: 2.5 mg Sodium Chloride (Sodium Chloride) 1,000 mls @ 75 mls/hr IV .[id number] [facility] Last Infusion: 04/16/23 08:39 Dose: Infused Piperacillin Sod/Tazobactam (Sod 3.375 gm/ Sodium Chloride) 100 mls @ 200 mls/hr IV ONCE ONE Stop: 04/15/23 17:13 Last Admin: 04/15/23 17:14 Dose: Not Given Metronidazole (Flagyl 500 Mg/100 Ml) 500 mg in 100 mls @ 100 mls/hr IV ONCE ONE Stop: 04/15/23 17:45 Last Admin: 04/15/23 17:21 Dose: 100 mls/hr Metronidazole (Flagyl 500 Mg/100 Ml) 500 mg in 100 mls @ 100 mls/hr IV Q12HR [facility] Stop: 04/19/23 04:59 Last Admin: 04/16/23 08:38 Dose: Not Given Opioid Naive vs. Tolerant Does Patient Take Opioids?: Yes Is Patient Opioid Naive?: No What is Opioid Naive?: *Opioid Naive implies the patient is not already taking opioids or not chronically receiving opioids on a daily basis. *PRN dosing is not "usually" associated with tolerance. *Patients are at higher risk of over-sedation and aspiration. Is Patient Opioid Tolerant?: No What is Opioid Tolerant?: *Opioid Tolerance implies less than the expected response to an opioid. *Acquired tolerance is defined by the patient taking 60mg of oral morphine daily (or equianalgesic dose of another opioid) for 1 week or more. *Often associated with chronic pain. *May take more than usual dose to achieve desired pain control. Review of Systems Constitutional: Reports Fever, Chills and Weakness Head: Reports Normocephalic Eyes: Reports No symptoms Ears: Reports No symptoms Nose: Reports No symptoms Mouth: Reports No symptoms Throat: Reports No symptoms Cardiovascular: Reports No symptoms Respiratory: Reports Cough (white frothy sputum) and Shortness of air Gastrointestinal: Reports No symptoms Genitourinary: Reports No Symptoms Musculoskeletal: Reports No symptoms Endocrine: Reports No symptoms Hematology: Reports No symptoms Immunology: Reports No symptoms Neurological: Reports No symptoms Psychiatric: Reports No symptoms Physical examination Most Recent Vital Signs: Most Recent Vital Signs Temperature 97.8 F 04/16/23 05:18 Temperature Source Temporal Artery Scan 04/16/23 05:18 Temperature Source Infrared 04/15/23 13:41 Pulse Rate 73 04/16/23 05:18 Respiratory Rate 17 04/16/23 05:18 Blood Pressure 156/72 H 04/16/23 05:18 Blood Pressure Mean 100 04/16/23 05:18 Blood Pressure Left Arm 140/62 04/15/23 17:39 Blood Pressure Location Left Arm 04/16/23 05:18 Blood Pressure Position Supine 04/16/23 05:18 O2 Sat by Pulse Oximetry 98 04/16/23 05:18 Oxygen Delivery Method Nasal Cannula 04/16/23 08:46 Oxygen Flow Rate 2 04/16/23 05:18 Height 5 ft 4 in 04/16/23 08:12 Weight 366 lb 04/16/23 08:12 Telemetry Type Remote Telemetry 04/16/23 06:58 Telemetry Monitoring Continues 04/16/23 06:58 Telemetry Heart Rate 84 04/16/23 06:58 Telemetry SPO2 94 04/16/23 06:58 EKG UT Interval 0.18 04/16/23 06:58 EKG QRS Interval 0.06 04/16/23 06:58 Telemetry Strip Reading SR 04/16/23 06:58 Appearance: Positive No Apparent Distress, Alert and Oriented x3 and Obese Skin: Positive Warm and Good Color HEENT: Positive Normocephalic and PERRLA Neck: Positive Supple and Midline Trachea Chest/Lungs: Positive Symmetrical With Equal Breath Sounds, Rhonci (Right lung base) and Good Air Movement all 4 Lung Hamm Heart: Positive RRR and Pulses Normal GI/: Positive Soft, Nontender, Bowel Sounds Normal and No Distention Musculoskeletal: Positive Not Examined Extremities: Positive Good ROM in All Joints Neurological: Positive Sensation Intact, Motor intact, Reflexes Intact, Alert, Oriented and Muscle Strength 5/5 in Upper and Lower Extremities Bilaterally Psychiatric: Positive Oriented x4, Appropriate Mood, Appropriate Affect, Intact Memory, Good Short-Term Recall, Good Long-Term Recall, Normal Judgement and Normal Insight Labs This Visit Labs This Visit: Labs This Visit 04/15/23 04/15/23 04/16/23 13:55 14:00 05:00 WBC 22.12 H 17.19 H RBC 4.35 4.11 L Hgb 12.3 11.6 L Hct 39.5 37.5 MCV 90.8 91.2 MCH 28.3 28.2 MCHC 31.1 L 30.9 L RDW Coeff of Marj 13.5 13.4 Plt Count 250 213 Immature Gran % (Auto) 0.8 0.7 Neut % (Auto) 77.2 H 91.9 H Lymph % (Auto) 14.1 5.6 L [place] % (Auto) 7.5 1.7 Eos % (Auto) 0.2 0.0 Baso % (Auto) 0.2 0.1 Neut # (Auto) 17.1 H 15.8 H Lymph # (Auto) 3.1 1.0 [place] # (Auto) 1.7 0.3 L Eos # (Auto) 0.0 0.0 Baso # (Auto) 0.1 0.0 Immature Gran # (Auto) 0.2 0.1 Sodium 137.1 136.6 Potassium 4.21 4.53 Chloride 104.6 106.7 Carbon Dioxide 25.2 22.8 Anion Gap 11.51 11.63 BUN 40.9 H 28.6 H Creatinine 1.04 0.68 Estimated GFR (MDRD) 52.00 85.00 BUN/Creatinine Ratio 39.32 42.05 Glucose 151.1 H 201.8 H D Calcium 9.08 8.94 Total Bilirubin 0.59 0.48 AST 20.3 16.9 ALT 18.3 16.7 Alkaline Phosphatase 111.1 90.8 NT-Pro-B Natriuret Pep 295 H Total Protein 8.23 H 7.96 Albumin 3.98 3.73 Globulin 4.25 4.23 Albumin/Globulin Ratio 0.93 0.88 Influ A Molecular Assay Negative by naat Influ B Molecular Assay Negative by naat SARS CoV-2 RNA Rapid PATRICIA Negative Imaging Imaging: EXAM: FRONTAL VIEW OF THE CHEST. HISTORY: Cough and congestion. COMPARISON: Chest radiograph 07/03/2022. FINDINGS: Atherosclerotic calcifications of the aorta. Normal heart size. Patchy ground-glass opacities at the right lung base. No visible pleural effusion or pneumothorax. No acute osseous abnormality. Degenerative changes of the spine and shoulders. IMPRESSION: Right basilar opacities suspicious for aspiration or pneumonia. Atherosclerosis. Review Statement Review Statement: I have independently reviewed and interpreted the labs/EKGs/imaging that were ordered by the ER provider. I have reviewed all outside records that are available currently in our EMR including imaging/notes/labs from previous visits. Plan Plan: 1. Acute Hypoxic Respiratory Failure in the setting of R lower lobe pneumonia concern for aspiration - wean to home oxygen requirements, steroids, nebs, abx 2. Right lower lobe pneumonia concern for aspiration - clindamycin and flagyl for abx coverage due to multiple drug allergies, nebs, steroids, speech eval if able to complete during stay 3. Dehydration - mild, received IVF overnight. BUN at baseline. D/c fluids this am 4. Hypertension - chronic, continue home medications 5. Dyslipidemia - chronic, continue home medications 6. Sleep apnea - wears 2L O2 at bedtime DVT Prophylaxis: Lovenox Time Spent: Greater than 80 minutes spent with patient, 50% of the time spent with this patient was devoted to counseling and coordination of care. [facility] minutes spent discussing advance care planning. Disposition: Admit to: Med/surg Observation Discussed Plan of Care with Dr. Eron Canales. Medications Medication Orders: Medications Ordered Category Date Time Status 0.9 % Sodium Chloride [Saline Flush] Meds 04/15/23 14:19 Active 1 syr IVF PRN PRN Acetaminophen [Tylenol] Meds 04/15/23 16:34 Active 650 mg PO Q4H PRN Albuterol Sulfate 0.083% Neb [Albuterol 0.083% Neb] Meds 04/15/23 16:38 Active 2.5 mg NEB RTQID PRN Albuterol Sulfate [Ventolin Hfa] Meds 04/15/23 18:07 Active 2 puff IH Q6H PRN Amlodipine Besylate [Norvasc] Meds 04/16/23 09:00 Active 5 mg PO DAILY Cholecalciferol (Vitamin D3) [Vitamin D] Meds 04/16/23 09:00 Active 2,000 unit PO DAILY Clindamycin Phosphate/D5w [Cleocin 600 mg/50 ml D5w] Meds 04/15/23 21:00 Active 600 mg in 50 ml IV Q8HR Enoxaparin Sodium [Lovenox] Meds 04/16/23 09:00 Active 40 mg SUBCUT DAILY Fluticasone Propionate [Flonase] Meds 04/16/23 09:00 Active 1 spray [place] DAILY Gabapentin [Neurontin] Meds 04/15/23 21:00 Active 100 mg PO BID Hydrocodone Bit/Acetaminophen [[place] 5-325] Meds 04/15/23 21:00 Active 1 tab PO TID Ipratropium/Albuterol Neb [Duoneb] Meds 04/15/23 18:00 Active 3 ml NEB RTQ6H Levothyroxine Sodium [Synthroid] Meds 04/16/23 06:00 Active 50 mcg PO QDAC2 Methylprednisolone Sod Succ/Pf [Solu-Medrol 40 mg] Meds 04/15/23 17:00 Active 40 mg IVP Q8H Metronidazole/Sodium Chloride [Flagyl 500 mg/100 ml] Meds 04/16/23 13:00 Active 500 mg in 100 ml IV Q8HR Montelukast Sodium [Singulair] Meds 04/16/23 09:00 Active 10 mg PO DAILY Anderson-3/Dha/Epa/Fish Oil [Anderson-3 Fish Oil] Meds 04/16/23 09:00 Active 1,000 mg PO DAILY Pantoprazole Sodium [Protonix] Meds 04/16/23 09:00 Active 40 mg PO QDAC2 Potassium Chloride [K-Dur] Meds 04/16/23 07:30 Active 20 meq PO DAILYWM2 Simethicone [Mylicon] Meds 04/15/23 18:07 Active 80 mg PO 3-4XD PRN mecobalamin (vitamin B12) Meds 04/16/23 09:00 Active 5,000 mcg PO DAILY
[2023-04-16] MEDS: CARAFATE PO SCH ×2 (16:05→20:28)
[2023-04-16 17:48] VITALS: RESP 20
[2023-04-17] MEDS: SOLU-MEDROL 40 MG IVP SCH ×2 (00:43→08:36)
[2023-04-17] MEDS: DUONEB NEB SCH (04:51)
[2023-04-17 05:11] LABS: BASOPHILS % (AUTO) 0.1 % (0.0-3.0); HEMOGLOBIN 11.7 g/dl (12.0-16.0); IMMATURE GRANULOCYTE # (AUTO) 0.3 (0.0-1.0); IMMATURE GRANULOCYTE % (AUTO) 1.5 % (0.0-5.0); LYMPHOCYTES # (AUTO) 0.8 K/uL (0.60-3.4); LYMPHOCYTES % (AUTO) 4.2 (10.0-50.0); MEAN CORPUSCULAR HEMOGLOBIN 28.3 pg (27.0-31.0); MEAN CORPUSCULAR HGB CONC 30.8 (31.8-35.4); MEAN CORPUSCULAR VOLUME 91.8 fl (81.0-99.0); MONOCYTES % (AUTO) 5.1 (0-10); NEUTROPHILS # (AUTO) 17.3 K/ul (2.0-6.9); NEUTROPHILS % (AUTO) 89.1 % (42.2-75.2); PLATELET COUNT 227 10^3/uL (140-440); RDW COEFFICIENT OF VARIATION 13.5 % (11.6-14.8); RED BLOOD COUNT 4.14 10^6/ul (4.20-5.40); WHITE BLOOD COUNT 19.36 K/ul (4.6-10.2)
[2023-04-17] MEDS: CARAFATE PO SCH (05:11)
[2023-04-17] MEDS: SYNTHROID PO SCH (05:11)
[2023-04-17] MEDS: PROTONIX PO SCH (05:12)
[2023-04-17] MEDS: CLEOCIN 600 MG/50 ML D5W 600 MG/50 ML BAG IV SCH (05:12)
[2023-04-17 05:15] VITALS: BP 156/66; PULSE 75; TEMP 97.3
[2023-04-17 05:21] LABS: ALANINE AMINOTRANSFERASE 17.4 U/L (0-35); ALBUMIN 3.72 g/dL (3.5-5.0); ASPARTATE AMINO TRANSFERASE 15.8 U/L (14-36); BILIRUBIN,TOTAL 0.19 mg/dL (0.2-1.3); BLOOD UREA NITROGEN 28.8 mg/dL (7-17); CALCIUM 9.09 mg/dL (8.4-10.2); CARBON DIOXIDE 24.7 mmol/L (22-30.0); CHLORIDE 104.6 mmol/L (98-107); CREATININE 0.73 mg/dL (0.60-1.30); GLUCOSE 334.9 mg/dL (74-106); POTASSIUM 4.97 mmol/L (3.5-5.1); SODIUM 135.5 mmol/L (134.5-145); TOTAL PROTEIN 7.82 g/dL (6.3-8.2)
[2023-04-17] MEDS: FLAGYL 500 MG/100 ML 500 MG/100 ML BAG IV SCH (05:59)
[2023-04-17] MEDS: K-DUR PO SCH (07:13)
[2023-04-17] MEDS ORDERED: MIRALAX PO PRN (08:22)
[2023-04-17] MEDS: NORCO 5-325 PO SCH (08:33)
[2023-04-17] MEDS: FLONASE NAS SCH (08:33)
[2023-04-17] MEDS: NEURONTIN PO SCH (08:34)
[2023-04-17] MEDS: MECOBALAMIN 5000 MCG PO SCH (08:34)
[2023-04-17] MEDS: NORVASC PO SCH (08:34)
[2023-04-17] MEDS: SINGULAIR PO SCH (08:35)
[2023-04-17] MEDS: VITAMIN D PO SCH (08:35)
[2023-04-17] MEDS: OMEGA-3 FISH OIL PO SCH (08:35)
[2023-04-17] MEDS: LOVENOX SUBCUT SCH (08:37)
--- NOTE | 2023-04-17 09:01 | DCSUM ---
Admission Date Admission Date: 04/15/23 Discharge Date Discharge Date: 04/17/23 Admission Diagnosis Admission Diagnosis: 1. Acute Hypoxic Respiratory Failure in the setting of R lower lobe pneumonia concern for aspiration 2. Right lower lobe pneumonia concern for aspiration 3. Dehydration 4. Hypertension 5. Dyslipidemia 6. Sleep apnea Discharge Diagnosis Discharge Diagnosis: 1. Acute Hypoxic Respiratory Failure in the setting of R lower lobe pneumonia concern for aspiration - Resolved, wears O2 at home 2. Right lower lobe pneumonia concern for aspiration - Improving 3. Dehydration - Resolved 4. Hypertension - chronic, stable 5. Dyslipidemia - chronic, stable 6. Sleep apnea - chronic, stable Hospital Provider Hospital Provider[facility] Primary Care Physician: SARAH CANALES MD Summary of History and Physical Summary of History and Physical: 72 yo female presented to the ER with shortness of breath. Patient states that she has been sick for 3 weeks now. Saw APPLE PICKER at Dr. Salud Canales's office the week of March 28. She was diagnosed with pneumonia. Given rocephin and decadron in the office and prescriptions for levaquin and prednisone. States that she completed the course of antibiotics and got better for about a week and then started feeling bad again 1-2 days ago. States O2 sat was running in uppers 80s at home, was having chills and sweats. Unknown if she had a fever at home due to no thermometer. Has had a productive cough with white frothy sputum. O2 sat in ER was found to be around 90% and she was placed on 2L. States she wears 2L at bedtime for sleep but never any oxygen during the day. Patient was found to have right lower lobe pneumonia. Discussed with patient any difficulty swallowing or choking issues at home. Reports yes frequently. Denies any speech or swallow eval in past. Hospital Course Subjective: During stay patient has received clindamycin and flagyl for antibiotic coverage for right lower lobe pneumonia. Speech evaluated patient yesterday and reported no concerns for aspiration. Patient has issues with GERD and has frequent belching and gas. She was started on carafate in addition to her protonix and patient reports medication helped significantly with dinner and breakfast this am. She has maintained adequate O2 saturation on 2L and was able to be weaned off yesterday afternoon but prefers to wear it. Patient has home oxygen that she is able to use during this time as well as nebulizer treatments. She has been receiving steroids during stay as well. All home medications continued and no changes made. Appearance: Pleasant, No Apparent Distress and Alert HEENT: MMM and Supple CVS: No Murmur Abdomen: Soft, Non-Tender and No Distention Respiratory: No Dyspnea Extremities: No Edema Vital Signs: Most Recent Vital Signs Temperature 97.3 F L 04/17/23 05:14 Temperature Source Oral 04/17/23 05:14 Temperature Source Infrared 04/15/23 13:41 Pulse Rate 75 04/17/23 05:14 Respiratory Rate 20 04/17/23 05:14 Blood Pressure 156/66 H 04/17/23 05:14 Blood Pressure Mean 96 04/17/23 05:14 Blood Pressure Left Arm 140/62 04/15/23 17:39 Blood Pressure Location Left Arm 04/17/23 05:14 Blood Pressure Position Supine 04/17/23 05:14 O2 Sat by Pulse Oximetry 93 L 04/17/23 05:14 Oxygen Delivery Method Nasal Cannula 04/17/23 08:00 Oxygen Flow Rate 2 04/17/23 05:14 Height 5 ft 4 in 04/16/23 08:12 Weight 366 lb 04/16/23 08:12 Telemetry Type Remote Telemetry 04/17/23 07:00 Telemetry Monitoring Continues 04/17/23 07:00 Telemetry Heart Rate 68 04/17/23 07:00 Telemetry SPO2 96 04/17/23 07:00 EKG NC Interval 0.15 04/17/23 07:00 EKG QRS Interval 0.14 H 04/17/23 07:00 Telemetry Strip Reading SR w/BBB 04/17/23 07:00 Lab Results Last 24 Hours: 04/17/23 05:00 WBC 19.36 H RBC 4.14 L Hgb 11.7 L Hct 38.0 MCV 91.8 MCH 28.3 MCHC 30.8 L RDW Coeff of Marj 13.5 Plt Count 227 Immature Gran % (Auto) 1.5 Neut % (Auto) 89.1 H Lymph % (Auto) 4.2 L [place] % (Auto) 5.1 Eos % (Auto) 0.0 Baso % (Auto) 0.1 Neut # (Auto) 17.3 H Lymph # (Auto) 0.8 [place] # (Auto) 1.0 Eos # (Auto) 0.0 Baso # (Auto) 0.0 Immature Gran # (Auto) 0.3 Sodium 135.5 Potassium 4.97 Chloride 104.6 Carbon Dioxide 24.7 Anion Gap 11.17 BUN 28.8 H Creatinine 0.73 Estimated GFR (MDRD) 78.00 BUN/Creatinine Ratio 39.45 Glucose 334.9 H D Calcium 9.09 Total Bilirubin 0.19 L AST 15.8 ALT 17.4 Alkaline Phosphatase 119.0 D Total Protein 7.82 Albumin 3.72 Globulin 4.10 Albumin/Globulin Ratio 0.90 Discharge Instructions Discharge Planning: Discharge Planning > 40 minutes If patient is discharged with left ventricular systolic dysfunction: NA Discharged with a beta haritha? [] If no, why not? [] Discharged with an sebastian/arb? [] If no, why not? [] DX: ACUTE HYPOXIC RESPIRATORY FAILURE IN THE SETTING OF RIGHT UPPER LOBE PNEUMONIA REGULAR DIET ACTIVITY TOLERATED FOLLOW UP WITH PCP NEXT WEEK Discharge Medications: Medications at Discharge (Home Meds & RX) hydrocodone 5 mg-acetaminophen 325 mg tablet 1 tab PO TID Pain 07/03/22 gabapentin 300 mg capsule 100 mg PO BID 10/14/22 albuterol sulfate 90 mcg/actuation aerosol inhaler 2 puff inhalation Q6H PRN bronchospasm #6.7 grams 12/12/22 fluticasone propionate 50 mcg/actuation nasal spray,suspension 1 spray intranasal DAILY #16 grams 12/12/22 montelukast 10 mg tablet (Singulair) 10 mg PO QDAY #90 tabs 12/12/22 cholecalciferol (vitamin D3) 50 mcg (2,000 unit) capsule 50 mcg PO QDAY 02/04/23 simethicone 80 mg chewable tablet (Gas Relief (simethicone)) 80 mg PO TID-QID PRN abdominal distention #120 tabs 02/04/23 levothyroxine 50 mcg tablet See Rx Instructions .Route .COMPLEX #30 tabs 02/27/23 pantoprazole 40 mg tablet,delayed release See Rx Instructions .Route .COMPLEX #30 tabs 02/27/23 promethazine-DM 6.25 mg-15 mg/5 mL oral syrup 5 ml PO Q4-6H PRN cough #118 mL 03/25/23 amlodipine 5 mg tablet See Rx Instructions .Route .COMPLEX #30 tabs 04/02/23 potassium chloride 20 mEq tablet,extended release(part/cryst) See Rx Instructions .Route .COMPLEX #30 ea 04/02/23 ipratropium 0.5 mg-albuterol 3 mg (2.5 mg base)/3 mL nebulization soln 3 ml inhalation Q4-6H PRN shortness of breath or wheezing [id number] #180 mL 04/09/23 mecobalamin (vitamin B12) 5,000 mcg chewable tablet 5,000 mcg PO DAILY 04/15/23 omega 5-tbs-nit-fish oil 1,200 mg (144 mg-216 mg) capsule (Fish Oil) 1 cap PO DAILY 04/15/23 clindamycin HCl 150 mg capsule 150 mg PO TID #21 caps 04/17/23 methylprednisolone 4 mg tablets in a dose pack (Medrol (Chandan)) See Rx Instructions PO .COMPLEX #21 ea 04/17/23 sucralfate 1 gram tablet 1 g PO ACHS2 #120 tabs 04/17/23 Discharge Plan Discharge Discharge Orders: Discharge Patient (ONCE); Ordered 04/17/23 Ordered By: DEVON COKER Activity Restrictions/Additional Instructions: GERD diet - avoid spicy/acidic foods Activity as tolerated Follow-up with PCP next week Medications: Clindamycin 150 mg three times a day x 7 days - antibiotic Medrol dose pack - take as directed until complete - steroid Carafate 1gm take with meals and at bedtime for acid reflux Continue to use prescribed nebulizer treatments at home. Instructions: Pneumonia (GEN) Patient Disposition: HOME WITH FAMILY CARE Prescriptions: New sucralfate 1 gram Tablet 1 g PO ACHS2 Qty: 120 0RF clindamycin HCl 150 mg capsule 150 mg PO TID Qty: 21 0RF methylprednisolone [Medrol (Chandan)] 4 mg tablets,dose pack See Rx Instructions .ROUTE .COMPLEX Qty: 21 0RF Rx Instructions: orally per package directions Continued pantoprazole 40 mg tablet,delayed release (DR/EC) See Rx Instructions .ROUTE .COMPLEX Qty: 30 2RF Dose Instruction: TAKE ONE TABLET DAILY Rx Instructions: TAKE ONE TABLET DAILY levothyroxine 50 mcg tablet See Rx Instructions .ROUTE .COMPLEX Qty: 30 2RF Dose Instruction: TAKE ONE TABLET DAILY Rx Instructions: TAKE ONE TABLET DAILY amlodipine 5 mg tablet See Rx Instructions .ROUTE .COMPLEX Qty: 30 2RF Dose Instruction: TAKE ONE TABLET DAILY Rx Instructions: TAKE ONE TABLET DAILY potassium chloride 20 mEq tablet,ER particles/crystals See Rx Instructions .ROUTE .COMPLEX Qty: 30 2RF Dose Instruction: TAKE ONE TABLET DAILY Rx Instructions: TAKE ONE TABLET DAILY ipratropium-albuterol 0.5 mg-3 mg(2.5 mg base)/3 mL solution for nebulization 3 ml inhalation Q4-6H PRN (Reason: shortness of breath or wheezing [id number]) Qty: 180 2RF omega 5-rwp-jvz-fish oil [Fish Oil] 1,200 (144-216) mg capsule 1 cap PO DAILY mecobalamin (vitamin B12) 5,000 mcg tablet,chewable 5,000 mcg PO DAILY hydrocodone-acetaminophen 5-325 mg tablet 1 tab PO TID Patient Comments: Dr. Deshpande - Pain Management gabapentin 300 mg capsule 100 mg PO BID albuterol sulfate 90 mcg/actuation HFA aerosol inhaler 2 puff inhalation Q6H PRN (Reason: bronchospasm) Qty: 6.7 0RF fluticasone propionate 50 mcg/actuation spray,suspension 1 spray INTRANASAL DAILY Qty: 16 1RF Rx Instructions: 1 SPRAY SRI EACH NARE DAILY. montelukast [Singulair] 10 mg tablet 10 mg PO QDAY Qty: 90 1RF cholecalciferol (vitamin D3) 50 mcg (2,000 unit) capsule 50 mcg PO QDAY simethicone [Gas Relief (simethicone)] 80 mg tablet,chewable 80 mg PO TID-QID PRN (Reason: abdominal distention) Qty: 120 0RF promethazine-DM 6.25-15 mg/5 mL syrup 5 ml PO Q4-6H PRN (Reason: cough) Qty: 118 0RF Discontinued prednisone 10 mg tablet 10 mg PO BID Qty: 10 0RF Did you review [place] [employer] COORD[employer] for ALL controlled substances?: No Discussed opioids are addictive and Narcan is available by prescription or from pharmacy.: No Condition: Stable
== END 2023-04-17 09:23 | disposition home or self-care (01) ==
LOC: MEDSURG B 13:35 → ED 13:35 → MEDSURG B 17:30
PROVIDERS: ADMIT Hospitalist; ATTEND Nurse Practitioner Family
DX: Z99.81 Dependence on supplemental oxygen; E86.0 Dehydration; J96.01 Acute respiratory failure with hypoxia; G47.33 Obstructive sleep apnea (adult) (pediatric); J18.9 Pneumonia, unspecified organism; I10 Essential (primary) hypertension; E78.5 Hyperlipidemia, unspecified; Z20.822 Contact with and (suspected) exposure to COVID-19; E66.01 Morbid (severe) obesity due to excess calories; I70.0 Atherosclerosis of aorta